=== PATIENT | female | born 1960 | race Caucasian/White ===

== ENCOUNTER 2021-07-24 12:03 | Emergency (ER) | payer OTHER, SELFPAY ==
--- NOTE | ~2021-07-24 | XR_ITS ---
XR chest 1V portable 07/24/2021 12:20 Indication: Chest pain Procedure: AP portable chest Comparison: No prior studies for comparison. Findings: Moderate cardiomegaly. There is left perihilar atelectasis. No focal pneumonia, edema, pleu ral effusion or pneumothorax. Impression: 1: Left perihilar atelectasis. 2: Moderate cardiomegaly. Reviewed, dictated and finalized at location B. Impression: 1: Left perihilar atelectasis. 2: Moderate cardiomegaly.
[2021-07-24 11:59] VITALS: BP 153/74; PULSE 66; RESP 17; TEMP 36.8; O2SAT 97
--- NOTE | 2021-07-24 12:05 | ECG_ITS ---
Measurements Intervals [place] Rate: 70 P: 46 WA: 186 QRS: -30 QRSD: 185 T: 125 QT: 456 QTc: 494 Interpretive Statements SINUS RHYTHM WITH OCCASIONAL SUPRAVENTRICULAR PREMATURE COMPLEXES POSSIBLE LEFT ATRIAL ENLARGEMENT [-0.1mV P-WAVE IN V1/V2] LEFT BUNDLE BRANCH BLOCK [120+ ms QRS DURATION, 80+ ms Q/S IN V1/V2, 85+ ms R IN I/aVL/V5/V6] WARNING: DATA QUALITY MAY AFFECT INTERPRETATION NO PREVIOUS ECG AVAILABLE FOR COMPARISON Electronically Signed On 07-24-2021 22:13:16 CDT by Peace Murphy M.D.
[2021-07-24] MEDS: MORPHINE SULFATE (*CRX) 4 MG/ML INJ IV PUSH (12:13)
[2021-07-24] MEDS: ONDANSETRON INJ 4 MG/2 ML VIAL IV PUSH (12:13)
--- NOTE | 2021-07-24 12:25 | ED.CHESTPAIN ---
HPI - Chest Pain General Chief Complaint: Chest Pain Stated Complaint: stemi ?? Time Seen by Provider: 07/24/21 12:04 Source: patient, EMS and RN notes reviewed Mode of arrival: EMS Limitations: no limitations History of Present Illness HPI narrative: This is a 60 year old female with history of hypertension and heart diease who presents from a clinic for evaluation of chest pain. Patient states she woke up this morning with left chest pain. She reports her pain has been constant. She describes pain as sticking pain . She reports pain radiates to back. She has associated shortness of breath and nausea. HEr pain is worse with breathing. She also states her pain feels similar to when she had MS earlier this year. She states she had heart attack in [place], [place] and she had a stent placed. She is unsure of her medications. She took aspirin 81 mg this morning and EMS gave her additional 3 baby aspirins. Related Data Allergies Allergy/AdvReac Type Severity Reaction Status Date / Time latex Allergy Unknown Verified 07/24/21 12:07 Penicillins Allergy Unknown Verified 07/24/21 12:06 morphine AdvReac Nausea and Verified 07/24/21 12:49 Vomiting Review of Systems Review of Systems: All systems reviewed & are unremarkable except as noted in HPI and below PMFSH Past Medical History Medical History (Updated 07/24/21 @ 12:33 by Charity Aragon MD) Hypertension Myocardial infarction Surgical History Surgical History (Updated 07/24/21 @ 12:30 by Charity Aragon MD) H/O cardiac catheterization History of coronary artery stent placement Social History Social History (Updated 07/24/21 @ 12:30 by Charity Aragon MD) Smoking status: Never smoker Exam Const: General: no acute distress and alert Nutritional Appearance: well nourished Orientation/consciousness: patient oriented x3 HENMT: Head: normal to inspection Eyes: Pupils: Equal, round and reactive pupils present EOM: EOMs intact bilaterally Resp: Effort & Inspection: normal respiratory effort Cardio: Rate: regular rate Rhythm: regular rhythm Heart sounds: no murmurs GI: GI Palp: Yes Soft to palpation, Yes Tenderness to palpation present (GI), No Guarding due to palpation present (GI) and No Rigid due to palpation Auscultation: normal bowel sounds Skin: General skin exam: normal color Rashes: no rashes Neuro: General: patient oriented x3, moves all extremities and CN's II-XI intact bilaterally Extrem: Other: left ankle bruising Psych: Mental Status: mental status grossly normal Course Consultations Consultation #1: I spoke with Dr. Parra (interventionalist) patient with chest pain with EKG showing LBBB. no ekg to compare. He states he will call partner at [facility] for transfer. analytical lab technician is down at [facility] so will need to transfer her Date: 07/24/21 Time: 12:10 Consultation #2: I Spoke with DR. MOORE at [facility] and Dr. Sylvester at [facility] ED. They accepts patient for STEMI Date: 07/24/21 Time: 12:29 Vital Signs Vital signs: Vital Signs Temperature 98.2 F 07/24/21 11:59 Pulse Rate 66 07/24/21 11:59 Respiratory Rate 17 07/24/21 11:59 Blood Pressure 153/74 H 07/24/21 11:59 Pulse Oximetry 97 07/24/21 11:59 Oxygen Delivery Room Air 07/24/21 11:59 Temperature 98.2 F 07/24/21 11:59 Pulse Rate 66 07/24/21 11:59 Respiratory Rate 17 07/24/21 11:59 Blood Pressure 153/74 H 07/24/21 11:59 Pulse Oximetry 97 07/24/21 11:59 Oxygen Delivery Room Air 07/24/21 11:59 Transfer Transfered to: [facility] Transfer rationale: needs cardiac catheterization Accepting physician: Dr. Pineda and Dr. luna Transfer comments: analytical lab technician down at [facility] and patient needs to be transferred for emergent cath MDM - Chest Pain Lab Data Attestation: I reviewed the patient's lab results. Result diagrams: 07/24/21 12:20 07/24/21 12:20 Labs: Lab Results 07/24/21
[2021-07-24 12:29] LABS: Basophils Percent Auto 0.2 % (0.2-1.2); Eosinophils Absolute Auto 0.1 K/mm3 (0-0.3); Eosinophils Percent Auto 1.6 % (0-4.4); Hemoglobin 11.9 g/dL (12.0-15.0); Immature Granulocyte Absolute 0.04 K/mm3 (0.00-0.031); Immature Granulocyte Percent A 0.5 % (0-0.5); Lymphocytes Absolute Auto 1.85 K/mm3 (0.9-3.2); Lymphocytes Percent Auto 22.5 % (18.3-44.2); Mean Corpuscular Hemoglobin 30.9 pg (26-34); Mean Corpuscular Volume 90.9 fl (80-100); Mean Platelet Volume 10.8 fl (7.4-10.4); Monocytes Absolute Auto 0.7 K/mm3 (0.1-0.6); Monocytes Percent Auto 8.8 % (2.6-8.5); Neutrophils Absolute Auto 5.5 K/mm3 (1.3-6.7); Neutrophils Percent Auto 66.4 % (45.5-73.1); Platelet Count Result 159 k/mm3 (150-375); Red Blood Count 3.85 M/mm3 (4.2-5.4); Red Cell Distribution Width 14.1 % (11.5-14.5); White Blood Count 8.2 K/mm3 (4.5-10.0)
[2021-07-24 12:43] LABS: Alanine Aminotransferase 24 U/L (6-35); Alkaline Phosphatase 49 U/L (38-126); Anion Gap 5 mmol/L (8-16); Aspartate Amino Transferase 20 U/L (14-36); Bilirubin,Total 0.6 mg/dL (0.2-1.3); Blood Urea Nitrogen 34 mg/dL (7-17); Calcium 9.4 mg/dL (8.4-10.2); Carbon Dioxide 27 mmol/L (22-30); Chloride 105 mmol/L (98-107); Cholesterol 146 mg/dL (0-200); Estimated CRCL calculation 55 ml/min; Estimated Glomerular Filt Rate 50; Glucose 129 mg/dL (65-110); HDL Direct 51 mg/dL; Lipase 225 U/L (23-300); Potassium 4.4 mmol/L (3.4-5.0); Sodium 137 mmol/L (137-145); Triglycerides 135 mg/dL (<150)
[2021-07-24 12:44] LABS: Glucose Point of Care 151 mg/dl (65-105)
[2021-07-24 12:54] LABS: LDL Cholesterol Direct 58 mg/dL
[2021-07-24 12:55] LABS: INR 1.1; Prothrombin Time 13.3 Seconds (11.1-14.7)
[2021-07-24 12:56] LABS: Partial Thromboplastin Time 27.5 SECONDS (22.3-36.8)
[2021-07-24 12:58] LABS: Troponin I 0.023 ng/mL (0.000-0.034)
== END 2021-07-24 13:10 | disposition short-term general hospital (02) ==
PROVIDERS: Emergency Provider General Practice
DX: I21.3 ST elevation (STEMI) myocardial infarction of unspecified site (principal); I11.9 Hypertensive heart disease without heart failure; I25.2 Old myocardial infarction; Z95.5 Presence of coronary angioplasty implant and graft; I51.7 Cardiomegaly
CPT/HCPCS: 36415; 71045; 80053; 80061; 82948; 83690; 84484; 85025; 85610; 85730; 86850; 86900; 86901; 93005; 96374; 96375; 99291; J1644; J2270; J2405; J7030

== ENCOUNTER 2021-08-06 14:57 | Observation (INO) | payer OTHER, SELFPAY ==
[2021-08-06 15:00] VITALS: BP 161/68; PULSE 67; RESP 14; TEMP 36.4; O2SAT 100
--- NOTE | 2021-08-06 15:11 | ECG_ITS ---
Measurements Intervals [place] Rate: 65 P: 52 WV: 203 QRS: -25 QRSD: 198 T: 138 QT: 495 QTc: 518 Interpretive Statements SINUS RHYTHM POSSIBLE LEFT ATRIAL ENLARGEMENT LEFT BUNDLE BRANCH BLOCK ABNORMAL ECG COMPARED TO ECG 07/24/2021 12:02:24 NO SIGNIFICANT CHANGES Electronically Signed On 08-06-2021 15:56:41 CDT by Brett Boothe M.D.
--- NOTE | 2021-08-06 15:12 | ED.SYNCOPE ---
HPI - Syncope General Chief Complaint: Syncope Stated Complaint: syncope during tx to [place] Time Seen by Provider: 08/06/21 15:08 History of Present Illness HPI narrative: Pt in route from inpatient psych at [facility] to local [place] when had supposed syncopal episode. Pt says she has these quite a bit. Pt has burning chest and burning knee pain. Related Data Home Medications Medication Instructions Recorded Confirmed albuterol sulfate 90 mcg/actuation See Rx Instructions .Route 08/06/21 08/06/21 aerosol inhaler .COMPLEX PRN Respiratory Distress aripiprazole 2 mg tablet 1 tablet PO DAILY 08/06/21 08/06/21 aspirin 81 mg capsule 81 mg PO DAILY 08/06/21 08/06/21 atorvastatin 80 mg tablet 1 tablet PO DAILY 08/06/21 08/06/21 carvedilol 25 mg tablet 1 tablet PO BID 08/06/21 08/06/21 clonidine HCl 0.1 mg tablet 1 tablet PO BID 08/06/21 08/06/21 clopidogrel 75 mg tablet 1 tablet PO DAILY 08/06/21 08/06/21 famotidine 20 mg tablet 1 tablet PO DAILY 08/06/21 08/06/21 ferrous sulfate 325 mg (65 mg 325 mg PO DAILY 08/06/21 08/06/21 iron) tablet fluoxetine 40 mg capsule 40 mg PO DAILY 08/06/21 08/06/21 furosemide 40 mg tablet 1 tablet PO DAILY 08/06/21 08/06/21 isosorbide mononitrate 30 mg 1 tablet PO DAILY 08/06/21 08/06/21 tablet,extended release 24 hr lamotrigine 100 mg tablet 1 tablet PO DAILY 08/06/21 08/06/21 montelukast 10 mg tablet 10 mg PO DAILY 08/06/21 08/06/21 pantoprazole 40 mg tablet,delayed 1 tablet PO DAILY 08/06/21 08/06/21 release potassium chloride 20 mEq 1 tablet PO DAILY 08/06/21 08/06/21 tablet,extended release(part/cryst) ropinirole 0.25 mg tablet 1 tablet PO DAILY 08/06/21 08/06/21 sucralfate 1 gram tablet 1 g PO DIRECTED 08/06/21 08/06/21 trazodone 50 mg tablet 50 mg PO HS PRN Insomnia 08/06/21 08/06/21 valsartan 320 mg tablet 1 tablet PO DAILY 08/06/21 08/06/21 Allergies Allergy/AdvReac Type Severity Reaction Status Date / Time latex Allergy Unknown Verified 07/24/21 12:07 Penicillins Allergy Unknown Verified 07/24/21 12:06 morphine AdvReac Nausea and Verified 07/24/21 12:49 Vomiting Review of Systems Review of Systems: All systems reviewed & are unremarkable except as noted in HPI and below PMFSH Past Medical History Medical History (Updated 08/06/21 @ 17:54 by Néstor Malone III, DO) Hypertension Myocardial infarction Surgical History Surgical History (Updated 07/24/21 @ 12:30 by Charity Aragon MD) H/O cardiac catheterization History of coronary artery stent placement Social History Social History (Updated 07/24/21 @ 12:30 by Charity Aragon MD) Smoking status: Former smoker Alcohol intake: former Substance use: never Spiritual care concerns: No Exam Const: General: healthy appearing Nutritional Appearance: obese Orientation/consciousness: patient oriented x3 Limitations: behavioral limitations Eyes: Conjunctivae: conjunctivae normal EOM: EOMs intact bilaterally Neck: Neck: normal visual inspection and no meningeal signs Chest: Chest palpation & inspection: normal inspection of the chest Resp: Effort & Inspection: normal respiratory effort Auscultation: clear to auscultation bilaterally Cardio: Rate: regular rate Rhythm: regular rhythm Skin: General skin exam: normal color Rashes: no rashes Wounds: no wounds Neuro: General: patient oriented x3, moves all extremities, no meningeal signs and no focal motor deficits Cranial nerves: Yes Nystagmus not present Speech: normal speech Gait exam (Neuro): Normal gait present Extrem: General: normal to inspection and no clubbing, cyanosis or edema Psych: Other: eyes closed and paient initially ansering questions and then stopped answering questions Course Vital Signs Vital signs: Vital Signs Temperature 97.5 F L 08/06/21 15:00 Pulse Rate 67 08/06/21 15:00 Respiratory Rate 14 08/06/21 15:00 Blood Pressure 161/68 H 08/06/21 15:00 Pulse Oximetry 100 08/06/21 15:00 Oxygen Deli
[2021-08-06 15:39] LABS: Basophils Percent Auto 0.5 % (0.2-1.2); Eosinophils Absolute Auto 0.1 K/mm3 (0-0.3); Eosinophils Percent Auto 2.1 % (0-4.4); Hematocrit 32.2 % (37.0-47.0); Hemoglobin 10.7 g/dL (12.0-15.0); Immature Granulocyte Absolute 0.01 K/mm3 (0.00-0.031); Immature Granulocyte Percent A 0.2 % (0-0.5); Lymphocytes Absolute Auto 1.52 K/mm3 (0.9-3.2); Lymphocytes Percent Auto 27.1 % (18.3-44.2); Mean Corpuscular HGB Conc 33.2 g/dl (32-36); Mean Corpuscular Volume 93.3 fl (80-100); Mean Platelet Volume 10.4 fl (7.4-10.4); Monocytes Absolute Auto 0.4 K/mm3 (0.1-0.6); Monocytes Percent Auto 7.9 % (2.6-8.5); Neutrophils Absolute Auto 3.5 K/mm3 (1.3-6.7); Neutrophils Percent Auto 62.2 % (45.5-73.1); Platelet Count Result 137 k/mm3 (150-375); Red Blood Count 3.45 M/mm3 (4.2-5.4); Red Cell Distribution Width 14.2 % (11.5-14.5); White Blood Count 5.6 K/mm3 (4.5-10.0)
[2021-08-06 15:50] LABS: Alanine Aminotransferase 17 U/L (6-35); Albumin Level 3.9 g/dL (3.5-5.1); Alkaline Phosphatase 53 U/L (38-126); Anion Gap 4 mmol/L (8-16); Aspartate Amino Transferase 21 U/L (14-36); Bilirubin,Total 0.3 mg/dL (0.2-1.3); Blood Urea Nitrogen 23 mg/dL (7-17); Calcium 9.3 mg/dL (8.4-10.2); Carbon Dioxide 31 mmol/L (22-30); Chloride 103 mmol/L (98-107); Estimated Glomerular Filt Rate 46; Glucose 107 mg/dL (65-110); Magnesium 1.9 mg/dL (1.6-2.3); Potassium 3.8 mmol/L (3.4-5.0); Sodium 138 mmol/L (137-145)
[2021-08-06 16:11] LABS: Troponin I 0.048 ng/mL (0.000-0.034)
[2021-08-06 17:20] VITALS: BP 141/81; PULSE 71; RESP 14; O2SAT 98
[2021-08-06 18:55] VITALS: BP 158/73; PULSE 71; RESP 12; O2SAT 98
[2021-08-06 19:35] VITALS: BP 176/84; PULSE 67; RESP 16; TEMP 36.2; O2SAT 98
[2021-08-06 20:58] VITALS: BMI 35.4
--- NOTE | 2021-08-06 20:58 | ADMGEN ---
This patient, Yvonne Cottrell, was admitted to IMU Room 211-01. Patient/family oriented to hospital policies and general routines including ID bracelet, bed and alarms, visiting hours, pain management, procedures, bathroom and other care routines, personal items, smoking policy, room service/diet, and visiting hours. Information on how to activate the Rapid Response Team has been discussed. Patient/Family are encouraged to report perceived risks to care and to ask questions if they do not understand what they are told or what they should do.
[2021-08-06 21:16] LABS: Troponin I 0.052 ng/mL (0.000-0.034)
[2021-08-06 22:00] VITALS: PULSE 68
[2021-08-06 22:37] LABS: Troponin I 0.057 ng/mL (0.000-0.034)
[2021-08-07] VITALS (17 sets, daily range): BP systolic 101–185; BP diastolic 69–91; PULSE 56–75; RESP 14–18; TEMP 36.2–36.8; O2SAT 95–100
--- NOTE | 2021-08-07 | ECHO_ITS ---
Patient Info Name: Yvonne Cottrell Age: 60 years : 1960 Gender: Female Ht: 64 in Wt: 206 lbs BSA: 2.09 m2 HR: 62 bpm BP: 101 / 84 mmHg Heart Rhythm: Sinus Rhythm Exam Date: 08/07/2021 10:03 AM Exam Location: [facility] Patient Status: Outpatient Admit Date: 08/06/2021 Staff Ordering Physician: Rachel Houser APRN Spray Drier Operator: Bryant Chaves RDCS, RT Attending Provider: Yina Rice MD Referring Physician: Mik HORTON; Exam Type: CA echo doppler color flow Study Info Indications I50.9 - Heart failure, unspecified Complete two-dimensional, color flow and Doppler transthoracic echocardiogram is performed. Strain analysis performed. Summary 1. Complete two-dimensional, color flow and Doppler transthoracic echocardiogram is performed. 2. Left ventricular chamber dimension is moderately enlarged. 3. Left ventricular systolic function is moderately reduced, estimated at 35% with hypokinesis of the mid anterior wall. 4. There is moderately increased left ventricular wall thickness. 5. Left ventricular septal wall motion is abnormal with septal motion related to bundle branch block. 6. The left ventricular diastolic function is grade I diastolic dysfunction. 7. Global longitudinal strain is severely elevated at -8 %. 8. There is mild mitral valve regurgitation. 9. There is moderate anterior and small posterior pericardial effusion with slight right atrial wall invagination suggestive of increase intra pericardial pressures. No clear evidence of tamponade physiology based on mitral and tricuspid valve inflow velocities. Left Ventricle Left ventricular chamber dimension is moderately enlarged. Left ventricular systolic function is moderately reduced, estimated at 35% with hypokinesis of the mid anterior wall. There is moderately increased left ventricular wall thickness. Left ventricular septal wall motion is abnormal with septal motion related to bundle branch block. The left ventricular diastolic function is grade I diastolic dysfunction. Global longitudinal strain is severely elevated at -8 %. Right Ventricle Right ventricular chamber dimension is normal. Right ventricular systolic function is normal. Left Atria Left atrial chamber dimension is mildly enlarged. Right Atria Right atrial chamber dimension is mildly enlarged. Aortic Valve The aortic valve is not well visualized. There is no aortic valve stenosis with a peak velocity of 198 cm/s, mean gradient of 8 mmHg, and aortic valve area of 2.1 cm2. There is trace aortic valve regurgitation. Pulmonic Valve The pulmonic valve is not well visualized. Mitral Valve The mitral valve has normal leaflets. There is mild mitral valve regurgitation. The mitral valve annulus is moderately calcified. Tricuspid Valve The tricuspid valve leaflets are normal. There is trace tricuspid valve regurgitation. Unable to estimate PA systolic pressure due to poor spectral resolution of tricuspid regurgitant jet velocity. Pericardium/Pleural The pericardium appears normal. There is moderate anterior and small posterior pericardial effusion with slight right atrial wall invagination suggestive of increase intra pericardial pressures. No clear evidence of tamponade physiology based on mitral and tricuspid valve inflow velocities. Inferior Vena Cava Normal inferior vena cava with >50% collapse upon inspiration consistent with normal right atrial pressure, 5 mmHg. Aorta The aortic root size at the s
--- NOTE | 2021-08-07 03:03 | PM.IMHP ---
H&P: HPI History of Present Illness Date/Time: Patient was placed observation status for expected length of stay less than 23 hours for management, will plan to re-evaluate tomorrow for improvement. 08/07/21 03:03 Chief Complaint: Syncopal episode Narrative: Ms. Cottrell is a 60-year-old female who presented to the emergency room via EMS for possible syncopal episode. Patient was recently inpatient geropsych at [facility] and was being transported to a local skilled nursing when she had a possible syncopal episode in the ambulance. Patient states that she is unaware why she is at this hospital. Patient states she does recall being transported in an ambulance, but she is not recall why she ended up at this establishment. Patient denies any chest pain, shortness a breath, palpitations, lightheadedness, or dizziness. Patient states she has been receiving all of her medication while at the hospital without any difficulty. Per previous records patient does have a known history of coronary artery disease status post stent placement while she was in [place], [place]. Patient is a very poor historian and is able to give me any history. All previous history is coming from medical records. Per previous medical records patient does have a history of hypertension, myocardial infarction, coronary artery disease status post stent placement, and schizophrenia. Review of Systems Review of Systems: It is difficult to the obtain a full review of systems from patient secondary to her being a very poor historian. [facility] Past Medical History Medical History (Updated 08/07/21 @ 03:09 by Rachel Houser APRN) Coronary artery disease Hypertension Myocardial infarction Schizophrenia Surgical History Surgical History (Updated 07/24/21 @ 12:30 by Charity Aragon MD) H/O cardiac catheterization History of coronary artery stent placement Social History Social History (Updated 07/24/21 @ 12:30 by Charity Aragon MD) Smoking status: Former smoker Alcohol intake: former Substance use: never Spiritual care concerns: No Meds Home Medications and Allergies Home Medications Medication Instructions Recorded Confirmed Type albuterol sulfate 90 mcg/actuation See Rx Instructions .Route 08/06/21 08/06/21 History aerosol inhaler .COMPLEX PRN Respiratory Distress aripiprazole 2 mg tablet 1 tablet PO DAILY 08/06/21 08/06/21 History aspirin 81 mg capsule 81 mg PO DAILY 08/06/21 08/06/21 History atorvastatin 80 mg tablet 1 tablet PO DAILY 08/06/21 08/06/21 History carvedilol 25 mg tablet 1 tablet PO BID 08/06/21 08/06/21 History clonidine HCl 0.1 mg tablet 1 tablet PO BID 08/06/21 08/06/21 History clopidogrel 75 mg tablet 1 tablet PO DAILY 08/06/21 08/06/21 History famotidine 20 mg tablet 1 tablet PO DAILY 08/06/21 08/06/21 History ferrous sulfate 325 mg (65 mg 325 mg PO DAILY 08/06/21 08/06/21 History iron) tablet fluoxetine 40 mg capsule 40 mg PO DAILY 08/06/21 08/06/21 History furosemide 40 mg tablet 1 tablet PO DAILY 08/06/21 08/06/21 History isosorbide mononitrate 30 mg 1 tablet PO DAILY 08/06/21 08/06/21 History tablet,extended release 24 hr lamotrigine 100 mg tablet 1 tablet PO DAILY 08/06/21 08/06/21 History montelukast 10 mg tablet 10 mg PO DAILY 08/06/21 08/06/21 History pantoprazole 40 mg tablet,delayed 1 tablet PO DAILY 08/06/21 08/06/21 History release potassium chloride 20 mEq 1 tablet PO DAILY 08/06/21 08/06/21 History tablet,extended release(part/cryst) ropinirole 0.25 mg tablet 1 tablet PO DAILY 08/06/21 08/06/21 History sucralfate 1 gram tablet 1 g PO DIRECTED 08/06/21 08/06/21 History trazodone 50 mg tablet 50 mg PO HS PRN Insomnia 08/06/21 08/06/21 History valsartan 320 mg tablet 1 tablet PO DAILY 08/06/21 08/06/21 History Allergies Allergy/AdvReac Type Severity Reaction Status Date / Time latex Allergy Unknown Verified 07/24/21 12:07 Penicillins Allergy Unknown [place]
[2021-08-07 05:30] LABS: Troponin I 0.065 ng/mL (0.000-0.034)
[2021-08-07] MEDS: MONTELUKAST SODIUM 10 MG TABLET PO (08:12)
[2021-08-07] MEDS: ISOSORBIDE MONONITRATE 30 MG TAB.ER.24H PO (08:12)
[2021-08-07] MEDS: lamoTRIgine 100 MG TABLET PO (08:12)
[2021-08-07] MEDS: ENOXAPARIN 40 MG/0.4 ML SYRINGE SUB-Q (08:12)
[2021-08-07] MEDS: ARIPiprazole 2 MG TABLET PO (08:12)
[2021-08-07] MEDS: FUROSEMIDE 40 MG TABLET PO (08:12)
[2021-08-07] MEDS: FLUoxetine HCL 20 MG CAPSULE 40 MG PO (08:13)
[2021-08-07] MEDS: CLOPIDOGREL BISULFATE 75 MG TABLET PO (08:13)
[2021-08-07] MEDS: VALSARTAN 160 MG TABLET 320 MG PO (08:13)
[2021-08-07] MEDS: POTASSIUM CHLORIDE 20 MEQ TABLET.ER PO (08:13)
[2021-08-07] MEDS: FAMOTIDINE 20 MG TABLET PO (08:13)
[2021-08-07] MEDS: cloNIDine HCL 0.1 MG TABLET PO ×2 (08:14→17:38)
[2021-08-07] MEDS: ATORVASTATIN 40 MG TABLET 80 MG PO (08:14)
[2021-08-07] MEDS: carvediloL 25 MG TABLET PO ×2 (08:14→21:35)
[2021-08-07] MEDS: PANTOPRAZOLE 40 MG TABLET PO (08:14)
[2021-08-07] MEDS: FERROUS SULFATE 324 MG TABLET PO (08:14)
[2021-08-07] MEDS: rOPINIRole HCL 0.25 MG TABLET PO (08:14)
[2021-08-07] MEDS: ASPIRIN 81 MG ENTERIC TABLET PO (08:14)
--- NOTE | 2021-08-07 10:18 | IVDEFINITY ---
Prior to administration of IV Definity the patient was educated on the risks and benefits of the imaging enhancing agent including potential adverse side effects. The patient verbalized understanding. Allergies were verified. No exclusion criteria were identified and at least one of the following inclusion criteria were met: 1) physician request, 2) patient technically difficult to image (per the [place] [employer]ocardi[employer] guidelines of two or more segments not discernable within the apical view), or 3) questionable left ventricular function. ?
--- NOTE | 2021-08-07 11:21 | PM.CNCAR ---
Assessment and Plan Assessment and plan (1) Elevated troponin: Code(s): R77.8 - Other specified abnormalities of plasma proteins Status: Acute Assessment and Plan: Mild troponin elevation with flat curve with highly atypical chest pain and likely noncardiac with a chronic left bundle-branch block with recent left heart catheterization with 70 80% proximal LAD stenosis with deferred intervention due to upcoming pancreatic biopsy out of concern for pancreatic cancer. This was deferred so as to not delay possible cancer diagnosis. Again, proceeding with intervention and or stent implantation would not be advised. 2D echocardiogram pending. Will review with recommendation to follow. (2) Coronary artery disease: Code(s): I25.10 - Atherosclerotic heart disease of [place] [facility] [place] coronary artery without angina pectoris Status: Acute Assessment and Plan: As above, continue dual antiplatelet therapy, beta-toan, statin, nitrates. (3) Chest pain: Qualifiers: Chest pain type: other chest pain Qualified Code(s): R07.89 - Other chest pain Code(s): R07.9 - Chest pain, unspecified Status: Acute Assessment and Plan: As above, atypical, most likely noncardiac, however, she has known obstructive CAD on very recent left heart catheterization. (4) Loss of consciousness: Code(s): R40.20 - Unspecified coma Status: Acute Assessment and Plan: Etiology unclear. Patient has been hemodynamically stable. Reported history of seizure disorder patient describes post event confusion possible postictal state. Precise etiology remains unclear however no clear indication this is cardiac etiology. Continue telemetry for now. Check orthostatic vital signs. (5) Hypertension: Code(s): I10 - Essential (primary) hypertension Status: Acute Assessment and Plan: BP remains elevated on multiple antihypertensives including clonidine. Continue to monitor, avoid symptomatic hypotension. (6) Pancreatic mass: Code(s): K86.89 - Other specified diseases of pancreas Status: Acute Assessment and Plan: Defer to primary service. I would recommend arrange for patient to have pancreatic biopsy as soon as possible and not delayed until August. Expediting this process may also allow us to proceed with percutaneous intervention of LAD stenosis sooner as appropriate. History of Present Illness History of Present Illness Consult date/time: Date of service: 08/07/21 11:21 Cardiology consultation at the request of Rachel Houser of the [facility] service for opinion regarding possible syncope and elevated troponin. Requesting physician: Rachel Houser, RAMESH Consult reason: Other (possible syncope, elevated troponin) Reason For Visit: syncope/elevated troponin Narrative: Patient is a rather complicated 60-year-old female with a past medical history for CAD status post stent to LAD remotely, morbid obesity, schizophrenia, bipolar disorder, pancreatic mass, COPD, history of seizure, KOBE who presents to the ER July 24 with complaints of chest pain and left bundle-branch block and concern for possible STEMI for which she was transferred to [facility] catheterization lab was down at [facility]. Coronary angiography was performed there which revealed 70-80% lad stenosis proximal to previously placed stent and a 60 % InStent restenoses. Intervention was deferred due to upcoming pancreatic biopsy out of concern for pancreatic cancer so as not to delay this diagnosis. Her chest pain was atypical similar to that which she complains about described as a burning, sharp pain worse with eating, deep breathing, coughing and movement and highly reproducible to palpation. Patient was discharged from [facility] with plans for outpatient follow-up. She follows with cardiology at [place]. Apparently patient was being transferred from [facility] in
[2021-08-07] MEDS: SUCRALFATE 1 GM TABLET PO ×3 (11:59→21:35)
--- NOTE | 2021-08-07 13:32 | PM.IMPN ---
Progress Note: A&P Assessment and Plan (1) Elevated troponin: Code(s): R77.8 - Other specified abnormalities of plasma proteins Status: Acute Assessment and Plan: Mildly elevated troponins. Patient has an EKG that shows a left bundle branch block, which appears chronic. -Cardiology consulted and appreciate recommendations. -Transthoracic echocardiogram shows enlarged LV chamber, EF 35%, grade I diastolic dysfunction. -Medical records indicate recent left heart cath with 70-80% proximal LAD stenosis with deferred intervention due to upcoming pancreatic biopsy. -Continue medical management. Continue asa, plavix, coreg 25 mg BID, imdur 30 mg daily, atorvastatin and valsartan (2) Syncope: Code(s): R55 - Syncope and collapse Status: Acute Assessment and Plan: Questionable syncopal episode. -Orthostatic vitals pending. -Echo as above. (3) Schizophrenia: Code(s): F20.9 - Schizophrenia, unspecified Status: Chronic Assessment and Plan: -Continue Abilify and Lamictal. (4) Chronic HFrEF (heart failure with reduced ejection fraction): Code(s): I50.22 - Chronic systolic (congestive) heart failure Status: Acute Assessment and Plan: Noted on previous records. Repeat EKG with moderately enlarged LV chamber, EF 35%, grade 1 diastolic dysfunction. -Continue coreg, furosemide, valsartan at current doses. -Daily weights. -Monitor I/O. (5) Pancreatic mass: Code(s): K86.89 - Other specified diseases of pancreas Status: Acute Assessment and Plan: To be aware. Pancreatic biopsy pending to rule out pancreatic cancer. (6) GERD (gastroesophageal reflux disease): Code(s): K21.9 - Gastro-esophageal reflux disease without esophagitis Status: Chronic Assessment and Plan: Continue protonix, famotidine and sulcrafate at home doses. Plan Discharge in 1-2 days, pending Cardiology recommendations and patient response to treatment plan. Disposition: residential. Time Spent With Patient Time with patient: 15 - 25 minutes Subjective Date/time seen: 08/07/21 13:32 Patient is 60 yo female with medical history of CAD s/p 1 heart stent in [facility], hypertension, hyperlipidemia and schizophrenia, who presented to the ED following possible syncope in route from [facility] to residential. She was found to have mildly elevated troponins. Patient sitting up in bed. She reports difficulty sleeping last night. She also states she had an episode of emesis following breakfast, which she attributes to her gout. She states at she needs oxygen but passed a walk test. Patient is tangential and easily distracted. No chest pain, SOB, palpitations, abd pain, nausea or diarrhea. Her last BM was yesterday and hard. Review of Systems Review of Systems: All systems reviewed & are unremarkable except as noted in HPI and below Exam Narrative: Constitutional: No acute distress. Obese older adult female sitting up in bed. No oxygen. Patient is alert and oriented x1-2 HEENT: Normocephalic, atraumatic. PERRL. Moist mucous membranes. No scleral icterus. No lymphadenopathy. Neck: No carotid bruits or JVD noted Lungs: Lung sounds are clear to auscultation bilaterally. No accessory muscle use. No rhonchi, rales, or wheezes noted. Cardiovascular: Normal S1 & S2 regular rate and rhythm. Systolic murmur 1/6 LSB. No gallops or rubs noted. Abdomen: Soft, round, and nontender. No palpable masses. Extremities: Trace edema to bilateral lower extremities. Moves all 4 extremities equally with full strength. Skin: No rashes or lesions. Warm and dry. Skin is intact. Fair. Neurological: No focal neurological deficits. Cranial nerves II-XII grossly intact. Psychiatric: Awake. AOx2. Tangential speech. Cooperative, neutral mood and affect. Objective Data Vital Signs Vital Signs: Vital Signs - 24 hr 08/06
[2021-08-07] MEDS: hydrALAZINE HCL 20 MG/ML VIAL 10 MG IV PUSH (18:17)
[2021-08-07] MEDS: traZODone HCL 50 MG TABLET PO (21:35)
[2021-08-08] VITALS (12 sets, daily range): BP systolic 89–158; BP diastolic 36–82; PULSE 55–67; RESP 16–24; TEMP 36.1–36.8; O2SAT 97–100
[2021-08-08 05:59] LABS: Basophils Percent Auto 0.5 % (0.2-1.2); Eosinophils Absolute Auto 0.1 K/mm3 (0-0.3); Eosinophils Percent Auto 2.6 % (0-4.4); Hematocrit 34.9 % (37.0-47.0); Hemoglobin 11.3 g/dL (12.0-15.0); Immature Granulocyte Absolute 0.02 K/mm3 (0.00-0.031); Immature Granulocyte Percent A 0.4 % (0-0.5); Immature Platelet Fraction Pct 5.6 % (0.9-11.2); Lymphocytes Absolute Auto 1.46 K/mm3 (0.9-3.2); Lymphocytes Percent Auto 26.7 % (18.3-44.2); Mean Corpuscular HGB Conc 32.4 g/dl (32-36); Mean Corpuscular Hemoglobin 30.6 pg (26-34); Mean Corpuscular Volume 94.6 fl (80-100); Monocytes Absolute Auto 0.4 K/mm3 (0.1-0.6); Monocytes Percent Auto 7.3 % (2.6-8.5); Neutrophils Absolute Auto 3.4 K/mm3 (1.3-6.7); Neutrophils Percent Auto 62.5 % (45.5-73.1); Platelet Count Result 149 k/mm3 (150-375); Red Blood Count 3.69 M/mm3 (4.2-5.4); Red Cell Distribution Width 14.1 % (11.5-14.5); White Blood Count 5.5 K/mm3 (4.5-10.0)
[2021-08-08 06:11] LABS: Alanine Aminotransferase 20 U/L (6-35); Albumin Level 3.8 g/dL (3.5-5.1); Alkaline Phosphatase 51 U/L (38-126); Anion Gap 4 mmol/L (8-16); Aspartate Amino Transferase 22 U/L (14-36); Bilirubin,Total 0.4 mg/dL (0.2-1.3); Blood Urea Nitrogen 22 mg/dL (7-17); Calcium 9.3 mg/dL (8.4-10.2); Carbon Dioxide 29 mmol/L (22-30); Chloride 102 mmol/L (98-107); Estimated CRCL calculation 61 ml/min; Estimated Glomerular Filt Rate 56; Glucose 118 mg/dL (65-110); Magnesium 1.9 mg/dL (1.6-2.3); Potassium 3.8 mmol/L (3.4-5.0); Sodium 135 mmol/L (137-145)
[2021-08-08] MEDS: SUCRALFATE 1 GM TABLET PO ×2 (06:19→12:10)
[2021-08-08] MEDS: FUROSEMIDE 40 MG TABLET PO (08:41)
[2021-08-08] MEDS: ASPIRIN 81 MG ENTERIC TABLET PO (08:41)
[2021-08-08] MEDS: POTASSIUM CHLORIDE 20 MEQ TABLET.ER PO (08:41)
[2021-08-08] MEDS: ARIPiprazole 2 MG TABLET PO (08:41)
[2021-08-08] MEDS: FERROUS SULFATE 324 MG TABLET PO (08:41)
[2021-08-08] MEDS: rOPINIRole HCL 0.25 MG TABLET PO (08:41)
[2021-08-08] MEDS: ISOSORBIDE MONONITRATE 30 MG TAB.ER.24H PO (08:41)
[2021-08-08] MEDS: PANTOPRAZOLE 40 MG TABLET PO (08:41)
[2021-08-08] MEDS: cloNIDine HCL 0.1 MG TABLET PO (08:41)
[2021-08-08] MEDS: carvediloL 25 MG TABLET PO (08:41)
[2021-08-08] MEDS: ATORVASTATIN 40 MG TABLET 80 MG PO (08:41)
[2021-08-08] MEDS: lamoTRIgine 100 MG TABLET PO (08:42)
[2021-08-08] MEDS: FLUoxetine HCL 20 MG CAPSULE 40 MG PO (08:42)
[2021-08-08] MEDS: VALSARTAN 160 MG TABLET 320 MG PO (08:42)
[2021-08-08] MEDS: FAMOTIDINE 20 MG TABLET PO (08:42)
[2021-08-08] MEDS: ENOXAPARIN 40 MG/0.4 ML SYRINGE SUB-Q (08:42)
[2021-08-08] MEDS: MONTELUKAST SODIUM 10 MG TABLET PO (08:42)
[2021-08-08] MEDS: CLOPIDOGREL BISULFATE 75 MG TABLET PO (08:42)
--- NOTE | 2021-08-08 11:47 | PM.PNCARD ---
Progress Note: A&P Assessment and Plan (1) Elevated troponin: Code(s): R77.8 - Other specified abnormalities of plasma proteins Status: Acute Assessment and Plan: Mild troponin elevation with flat curve with highly atypical chest pain and likely noncardiac with a chronic left bundle-branch block with recent left heart catheterization with 70 80% proximal LAD stenosis with deferred intervention due to upcoming pancreatic biopsy out of concern for pancreatic cancer. This was deferred so as to not delay possible cancer diagnosis. Again, proceeding with intervention and or stent implantation would not be advised. 2D echocardiogram EF approximately 35%. Continue medical therapy. No significant arrhythmias on telemetry overnight. Discussed with hospitalist regarding clarification of reported pancreatic mass and concern for pancreatic cancer and planned biopsy which should be expedited so that for days intervention can be pursued as soon as possible. Continue dual antiplatelet therapy at this time. (2) Coronary artery disease: Code(s): I25.10 - Atherosclerotic heart disease of [place] coronary artery without angina pectoris Status: Acute Assessment and Plan: As above, continue dual antiplatelet therapy, beta-toan, statin, nitrates. (3) Chest pain: Qualifiers: Chest pain type: other chest pain Qualified Code(s): R07.89 - Other chest pain Code(s): R07.9 - Chest pain, unspecified Status: Acute Assessment and Plan: As above, atypical, most likely noncardiac, however, she has known obstructive CAD on very recent left heart catheterization. Chest pain has resolved. Patient will follow-up as an outpatient with Cardiology varsha Robertson. (4) Loss of consciousness: Code(s): R40.20 - Unspecified coma Status: Acute Assessment and Plan: Etiology unclear. Patient has been hemodynamically stable. Reported history of seizure disorder patient describes post event confusion possible postictal state. Precise etiology remains unclear however no clear indication this is cardiac etiology. Continue telemetry for now. Check orthostatic vital signs. Patient relatively hypotensive this morning., may reduce carvedilol to 12.5 mg twice daily, reduced her clonidine cautiously as appropriate. (5) Hypertension: Code(s): I10 - Essential (primary) hypertension Status: Acute Assessment and Plan: BP has been elevated but now hypotensive this morning. As above. (6) Pancreatic mass: Code(s): K86.89 - Other specified diseases of pancreas Status: Acute Assessment and Plan: Defer to primary service. I would recommend arrange for patient to have pancreatic biopsy as soon as possible and not delayed until August. Expediting this process may also allow us to proceed with percutaneous intervention of LAD stenosis sooner as appropriate. Subjective Date/time seen: Date of service: 08/08/21 11:47 Follow-up for chest pain, elevated troponin, CAD, possible syncope Patient feels much better. Denies chest pain or shortness of breath although notes intermittent wheezing. No palpitation. No new issues overnight. BP has been stable. Review of Systems Review of Systems: All systems reviewed & are unremarkable except as noted in HPI and below Constitutional: Constitutional: Reports as per HPI and Reports no additional constitutional complaints Eyes: Eyes: Reports as per HPI and Reports no additional eye complaints ENT: Reports system reviewed and no additional complaints, except as documented and Reports as per HPI Cardiovascular: Cardiovascular: Reports as per HPI and Reports no additional cardiovascular complaints Respiratory: Respiratory: Reports as per HPI and Reports no additional respiratory complaints Gastrointestinal: Gastrointestinal: Reports as per HPI and Reports no additional gastrointestinal complaints Genitourinary: Genitourinary: Re
--- NOTE | 2021-08-08 15:49 | PM.DS ---
DS: Admitting Diagnosis Discharge Date 08/08/2021 1549 Admitting Diagnosis Near syncope DS: Discharge Diagnosis Discharge Diagnosis (1) Elevated troponin: Code(s): R77.8 - Other specified abnormalities of plasma proteins Status: Acute (2) Chest pain: Qualifiers: Chest pain type: other chest pain Qualified Code(s): R07.89 - Other chest pain Code(s): R07.9 - Chest pain, unspecified Status: Acute (3) Coronary artery disease: Code(s): I25.10 - Atherosclerotic heart disease of [place] coronary artery without angina pectoris Status: Acute (4) Chronic HFrEF (heart failure with reduced ejection fraction): Code(s): I50.22 - Chronic systolic (congestive) heart failure Status: Chronic (5) Pancreatic mass: Code(s): K86.89 - Other specified diseases of pancreas Status: Acute (6) Schizophrenia: Code(s): F20.9 - Schizophrenia, unspecified Status: Chronic (7) Hypertension: Code(s): I10 - Essential (primary) hypertension Status: Chronic (8) GERD (gastroesophageal reflux disease): Code(s): K21.9 - Gastro-esophageal reflux disease without esophagitis Status: Chronic DS: Summary Hospital Course Reason for hospitalization: Near syncope Hospital Course: Yvonne Cottrell is a 60-year-old female who presented to the emergency room via EMS for possible syncopal episode.? Patient was recently inpatient geropsych at [facility] and was being transported to a local shelter when she had a possible syncopal episode in the ambulance.? Patient is a poor historian and was unaware why she is at this hospital.? Patient states she does recall being transported in an ambulance, but she does not recall why she ended up at this establishment.? Patient denies any chest pain, shortness a breath, palpitations, lightheadedness, or dizziness.? Patient had been receiving all of her medications while at the hospital without any difficulty.? Per previous records patient does have a known history of coronary artery disease status post stent placement while she was in [place], [place], as well as hypertension and schizophrenia.? The patient was admitted to the medical floor and monitored on telemetry. Cardiology was consulted. Patient had known coronary artery disease with 70-80% proximal LAD stenosis and 60-70% restenosis to LAD stent. Coronary intervention has been referred due to patient's planned EUS with pancreatic biopsy on 08/22/21. No arrhythmia was noted on telemetry. HR and BP remained stable. She did not have any episodes of syncope during her hospital stay. Repeat transthoracic echocardiogram did show EF 35%, which was improved from previous imaging. Medical management of CAD was continued with aspirin, plavix, coreg, valsartan, hydralazine, Imdur, and lasix. Details of her EUS pancreatic biopsy was finally obtained. Dr. Kee's office was contacted about moving up her pancreatic biopsy procedure. Dr. Kee's office moved the patient's procedure to a different facility on 08/15/21. The office was to contact the patient and her family regarding preprocedure plans. She was counseled to hold her plavix starting 08/09/21. She has cardiology follow up with Dr. Rangel on 08/20/21. The patient was discharged to half-way facility in stable condition. The above changes and recommendations were discussed with the patient and her niece. She was instructed to continue taking medications as prescribed, change positions slowly and what to do for development of chest pain. Status at Discharge Cognitive/behavioral status at discharge: AOx3, poor historian, pleasant and cooperative. Functional status at discharge: independent ambulation Overall status at discharge: patient is back to baseline Time Spent with Patient Time attestation: Total time spent providing and/or coordinating discharge services: Time spent: Greater than 30 minutes Elza
[2021-08-08 17:07] LABS: SARS-CoV-2 RNA PCR Negative
== END 2021-08-08 17:18 ==
LOC: ANHED 17:54 → ANHIMU 08-08 13:32
PROVIDERS: Nurse Practitioner Adult Health; Admitting Provider Family Medicine; Emergency Provider Emergency Medicine; Visit Provider Nurse Practitioner Family
DX: R07.9 Chest pain, unspecified (principal); R77.8 Other specified abnormalities of plasma proteins; I25.10 Atherosclerotic heart disease of native coronary artery without angina pectoris; I25.2 Old myocardial infarction; I11.0 Hypertensive heart disease with heart failure; I50.22 Chronic systolic (congestive) heart failure; I44.7 Left bundle-branch block, unspecified; F20.9 Schizophrenia, unspecified; F31.9 Bipolar disorder, unspecified; J44.9 Chronic obstructive pulmonary disease, unspecified; G47.33 Obstructive sleep apnea (adult) (pediatric); K21.9 Gastro-esophageal reflux disease without esophagitis; Z87.891 Personal history of nicotine dependence; Z95.5 Presence of coronary angioplasty implant and graft; Z79.82 Long term (current) use of aspirin; Z79.84 Long term (current) use of oral hypoglycemic drugs; Z79.02 Long term (current) use of antithrombotics/antiplatelets; K86.89 Other specified diseases of pancreas; R40.20 Unspecified coma; E66.01 Morbid (severe) obesity due to excess calories; Z68.39 Body mass index [BMI] 39.0-39.9, adult; Z20.822 Contact with and (suspected) exposure to COVID-19
CPT/HCPCS: 36415; 80053; 83735; 84484; 85025; 85055; 93005; 93306; 96372; 99285; A9270; C9803; G0378; G0379; J0360; J1650; Q9957; U0003; U0005

== ENCOUNTER 2021-11-23 19:42 | Emergency (ER) | payer OTHER, SELFPAY ==
--- NOTE | ~2021-11-23 | XR_ITS ---
EXAM: XR knee RT 3V, XR knee LT 3V DATE: 11/23/2021 20:50 HISTORY: fall, knee pain . COMPARISON: None available. FINDINGS: Mildly decreased mineralization. No fracture or dislocation. No lytic or blastic lesion. M ild medial joint space narrowing on the right. Moderate tricompartmental osteophytosis, worst in the patellofemoral compartments, again overall worse on the right. No erosion or periosteal change. Soft tissues within normal limits. IMPRESSION: No acute osseous finding in the knees. Reviewed, dictated and finalized at location K. IMPRESSION: No acute osseous finding in the knees.
[2021-11-23 20:00] VITALS: BP 156/80; PULSE 64; RESP 18; TEMP 36.3; O2SAT 97
--- NOTE | 2021-11-23 20:34 | ED.LOWEXIN ---
HPI - Extremity Injury (Lower) General Chief Complaint: Extremity Injury, Lower Stated Complaint: knee pain Time Seen by Provider: 11/23/21 20:14 History of Present Illness HPI Narrative: 61-year-old female here for evaluation from her nursing facility for evaluation of bilateral knee pain. Patient states that she was ambulating in her usual state of health, when she felt her right knee buckle, causing her bilateral knees to externally rotate. She did not fall. Since then, she has complained of bilateral knee pain. She denies any numbness or tingling in her feet. Denies any chest pain, shortness of breath, fevers or chills. She has a history of arthritis and was told that she needed knee replacement but had to lose weight first. She notes that similar episodes have happened in the past has been attributed to arthritis. She has been ambulatory since the accident. Of note, patient has an EF of 15% and is supposed to be wearing a LifeVest. She has been wearing a LifeVest but frequently takes it off because it is uncomfortable. She denies any chest pain, shortness of breath, syncope. Related Data Home Medications Medication Instructions Recorded Confirmed albuterol sulfate 90 mcg/actuation See Rx Instructions .Route 08/06/21 08/06/21 aerosol inhaler .COMPLEX PRN Respiratory Distress aripiprazole 2 mg tablet 1 tablet PO DAILY 08/06/21 08/06/21 aspirin 81 mg capsule 81 mg PO DAILY 08/06/21 08/06/21 atorvastatin 80 mg tablet 1 tablet PO DAILY 08/06/21 08/06/21 carvedilol 25 mg tablet 1 tablet PO BID 08/06/21 08/06/21 clonidine HCl 0.1 mg tablet 1 tablet PO BID 08/06/21 08/06/21 clopidogrel 75 mg tablet 1 tablet PO DAILY 08/06/21 08/06/21 famotidine 20 mg tablet 1 tablet PO DAILY 08/06/21 08/06/21 ferrous sulfate 325 mg (65 mg 325 mg PO DAILY 08/06/21 08/06/21 iron) tablet fluoxetine 40 mg capsule 40 mg PO DAILY 08/06/21 08/06/21 furosemide 40 mg tablet 1 tablet PO DAILY 08/06/21 08/06/21 isosorbide mononitrate 30 mg 1 tablet PO DAILY 08/06/21 08/06/21 tablet,extended release 24 hr lamotrigine 100 mg tablet 1 tablet PO DAILY 08/06/21 08/06/21 montelukast 10 mg tablet 10 mg PO DAILY 08/06/21 08/06/21 pantoprazole 40 mg tablet,delayed 1 tablet PO DAILY 08/06/21 08/06/21 release potassium chloride 20 mEq 1 tablet PO DAILY 08/06/21 08/06/21 tablet,extended release(part/cryst) ropinirole 0.25 mg tablet 1 tablet PO DAILY 08/06/21 08/06/21 valsartan 320 mg tablet 1 tablet PO DAILY 08/06/21 08/06/21 Allergies Allergy/AdvReac Type Severity Reaction Status Date / Time Iodinated Contrast Media Allergy Palpitation Verified 11/23/21 20:11 s latex Allergy Rash Verified 11/23/21 20:11 Penicillins Allergy Hives Verified 11/23/21 20:11 morphine AdvReac Nausea and Verified 11/23/21 20:11 Vomiting Lobster Allergy Swelling Uncoded 11/23/21 20:11 of Lip/Tongue/Throat Review of Systems Review of Systems: Gen: Denies fevers or chills Eyes: Denies eye pain or visual change ENT: Denies congestion Respiratory: Denies shortness of breath or cough CV: Denies chest pain or palpitations GI: Denies abdominal pain nausea, emesis or diarrhea denies burning, urgency, frequency or hematuria Musculoskeletal: Reports bilateral knee pain. Neuro: Denies numbness, tingling, weakness or focal weakness Skin: Denies rash Except as documented, all other systems reviewed and negative [facility] Past Medical History Medical History Chronic HFrEF (heart failure with reduced ejection fraction) Coronary artery disease GERD (gastroesophageal reflux disease) Hypertension Myocardial infarction Schizophrenia Surgical History Surgical History H/O cardiac catheterization History of coronary artery stent placement Social History Social History Smoking sta
--- NOTE | 2021-11-23 20:38 | PC.NURSE ---
xray at bedside.
[2021-11-23 21:26] VITALS: BP 173/78; PULSE 64; RESP 19; O2SAT 97
== END 2021-11-23 21:43 ==
PROVIDERS: Emergency Provider General Practice; PCP Internal Medicine
DX: M17.0 Bilateral primary osteoarthritis of knee (principal); I25.10 Atherosclerotic heart disease of native coronary artery without angina pectoris; K21.9 Gastro-esophageal reflux disease without esophagitis; I10 Essential (primary) hypertension; I25.2 Old myocardial infarction; F20.9 Schizophrenia, unspecified; Z95.5 Presence of coronary angioplasty implant and graft; Z87.891 Personal history of nicotine dependence; Z79.82 Long term (current) use of aspirin
CPT/HCPCS: 73562; 99284

== ENCOUNTER 2022-11-13 01:41 | Inpatient (IN) | payer OTHER, SELFPAY ==
[2022-11-13] VITALS (29 sets, daily range): BP systolic 124–179; BP diastolic 49–97; PULSE 60–94; RESP 15–20; TEMP 35.6–36.6; O2SAT 95–99; BMI 44.8
--- NOTE | ~2022-11-13 | CT_ITS ---
Non-contrast CT scan of the Abdomen and Pelvis Clinical indication: Abdominal pain, elevated lipase Technique: 2.5 mm axial scans were obtained through the abdomen and pelvis without intravenous or or al contrast. Dose reduction technique was used on this scan by utilizing automated exposure control a nd iterative reconstruction technique. The dose-length product (DLP) was 1583.60 mGy-cm. Findings: Images through the lung bases reveal minimal pericardial effusion. There is no evidence of renal or ureteral calculi. The kidneys and the ureters are nondilated. The liver, spleen, left kidney, gallbladder, and adrenals appear normal. There is a 4.7 x 4.9 x 5.7 c m cystic-appearing mass at the pancreatic head region. Patient is status post right nephrectomy. Ther e are atherosclerotic calcifications of the aorta. There is no evidence of bowel obstruction. Normal appendix. Images through the pelvis were performed. There is no evidence of ascites or lymphadenopathy. Urinary bladder unremarkable. Patient is post hysterectomy. No adnexal mass seen. Impression: 4.7 x 4.9 x 5.7 cm cystic-appearing mass the pancreatic head region. Likely diagnostic considerations would include pseudocyst versus cystic neoplasm. However history of pancreatitis. Follow-up pre and postcontrast MR can be considered for further imaging evaluation, if indicated. Status post prior right nephrectomy. Minimal pericardial effusion. Reviewed, dictated and finalized at location M. Impression: 4.7 x 4.9 x 5.7 cm cystic-appearing mass the pancreatic head region. Likely ventura gnostic considerations would include pseudocyst versus cystic neoplasm. However history of pancreatitis. Follow-up pre and postcontrast MR can be considered f or further imaging evaluation, if indicated. Status post prior right nephrectomy. Minimal pericardial effusion.
--- NOTE | ~2022-11-13 | XR_ITS ---
Portable chest x-ray Comparison: 07/24/2021 Clinical History: Chest pain Findings: Lungs are clear, without focal consolidation or pleural effusion. Cardiomediastinal silho uette is stable, with pacemaker device. Bones and soft tissues are unremarkable. Impression: Clear lungs. Pacemaker device. Reviewed, dictated and finalized at location . Impression: Clear lungs. Pacemaker device.
--- NOTE | 2022-11-13 01:49 | ECG_ITS ---
Measurements Intervals [place] Rate: 61 P: 232 MT: 128 QRS: 15 QRSD: 151 T: 126 QT: 462 QTc: 468 Interpretive Statements ATRIAL SENSE- ELECTRONIC VENTRICULAR PACEMAKER WITH INHIBITION BASELINE ARTIFACT- I, AVL NO FURTHER INTERPRETATION IS POSSIBLE ATYPICAL ECG COMPARED TO ECG 08/06/2021 15:18:14 NO SIGNIFICANT CHANGES Electronically Signed On 11-13-2022 6:25:28 CDT by Sukhdev Murillo D.O.
--- NOTE | 2022-11-13 01:58 | ED.GENADULT ---
HPI - General Adult General Chief complaint: Chest Pain Stated complaint: cp Time Seen by Provider: 11/13/22 01:44 History of Present Illness HPI narrative: Patient 62-year-old female who presents the emergency department with chief complaint of chest pain. Patient is a resident of a local nursing facility and over the last 2 days has been having discomfort in her chest. 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 Related Data Home Medications Medication Instructions Recorded Confirmed albuterol sulfate 90 mcg/actuation See Rx Instructions .Route 08/06/21 08/06/21 aerosol inhaler .COMPLEX PRN Respiratory Distress aripiprazole 2 mg tablet 1 tablet PO DAILY 08/06/21 08/06/21 aspirin 81 mg capsule 81 mg PO DAILY 08/06/21 08/06/21 atorvastatin 80 mg tablet 1 tablet PO DAILY 08/06/21 08/06/21 carvedilol 25 mg tablet 1 tablet PO BID 08/06/21 08/06/21 clonidine HCl 0.1 mg tablet 1 tablet PO BID 08/06/21 08/06/21 clopidogrel 75 mg tablet 1 tablet PO DAILY 08/06/21 08/06/21 famotidine 20 mg tablet 1 tablet PO DAILY 08/06/21 08/06/21 ferrous sulfate 325 mg (65 mg 325 mg PO DAILY 08/06/21 08/06/21 iron) tablet fluoxetine 40 mg capsule 40 mg PO DAILY 08/06/21 08/06/21 furosemide 40 mg tablet 1 tablet PO DAILY 08/06/21 08/06/21 isosorbide mononitrate 30 mg 1 tablet PO DAILY 08/06/21 08/06/21 tablet,extended release 24 hr lamotrigine 100 mg tablet 1 tablet PO DAILY 08/06/21 08/06/21 montelukast 10 mg tablet 10 mg PO DAILY 08/06/21 08/06/21 pantoprazole 40 mg tablet,delayed 1 tablet PO DAILY 08/06/21 08/06/21 release potassium chloride 20 mEq 1 tablet PO DAILY 08/06/21 08/06/21 tablet,extended release(part/cryst) ropinirole 0.25 mg tablet 1 tablet PO DAILY 08/06/21 08/06/21 valsartan 320 mg tablet 1 tablet PO DAILY 08/06/21 08/06/21 Allergies Allergy/AdvReac Type Severity Reaction Status Date / Time Iodinated Contrast Media Allergy Palpitation Verified 11/13/22 02:47 s latex Allergy Rash Verified 11/13/22 02:47 Penicillins Allergy Hives Verified 11/13/22 02:47 morphine AdvReac Nausea and Verified 11/13/22 02:47 Vomiting Lobster Allergy Swelling Uncoded 11/13/22 02:47 of Lip/Tongue/Throat Review of Systems Review of Systems: A 10 system review of systems was completed on the patient and is negative except for what is stated in the HPI. Nursing and ancillary documentation was reviewed. PMFSH Past Medical History Medical History Chronic HFrEF (heart failure with reduced ejection fraction) Coronary artery disease GERD (gastroesophageal reflux disease) Hypertension Myocardial infarction Schizophrenia Surgical History Surgical History H/O cardiac catheterization History of coronary artery stent placement Social History Social History Smoking status: Former smoker Alcohol intake: former Substance use: never Spiritual care concerns: No Exam Narrative: GENERAL: Well-appearing, well-nourished, and in no acute distress. HEAD: Normocephalic, atraumatic. EYES: PERRLA and EOMI. ENT: Nares clear, no rhinorrhea or epistaxis. Mucous membranes moist. NECK: Supple. CHEST: Clear to auscultation. No respiratory distress. HEART: Regular rate and rhythm. No murmur heard. Normal peripheral pulses. ABDOMEN: Soft, nontender, nondistended, normal active bowel sounds. EXTREMITIES: Normal range of motion. No edema. SKIN: Warm, dry, no rash. NEURO: No focal deficits. Alert and oriented x3. PSYCH: Normal mood and affect. Course Vital Signs Vital signs: Vi
[2022-11-13] MEDS: NITROGLYCERIN SL 0.4 MG TABLET SUBLINGUAL (02:35)
[2022-11-13 03:01] LABS: Prothrombin Time 13.7 Seconds (11.1-14.7)
[2022-11-13 03:02] LABS: Partial Thromboplastin Time 28.2 SECONDS (22.3-36.8)
[2022-11-13 03:07] LABS: Appearance Urine Cloudy (Clear); Bacteria Urine 4+ /hpf; Bilirubin Urine Negative (Negative); Blood Urine Trace (Negative); Color Urine Yellow (Yellow); Glucose Urine UA 2+ mg/dL (Negative); Ketones Urine Negative (Negative); Leukocyte Esterase Ur Trace LEU/UL (Negative); Need Manual Microscopic Reviewed; Nitrate Urine Negative (Negative); Non Pathogenic Casts 0-2; Protein Urine Negative (Negative); Specific Grav Ur 1.008 (1.001-1.035); Squamous Epithelial Cell Urine Occasional /hpf (Few); Urobilinogen Urine 0.2 mg/dL (<2.0); pH Urine 5.5 (5.0-9.0)
[2022-11-13 03:20] LABS: Basophils Percent Auto 0.7 % (0.2-1.2); Eosinophils Absolute Auto 0.2 K/mm3 (0-0.3); Eosinophils Percent Auto 3.6 % (0-4.4); Hematocrit 38.4 % (37.0-47.0); Hemoglobin 12.7 g/dL (12.0-15.0); Immature Granulocyte Absolute 0.03 K/mm3 (0.00-0.031); Immature Granulocyte Percent A 0.5 % (0-0.5); Lymphocytes Absolute Auto 1.53 K/mm3 (0.9-3.2); Lymphocytes Percent Auto 25.2 % (18.3-44.2); Mean Corpuscular HGB Conc 33.1 g/dl (32-36); Mean Corpuscular Hemoglobin 30.5 pg (26-34); Mean Corpuscular Volume 92.3 fl (80-100); Mean Platelet Volume 11.3 fl (7.4-10.4); Monocytes Absolute Auto 0.6 K/mm3 (0.1-0.6); Monocytes Percent Auto 10.2 % (2.6-8.5); Neutrophils Absolute Auto 3.6 K/mm3 (1.3-6.7); Neutrophils Percent Auto 59.8 % (45.5-73.1); Platelet Count Result 162 k/mm3 (150-375); Red Blood Count 4.16 M/mm3 (4.2-5.4); Red Cell Distribution Width 13.4 % (11.5-14.5); White Blood Count 6.1 K/mm3 (4.5-10.0)
[2022-11-13 03:20] LABS: Add Urine Microscopic? YES
[2022-11-13 03:25] LABS: Troponin I < 0.012 ng/mL (0.000-0.034)
[2022-11-13 03:28] LABS: Albumin Level 4.6 g/dL (3.5-5.1); Alkaline Phosphatase 79 U/L (38-126); Blood Urea Nitrogen 35 mg/dL (7-17); Potassium 4.2 mmol/L (3.4-5.0)
[2022-11-13 03:29] LABS: Alanine Aminotransferase 24 U/L (6-35); Anion Gap 10 mmol/L (8-16); Aspartate Amino Transferase 26 U/L (14-36); Bilirubin,Total 0.4 mg/dL (0.2-1.3); Calcium 10.3 mg/dL (8.4-10.2); Carbon Dioxide 24 mmol/L (22-30); Chloride 102 mmol/L (98-107); Estimated CRCL calculation 49 ml/min; Estimated Glomerular Filt Rate 41; Glucose 125 mg/dL (65-110); Sodium 136 mmol/L (137-145)
[2022-11-13 03:30] LABS: NT Pro B Type Natriuretic Pept 281 pg/mL (19.9-100)
[2022-11-13 03:32] LABS: Lipase 2103 U/L (23-300)
--- NOTE | 2022-11-13 04:24 | PC.NURSE ---
Addendum entered by Jessica Hogue RN 11/13/22 04:27: note entered on wrong patient. Original Note: This RN attempted to call [facility] x2 with no answer
[2022-11-13 06:02] LABS: Troponin I 0.021 ng/mL (0.000-0.034)
--- NOTE | 2022-11-13 07:01 | PC.NURSE ---
This RN Spoke with Eliot RIVERS from [facility]. longterm updated on pt's plan of care.
--- NOTE | 2022-11-13 07:10 | PC.NURSE ---
Patient report received from SILVESTRE Lopez. All questions answered and care of patient assumed.
[2022-11-13 08:36] LABS: Troponin I 0.018 ng/mL (0.000-0.034)
[2022-11-13] MEDS: SODIUM CHLORIDE 0.9% IV 1,000 ML 125 ML IV CONT (09:03)
[2022-11-13] MEDS: CIPROFLOXACIN 400 MG/D5W 200ML 200 ML 200 MG IVPB ×2 (09:04→20:33)
--- NOTE | 2022-11-13 09:34 | ADMGEN ---
This patient, Yvonne Cottrell, was admitted to IMU Room 212-01. Patient/family oriented to hospital policies and general routines including ID bracelet, bed and alarms, visiting hours, pain management, procedures, bathroom and other care routines, personal items, smoking policy, room service/diet, and visiting hours. Information on how to activate the Rapid Response Team has been discussed. Patient/Family are encouraged to report perceived risks to care and to ask questions if they do not understand what they are told or what they should do.
--- NOTE | 2022-11-13 14:53 | PM.IMHP ---
H&P: HPI History of Present Illness Date/Time: 11/13/22 14:53 Chief Complaint: Chest pain Abdominal pain Narrative: 62-year-old female with past medical history of heart disease, follows up with the automatic buffer at [place] presented with chest pain which has been going on for past 2 days. She has a pacemaker. Her chest pain had resolved in the ER itself. Was noted to have a lipase of 2103. Was found to have a pseudocyst, in the pancreas. Case was discussed with the reconnaissance crewmember at [facility], who was able to pull previous imaging, pseudocyst does not seem to be new. Admitted with concerns of acute pancreatitis. Review of Systems Review of Systems: All systems reviewed & are unremarkable except as noted in HPI and below PMFSH Past Medical History Medical History Chronic HFrEF (heart failure with reduced ejection fraction) Coronary artery disease GERD (gastroesophageal reflux disease) Hypertension Myocardial infarction Schizophrenia Surgical History Surgical History H/O cardiac catheterization History of coronary artery stent placement Social History Social History Smoking status: Unknown if ever smoked Alcohol intake: former Substance use: never Lack of Transportation: No Lack of Food: Never True Current Housing: I Have Housing Concerned About Future Housing: No Difficulty Paying Gas/Electric Bills: No Difficulty Paying for Meds: No Currently Unemployed: No Education: Grade School Difficulty w/ Childcare or Family Care: No Spiritual care concerns: No Meds Home Medications and Allergies Home Medications Medication Instructions Recorded Confirmed Type albuterol sulfate 90 mcg/actuation See Rx Instructions .Route 08/06/21 11/13/22 History aerosol inhaler .COMPLEX PRN Respiratory Distress aspirin 81 mg capsule 81 mg PO DAILY 08/06/21 11/13/22 History atorvastatin 80 mg tablet 80 mg PO HS 08/06/21 11/13/22 History furosemide 40 mg tablet 1 tablet PO DAILY 08/06/21 11/13/22 History isosorbide mononitrate 30 mg 30 mg PO DAILY 08/06/21 11/13/22 History tablet,extended release 24 hr lamotrigine 100 mg tablet 100 mg PO DAILY 08/06/21 11/13/22 History montelukast 10 mg tablet 10 mg PO HS 08/06/21 11/13/22 History potassium chloride 20 mEq 20 meq PO DAILY 08/06/21 11/13/22 History tablet,extended release(part/cryst) ropinirole 0.25 mg tablet 0.25 mg PO HS 08/06/21 11/13/22 History nitroglycerin 0.4 mg sublingual 0.4 mg sublingual Q5M PRN chest 08/08/21 11/13/22 Rx tablet pain #25 tabs trazodone 50 mg tablet 50 mg PO HS #30 tabs 08/08/21 11/13/22 Rx acetaminophen 650 mg tablet 650 mg PO Q4H PRN Pain 11/13/22 11/13/22 History allopurinol 100 mg tablet 100 mg PO DAILY 11/13/22 11/13/22 History aripiprazole 10 mg tablet 10 mg PO HS 11/13/22 11/13/22 History clopidogrel 75 mg tablet 75 mg PO DAILY 11/13/22 11/13/22 History dapagliflozin propanediol 10 mg 10 mg PO DAILY 11/13/22 11/13/22 History tablet (Farxiga) famotidine 40 mg tablet 40 mg PO DAILY 11/13/22 11/13/22 History fluoxetine 60 mg tablet 60 mg PO DAILY 11/13/22 11/13/22 History lidocaine 4 % topical patch 1 patch topical DAILY 11/13/22 11/13/22 History metoprolol succinate 100 mg 100 mg PO DAILY 11/13/22 11/13/22 History tablet,extended release 24 hr sacubitril 24 mg-valsartan 26 mg 1 tablet PO Q12H 11/13/22 11/13/22 History tablet (Entresto) spironolactone 25 mg tablet 25 mg PO DAILY 11/13/22 11/13/22 History umeclidinium 62.5 mcg-vilanterol 1 inh inhalation DAILY 11/13/22 11/13/22 History 25 mcg/actuation powdr for inhalation (Anoro Ellipta) Allergies Allergy/AdvReac Type Severity Reaction Status Date / Time Iodinated Contrast Media Allergy Palpitation Verified 11/13/22 02:47 s latex Allergy Rash Verified 11/13/22 02:47 Penicillins
--- NOTE | 2022-11-13 16:12 | PC.NURSE ---
This patient, Yvonne Cottrell, was transferred to [[id number] ] on 11/13/22 at 1612. Personal belongings sent with patient. Report given to [SILVESTRE Hwang @ [id number] ]. Appropriate documentation sent with patient.
[2022-11-13] MEDS: SODIUM CHLORIDE 0.9% IV 1,000 ML 75 ML IV CONT (17:43)
[2022-11-13] MEDS: MONTELUKAST SODIUM 10 MG TABLET PO (20:33)
[2022-11-13] MEDS: ARIPiprazole 10 MG TABLET PO (20:33)
[2022-11-13] MEDS: ATORVASTATIN 40 MG TABLET 80 MG PO (20:33)
[2022-11-13] MEDS: traZODone HCL 50 MG TABLET PO (20:33)
[2022-11-13] MEDS: SACUBITRIL/VALSARTAN 24-26 MG TABLET 1 TAB PO (20:34)
[2022-11-13] MEDS: HEPARIN SODIUM 5,000 UNITS/ML VIAL 5000 UNITS SUB-Q (20:34)
[2022-11-13] MEDS: rOPINIRole HCL 0.25 MG TABLET PO (20:41)
[2022-11-13] MEDS: HYDROmorphone HCL INJ (*CRX) 1 MG/ML SYR 0.5 MG IV PUSH (20:42)
[2022-11-14 06:00] VITALS: BP 138/62; PULSE 63; RESP 16; TEMP 35.6; O2SAT 96
[2022-11-14 07:19] LABS: Alanine Aminotransferase 24 U/L (6-35); Albumin Level 4.2 g/dL (3.5-5.1); Alkaline Phosphatase 78 U/L (38-126); Anion Gap 4 mmol/L (8-16); Aspartate Amino Transferase 27 U/L (14-36); Bilirubin,Total 0.7 mg/dL (0.2-1.3); Blood Urea Nitrogen 27 mg/dL (7-17); Calcium 9.8 mg/dL (8.4-10.2); Carbon Dioxide 29 mmol/L (22-30); Chloride 103 mmol/L (98-107); Estimated CRCL calculation 57 ml/min; Estimated Glomerular Filt Rate 50; Glucose 104 mg/dL (65-110); Potassium 3.9 mmol/L (3.4-5.0); Sodium 136 mmol/L (137-145)
[2022-11-14 07:32] LABS: Basophils Percent Auto 0.6 % (0.2-1.2); Eosinophils Absolute Auto 0.2 K/mm3 (0-0.3); Eosinophils Percent Auto 3.8 % (0-4.4); Hematocrit 40.5 % (37.0-47.0); Hemoglobin 12.9 g/dL (12.0-15.0); Immature Granulocyte Absolute 0.02 K/mm3 (0.00-0.031); Immature Granulocyte Percent A 0.4 % (0-0.5); Immature Platelet Fraction Pct 7.1 % (0.9-11.2); Lymphocytes Absolute Auto 1.47 K/mm3 (0.9-3.2); Lymphocytes Percent Auto 29.2 % (18.3-44.2); Mean Corpuscular HGB Conc 31.9 g/dl (32-36); Mean Corpuscular Hemoglobin 30.1 pg (26-34); Mean Corpuscular Volume 94.4 fl (80-100); Mean Platelet Volume 11.5 fl (7.4-10.4); Monocytes Absolute Auto 0.5 K/mm3 (0.1-0.6); Monocytes Percent Auto 9.7 % (2.6-8.5); Neutrophils Absolute Auto 2.8 K/mm3 (1.3-6.7); Neutrophils Percent Auto 56.3 % (45.5-73.1); Platelet Count Result 147 k/mm3 (150-375); Red Blood Count 4.29 M/mm3 (4.2-5.4); Red Cell Distribution Width 13.3 % (11.5-14.5)
[2022-11-14] MEDS: UMECLIDINIUM/VILANTEROL 62.5-25 MCG ELLIPTA 1 PUFF INHALATION (08:19)
[2022-11-14 08:20] VITALS: PULSE 65; RESP 18; O2SAT 95
[2022-11-14] MEDS: HEPARIN SODIUM 5,000 UNITS/ML VIAL 5000 UNITS SUB-Q ×2 (09:10→21:20)
[2022-11-14] MEDS: CIPROFLOXACIN 400 MG/D5W 200ML 200 ML 200 MG IVPB ×2 (09:10→21:21)
[2022-11-14 09:11] VITALS: PULSE 66
[2022-11-14] MEDS: CLOPIDOGREL BISULFATE 75 MG TABLET PO (09:11)
[2022-11-14] MEDS: allopurinoL 100 MG TABLET PO (09:11)
[2022-11-14] MEDS: SACUBITRIL/VALSARTAN 24-26 MG TABLET 1 TAB PO ×2 (09:11→21:20)
[2022-11-14] MEDS: ISOSORBIDE MONONITRATE 30 MG TAB.ER.24H PO (09:11)
[2022-11-14] MEDS: SPIRONOLACTONE 25 MG TABLET PO (09:11)
[2022-11-14] MEDS: METOPROLOL SUCCINATE EXT REL 100 MG TABCR PO (09:11)
[2022-11-14] MEDS: lamoTRIgine 100 MG TABLET PO (09:11)
[2022-11-14] MEDS: ASPIRIN 81 MG CHEWABLE TABLET PO (09:11)
[2022-11-14] MEDS: EMPAGLIFLOZIN 10 MG TABLET PO (09:20)
[2022-11-14] MEDS: LIDOCAINE 5% PATCH 1 PATCH TRANSDERM (09:21)
[2022-11-14] MEDS: FLUoxetine HCL 20 MG CAPSULE 60 MG PO (10:12)
--- NOTE | 2022-11-14 10:21 | PM.IMPN ---
Progress Note: A&P Assessment and Plan (1) Acute pancreatitis: Code(s): K85.90 - Acute pancreatitis without necrosis or infection, unspecified Status: Acute (2) Chronic HFrEF (heart failure with reduced ejection fraction): Code(s): I50.22 - Chronic systolic (congestive) heart failure Status: Chronic (3) Chest pain: Qualifiers: Chest pain type: other chest pain Qualified Code(s): R07.89 - Other chest pain Code(s): R07.9 - Chest pain, unspecified Status: Acute (4) UTI (urinary tract infection): Code(s): N39.0 - Urinary tract infection, site not specified Status: Acute Plan 62-year-old female with past medical history of heart disease, follows up with the frame bander at [place] presented with chest pain which has been going on for past 2 days. 1. Chest pain: Troponins have been flat Denies any chest pain at the moment History of heart failure Continue with aspirin, Plavix, statin, Imdur, Entresto, Aldactone Will hold Lasix until on IV fluids 2. Acute pancreatitis: Pain is better today Will start on clear liquid diet, advance as tolerated Continue with IV fluids for now Zofran p.r.n. Pain control Hold off any further imaging 3. Possible UTI: Continue with ciprofloxacin Follow-up urine cultures 4. JULIET : Improvement in kidney function noted Avoid nephrotoxins Recheck BMP in a.m. 5. DVT prophylaxis: Heparin subQ 6. Code status:? Full 7. Disposition:? Pending improvement Time Spent With Patient Time with patient: 15 - 25 minutes Subjective Date/time seen: 11/14/22 10:21 Interval history: No acute events overnight Willing to try clear liquids today Review of Systems Review of Systems: All systems reviewed & are unremarkable except as noted in HPI and below Exam Const: General: comfortable and no acute distress HENMT: Mouth: Yes moist mucous membranes Eyes: Sclera: sclerae normal Neck: Neck: supple Resp: Effort & Inspection: normal respiratory effort Auscultation: clear to auscultation bilaterally Cardio: Rate: regular rate Rhythm: regular rhythm GI: GI Palp: Yes Soft to palpation Auscultation: normal bowel sounds Other: no abdominal discomfort Skin: General skin exam: normal color Neuro: Speech: normal speech Extrem: General: normal to inspection Psych: Mental Status: mental status grossly normal Objective Data Vital Signs Vital Signs: Vital Signs - 24 hr 11/13/22 16:00 11/13/22 20:00 11/13/22 21:56 Temperature 96.8 F L 96.0 F L Pulse Rate 68 74 Respiratory Rate 18 18 Blood Pressure 148/49 H 124/76 Pulse Oximetry 98 95 Oxygen Delivery Room Air Fraction of Inspired Oxygen 11/14/22 06:00 11/14/22 08:20 11/14/22 08:20 Temperature 96.0 F L Pulse Rate 63 65 Respiratory Rate 16 18 Blood Pressure 138/62 Pulse Oximetry 96 95 Oxygen Delivery Room Air Fraction of Inspired Oxygen 21 11/14/22 09:11 11/14/22 09:10 Temperature Pulse Rate 66 Respiratory Rate Blood Pressure Pulse Oximetry Oxygen Delivery Room Air Fraction of Inspired Oxygen Intake/Output Intake/Output: Intake & Output 11/11/22 11/12/22 11/13/22 11/14/22 23:59 23:59 23:59 23:59 Intake Total 1640 100 Output Total 900 700 Balance 740 -600 Meds/Results Medications: Active Medications Generic Name Dose Route Start Last Admin Trade Name Freq PRN Reason Stop Dose Admin Allopurinol 100 mg 11/14/22 09:00 11/14/22 09:11 Allopurinol 100 Mg Tablet PO 100 mg DAILY ALBERT Administration Aripiprazole 10 mg 11/13/22 21:00 11/13/22 20:33 Aripiprazole 10 Mg Tablet PO 10 mg HS ALBERT Administration Aspirin 81 mg 11/14/22 08:00 11/14/22 09:11 Aspirin 81 Mg Chewable Tablet PO 81 mg DAILY@0800 ALBERT Administration Atorvastatin Calcium 80 mg 11/13/22 21:00 11/13/22 20:33 Atorvastatin 40 Mg Tablet PO 80 mg HS ALBERT Administration Clopidogrel Bis
[2022-11-14] MEDS: SODIUM CHLORIDE 0.9% IV 1,000 ML 75 ML IV CONT (11:28)
--- NOTE | 2022-11-14 13:41 | PC.NURSE ---
Pt is A&O2 female who has been resting all day in bed. Pt denies ability to get up due to legs being weak. Pt was started on clear liquid diet and is tolerating well. Pt has reported pain on left side of ribs. Pt expresses no needs at this time. Pt compliant with care. Will continue to monitor pt.
[2022-11-14 14:00] VITALS: BP 142/65; PULSE 66; RESP 20; TEMP 36.8; O2SAT 94
[2022-11-14] MEDS: ATORVASTATIN 40 MG TABLET 80 MG PO (21:20)
[2022-11-14] MEDS: MONTELUKAST SODIUM 10 MG TABLET PO (21:20)
[2022-11-14] MEDS: traZODone HCL 50 MG TABLET PO (21:20)
[2022-11-14] MEDS: ARIPiprazole 10 MG TABLET PO (21:20)
[2022-11-14] MEDS: rOPINIRole HCL 0.25 MG TABLET PO (21:20)
[2022-11-14 21:35] VITALS: BP 150/64; PULSE 64; RESP 16; TEMP 36.2; O2SAT 95
[2022-11-14] MEDS: HYDROmorphone HCL INJ (*CRX) 1 MG/ML SYR 0.5 MG IV PUSH (21:35)
[2022-11-15] MEDS: SODIUM CHLORIDE 0.9% IV 1,000 ML 75 ML IV CONT ×2 (05:20→19:55)
[2022-11-15 05:50] VITALS: BP 111/77; PULSE 63; RESP 14; TEMP 35.7; O2SAT 93
[2022-11-15 06:36] LABS: Basophils Percent Auto 0.6 % (0.2-1.2); Eosinophils Absolute Auto 0.2 K/mm3 (0-0.3); Eosinophils Percent Auto 4.2 % (0-4.4); Hemoglobin 12.7 g/dL (12.0-15.0); Immature Granulocyte Absolute 0.01 K/mm3 (0.00-0.031); Immature Granulocyte Percent A 0.2 % (0-0.5); Immature Platelet Fraction Pct 6.5 % (0.9-11.2); Lymphocytes Absolute Auto 1.67 K/mm3 (0.9-3.2); Lymphocytes Percent Auto 31.6 % (18.3-44.2); Mean Corpuscular HGB Conc 31.8 g/dl (32-36); Mean Corpuscular Hemoglobin 30.2 pg (26-34); Monocytes Absolute Auto 0.5 K/mm3 (0.1-0.6); Monocytes Percent Auto 8.9 % (2.6-8.5); Neutrophils Absolute Auto 2.9 K/mm3 (1.3-6.7); Neutrophils Percent Auto 54.5 % (45.5-73.1); Platelet Count Result 141 k/mm3 (150-375); Red Blood Count 4.21 M/mm3 (4.2-5.4); Red Cell Distribution Width 13.3 % (11.5-14.5); White Blood Count 5.3 K/mm3 (4.5-10.0)
[2022-11-15 06:45] LABS: Alanine Aminotransferase 25 U/L (6-35); Alkaline Phosphatase 71 U/L (38-126); Anion Gap 7 mmol/L (8-16); Aspartate Amino Transferase 29 U/L (14-36); Bilirubin,Total 0.6 mg/dL (0.2-1.3); Blood Urea Nitrogen 24 mg/dL (7-17); Calcium 9.8 mg/dL (8.4-10.2); Carbon Dioxide 25 mmol/L (22-30); Chloride 104 mmol/L (98-107); Estimated CRCL calculation 58 ml/min; Estimated Glomerular Filt Rate 50; Glucose 104 mg/dL (65-110); Magnesium 2.1 mg/dL (1.6-2.3); Sodium 136 mmol/L (137-145)
[2022-11-15 07:46] LABS: Lipase 1022 U/L (23-300)
[2022-11-15] MEDS: UMECLIDINIUM/VILANTEROL 62.5-25 MCG ELLIPTA 1 PUFF INHALATION (07:47)
[2022-11-15 09:41] VITALS: PULSE 70
[2022-11-15] MEDS: SPIRONOLACTONE 25 MG TABLET PO (09:41)
[2022-11-15] MEDS: ASPIRIN 81 MG CHEWABLE TABLET PO (09:41)
[2022-11-15] MEDS: FLUoxetine HCL 20 MG CAPSULE 60 MG PO (09:41)
[2022-11-15] MEDS: CLOPIDOGREL BISULFATE 75 MG TABLET PO (09:41)
[2022-11-15] MEDS: ISOSORBIDE MONONITRATE 30 MG TAB.ER.24H PO (09:41)
[2022-11-15] MEDS: EMPAGLIFLOZIN 10 MG TABLET PO (09:41)
[2022-11-15] MEDS: METOPROLOL SUCCINATE EXT REL 100 MG TABCR PO (09:41)
[2022-11-15] MEDS: allopurinoL 100 MG TABLET PO (09:41)
[2022-11-15] MEDS: lamoTRIgine 100 MG TABLET PO (09:41)
[2022-11-15] MEDS: SACUBITRIL/VALSARTAN 24-26 MG TABLET 1 TAB PO ×2 (09:41→19:56)
[2022-11-15] MEDS: LIDOCAINE 5% PATCH 1 PATCH TRANSDERM (09:41)
[2022-11-15] MEDS: CIPROFLOXACIN 400 MG/D5W 200ML 200 ML 200 MG IVPB ×2 (09:42→19:57)
[2022-11-15] MEDS: HEPARIN SODIUM 5,000 UNITS/ML VIAL 5000 UNITS SUB-Q ×2 (09:42→19:57)
--- NOTE | 2022-11-15 10:20 | PM.IMPN ---
Progress Note: A&P Assessment and Plan (1) Chest pain: Qualifiers: Chest pain type: other chest pain Qualified Code(s): R07.89 - Other chest pain Code(s): R07.9 - Chest pain, unspecified Status: Acute (2) Acute pancreatitis: Code(s): K85.90 - Acute pancreatitis without necrosis or infection, unspecified Status: Acute (3) UTI (urinary tract infection): Code(s): N39.0 - Urinary tract infection, site not specified Status: Acute (4) JULIET (acute kidney injury): Code(s): N17.9 - Acute kidney failure, unspecified Status: Acute (5) Chronic HFrEF (heart failure with reduced ejection fraction): Code(s): I50.22 - Chronic systolic (congestive) heart failure Status: Chronic Plan 62-year-old female with past medical history of heart disease, follows up with the wind turbine controls engineer at [place] presented with chest pain which has been going on for past 2 days. 1. Chest pain: Troponins have been flat Denies any chest pain at the moment History of heart failure Continue with aspirin, Plavix, statin, Imdur, Entresto, Aldactone Will hold Lasix until on IV fluids Pacemaker 2. Acute pancreatitis: Pain is mostly resolved today, lipase 1000 Tolerated liquid diet, advance diet to full Zofran p.r.n. Pain control Hold off any further imaging--unable to MRI due to pacemaker DC tomorrow if tolerating diet/pain 3. Possible UTI: Culture shows mixed eric 4. JULIET : Stable, likely chronic, GFR 50 5. DVT prophylaxis: Heparin subQ 6. Code status:? Full 7. Disposition:? DC tomorrow if tolerating diet Time Spent With Patient Time with patient: 25 - 35 minutes Subjective Date/time seen: 11/15/22 10:20 Interval history: No acute events overnight. Patient tolerating liquid diet. Will advance and plan DC tomorrow if tolerating full diet. Review of Systems Review of Systems: All systems reviewed & are unremarkable except as noted in HPI and below Exam Const: General: comfortable and no acute distress HENMT: Mouth: Yes moist mucous membranes Eyes: Sclera: sclerae normal Neck: Neck: supple Resp: Effort & Inspection: normal respiratory effort Auscultation: clear to auscultation bilaterally Cardio: Rate: regular rate Rhythm: regular rhythm GI: Auscultation: normal bowel sounds Other: no abdominal discomfort Skin: General skin exam: normal color Neuro: Speech: normal speech Extrem: General: normal to inspection Psych: Mental Status: mental status grossly normal Objective Data Vital Signs Vital Signs: Vital Signs - 24 hr 11/14/22 14:00 11/14/22 21:35 11/15/22 05:50 Temperature 36.8 C 36.2 C L 35.7 C L Pulse Rate 66 64 63 Respiratory Rate 20 16 14 Blood Pressure 142/65 H 150/64 H 111/77 Pulse Oximetry 94 95 93 11/15/22 09:41 Temperature Pulse Rate 70 Respiratory Rate Blood Pressure Pulse Oximetry Intake/Output Intake/Output: Intake & Output 11/12/22 11/13/22 11/14/22 11/15/22 23:59 23:59 23:59 23:59 Intake Total 1640 2090 1150 Output Total 900 1650 1100 Balance 740 440 50 Meds/Results Medications: Active Medications Generic Name Dose Route Start Last Admin Trade Name Tamika PRN Reason Stop Dose Admin Allopurinol 100 mg 11/14/22 09:00 11/15/22 09:41 Allopurinol 100 Mg Tablet PO 100 mg DAILY ALBERT Administration Aripiprazole 10 mg 11/13/22 21:00 11/14/22 21:20 Aripiprazole 10 Mg Tablet PO 10 mg HS ALBERT Administration Aspirin 81 mg 11/14/22 08:00 11/15/22 09:41 Aspirin 81 Mg Chewable Tablet PO 81 mg DAILY@0800 ALBERT Administration Atorvastatin Calcium 80 mg 11/13/22 21:00 11/14/22 21:20 Atorvastatin 40 Mg Tablet PO 80 mg HS ABLERT Administration Clopidogrel Bisulfate 75 mg 11/14/22 09:00 11/15/22 09:41 Clopidogrel Bisulfate 75 Mg Tablet PO 75 mg DAILY ALBERT Administration Empagliflozin 10 mg 11/14/22 09:20 11/15/22 09:41 Empagliflozin 10 Mg Ta
[2022-11-15 14:00] VITALS: BP 125/71; PULSE 65; RESP 14; TEMP 36.1; O2SAT 96
[2022-11-15] MEDS: MONTELUKAST SODIUM 10 MG TABLET PO (19:56)
[2022-11-15] MEDS: rOPINIRole HCL 0.25 MG TABLET PO (19:56)
[2022-11-15] MEDS: ATORVASTATIN 40 MG TABLET 80 MG PO (19:56)
[2022-11-15] MEDS: ARIPiprazole 10 MG TABLET PO (19:56)
[2022-11-15] MEDS: traZODone HCL 50 MG TABLET PO (19:57)
[2022-11-15] MEDS: HYDROmorphone HCL INJ (*CRX) 1 MG/ML SYR 0.5 MG IV PUSH (20:19)
[2022-11-15 22:00] VITALS: BP 119/69; PULSE 63; RESP 16; TEMP 36.5; O2SAT 95
[2022-11-16 06:00] VITALS: BP 131/81; PULSE 60; RESP 18; TEMP 35.8; O2SAT 95
[2022-11-16 06:27] LABS: Basophils Percent Auto 0.4 % (0.2-1.2); Eosinophils Absolute Auto 0.2 K/mm3 (0-0.3); Eosinophils Percent Auto 3.4 % (0-4.4); Hematocrit 38.8 % (37.0-47.0); Hemoglobin 12.4 g/dL (12.0-15.0); Immature Granulocyte Absolute 0.02 K/mm3 (0.00-0.031); Immature Granulocyte Percent A 0.4 % (0-0.5); Lymphocytes Absolute Auto 1.69 K/mm3 (0.9-3.2); Mean Corpuscular Hemoglobin 30.7 pg (26-34); Monocytes Absolute Auto 0.5 K/mm3 (0.1-0.6); Neutrophils Absolute Auto 3.2 K/mm3 (1.3-6.7); Neutrophils Percent Auto 56.8 % (45.5-73.1); Platelet Count Result 144 k/mm3 (150-375); Red Blood Count 4.04 M/mm3 (4.2-5.4); Red Cell Distribution Width 13.2 % (11.5-14.5); White Blood Count 5.6 K/mm3 (4.5-10.0)
[2022-11-16 06:50] LABS: Alanine Aminotransferase 23 U/L (6-35); Albumin Level 3.8 g/dL (3.5-5.1); Alkaline Phosphatase 71 U/L (38-126); Anion Gap 7 mmol/L (8-16); Aspartate Amino Transferase 26 U/L (14-36); Bilirubin,Total 0.5 mg/dL (0.2-1.3); Blood Urea Nitrogen 23 mg/dL (7-17); Calcium 9.5 mg/dL (8.4-10.2); Carbon Dioxide 25 mmol/L (22-30); Chloride 105 mmol/L (98-107); Estimated CRCL calculation 53 ml/min; Estimated Glomerular Filt Rate 45; Glucose 106 mg/dL (65-110); Potassium 4.1 mmol/L (3.4-5.0); Sodium 137 mmol/L (137-145)
[2022-11-16 08:00] VITALS: PULSE 60; RESP 18; O2SAT 95
[2022-11-16] MEDS: ASPIRIN 81 MG CHEWABLE TABLET PO (08:27)
[2022-11-16] MEDS: allopurinoL 100 MG TABLET PO (08:27)
[2022-11-16] MEDS: HEPARIN SODIUM 5,000 UNITS/ML VIAL 5000 UNITS SUB-Q (08:27)
[2022-11-16] MEDS: CLOPIDOGREL BISULFATE 75 MG TABLET PO (08:27)
[2022-11-16] MEDS: lamoTRIgine 100 MG TABLET PO (08:27)
[2022-11-16] MEDS: EMPAGLIFLOZIN 10 MG TABLET PO (08:27)
[2022-11-16] MEDS: UMECLIDINIUM/VILANTEROL 62.5-25 MCG ELLIPTA 1 PUFF INHALATION (08:27)
[2022-11-16] MEDS: SPIRONOLACTONE 25 MG TABLET PO (08:27)
[2022-11-16] MEDS: FLUoxetine HCL 20 MG CAPSULE 60 MG PO (08:27)
[2022-11-16] MEDS: SACUBITRIL/VALSARTAN 24-26 MG TABLET 1 TAB PO (08:27)
[2022-11-16] MEDS: CIPROFLOXACIN 400 MG/D5W 200ML 200 ML 200 MG IVPB (08:28)
[2022-11-16] MEDS: METOPROLOL SUCCINATE EXT REL 100 MG TABCR PO (08:28)
[2022-11-16] MEDS: LIDOCAINE 5% PATCH 1 PATCH TRANSDERM (08:40)
[2022-11-16] MEDS: ISOSORBIDE MONONITRATE 30 MG TAB.ER.24H PO (08:41)
--- NOTE | 2022-11-16 09:05 | PM.DS ---
DS: Admitting Diagnosis Discharge Date 11/16 Admitting Diagnosis Acute pancreatitis, GERD, Chronic HRrEF, Chest pain DS: Discharge Diagnosis Discharge Diagnosis (1) Chest pain: Qualifiers: Chest pain type: other chest pain Qualified Code(s): R07.89 - Other chest pain Code(s): R07.9 - Chest pain, unspecified Status: Acute (2) Acute pancreatitis: Code(s): K85.90 - Acute pancreatitis without necrosis or infection, unspecified Status: Acute (3) UTI (urinary tract infection): Code(s): N39.0 - Urinary tract infection, site not specified Status: Acute Assessment and Plan: Urine culture mixed eric, no antibiotics on discharge (4) JULIET (acute kidney injury): Code(s): N17.9 - Acute kidney failure, unspecified Status: Acute Assessment and Plan: likely chronic with GFR around 45-50 (5) Chronic HFrEF (heart failure with reduced ejection fraction): Code(s): I50.22 - Chronic systolic (congestive) heart failure Status: Chronic Assessment and Plan: not in acute exacerbation Plan Patient tolerating diet with minimal discomfort. Discharge back to facility where patient is in [facility]ent[facility] care. [place] PRN for severe pain only. DS: Summary Hospital Course Reason for hospitalization: Patient was admitted to hospital due to chest pain Hospital Course: Patient found to have acute pancreatitis with likely pseudocyst vs pancreatic neoplasm but unable to have MRI due to implanted pacemaker. She was also noted to have renal dysfunction, initially though to be JULIET as well as an apparent UTI. Patient admitted to trend troponin, negative on all draws. Chest pain likely referred pain from pancreatitis. Cyst-like structure found on CT imaging, pseudocyst vs neoplasm with recommendation for MRI but MRI cannot be done due to implanted pacemaker. Patient treated with IV fluids and IV antibiotics. Patient had decrease in pain and decrease in lipase level. Diet was advanced and she tolerated liquid diet and diabetic diet yesterday as well as breakfast this morning. Patient reported minimal epigastric pain. She feels good to return to care home. PRN [place] for severe pain only was prescribed and prescription printed/signed for facility. Status at Discharge Cognitive/behavioral status at discharge: awake, alert and very pleasant Functional status at discharge: wheelchair bound Time Spent with Patient Time attestation: Total time spent providing and/or coordinating discharge services: 40 minutes Time spent: Greater than 30 minutes Exam Const: General: comfortable and no acute distress HENMT: Mouth: Yes moist mucous membranes Eyes: Sclera: sclerae normal Neck: Neck: supple Resp: Effort & Inspection: normal respiratory effort Auscultation: clear to auscultation bilaterally Cardio: Rate: regular rate Rhythm: regular rhythm GI: Auscultation: normal bowel sounds Other: no abdominal discomfort Skin: General skin exam: normal color Neuro: Speech: normal speech Extrem: General: normal to inspection Psych: Mental Status: mental status grossly normal DS: Data Data Completed and Pending Completed studies during hospitalization: CXR, CT abdomen/pelvis Labs on day of discharge: Labs from last 24 hours 11/16/22 06:05 WBC 5.6 RBC 4.04 L Hgb 12.4 Hct 38.8 MCV 96.0 MCH 30.7 MCHC 32.0 RDW 13.2 Plt Count 144 L MPV 11.0 H Immature Gran % (Auto) 0.4 Neut % (Auto) 56.8 Lymph % (Auto) 30.0 [place] % (Auto) 9.0 H Eos % (Auto) 3.4 Baso % (Auto) 0.4 Lymph # (Auto) 1.69 [place] # (Auto) 0.5 Eos # (Auto) 0.2 Baso # (Auto) 0.0 Abs Immat Gran (auto) 0.02 Absolute Neuts (auto) 3.2 Absolute Nucleated RBC 0.0 Nucleated RBC % 0.0 Sodium 137 Potassium 4.1 Chloride 105 Carbon Dioxide 25 Anion Gap 7 L BUN 23 H Creatinine 1.20 H Estim Creat Clear Calc 53 Estimated GFR 45 L Glucose 106 Calcium 9.5 Total Bilirubin
[2022-11-16 12:13] LABS: SARS-CoV-2 RNA PCR Negative (Negative)
== END 2022-11-16 14:10 | DRG 282 ==
LOC: ANHED 06:59 → ANHIMU 08:18 → ANH3MEDSUR 16:21
PROVIDERS: Internal Medicine; Nurse Practitioner; Admitting Provider Internal Medicine; Emergency Provider Emergency Medicine; PCP Internal Medicine; Visit Provider Internal Medicine
DX: K85.90 Acute pancreatitis without necrosis or infection, unspecified (principal); N17.9 Acute kidney failure, unspecified; I50.22 Chronic systolic (congestive) heart failure; I11.0 Hypertensive heart disease with heart failure; R07.89 Other chest pain; N39.0 Urinary tract infection, site not specified; F20.9 Schizophrenia, unspecified; I25.2 Old myocardial infarction; I25.10 Atherosclerotic heart disease of native coronary artery without angina pectoris; K21.9 Gastro-esophageal reflux disease without esophagitis; Z20.822 Contact with and (suspected) exposure to COVID-19; Z95.0 Presence of cardiac pacemaker; Z95.5 Presence of coronary angioplasty implant and graft; Z79.02 Long term (current) use of antithrombotics/antiplatelets; Z79.82 Long term (current) use of aspirin; Z88.0 Allergy status to penicillin; Z87.891 Personal history of nicotine dependence
CPT/HCPCS: 36415; 71045; 74176; 80053; 81001; 83690; 83735; 83880; 84484; 85025; 85055; 85610; 85730; 87086; 87088; 87635; 93005; 94640; 96361; 96365; 96366; 99285; A9270; G0378; G0379; J0744; J1170; J1644; J7030

== ENCOUNTER 2023-01-04 17:32 | Observation (INO) | payer OTHER, SELFPAY ==
[2023-01-04] VITALS (7 sets, daily range): BP systolic 125–186; BP diastolic 45–95; PULSE 60–68; RESP 15–20; TEMP 36.3–36.7; O2SAT 96–100; BMI 46.0
--- NOTE | ~2023-01-04 | XR_ITS ---
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 RESULT: Lines, tubes, and devices: Left chest pacer/AICD with 3 intact leads. Lungs and pleura: Clear. Cardiomediastinal silhouette: Stable. Other: No acute osseous or upper abdominal finding. IMPRESSION: No acute cardiopulmonary process. Reviewed, dictated and finalized at location K. NG MACHINE OPERATOR DOUBLE END
--- NOTE | ~2023-01-04 | CT_ITS ---
EXAMINATION: CT brain wo con DATE: 01/04/2023 18:53 INDICATION: fall, PAVON, on antiplatelet . TECHNIQUE: Computed tomography (CT) of the head was performed without intravenous contrast. The mA wa s adjusted according to patient size. Iterative reconstruction technique was employed. The dose-lengt h product was 681.00 mGy-cm. COMPARISON: None. FINDINGS: No acute intracranial hemorrhage or extra-axial fluid collection. No hydrocephalus, mass, or herniation. No acute ischemic infarct. Unremarkable dural venous sinus attenuation. No acute osseous abnormality. Air-fluid level with secretions in the right maxillary sinus. Attention cyst or polyp in the left max illary sinus. The remaining aerated spaces are clear. Moderate atrophy and chronic white matter change. Atherosclerotic intracranial calcification. Bilater al lens replacements. IMPRESSION: No acute intracranial process. Reviewed, dictated and finalized at location K. CHBOX ASSEMBLER
--- NOTE | ~2023-01-04 | XR_ITS ---
EXAM: XR hip BI 2V w AP pelvis DATE: 01/04/2023 19:07 HISTORY: fall, hip pain BILATERALLY . COMPARISON: None available. FINDINGS: Soft tissue anchors over the upper abdomen. Partially visualized but normal-appearing doroteo l gas pattern. Lumbar degenerative disc disease. Mild bilateral hip osteoarthritis. Moderate osteitis pubis. No fracture or dislocation.. IMPRESSION: No acute osseous finding in the pelvis or hips. Reviewed, dictated and finalized at location K. E AIDE
--- NOTE | 2023-01-04 18:13 | ECG_ITS ---
Measurements Intervals [place] Rate: 60 P: 72 NH: 138 QRS: 121 QRSD: 172 T: 27 QT: 506 QTc: 508 Interpretive Statements ATRIAL SENSE- ELECTRONIC VENTRICULAR PACEMAKER BASELINE ARTIFACT- I, II, AVR NO FURTHER INTERPRETATION IS POSSIBLE ATYPICAL ECG COMPARED TO ECG 11/13/2022 01:54:46 NO SIGNIFICANT CHANGES Electronically Signed On 01-04-2023 20:01:23 LEAD REFINER by Sukhdev Murillo D.O.
--- NOTE | 2023-01-04 18:16 | ED.GENADULT ---
HPI - General Adult General Chief complaint: Fall <Vinny Jimenez PA-C - Last Filed: 01/04/23 23:05> Stated complaint: fall <Vinny Jimenez PA-C - Last Filed: 01/04/23 23:05> Time Seen by Provider: 01/04/23 17:57 <Vinny Jimenez PA-C - Last Filed: 01/04/23 23:05> Source: patient <ZAMZAM Grullon Last Filed: 01/04/23 23:05> Mode of arrival: ambulatory <Vinny Jimenez PA-C - Last Filed: 01/04/23 23:05> Limitations: no limitations <Vinny Jimenez PA-C - Last Filed: 01/04/23 23:05> History of Present Illness HPI narrative: This is a 62-year-old female with PMH of CVA, HFrEF, IA, HTN, schizophrenia, s/p pacemaker who presents to the ED via EMS from [facility] with chief complaint of a fall this evening. Patient reports that she was outside in sitting in her chair. She stood up from the chair, started to feel lightheaded and then her foot got caught on something on the ground. She reports this caused her to fall. She does note residual left sided weakness due to the stroke. She normally uses a walker for ambulation. Patient reports that she lost consciousness when she went to the ground, remembers the nursing staff waking her up and calling EMS. Endorses headache but denies any other site of pain. Denies any new numbness or weakness. Denies any preceding chest pain, shortness of breath before the fall. Denies vision change, abdominal pain, nausea, vomiting. <Vinny Jimenez PA-C - Last Filed: 01/04/23 23:05> Related Data Home medications: Home Medications Medication Instructions Recorded Confirmed albuterol sulfate 90 mcg/actuation 90 mcg inhalation Q6H PRN 08/06/21 01/04/23 aerosol inhaler Respiratory Distress aspirin 81 mg capsule 81 mg PO DAILY 08/06/21 01/04/23 atorvastatin 80 mg tablet 80 mg PO HS 08/06/21 01/04/23 furosemide 40 mg tablet 1 tablet PO DAILY 08/06/21 01/04/23 isosorbide mononitrate 30 mg 30 mg PO DAILY 08/06/21 01/04/23 tablet,extended release 24 hr lamotrigine 100 mg tablet 100 mg PO DAILY 08/06/21 01/04/23 montelukast 10 mg tablet 10 mg PO HS 08/06/21 01/04/23 potassium chloride 20 mEq 20 meq PO DAILY 08/06/21 01/04/23 tablet,extended release(part/cryst) ropinirole 0.25 mg tablet 0.25 mg PO HS 08/06/21 01/04/23 acetaminophen 650 mg tablet 650 mg PO Q4H PRN Pain 11/13/22 01/04/23 allopurinol 100 mg tablet 100 mg PO DAILY 11/13/22 01/04/23 aripiprazole 10 mg tablet 10 mg PO HS 11/13/22 01/04/23 clopidogrel 75 mg tablet 75 mg PO DAILY 11/13/22 01/04/23 dapagliflozin propanediol 10 mg 10 mg PO DAILY 11/13/22 01/04/23 tablet (Farxiga) famotidine 40 mg tablet 40 mg PO DAILY 11/13/22 01/04/23 fluoxetine 60 mg tablet 60 mg PO DAILY 11/13/22 01/04/23 lidocaine 4 % topical patch 1 patch topical DAILY 11/13/22 01/04/23 metoprolol succinate 100 mg 100 mg PO DAILY 11/13/22 01/04/23 tablet,extended release 24 hr sacubitril 24 mg-valsartan 26 mg 1 tablet PO Q12H 11/13/22 01/04/23 tablet (Entresto) spironolactone 25 mg tablet 25 mg PO DAILY 11/13/22 01/04/23 umeclidinium 62.5 mcg-vilanterol 1 inh inhalation DAILY 11/13/22 01/04/23 25 mcg/actuation powdr for inhalation (Anoro Ellipta) <Vinny Jimenez PA-C - Last Filed: 01/04/23 23:05> Allergies/adverse reactions: Allergies Allergy/AdvReac Type Severity Reaction Status Date / Time Iodinated Contrast Media Allergy Palpitation Verified 01/04/23 17:37 s latex Allergy Rash Verified 01/04/23 17:37 Penicillins Allergy Hives Verified 01/04/23 17:37 morphine AdvReac Nausea and Verified 01/04/23 17:37 Vomiting Lobster Allergy Swelling Uncoded 11/13/22 02:47 of Lip/Tongue/Throat <Vinny Jimenez PA-C - Last Filed: 01/04/23 23:05> Review of Systems Review of Systems: All systems as dictated in HPI <Vinny Jimenez PA-C - Last Filed: 01/04/23 23:05> [facility] Past Medical History Medical History: Medical History (Reviewed 11/13/22 @ 14:56 by Ce Cotto,
[2023-01-04] MEDS: SODIUM CHLORIDE 0.9% IV 500 ML 999 ML IV CONT (18:35)
[2023-01-04 18:38] LABS: Basophils Percent Auto 0.5 % (0.2-1.2); Eosinophils Absolute Auto 0.2 K/mm3 (0-0.3); Eosinophils Percent Auto 1.9 % (0-4.4); Hematocrit 39.3 % (37.0-47.0); Hemoglobin 12.4 g/dL (12.0-15.0); Immature Granulocyte Absolute 0.03 K/mm3 (0.00-0.031); Immature Granulocyte Percent A 0.4 % (0-0.5); Lymphocytes Absolute Auto 1.64 K/mm3 (0.9-3.2); Lymphocytes Percent Auto 19.4 % (18.3-44.2); Mean Corpuscular HGB Conc 31.6 g/dl (32-36); Mean Corpuscular Hemoglobin 30.2 pg (26-34); Mean Corpuscular Volume 95.9 fl (80-100); Mean Platelet Volume 11.2 fl (7.4-10.4); Monocytes Absolute Auto 0.7 K/mm3 (0.1-0.6); Monocytes Percent Auto 7.9 % (2.6-8.5); Neutrophils Absolute Auto 5.9 K/mm3 (1.3-6.7); Neutrophils Percent Auto 69.9 % (45.5-73.1); Platelet Count Result 151 k/mm3 (150-375); Red Cell Distribution Width 14.7 % (11.5-14.5); White Blood Count 8.4 K/mm3 (4.5-10.0)
[2023-01-04 18:57] LABS: Alanine Aminotransferase 19 U/L (6-35); Albumin Level 4.4 g/dL (3.5-5.1); Alkaline Phosphatase 65 U/L (38-126); Anion Gap 9 mmol/L (8-16); Aspartate Amino Transferase 20 U/L (14-36); Bilirubin,Total 0.6 mg/dL (0.2-1.3); Blood Urea Nitrogen 38 mg/dL (7-17); Calcium 10.5 mg/dL (8.4-10.2); Carbon Dioxide 23 mmol/L (22-30); Chloride 102 mmol/L (98-107); Estimated CRCL calculation 56 ml/min; Estimated Glomerular Filt Rate 50; Glucose 105 mg/dL (65-110); Potassium 5.1 mmol/L (3.4-5.0); Sodium 134 mmol/L (137-145)
[2023-01-04] MEDS: ACETAMINOPHEN 500 MG TABLET 1000 MG PO (20:05)
[2023-01-04 20:21] LABS: Appearance Urine Cloudy (Clear); Bacteria Urine None Seen /hpf; Bilirubin Urine Negative (Negative); Blood Urine Negative (Negative); Color Urine Yellow (Yellow); Glucose Urine UA 2+ mg/dL (Negative); Ketones Urine Negative (Negative); Leukocyte Esterase Ur Trace LEU/UL (Negative); Nitrate Urine Negative (Negative); Non Pathogenic Casts 0-2; Protein Urine Negative (Negative); RBC Urine 0-2 /hpf (0-2); Specific Grav Ur 1.013 (1.001-1.035); Squamous Epithelial Cell Urine Occasional /hpf (Few); Urobilinogen Urine 0.2 mg/dL (<2.0)
[2023-01-04 20:26] LABS: Add Urine Microscopic? YES
--- NOTE | 2023-01-04 20:46 | PM.IMHP ---
H&P: HPI History of Present Illness Date/Time: 01/04/23 20:46 Chief Complaint: Dizziness Narrative: This is a 62-year-old female with past medical history significant for morbid obesity, heart failure, COPD/emphysema, hypertension, coronary artery disease, restless leg syndrome. Patient presents to the emergency room after having a syncopal episode states that has been very dizzy lately room spinning around her sensation. Feeling weak, fatigued, denies any fevers, rigors or chills, no nausea, no vomiting had bouts of diarrhea, no cough, no sputum production, no chest pain, no palpitations. Preliminary workup was significant for urinalysis with WBCs present. Patient has been admitted for further evaluation management and treatment. EXAMINATION:? XR chest 1V portable Exam Date/Time:? 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 Comparison:? 11/13/2022. RESULT: Lines, tubes, and devices:? Left chest pacer/AICD with 3 intact leads. Lungs and pleura:? Clear. Cardiomediastinal silhouette:? Stable. Other:? No acute osseous or upper abdominal finding. ? IMPRESSION: No acute cardiopulmonary process. EXAMINATION: CT brain wo con DATE: 01/04/2023 18:53 INDICATION: fall, PAVON, on antiplatelet . TECHNIQUE: Computed tomography (CT) of the head was performed without intravenous contrast. The mA was adjusted according to patient size. Iterative reconstruction technique was employed. The dose-length product was 681.00 mGy-cm. COMPARISON: None. FINDINGS: No acute intracranial hemorrhage or extra-axial fluid collection. No hydrocephalus, mass, or herniation. No acute ischemic infarct. Unremarkable dural venous sinus attenuation. No acute osseous abnormality. Air-fluid level with secretions in the right maxillary sinus. Attention cyst or polyp in the left maxillary sinus. The remaining aerated spaces are clear. Moderate atrophy and chronic white matter change. Atherosclerotic intracranial calcification. Bilateral lens replacements. IMPRESSION:? No acute intracranial process. Review of Systems Review of Systems: syncope, dizziness. Constitutional: Constitutional: Denies chills, Denies fatigue, Denies fever(s), Denies malaise, Denies night sweats and Reports weakness Eyes: Eyes: Denies change in vision ENT: Denies dysphagia, Reports vertigo, Reports dizziness and Denies odynophagia Cardiovascular: Cardiovascular: Denies chest pain, Denies radiating jaw, neck or arm pain and Denies palpitations Respiratory: Respiratory: Denies chest congestion, Denies cough and Denies dyspnea Gastrointestinal: Gastrointestinal: Denies abdominal pain, Denies dyspepsia, Denies heartburn, Denies diarrhea, Denies nausea and Denies vomiting Genitourinary: Genitourinary: Denies dysuria Musculoskeletal: Musculoskeletal: Reports muscle weakness Integumentary/Breasts: Skin/Breast: Denies rash Neurologic: Reports syncope, Denies focal weakness and Denies Sensory deficit (Neuro) Psychiatric: Psychiatric: Reports no additional psychiatric complaints and Reports as per HPI Endocrine: Endocrine: Denies cold intolerance, Denies fatigue, Denies flushing, Denies heat intolerance, Denies polyphagia, Denies polydipsia and Denies palpitations Hematologic/Lymphatic: Hematologic/Lymphatic: Reports no additional hematologic/lymphatic complaints and Reports as per HPI Allergic/Immunologic: Allergic/Immunologic: Reports no additional allergic/immunologic complaints and Reports as per HPI PMFSH Past Medical History Medical History Chronic HFrEF (heart failure with reduced ejection fraction) Coronary artery disease GERD (gastroesophageal reflux disease) Hypertension Myocardial infarction Schizophrenia Surgical History Surgical History H/O cardiac catheterization History of coronary artery stent placement Social Hist
[2023-01-04] MEDS: levoFLOXacin 750 MG/D5W 150 ML 750 MG/150 ML BAG 100 MG IVPB (20:49)
[2023-01-05] VITALS (10 sets, daily range): BP systolic 126–147; BP diastolic 60–76; PULSE 60–69; RESP 18–20; TEMP 36.5–36.6; O2SAT 93–98
--- NOTE | 2023-01-05 | ECHO_ITS ---
Patient Info Name: Yvonne Cottrell Age: 62 years : 1960 Gender: Female Ht: 63 in Wt: 259 lbs BSA: 2.35 m2 HR: 78 bpm BP: 127 / 60 mmHg Heart Rhythm: Sinus Rhythm Technical Quality: Poor Exam Date: 01/05/2023 3:17 PM Exam Location: Echo Lab Exam Room: [facility] Patient Status: Inpatient Admit Date: 01/04/2023 Staff Ordering Physician: Smiley Morales DO Sports Attorney: Abena Roman RDCS Attending Provider: Marcelino Barrios MD Referring Physician: Carmen LEMUS; Exam Type: CA echo dop color flow w con Study Info Indications - SOB Complete two-dimensional, color flow and Doppler transthoracic echocardiogram is performed with contrast to opacify the left ventricle and to improve the deliniation of the left ventricle endocardial borders. Contrast/Agitated Saline Contrast/Ag. Saline: Definity Amount: 2.00 ml Administered By: Abena Roman [facility] Existing IV Access: Yes IV Access Condition: patent with no signs of infiltration Summary 1. Technically challenging exam because of obesity, definity contrast utilized to improve exam. 2. Mild left ventricular enlargement with mild global systolic dysfunction ejection fraction estimated 40-45%. 3. Grade 1 diastolic noncompliance. 4. Mild biatrial dilation. 5. No significant valvular dysfunction. 6. Compared with echocardiogram from 2021 findings are similar, ejection fraction is mildly improved. Left Ventricle Left ventricular chamber dimension is mildly enlarged. Left ventricular systolic function is mildly reduced, estimated at 40-45%. The left ventricular diastolic function is grade I diastolic dysfunction. Right Ventricle Right ventricular chamber dimension is normal. Left Atria Left atrial chamber dimension is mildly enlarged. Right Atria Right atrial chamber dimension is mildly enlarged. Aortic Valve The aortic valve is trileaflet. There is no aortic valve stenosis. Pulmonic Valve The pulmonic valve is not well visualized. Mitral Valve The mitral valve has normal leaflets. Tricuspid Valve The tricuspid valve leaflets are not well visualized. Pericardium/Pleural There is trivial pericardial effusion. Aorta The aortic root size at the sinus of Valsalva is normal. Left Ventricular Outflow Tract Name Value Normal LVOT 2D LVOT Diameter 2.10 cm LVOT Doppler LVOT Peak Gradient 5 mmHg LVOT Mean Gradient 3 mmHg LVOT VTI 20.44 cm LVOT VTI/AV VTI Ratio 0.71 LVOT Stroke Volume 70.75 ml LVOT CO 16.17 l/min LVOT CI 6.87 L/min/m2 Pulmonic Valve Name Value Normal RVOT Doppler RVOT Peak Gradient 1 mmHg PV Doppler PV Peak Grad
--- NOTE | 2023-01-05 08:41 | PM.IMPN ---
Progress Note: A&P Assessment and Plan (1) UTI (urinary tract infection): Code(s): N39.0 - Urinary tract infection, site not specified Status: Acute Assessment and Plan: Rocephin initiated 01/04, follow-up urine culture (2) Fall: Code(s): W19.XXXA - Unspecified fall, initial encounter Status: Acute Assessment and Plan: Fall precautions, PT/OT (3) Syncope: Code(s): R55 - Syncope and collapse Status: Acute Assessment and Plan: Check orthostatic vital signs, monitor telemetry, check echo Gentle IV fluid hydration (4) GERD (gastroesophageal reflux disease): Code(s): K21.9 - Gastro-esophageal reflux disease without esophagitis Status: Chronic Assessment and Plan: PPI (5) Chronic HFrEF (heart failure with reduced ejection fraction): Code(s): I50.22 - Chronic systolic (congestive) heart failure Status: Chronic Assessment and Plan: Patient appears slightly dehydrated, hold Lasix, continue Entresto and spironolactone Gentle IV fluid hydration, monitor fluid status closely Last echo from July 2021 showed an EF of 35%, repeat ordered and pending (6) Pancreatic mass: Code(s): K86.89 - Other specified diseases of pancreas Status: Acute Assessment and Plan: Follow-up in outpatient setting (7) Coronary artery disease: Code(s): I25.10 - Atherosclerotic heart disease of [place] coronary artery without angina pectoris Status: Acute Assessment and Plan: Stable (8) CKD (chronic kidney disease): Code(s): N18.9 - Chronic kidney disease, unspecified Status: Acute Assessment and Plan: Appears to be at baseline creatinine, monitor closely Plan DVT prophylaxis with SCDs GI prophylaxis not indicated Code status full code Subjective Date/time seen: 01/05/23 08:41 Interval history: 62-year-old female with history of heart failure, COPD, heart disease is presenting with a syncopal episode and is currently being treated for possible UTI. No overnight events noted. No chest pain or shortness of breath. No nausea, vomiting or diarrhea. No fevers or chills. Review of Systems Review of Systems: 12 point review of systems was assessed and was negative except as noted in the HPI Exam Narrative: General: No acute distress, alert and oriented per baseline HEENT: Atraumatic, normocephalic, mucous membranes moist CV: Regular rate and rhythm, S1, S2 Lungs: Clear to auscultation bilaterally, no rales or crackles noted, no wheezes, good air entry Abdomen: Soft, nontender, nondistended Extremities: Normal to inspection Skin: No rashes noted, no lesions or wounds seen Psych: Euthymic, normal affect Objective Data Vital Signs Vital Signs: Vital Signs - 24 hr 01/04/23 17:32 01/04/23 19:21 01/04/23 19:40 Temperature 98.1 F Pulse Rate 68 61 Respiratory Rate 17 16 Blood Pressure 186/95 H 134/78 Pulse Oximetry 100 99 Oxygen Delivery Room Air 01/04/23 20:30 01/04/23 21:18 01/04/23 21:38 Temperature Pulse Rate 60 61 62 Respiratory Rate 15 17 19 Blood Pressure 128/58 L 125/45 L Pulse Oximetry 96 96 96 Oxygen Delivery 01/04/23 21:58 01/05/23 05:54 01/05/23 00:00 Temperature 97.4 F L 97.7 F Pulse Rate 60 65 60 Respiratory Rate 20 20 Blood Pressure 138/63 127/60 Pulse Oximetry 98 96 Oxygen Delivery 01/05/23 04:00 Temperature Pulse Rate 60 Respiratory Rate Blood Pressure Pulse Oximetry Oxygen Delivery Intake/Output Intake/Output: Intake & Output 01/02/23 01/03/23 01/04/23 01/05/23 23:59 23:59 23:59 23:59 Intake Total 1250 Balance 1250 Meds/Results Medications: Active Medications Generic Name Dose Route Start Last Admin Trade Name Freq PRN Reason Stop Dose Admin Acetaminophen 650 mg 01/05/23 01:06 Acetaminophen 325 Mg Tablet BY MOUTH Q4H PRN
[2023-01-05] MEDS: METOPROLOL SUCCINATE EXT REL 100 MG TABCR PO (09:24)
[2023-01-05] MEDS: lamoTRIgine 100 MG TABLET PO (09:25)
[2023-01-05] MEDS: SACUBITRIL/VALSARTAN 24-26 MG TABLET 1 TAB PO ×2 (09:25→20:54)
[2023-01-05] MEDS: FAMOTIDINE 20 MG TABLET 40 MG PO (09:25)
[2023-01-05] MEDS: ASPIRIN 81 MG CHEWABLE TABLET PO (09:25)
[2023-01-05] MEDS: ISOSORBIDE MONONITRATE 30 MG TAB.ER.24H PO (09:25)
[2023-01-05] MEDS: allopurinoL 100 MG TABLET PO (09:26)
[2023-01-05] MEDS: LIDOCAINE 5% PATCH 1 PATCH TRANSDERM (09:26)
[2023-01-05] MEDS: FLUoxetine HCL 20 MG CAPSULE 60 MG PO (09:26)
[2023-01-05] MEDS: CLOPIDOGREL BISULFATE 75 MG TABLET PO (09:26)
[2023-01-05] MEDS: SPIRONOLACTONE 25 MG TABLET PO (09:26)
[2023-01-05] MEDS: ACETAMINOPHEN 325 MG TABLET 650 MG BY MOUTH (13:48)
[2023-01-05] MEDS: PERFLUTREN LIPID MICROSPHERES 1.5 ML VIAL DILUTED TO 10 ML TOTAL VOLUME IV PUSH (15:40)
--- NOTE | 2023-01-05 16:25 | IVDEFINITY ---
Prior to administration of IV Definity the patient was educated on the risks and benefits of the imaging enhancing agent including potential adverse side effects. The patient verbalized understanding. Allergies were verified. No exclusion criteria were identified and at least one of the following inclusion criteria were met: 1) physician request, 2) patient technically difficult to image (per the [place] [employer] Echocardi[employer] guidelines of two or more segments not discernable within the apical view), or 3) questionable left ventricular function. ?
[2023-01-05] MEDS: MONTELUKAST SODIUM 10 MG TABLET PO (20:54)
[2023-01-05] MEDS: rOPINIRole HCL 0.25 MG TABLET PO (20:54)
[2023-01-05] MEDS: ARIPiprazole 10 MG TABLET PO (20:54)
[2023-01-05] MEDS: ATORVASTATIN 40 MG TABLET 80 MG PO (20:54)
[2023-01-05] MEDS: traZODone HCL 50 MG TABLET PO (20:54)
[2023-01-06] VITALS (8 sets, daily range): BP systolic 112–133; BP diastolic 63–78; PULSE 55–65; RESP 18–22; TEMP 35.8–36.5; O2SAT 95–98
[2023-01-06] MEDS: UMECLIDINIUM/VILANTEROL 62.5-25 MCG ELLIPTA 1 PUFF INHALATION (08:25)
[2023-01-06] MEDS: ASPIRIN 81 MG CHEWABLE TABLET PO (09:07)
[2023-01-06] MEDS: FAMOTIDINE 20 MG TABLET 40 MG PO (09:07)
[2023-01-06] MEDS: CLOPIDOGREL BISULFATE 75 MG TABLET PO (09:07)
[2023-01-06] MEDS: allopurinoL 100 MG TABLET PO (09:07)
[2023-01-06] MEDS: lamoTRIgine 100 MG TABLET PO (09:08)
[2023-01-06] MEDS: SPIRONOLACTONE 25 MG TABLET PO (09:08)
[2023-01-06] MEDS: ISOSORBIDE MONONITRATE 30 MG TAB.ER.24H PO (09:08)
[2023-01-06] MEDS: SACUBITRIL/VALSARTAN 24-26 MG TABLET 1 TAB PO (09:08)
[2023-01-06] MEDS: METOPROLOL SUCCINATE EXT REL 100 MG TABCR PO (09:08)
[2023-01-06] MEDS: LIDOCAINE 5% PATCH 1 PATCH TRANSDERM (09:12)
[2023-01-06] MEDS: FLUoxetine HCL 20 MG CAPSULE 60 MG PO (09:13)
--- NOTE | 2023-01-06 11:27 | PM.IMPN ---
Progress Note: A&P Assessment and Plan (1) UTI (urinary tract infection): Code(s): N39.0 - Urinary tract infection, site not specified Status: Acute Assessment and Plan: Rocephin initiated 01/04, follow-up urine culture (2) Fall: Code(s): W19.XXXA - Unspecified fall, initial encounter Status: Acute Assessment and Plan: Fall precautions, PT/OT (3) Syncope: Code(s): R55 - Syncope and collapse Status: Acute Assessment and Plan: Orthostatic vital signs wnl, telemetry w/o significant abnormality, echo still with reduced EF and grade I diastolic dysfunction, improved from previous echo (4) GERD (gastroesophageal reflux disease): Code(s): K21.9 - Gastro-esophageal reflux disease without esophagitis Status: Chronic Assessment and Plan: PPI (5) Chronic HFrEF (heart failure with reduced ejection fraction): Code(s): I50.22 - Chronic systolic (congestive) heart failure Status: Chronic Assessment and Plan: Patient appears slightly dehydrated, hold Lasix, continue Entresto and spironolactone Resolved, restart home meds (6) Pancreatic mass: Code(s): K86.89 - Other specified diseases of pancreas Status: Acute Assessment and Plan: Follow-up in outpatient setting (7) Coronary artery disease: Code(s): I25.10 - Atherosclerotic heart disease of [place] coronary artery without angina pectoris Status: Acute Assessment and Plan: Stable (8) CKD (chronic kidney disease): Code(s): N18.9 - Chronic kidney disease, unspecified Status: Acute Assessment and Plan: Appears to be at baseline creatinine, monitor closely Plan DVT prophylaxis with SCDs GI prophylaxis not indicated Code status full code Subjective Date/time seen: 01/06/23 11:27 Interval history: 62-year-old female with history of heart failure, COPD, heart disease is presenting with a syncopal episode and is currently being treated for possible UTI. No overnight events noted. No chest pain or shortness of breath. No nausea, vomiting or diarrhea. No fevers or chills. Review of Systems Review of Systems: 12 point review of systems was assessed and was negative except as noted in the HPI Exam Narrative: General: No acute distress, alert and oriented per baseline HEENT: Atraumatic, normocephalic, mucous membranes moist CV: Regular rate and rhythm, S1, S2 Lungs: Clear to auscultation bilaterally, no rales or crackles noted, no wheezes, good air entry Abdomen: Soft, nontender, nondistended Extremities: Normal to inspection Skin: No rashes noted, no lesions or wounds seen Psych: Euthymic, normal affect Objective Data Vital Signs Vital Signs: Vital Signs - 24 hr 01/05/23 12:00 01/05/23 14:35 01/05/23 16:00 Temperature 97.8 F Pulse Rate 62 65 64 Respiratory Rate 18 Blood Pressure 147/67 H Pulse Oximetry 97 Oxygen Delivery 01/05/23 21:52 01/05/23 20:00 01/05/23 20:00 Temperature 97.7 F Pulse Rate 61 61 61 Respiratory Rate 20 20 Blood Pressure 126/76 Pulse Oximetry 93 93 Oxygen Delivery Room Air 01/06/23 00:00 01/06/23 04:00 01/06/23 06:00 Temperature 97.7 F Pulse Rate 60 60 60 Respiratory Rate 20 Blood Pressure 133/78 Pulse Oximetry 97 Oxygen Delivery 01/06/23 08:26 01/06/23 09:08 01/06/23 08:00 Temperature Pulse Rate 60 65 Respiratory Rate 22 H Blood Pressure Pulse Oximetry 95 Oxygen Delivery Room Air Intake/Output Intake/Output: Intake & Output 01/03/23 01/04/23 01/05/23 01/06/23 23:59 23:59 23:59 23:59 Intake Total 1250 1630 718 Balance 1250 1630 718 Meds/Results Medications: Active Medications Generic Name Dose Route Start Last Admin Trade Name Tamika PRN Reason Stop Dose Admin Acetaminophen 650 mg 01/05/23 01:06 01/05/23 13:48 Acetaminophen 325 Mg Tablet
[2023-01-06] MEDS: FUROSEMIDE 40 MG TABLET PO (11:49)
[2023-01-06] MEDS: EMPAGLIFLOZIN 25 MG TABLET BY MOUTH (11:52)
--- NOTE | 2023-01-06 13:53 | PM.DS ---
DS: Admitting Diagnosis Discharge Date 01/06/23 Admitting Diagnosis syncope DS: Discharge Diagnosis Discharge Diagnosis (1) UTI (urinary tract infection): Code(s): N39.0 - Urinary tract infection, site not specified Status: Acute Assessment and Plan: Rocephin initiated 01/04, follow-up urine culture--negative, stop abx (2) Fall: Code(s): W19.XXXA - Unspecified fall, initial encounter Status: Acute Assessment and Plan: Fall precautions, PT/OT (3) Syncope: Code(s): R55 - Syncope and collapse Status: Acute Assessment and Plan: Orthostatic vital signs wnl, telemetry w/o significant abnormality, echo still with reduced EF and grade I diastolic dysfunction, improved from previous echo (4) GERD (gastroesophageal reflux disease): Code(s): K21.9 - Gastro-esophageal reflux disease without esophagitis Status: Chronic Assessment and Plan: PPI (5) Chronic HFrEF (heart failure with reduced ejection fraction): Code(s): I50.22 - Chronic systolic (congestive) heart failure Status: Chronic Assessment and Plan: Patient appears slightly dehydrated, hold Lasix, continue Entresto and spironolactone Resolved, restart home meds (6) Pancreatic mass: Code(s): K86.89 - Other specified diseases of pancreas Status: Acute Assessment and Plan: Follow-up in outpatient setting (7) Coronary artery disease: Code(s): I25.10 - Atherosclerotic heart disease of [place] coronary artery without angina pectoris Status: Acute Assessment and Plan: Stable (8) CKD (chronic kidney disease): Code(s): N18.9 - Chronic kidney disease, unspecified Status: Acute Assessment and Plan: Appears to be at baseline creatinine, monitor closely Plan DVT prophylaxis with SCDs GI prophylaxis not indicated Code status full code DS: Summary Hospital Course Hospital Course: 62-year-old female with history of heart failure, COPD, heart disease is presenting with a syncopal episode and is currently being treated for possible UTI. Urine culture came back negative, d/c abx. Gentle IVF hydration resolved orthostatic VS, all symptoms resolved. Echo slightly improved from last one. Thought to be 2/2 dehydration, discharged on lower dose of lasix and d/c potassium. Please see above and med rec for details. All symptoms improved. Discharged in stable condition with close outpatient follow up. Time Spent with Patient Time attestation: Total time spent providing and/or coordinating discharge services: Exam Narrative: General: No acute distress, alert and oriented per baseline HEENT: Atraumatic, normocephalic, mucous membranes moist CV: Regular rate and rhythm, S1, S2 Lungs: Clear to auscultation bilaterally, no rales or crackles noted, no wheezes, good air entry Abdomen: Soft, nontender, nondistended Extremities: Normal to inspection Skin: No rashes noted, no lesions or wounds seen Psych: Euthymic, normal affect Discharge Plan Discharge Attending physician on discharge: Smiley Morales Discharging Clinician: Smiley Morales Patient Disposition: Home, Self-Care Activity: as tolerated Diet: as tolerated Patient Instructions: Antibiotic Form, Pain Management in Older Adults (DC) Stand Alone Forms: General Discharge Information Follow-up/Referrals: Patty,Shahnaz Velazco MD [Primary Care Provider] - Discharge Medications: New furosemide [Lasix] 20 mg tablet 20 mg PO DAILY Qty: 30 0RF Continued lidocaine 4 % Adhesive Patch,Medicated 1 patch TOPICAL DAILY Rx Instructions: apply to affected area of pain famotidine 40 mg tablet 40 mg PO DAILY metoprolol succinate 100 mg tablet extended release 24 hr 100 mg PO DAILY clopidogrel 75 mg tablet 75 mg PO DAILY allopurinol 100 mg tablet 100 mg PO ELIZABETH
[2023-01-06 14:19] LABS: Basophils Absolute Auto 0.1 K/mm3 (0.0-0.1); Basophils Percent Auto 0.6 % (0.2-1.2); Eosinophils Absolute Auto 0.2 K/mm3 (0-0.3); Eosinophils Percent Auto 2.4 % (0-4.4); Hematocrit 39.1 % (37.0-47.0); Hemoglobin 12.6 g/dL (12.0-15.0); Immature Granulocyte Absolute 0.03 K/mm3 (0.00-0.031); Immature Granulocyte Percent A 0.4 % (0-0.5); Lymphocytes Absolute Auto 1.71 K/mm3 (0.9-3.2); Lymphocytes Percent Auto 20.7 % (18.3-44.2); Mean Corpuscular HGB Conc 32.2 g/dl (32-36); Mean Corpuscular Hemoglobin 30.4 pg (26-34); Mean Corpuscular Volume 94.4 fl (80-100); Mean Platelet Volume 11.3 fl (7.4-10.4); Monocytes Absolute Auto 0.7 K/mm3 (0.1-0.6); Neutrophils Absolute Auto 5.5 K/mm3 (1.3-6.7); Neutrophils Percent Auto 66.9 % (45.5-73.1); Platelet Count Result 167 k/mm3 (150-375); Red Blood Count 4.14 M/mm3 (4.2-5.4); Red Cell Distribution Width 14.9 % (11.5-14.5); White Blood Count 8.3 K/mm3 (4.5-10.0)
[2023-01-06 14:37] LABS: Alanine Aminotransferase 15 U/L (6-35); Albumin Level 4.2 g/dL (3.5-5.1); Alkaline Phosphatase 52 U/L (38-126); Anion Gap 9 mmol/L (8-16); Aspartate Amino Transferase 19 U/L (14-36); Bilirubin,Total 0.6 mg/dL (0.2-1.3); Blood Urea Nitrogen 35 mg/dL (7-17); Calcium 10.2 mg/dL (8.4-10.2); Carbon Dioxide 24 mmol/L (22-30); Chloride 101 mmol/L (98-107); Estimated CRCL calculation 46 ml/min; Estimated Glomerular Filt Rate 38; Glucose 118 mg/dL (65-110); Potassium 4.9 mmol/L (3.4-5.0); Sodium 134 mmol/L (137-145)
--- NOTE | 2023-01-06 14:51 | PC.NURSE ---
I received a call from Dr. Murillo's office. They do not take the patient's insurance and would be unable to place cardiac sonographer for patient. Dr. Morales notified and asked if Dr. Murphy's cardiology group would be able to place the monitor. I talked with the office regarding the monitor and they said that they take the patient's insurance but the patient would need to go to the office to get monitor placed. plan is to have ambulance take patient to office then to the facility
[2023-01-06 15:16] LABS: SARS-CoV-2 RNA PCR Positive (Negative)
--- NOTE | 2023-01-06 16:20 | PC.NURSE ---
patient in cardiology office with order. Office states that they need an order from their work ticket distributor or from a primary care physician. attempted to reach Shahnazbonny Brambila and phone only rings busy. Dr. Morales notified. She is ok with patient discharging today and having holter monitor placed at a later date. Will let the skilled nursing know.
--- NOTE | 2023-01-06 16:30 | PC.NURSE ---
This RN received an order from DR Morales to inform [facility] of the suggested order for a 30 day cardiac event monitor. Upon this RN calling the [facility] Shahida answered the phone and quickly referred the call to Agata . This RN gave Agata the suggested order when she became upset and stated that she did not see this to be their issue and stated that if we would like a monitor placed on the patient at discharge then we should do it ourselves . This RN notified the current portfolio manager and Dr Morales of this interaction.
== END 2023-01-06 16:05 ==
LOC: ANHED 21:02 → ANH3MEDSUR 01-05 20:13
PROVIDERS: Admitting Provider Internal Medicine; Emergency Provider Physician Assistant; PCP Internal Medicine; Visit Provider Student in an Organized Health Care Education/Training Program
DX: N39.0 Urinary tract infection, site not specified (principal); M25.552 Pain in left hip; M25.551 Pain in right hip; W19.XXXA Unspecified fall, initial encounter; R55 Syncope and collapse; K21.9 Gastro-esophageal reflux disease without esophagitis; I13.0 Hypertensive heart and chronic kidney disease with heart failure and stage 1 through stage 4 chronic kidney disease, or unspecified chronic kidney disease; I50.22 Chronic systolic (congestive) heart failure; N18.9 Chronic kidney disease, unspecified; U07.1 COVID-19; K86.89 Other specified diseases of pancreas; Z99.89 Dependence on other enabling machines and devices; I69.354 Hemiplegia and hemiparesis following cerebral infarction affecting left non-dominant side; E86.0 Dehydration; R79.89 Other specified abnormal findings of blood chemistry; M51.36 Other intervertebral disc degeneration, lumbar region; Z95.0 Presence of cardiac pacemaker; J44.9 Chronic obstructive pulmonary disease, unspecified; I25.10 Atherosclerotic heart disease of native coronary artery without angina pectoris; Z95.5 Presence of coronary angioplasty implant and graft; G25.81 Restless legs syndrome; E66.01 Morbid (severe) obesity due to excess calories; Z68.42 Body mass index [BMI] 45.0-49.9, adult; I25.2 Old myocardial infarction; F20.9 Schizophrenia, unspecified; Z79.51 Long term (current) use of inhaled steroids; Z79.82 Long term (current) use of aspirin; Z79.02 Long term (current) use of antithrombotics/antiplatelets
CPT/HCPCS: 36415; 70450; 71045; 73521; 80053; 81001; 85025; 87086; 87088; 87635; 93005; 96361; 96365; 96374; 99285; A9270; C8929; G0378; G0379; J1956; J7040; Q9957

== ENCOUNTER 2023-11-27 23:44 | Emergency (ER) | payer OTHER, SELFPAY ==
--- NOTE | ~2023-11-27 | XR_ITS ---
EXAMINATION: XR chest 1V portable DATE: 11/28/2023 00:47 INDICATION: Chest pain. Cough. TECHNIQUE: A single frontal view of the chest was obtained. COMPARISON: Chest single view 01/04/2023, CT abdomen and pelvis 11/28/2023 FINDINGS: There is no pneumonia, pleural effusion, or pneumothorax. The heart size is normal. There i s a left chest pacer/fibrillator leads in right atrium, right ventricle, and coronary sinus. IMPRESSION: 1. No acute cardiopulmonary disease. Reviewed, dictated and finalized at location A.
--- NOTE | ~2023-11-27 | CT_ITS ---
EXAMINATION: CT abdomen pelvis wo con DATE: 11/28/2023 03:02 INDICATION: Abdominal pain. TECHNIQUE: Computed tomography (CT) of the abdomen and pelvis was performed without intravenous contr ast. Automated exposure control and iterative reconstruction technique were employed. The dose-length product was 1602.50 mGy-cm. COMPARISON: CT abdomen and pelvis 11/13/2022 FINDINGS: The visualized portions of the lung bases demonstrate mild atelectasis. There is a trace ri ght pleural effusion. The heart size is normal. There are pacer wires in right atrium, right ventricl e, and coronary sinus. There is a small pericardial effusion. The liver is normal. There are gallston es in the gallbladder, which is normal in size. The spleen is normal. There is a 6.1 cm cystic mass i n the head of the pancreas. The adrenal glands and left kidney are normal. There are changes of right nephrectomy. There are no dilated loops of bowel. The appendix is normal. There are changes of ventr al hernia repair. There is an infraumbilical ventral hernia containing nonobstructed small and large bowel. There are no pathologically enlarged lymph nodes. There is no free intraperitoneal fluid. Ther e is mild chronic anterior wedging of multiple vertebral bodies. There is moderate lumbar spondylosis . There are bridging endplate osteophytes at multiple levels in the spine, consistent with diffuse id iopathic skeletal hyperostosis (DISH). IMPRESSION: 1. Stable 6.1 cm cystic mass of the head of the pancreas. The differential diagnosis is headed by ser ous cystadenoma, but also includes includes pseudocyst, intraductal papillary mucinous neoplasm (IPMN ), mucinous cystic neoplasm (MCN), and neuroendocrine tumor. Abdomen MRI without and with contrast an d surgical consultation are recommended. 2. Infraumbilical ventral hernia containing nonobstructed small and large bowel. 3. Stable small pericardial effusion. Reviewed, dictated and finalized at location A. IMPRESSION: 1. Stable 6.1 cm cystic mass of the head of the pancreas. The differential diag nosis is headed by serous cystadenoma, but also includes includes pseudocyst, i ntraductal papillary mucinous neoplasm (IPMN), mucinous cystic neoplasm (MCN), and neuroendocrine tumor. Abdomen MRI without and with contrast and surgical co nsultation are recommended. 2. Infraumbilical ventral hernia containing nonobstructed small and large bowel . 3. Stable small pericardial effusion.
--- NOTE | 2023-11-27 23:49 | ECG_ITS ---
Test Date: 2023-11-27 23:55:50 Measurements Intervals [place] Rate: 75 P: 59 OK: 147 QRS: 98 QRSD: 162 T: -30 QT: 469 QTc: 526 Interpretive Statements ELECTRONIC VENTRICULAR PACEMAKER ABNORMAL RHYTHM ECG No previous ECG available for comparison Electronically Signed On 11-28-2023 08:33:11 CDT by Harpreet Stahl M.D.
[2023-11-27 23:55] VITALS: BP 154/60; PULSE 85; RESP 18; TEMP 36.7; O2SAT 100
[2023-11-28 00:06] LABS: Basophils Percent Auto 0.5 % (0.2-1.2); Eosinophils Absolute Auto 0.2 K/mm3 (0-0.3); Eosinophils Percent Auto 2.4 % (0-4.4); Hematocrit 36.1 % (37.0-47.0); Immature Granulocyte Absolute 0.05 K/mm3 (0.00-0.031); Immature Granulocyte Percent A 0.6 % (0-0.5); Immature Platelet Fraction Pct 9.8 % (0.9-11.2); Lymphocytes Absolute Auto 1.35 K/mm3 (0.9-3.2); Lymphocytes Percent Auto 15.6 % (18.3-44.2); Mean Corpuscular HGB Conc 33.2 g/dl (32-36); Mean Corpuscular Hemoglobin 31.2 pg (26-34); Mean Corpuscular Volume 93.8 fl (80-100); Mean Platelet Volume 12.4 fl (7.4-10.4); Monocytes Absolute Auto 0.6 K/mm3 (0.1-0.6); Monocytes Percent Auto 7.3 % (2.6-8.5); Neutrophils Absolute Auto 6.4 K/mm3 (1.3-6.7); Neutrophils Percent Auto 73.6 % (45.5-73.1); Platelet Count Result 67 k/mm3 (150-375); Red Blood Count 3.85 M/mm3 (4.2-5.4); Red Cell Distribution Width 14.9 % (11.5-14.5); White Blood Count 8.6 K/mm3 (4.5-10.0)
[2023-11-28 00:12] LABS: Alanine Aminotransferase 19 U/L (6-35); Albumin Level 4.5 g/dL (3.5-5.1); Alkaline Phosphatase 93 U/L (38-126); Anion Gap 11 mmol/L (4-12); Aspartate Amino Transferase 21 U/L (14-36); Bilirubin,Total 0.6 mg/dL (0.2-1.3); Blood Urea Nitrogen 20 mg/dL (7-17); Calcium 10.5 mg/dL (8.4-10.2); Carbon Dioxide 23 mmol/L (22-30); Chloride 103 mmol/L (98-107); Estimated CRCL calculation 61 ml/min; Estimated Glomerular Filt Rate 50; Glucose 146 mg/dL (65-110); Lipase 178 U/L (23-300); Potassium 3.9 mmol/L (3.4-5.0); Sodium 137 mmol/L (137-145)
[2023-11-28 00:23] LABS: Troponin I < 0.012 ng/mL (0.000-0.034)
[2023-11-28 00:34] VITALS: BP 139/62; PULSE 78; RESP 14; O2SAT 98
[2023-11-28 00:38] VITALS: BP 139/62; PULSE 76; RESP 14; TEMP 37.2; O2SAT 94; O2SAT 98
[2023-11-28 01:13] LABS: Partial Thromboplastin Time 30.6 Seconds (22.3-36.8); Prothrombin Time 13.9 Seconds (11.1-14.7)
--- NOTE | 2023-11-28 02:21 | ED.CHESTPAIN ---
HPI - Chest Pain General Chief Complaint: Chest Pain Stated Complaint: low back pain, cough, chest pain Time Seen by Provider: 11/28/23 00:34 History of Present Illness HPI narrative: 63-year-old female with a past medical history significant for have for CAD, CKD, GERD. Patient presents to the emergency room today with a chief complaint of a cough and chest pain as well as back pain for last 2 days. She states that she was recently diagnosed with COVID 5 days prior. Has been having a nonproductive cough that she states makes her chest hurt but has no chest pain at rest or with exertion. She states she is also having low back pain which is chronic for her and radiates down her left leg. Denies any paresthesias, numbness, tingling, urinary issues. Was otherwise in her normal state of health. Has a pacemaker placed for coronary disease. Denies any trauma or other injuries. Related Data Home Medications Medication Instructions Recorded Confirmed albuterol sulfate 90 mcg/actuation 90 mcg inhalation Q6H PRN 08/06/21 01/04/23 aerosol inhaler Respiratory Distress aspirin 81 mg capsule 81 mg PO DAILY 08/06/21 01/04/23 atorvastatin 80 mg tablet 80 mg PO HS 08/06/21 01/04/23 isosorbide mononitrate 30 mg 30 mg PO DAILY 08/06/21 01/04/23 tablet,extended release 24 hr lamotrigine 100 mg tablet 100 mg PO DAILY 08/06/21 01/04/23 montelukast 10 mg tablet 10 mg PO HS 08/06/21 01/04/23 ropinirole 0.25 mg tablet 0.25 mg PO HS 08/06/21 01/04/23 acetaminophen 650 mg tablet 650 mg PO Q4H PRN Pain 11/13/22 01/04/23 allopurinol 100 mg tablet 100 mg PO DAILY 11/13/22 01/04/23 aripiprazole 10 mg tablet 10 mg PO HS 11/13/22 01/04/23 clopidogrel 75 mg tablet 75 mg PO DAILY 11/13/22 01/04/23 dapagliflozin propanediol 10 mg 10 mg PO DAILY 11/13/22 01/04/23 tablet (Farxiga) famotidine 40 mg tablet 40 mg PO DAILY 11/13/22 01/04/23 fluoxetine 60 mg tablet 60 mg PO DAILY 11/13/22 01/04/23 lidocaine 4 % topical patch 1 patch topical DAILY 11/13/22 01/04/23 metoprolol succinate 100 mg 100 mg PO DAILY 11/13/22 01/04/23 tablet,extended release 24 hr sacubitril 24 mg-valsartan 26 mg 1 tablet PO Q12H 11/13/22 01/04/23 tablet (Entresto) spironolactone 25 mg tablet 25 mg PO DAILY 11/13/22 01/04/23 umeclidinium 62.5 mcg-vilanterol 1 inh inhalation DAILY 11/13/22 01/04/23 25 mcg/actuation powdr for inhalation (Anoro Ellipta) Allergies Allergy/AdvReac Type Severity Reaction Status Date / Time Iodinated Contrast Media Allergy Palpitation Verified 01/04/23 17:37 s latex Allergy Rash Verified 01/04/23 17:37 Penicillins Allergy Hives Verified 01/04/23 17:37 morphine AdvReac Nausea and Verified 01/04/23 17:37 Vomiting Lobster Allergy Swelling Uncoded 11/13/22 02:47 of Lip/Tongue/Throat Review of Systems Review of Systems: As reviewed above in HPI [facility] Past Medical History Medical History Chronic HFrEF (heart failure with reduced ejection fraction) Coronary artery disease GERD (gastroesophageal reflux disease) Hypertension Myocardial infarction Schizophrenia Surgical History Surgical History H/O cardiac catheterization History of coronary artery stent placement Social History Social History Smoking status: Former smoker Tobacco type: cigarettes Alcohol intake: never Substance use: never Substance use type: does not use Lack of Transportation: No Lack of Food: Never True Current Housing: I Have Housing Concerned About Future Housing: No Difficulty Paying Gas/Electric Bills: No Difficulty Paying for Meds: No Currently Unemployed: No Education: Grade School Difficulty w/ Childcare or Family Care: No Spiritual care concerns: No Exam Narrative: GENERAL: Obese but not in any acute distress, answers all my questions appropriately HEAD: [Normocephalic, atraumatic.] EYES: [PERRLA and EOMI.] ENT: Nares clear, no rhinorrhea or epistaxis. Mucous membranes moist. NECK: Supple. CHEST: [Clear to auscultation. No respiratory distress.] HEART: [Regular rate and rhythm]. No murmur heard. [Normal peripheral pulses.] 2+ peripheral pulses ABDOMEN: [Soft, nondistended], mild tenderness to palpation in the epigastrium, [No rigidity or guarding] EXTREMITIES: Normal range of motion. [No edema.] Tenderness and left-sided low paraspinal muscles no step-offs deformities. No midline thoracic or lumbar spinal tenderness SKIN: Warm, dry, no rash. NEURO: [No focal deficits]. Alert and oriented [x3.] PSYCH: [Normal mood and affect.] Course Vital Signs Vital signs: Vital Signs Temperature 36.7 C 11/27/23 23:55 Pulse Rate 85 11/27/23 23:55 Respiratory Rate 18 11/27/23 23:55 Blood Pressure 154/60 H 11/27/23 23:55 Pulse Oximetry 100 11/27/23 23:55 Oxygen Delivery Room Air 11/27/23 23:55 Temperature 37.2 C 11/28/23 00:38 Pulse Rate 76 11/28/23 00:38 Respiratory Rate 14 11/28/23 00:38 Blood Pressure 139/62 11/28/23 00:38 Pulse Oximetry 98 11/28/23 00:38 Oxygen Delivery Room Air 11/28/23 00:38 MDM - Chest Pain MDM Narrative Medical decision making narrative: 63-year-old female with history of CKD, GERD, half breath, coronary disease status post pacemaker. Patient presents to the emergency department with chief complaint of cough with chest pain on coughing. She was recently diagnosed with COVID. She has also complained of a separate issue being left-sided low back pain which is chronic for her. Denies any recent injuries or illnesses other than the COVID diagnosis. Endorses some mild nausea. On examination she does have some mild epigastric pain without any rebound or guarding. She has reassuring set of vitals without any tachycardia, hypoxia, significant blood pressure concerns or fever. Given her age and risk factors cardiac workup was ordered including a chest x-ray, EKG and serial troponins. CT of the abdomen obtained secondary to the mild epigastric pain. Workup revealed no leukocytosis or anemia. Some thrombocytopenia noted at 66 although she normally runs low in her platelets and her last level was over a year prior. No active bleeding or bruising visualized. Coag studies within normal limits. Electrolytes within normal limits. BUN and creatinine within baseline limits. Glucose within normal limits. Negative troponin. Negative lipase. Chest x-ray my interpretation shows a pacemaker overlying the left side chest with leads appearing in place. No obvious solid consolidations or pleural effusions. No pneumonia or pneumothorax visualized. CT scan report by stat read shows a stable small pericardial effusion and cholelithiasis, chronic appearing cystic structure at the pancreatic head that is similar to prior comparison, no bowel obstruction, ventral hernia status post repair prior hysterectomy noted, mild hepatomegaly noted but normal appendix. Overall no acute cardiopulmonary or abdominal pelvis process identified throughout her labs and imaging studies. Patient is stable for discharge at this time. She was given return precautions and follow-up instructions with her PCP. Medical Records Data Attestation: I reviewed the patient's medical records. Lab Data Attestation: I reviewed the patient's lab results. 11/27/23 23:54 11/27/23 23:54 Labs: Lab Results 11/27/23 11/28/23 Range/Units 23:54 03:10 WBC 8.6 (4.5-10.0) K/mm3 RBC 3.85 L (4.2-5.4) M/mm3 Hgb 12.0 (12.0-15.0) g/dL Hct 36.1 L (37.0-47.0) % MCV 93.8 (80-100) fl MCH 31.2 (26-34) pg MCHC 33.2 (32-36) g/dl RDW 14.9 H (11.5-14.5) % Plt Count 67 L D (150-375) k/mm3 MPV 12.4 H (7.4-10.4) fl Immature Gran % (Auto) 0.6 H (0-0.5) % Neut % (Auto) 73.6 H (45.5-73.1) % Lymph % (Auto) 15.6 L (18.3-44.2) % [place] % (Auto) 7.3 (2.6-8.5) % Eos % (Auto) 2.4 (0-4.4) % Baso % (Auto) 0.5 (0.2-1.2) % Lymph # (Auto) 1.35 (0.9-3.2) K/mm3 [place] # (Auto) 0.6 (0.1-0.6) K/mm3 Eos # (Auto) 0.2 (0-0.3) K/mm3 Baso # (Auto) 0.0 (0.0-0.1) K/mm3 Abs Immat Gran (auto) 0.05 H (0.00-0.031) K/mm3 Absolute Neuts (auto) 6.4 (1.3-6.7) K/mm3 Absolute Nucleated RBC 0.000 (0.0-0.012) K/mm3 Nucleated RBC % 0.0 (0.0-0.2) % % Immature Plt Fraction 9.8 (0.9-11.2) % PT 13.9 (11.1-14.7) Seconds INR 1.0 APTT 30.6 (22.3-36.8) Seconds Sodium 137 (137-145) mmol/L Potassium 3.9 (3.4-5.0) mmol/L Chloride 103 (98-107) mmol/L Carbon Dioxide 23 (22-30) mmol/L Anion Gap 11 (4-12) mmol/L BUN 20 H D (7-17) mg/dL Creatinine 1.10 H (0.7-1.0) mg/dL Estim Creat Clear Calc 61 ml/min Estimated GFR 50 L (59 - ) Glucose 146 H (65-110) mg/dL Calcium 10.5 H (8.4-10.2) mg/dL Total Bilirubin 0.6 (0.2-1.3) mg/dL AST 21 (14-36) U/L ALT 19 (6-35) U/L Alkaline Phosphatase 93 (38-126) U/L Troponin I < 0.012 < 0.012 (0.000-0.034) ng/mL Total Protein 8.0 (6.3-8.2) g/dL Albumin 4.5 (3.5-5.1) g/dL Lipase 178 (23-300) U/L Imaging Data Attestation: I personally reviewed and interpreted this imaging study as follows: ECG Data EKG #1: ECG completion date: 11/28/23 ECG completion time: 23:55 Prior ECG tracings: available for review Interpretation: Ventricularly paced rhythm, no ST segment elevations, depressions or inversions concerning for an acute ischemic change. No ectopy. Similar to prior EKGs. Discharge Plan Discharge Clinical Impression: Chest pain, Back pain, Thrombocytopenia Patient Disposition: Home, Self-Care Condition: Stable Instructions: Antibiotic Form, Chest Pain (ED) Additional Instructions: Please follow-up with your primary care provider on outpatient basis. No acute emergent concerns or identified during your visit today. Return at any point with any new or worsening concerns. Prescriptions: No Action lidocaine 4 % Adhesive Patch,Medicated 1 patch TOPICAL DAILY Rx Instructions: apply to affected area of pain famotidine 40 mg tablet 40 mg PO DAILY metoprolol succinate 100 mg tablet extended release 24 hr 100 mg PO DAILY clopidogrel 75 mg tablet 75 mg PO DAILY allopurinol 100 mg tablet 100 mg PO DAILY acetaminophen 650 mg Tablet 650 mg PO Q4H PRN (Reason: Pain) spironolactone 25 mg tablet 25 mg PO DAILY aripiprazole 10 mg tablet 10 mg PO HS fluoxetine 60 mg tablet 60 mg PO DAILY Anoro Ellipta 62.5-25 mcg/actuation blister with device 1 inh INHALATION DAILY Farxiga 10 mg tablet 10 mg PO DAILY Entresto 24-26 mg tablet 1 tablet PO Q12H nitroglycerin [Nitrostat] 0.4 mg Tablet, Sublingual 0.4 mg sublingual Q5MIN PRN (Reason: Chest Pain) Qty: 0 0RF Rx Instructions: do not exceed 3 doses per episode hydrocodone-acetaminophen 5-325 mg tablet 1 tablet PO Q6H PRN (Reason: severe pain (scale score 7-10)) Qty: 20 0RF furosemide [Lasix] 20 mg tablet 20 mg PO DAILY Qty: 30 0RF atorvastatin 80 mg tablet 80 mg PO HS albuterol sulfate 90 mcg/actuation HFA aerosol inhaler 90 mcg inhalation Q6H PRN (Reason: Respiratory Distress) aspirin 81 mg Capsule 81 mg PO DAILY isosorbide mononitrate 30 mg tablet extended release 24 hr 30 mg PO DAILY ropinirole 0.25 mg tablet 0.25 mg PO HS montelukast 10 mg tablet 10 mg PO HS lamotrigine 100 mg tablet 100 mg PO DAILY trazodone 50 mg Tablet 50 mg PO HS Qty: 30 0RF Rx Instructions: Hold for sedation Follow-up/Referrals: UNKNOWN,DOCTOR [Primary Care Provider] - Time of Disposition: 05:16
[2023-11-28] MEDS: ONDANSETRON INJ 4 MG/2 ML VIAL IV PUSH (03:11)
[2023-11-28] MEDS: KETOROLAC 15 MG/ML VIAL (*BKC) IV PUSH (03:13)
[2023-11-28 03:40] LABS: Troponin I < 0.012 ng/mL (0.000-0.034)
== END 2023-11-28 05:56 | disposition home or self-care (01) ==
PROVIDERS: Emergency Provider Student in an Organized Health Care Education/Training Program
DX: R07.9 Chest pain, unspecified (principal); D69.6 Thrombocytopenia, unspecified; I25.10 Atherosclerotic heart disease of native coronary artery without angina pectoris; I13.0 Hypertensive heart and chronic kidney disease with heart failure and stage 1 through stage 4 chronic kidney disease, or unspecified chronic kidney disease; I50.22 Chronic systolic (congestive) heart failure; N18.9 Chronic kidney disease, unspecified; I25.2 Old myocardial infarction; K21.9 Gastro-esophageal reflux disease without esophagitis; F20.9 Schizophrenia, unspecified; Z95.0 Presence of cardiac pacemaker; Z95.5 Presence of coronary angioplasty implant and graft; Z86.16 Personal history of COVID-19; Z87.891 Personal history of nicotine dependence; Z79.02 Long term (current) use of antithrombotics/antiplatelets; Z79.899 Other long term (current) drug therapy; Z79.82 Long term (current) use of aspirin; K86.2 Cyst of pancreas; K43.9 Ventral hernia without obstruction or gangrene
CPT/HCPCS: 36415; 71045; 74176; 80053; 83690; 84484; 85025; 85055; 85610; 85730; 93005; 96374; 96375; 99284; J1885; J2405

== ENCOUNTER 2024-04-06 14:46 | Emergency (ER) | payer OTHER, SELFPAY ==
--- NOTE | ~2024-04-06 | XR_ITS ---
EXAMINATION: XR chest 2V 04/06/2024 16:44 INDICATION: Syncope PROCEDURE: 2 view chest COMPARISON: Comparison to multiple prior studies sequentially, with oldest reviewed study dated 09/2021. FINDINGS: The lungs are clear. Stable position to pacemaker leads. The cardiomediastinal silhouette i s within normal limits. There are no pleural effusions. There is no pneumothorax suspected. IMPRESSION: 1: NO ACUTE CARDIOPULMONARY DISEASE. Reviewed, dictated and finalized at location B. P[facility]TER
--- NOTE | ~2024-04-06 | CT_ITS ---
EXAMINATION: CT lumbar spine wo con DATE: 04/06/2024 16:59 INDICATION: Low back pain. Fall. TECHNIQUE: Computed tomography (CT) of the lumbar spine was performed without intravenous contrast. A utomated exposure control and iterative reconstruction technique were employed. The dose-length produ ct was 1242.20 mGy-cm. COMPARISON: CT abdomen and pelvis 11/28/2023, 11/13/2022 FINDINGS: There is a 6.5 cm cystic mass in the head of the pancreas. There is 5 degrees levocurvature of lumbar spine. There is mild chronic anterior wedging of T12 and L1 vertebral bodies. There is mil dly decreased disc height at L1-L2 and moderately decreased disc height at L2-L3. The following disc levels are specifically discussed: L1-L2: The disc is bulging. There is severe bilateral facet joint osteoarthritis. There is mild bilat eral neural foraminal stenosis. There is mild central canal stenosis. L2-L3: The disc is bulging. There is severe bilateral facet joint osteoarthritis. There is mild bilat eral neural foraminal stenosis. There is mild central canal stenosis. L3-L4: The disc is bulging. There is severe bilateral facet joint osteoarthritis. There is mild later al neural foraminal stenosis. There is mild central canal stenosis. L4-L5: The disc is bulging. There is severe bilateral facet joint osteoarthritis. There is mild right and moderate left neural foraminal stenosis. There is moderate central canal stenosis. L5-S1: The disc is bulging. There is severe bilateral facet joint osteoarthritis. There is mild bilat eral neural foraminal stenosis. There is mild central canal stenosis. IMPRESSION: 1. Moderate lumbar spondylosis. 2. 6.5 cm cystic mass in the head of the pancreas, increased from 5.7 cm on 11/13/2022. The differenti al diagnosis is headed by serous cystadenoma, but also includes includes pseudocyst, intraductal marquita llary mucinous neoplasm (IPMN), mucinous cystic neoplasm (MCN), and neuroendocrine tumor. Abdomen MRI without and with contrast and surgical consultation are recommended. Reviewed, dictated and finalized at location A. [employer] IMPRESSION: 1. Moderate lumbar spondylosis. 2. 6.5 cm cystic mass in the head of the pancreas, increased from 5.7 cm on 10/18. The differential diagnosis is headed by serous cystadenoma, but also in cludes includes pseudocyst, intraductal papillary mucinous neoplasm (IPMN), muc inous cystic neoplasm (MCN), and neuroendocrine tumor. Abdomen MRI without and with contrast and surgical consultation are recommended.
--- NOTE | ~2024-04-06 | CT_ITS ---
EXAMINATION: CT cervical spine wo con DATE: 04/06/2024 16:59 INDICATION: Neck pain. Fall. TECHNIQUE: Computed tomography (CT) of the cervical spine was performed without intravenous contrast. Automated exposure control and iterative reconstruction technique were employed. The dose-length pro duct was 549.91 mGy-cm. COMPARISON: None FINDINGS: There is 2 mm anterolisthesis of C4 on C5. There is mild chronic anterior wedging of C6, T1 , and T2 vertebral bodies. There is 5 degrees dextrocurvature of cervical spine. There is mildly decr eased disc height at C3-C4 and C4-C5 and severely decreased disc height at C5-C6 and C6-C7. The follo wing disc levels are specifically discussed: C2-C3: There is mild bilateral uncovertebral joint osteoarthritis. There is severe bilateral facet chato int osteoarthritis. There is mild left neural foraminal stenosis. There is no central canal stenosis. C3-C4: There is severe bilateral uncovertebral joint osteoarthritis. There is severe bilateral facet joint osteoarthritis. There is mild bilateral neural foraminal stenosis. There is mild central canal stenosis. C4-C5: There is mild bilateral uncovertebral joint osteoarthritis. There is severe bilateral facet chato int osteoarthritis. There is mild bilateral neural foraminal stenosis. There is mild central canal st enosis. C5-C6: There is severe bilateral uncovertebral joint osteoarthritis. There is severe bilateral facet joint osteoarthritis. There is mild bilateral neural foraminal stenosis. There is mild central canal stenosis. C6-C7: There is severe right and moderate left uncovertebral joint osteoarthritis. There is severe bi lateral facet joint osteoarthritis. There is moderate right and mild left neural foraminal stenosis. There is mild central canal stenosis. C7-T1: There is no uncovertebral joint osteoarthritis. There is severe bilateral facet joint osteoart hritis. There is mild bilateral neural foraminal stenosis. There is no central canal stenosis. IMPRESSION: 1. No fracture. 2. Severe cervical spondylosis. Reviewed, dictated and finalized at location A. [employer]IVE [employer]
--- NOTE | ~2024-04-06 | XR_ITS ---
EXAMINATION: XR hip BI 2V w AP pelvis DATE: 04/06/2024 16:44 INDICATION: Hip pain. TECHNIQUE: An anteroposterior view of the pelvis and 2 views of each hip were obtained. COMPARISON: Pelvis and hip radiographs 01/04/2023 FINDINGS: Alignment is normal. No fracture. There is mild osteoarthritis of the hips. There is mild l umbar spondylosis. There are surgical clips from ventral hernia repair. IMPRESSION: 1. Mild osteoarthritis of the hips. Reviewed, dictated and finalized at location A. USER CONSULTANT
--- NOTE | ~2024-04-06 | CT_ITS ---
EXAMINATION: CT brain wo con DATE: 04/06/2024 16:59 INDICATION: Syncope. Fall. TECHNIQUE: Computed tomography (CT) of the head was performed without intravenous contrast. The mA wa s adjusted according to patient size. Iterative reconstruction technique was employed. The dose-lengt h product was 681.00 mGy-cm. COMPARISON: Head CT 01/04/2023 FINDINGS: There are scattered areas of low attenuation in the cerebral white matter. There is no intr acranial hemorrhage, acute infarction, or abnormal intracranial mass lesion. The ventricles are betsey l in size. The orbits are normal. There is a mucous retention cyst in left maxillary sinus. The masto id air cells are normal. IMPRESSION: 1. Stable extensive nonspecific cerebral white matter disease, which likely represents chronic small vessel ischemic disease. Reviewed, dictated and finalized at location A. [employer]IT TOOL SETTER IMPRESSION: 1. Stable extensive nonspecific cerebral white matter disease, which likely rep resents chronic small vessel ischemic disease.
[2024-04-06 14:46] VITALS: BP 154/51; PULSE 71; RESP 16; TEMP 36.3; O2SAT 98
--- OUTSIDE RECORDS SUMMARY | 2024-04-06 14:48 | XMS_ITS | Clinical Summary ---
Author Organization [facility] Address [address] [place] [address] Care Team Providers Care Application Packaging Consultant Name Role Phone Dago Stockton MD Unavailable [phone] Rachel Manzanares APRN-SHOPPING CENTRE MANAGER Primary Care Provider + Source Comments [facility],non-owned Affiliates and Associated Physician Practices is amultiple site organization consisting of ambulatory clinics and hospital sitesin [place], [place], [place] and [place]. This disclosure is being madepursuant to the Care Everywhere program and may not contain all information available regarding this patient. Last updated 17.[facility] Allergies Active Allergy Reactions Criticality Noted Date Comments Contrast-Iodinated Agents For Ct/Other Other High 05/27/2018 Per pt heart attack Iodine Other High 06/25/2012 Makes patient feel hot Iohexol Palpitations Low 11/16/2015 Latex Itching Medium 11/28/2013 Redness and Hives Morphine Nausea and/or Vomiting Medium 12/01/2012 Penicillins Rash Low 06/25/2012 Medications * Be aware that medications may not be up to date on this document. Alwaysverify current medications with the patient. Medication Sig Dispensed Refills Start Date End Date Status aspirin (ASPIRIN) 81 MG tablet Take 81 mg by mouth every morning Active atorvastatin (LIPITOR) 80 MG tablet Take 1 tablet by mouth at bedtime 30 tablet 3 09/27/2019 Active acetaminophen (TYLENOL) 500 MG tablet Take 1,000 mg by mouth every 4 hours as needed for Fever or Pain Maximum allowable Acetaminophen amount = 4 Grams (4000 mg) / 24 hours. Active budesonide-formote rol (SYMBICORT) 160-4.5 MCG/ACT inhaler Inhale 2 (two) puffs by mouth 2 times daily Rinse mouth after each use 1 Inhaler 06/18/2020 Active montelukast (SINGULAIR) 10 MG tablet Take 1 (one) tablet by mouth at bedtime 30 tablet 06/18/2020 Active fluticasone propionate (FLONASE) 50 MCG/ACT nasal spray [place] 2 (two) sprays into each nostril once daily 16 g 06/18/2020 Active docusate sodium (COLACE) 100 MG capsule Take 2 (two) capsules by mouth at bedtime 60 capsule 06/18/2020 Active senna (SENOKOT) 8.6 MG tablet Take 1 (one) tablet by mouth nightly as needed for Constipation 30 tablet 06/18/2020 Active Additional Information Patient not taking.Reported on 12/03/2020 lamoTRIgine XR 24hr (LAMICTAL XR) 100 MG tablet Take 1 (one) tablet by mouth once daily 30 tablet 2 11/26/2020 Active Additional Information Patient taking differently:100 mg Oral DAILY,Hold per [facility] ER 12/03/20, Informant: Other, Reported on 12/04/2020 Alum & Mag Hydroxide-Simeth (MAALOX 120 ML/LIDOCAINE VISC 120 ML 1:1) suspension Take 10 mL by mouth 3 times daily,before breakfast/lunch/bed time 09/06/2020 Active vitamin D3 (CHOLECALCIFEROL) 125 MCG (5000 UT) capsule Take 5,000 Units by mouth once daily 09/07/2020 Active isosorbide dinitrate (ISORDIL) 30 MG tablet Take 30 mg by mouth once daily 09/07/2020 Active Multiple Vitamin (MULTI VITAMIN DAILY PO) Take 1 tablet by mouth once daily 09/07/2020 Active clopidogrel (PLAVIX) 75 MG tablet Take 75 mg by mouth once daily 11/23/2020 Active famotidine (PEPCID) 20 MG tablet Take 20 mg by mouth once daily 11/23/2020 Active pantoprazole EC (PROTONIX) 40 MG tablet Take 40 mg by mouth once daily 11/23/2020 Active FLUoxetine (PROZAC) 20 MG tablet Take 1 tablet by mouth 09/07/2020 Active carvedilol (COREG) 6.25 MG tablet Take 1 (one) tablet by mouth 2 times daily 60 tablet 2 12/03/2020 Active valsartan (DIOVAN) 160 MG tablet Take 1 (one) tablet by mouth once daily 30 tablet 2 12/03/2020 Active albuterol HFA (PROVENTIL;VENTOLI N;PROAIR) 108 (90 Base) MCG/ACT inhaler Inhale 2 (two) puffs by mouth every 4 hours as needed for Wheezing 17 g 2 12/03/2020 Active cloNIDine (CATAPRES) 0.1 MG tablet Take 1 (one) tablet by mouth 2 times daily 60 tablet 1 12/04/2020 Active potassium chloride ER (KLOR-CON M) 20 MEQ tablet Take 1 (one) tablet by mouth daily with lunch 30 tablet 12/04/2020 Active nicotine polacrilex (NICORETTE) 2 MG gumIndications:Demetri otine Dependence Take 1 (one) Each by mouth every 2 hours as needed for Smoking Cessation Stop taking this gum if you resume tobacco smoking. Reasons: Nicotine Addiction 40 Each 12/04/2020 Active furosemide (LASIX) 40 MG tablet Take 1 (one) tablet by mouth once daily 30 tablet 12/04/2020 Active Nebulizer System All-In-One MISCIndications:CO PD with acute exacerbation (HCC) Use 1 Each as directed Nebulizer machine and supplies 1 Each 12/06/2020 Active aspirin (ASPIRIN) 81 MG chew tablet Take 1 (one) tablet by mouth once daily 12/14/2020 Active clopidogrel (PLAVIX) 75 MG tablet Take 1 (one) tablet by mouth once daily 30 tablet 12/14/2020 Active Active Problems Problem Noted Date Diagnosed Date Abdominal pain, left lower quadrant 12/09/2020 Mass of pancreas 12/09/2020 COPD with acute exacerbation 06/14/2020 Acute on chronic diastolic (congestive) heart fa ilure 06/14/2020 Acute on chronic respiratory failure with hypoxe anali 06/14/2020 Diaphoresis 06/13/2020 Respiratory distress 06/13/2020 SOB (shortness of breath) 06/13/2020 Elevated troponin 06/13/2020 History of COPD 06/13/2020 Elevated lactic acid level 06/13/2020 Elevated lipase 06/13/2020 Orthopnea 06/13/2020 Acute psychosis 11/09/2017 Hypokalemia 11/08/2017 Hallucination 11/08/2017 History of MRSA infection 11/08/2017 Acute renal failure (ARF) 04/09/2015 Smoking 02/26/2015 Palpitations 12/18/2014 Diastolic dysfunction 12/18/2014 Coronary artery disease invo lving [place] coronary artery without angina pectoris 12/18/2014 S/P coronary artery stent placement 12/18/2014 Dyslipidemia 12/18/2014 Poor compliance with medication 06/28/2012 Reflux esophagitis 05/30/2008 Overview (12/26/2013): EGD done on 12/22/2013 [place], Diffuse gastritis. 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/19/2007 Other late effects of cerebrovascular disease Overview (11/17/2015): IMO Updt 11/17/2015 Tobacco use disorder 10/19/2007 Migraine 10/19/2007 Overview (11/16/2014): Resolved Problems Problem Noted Date Diagnosed Date Resolved Date Dehydration 12/09/2020 12/23/2020 Cellulitis 04/09/2015 04/14/2017 Pain in the chest 12/18/2014 04/14/2017 Sciatica 04/04/2014 04/14/2017 Malignant neoplasm of uterus 10/19/2007 04/14/2017 Overview (11/16/2014): Malignant neoplasm of kidney excluding renal pelvis 10/19/2007 04/14/2017 Overview (11/16/2014): Chest pain 10/19/2007 04/14/2017 Overview (11/16/2014): Immunizations Name Administration Dates Next Due FLU VACCINE TRI IIV3 SPLIT P F IM (FLUVIRIN) 12/28/2013,12/02/2012 INFLUENZA VACCINE 06/14/2020,06/13/2020 INFLUENZA VACCINE, QUADR. (F LUZONE; FLULAVAL; FLUARIX; AFLURIA QUADRIVALENT; 6MO+), 0.5 ML (IIV4) 12/12/2020,11/10/2017,11/17/2015, 015 TDAP (7yrs+) 06/12/2021 TETANUS 11/27/2011 Family History Medical History Relation Name Comments Cancer - Other Father Cancer - Breast Maternal Aunt Cancer - Other Mother Cancer - Other Sister Depression Sister Diabetes Sister Heart Disease Sister Hypertension Sister Cancer - Ovarian Neg Hx Relation Name Status Comments Father Maternal Aunt Mother Sister Social History Tobacco Use Types Packs/Day Years Used Date Smoking Tobacco: Former Cigarettes 0.3 40 0 04/09/1975 - 04/09/2015 Smokeless Tobacco: Never Tobacco Cessation:Ready to Q uit: No; Counseling Given: Yes Alcohol Use Standard Drinks/Week Comments No 0 (1 standard drink = 0.6 oz pur e alcohol) Sex and Gender Information Value Date Recorded Sex Assigned at Not on file Gender Identity Not on file Sexual Orientation Not on file Last Filed Vital Signs Vital Sign Reading Time Taken Comments Blood Pressure 169/88 12/14/2020 8:28 AM CDT Pulse 71 12/14/2020 8:33 AM CDT Temperature 36.6 C (97.9 F) 12/14/2020 8:28 AM CDT Respiratory Rate 16 12/14/2020 8:28 AM CDT Oxygen Saturation 95% 12/14/2020 8:28 AM CDT Inhaled Oxygen Concentration 21% 06/18/2020 3 :28 PM CDT Weight 106.1 kg (234 lb) 12/14/2020 1:08 AM CDT Height 162.6 cm (5' 4 ) 12/10/2020 4:47 PM CDT Body Mass Index 40.17 12/10/2020 4:47 PM CDT Plan of Treatment Health Maintenance Due Date Last Done Comments COLOGUARD (AGES 45-75) - COLON CA SCREENING 1959 COLONOSCOPY - COLON CA SCREENING 1959 CT COLONOGRAPHY - COLON CA SCREENING 1959 FIT - COLON CA SCREENING 1959 FLEX SIG - COLON CA SCREENING 1959 HIV SCREENING 09/13/1974 HEPATITIS C SCREENING 09/09/1977 PNEUMOCOCCAL VACCINE 50+ (1 of 2 - PCV) 09/13/1978 PNEUMOCOCCAL VACCINE (1 of 2 - PCV) 09/13/1978 ZOSTER VACCINE (1 of 2) 09/13/2009 PAP SMEAR 06/11/2019 06/10/2016, 06/07/2015 COLON MONITORING 08/10/2019 08/09/2018 Colorectal Cancer Screening 08/10/2019 Respiratory Syncytial Virus (RSV) Vaccine Pt: or over 60 yrs (1 - Risk 60-74 years 1-dose series) 2019 MAMMOGRAM 09/08/2020 09/08/2018, 06/08/2017, 06/17/2016, Additional history exists COVID-19 VACCINE (3 - season) 2023 07/26/2021, 07/13/2020 INFLUENZA VACCINE (#1) 2023 2, 12/12/2020, 06/14/2020, Additional history exists SCREENING FOR DIABETES 12/13/2023 1, 12/10/2020, 12/09/2020, Additional history exists DTAP/TDAP/TD VACCINES (3 - Td or Tdap) 06/13/2031 06/12/2021, 11/27/2011 HEPATITIS B VACCINE Aged Out No longe r eligible based on patient's age to complete this topic HIB VACCINE Aged Out No longer eligi ble based on patient's age to complete this topic HPV VACCINE Aged Out No longer eligi ble based on patient's age to complete this topic MENINGOCOCCAL (Group B) VACCINE Aged Out No longer eligible based on patient's age to complete this topic MENINGOCOCCAL VACCINE Aged Out No queta elmo eligible based on patient's age to complete this topic Medical Devices Implanted Type Area Real Estate Management Specialist Device Identifier Shelf Expiration Date Model / Serial / Lot Patch Srg 13.7x10.8in Vntrl Slf Xpd - [id number] Implanted:Qty: 1 on 05/06/2016 [facility] [employer] 08/13/2017 [id number] / [id number] / [id number] Procedures Procedure Name Priority Date/Time Associated Diagnosis Comments COMPREHENSIVE METABOLIC PANEL AM Draw 12/12/2020 8:10 AM CDT MAMMO BILAT SCREENING Routine 09/08/2018 11:34 AM CDT Screening mammogram, encounter for from Last 3 Months or Most Recently Relevant to Health Maintenance Results * (ABNORMAL) COMPREHENSIVE METABOLIC PANEL (12/12/2020 8:10 AM CDT) Sodium 136(L) 137 - 145 mmol/L 12/12/2020 9:24 AM CDT [facility] Potassium 3.8 3.6 - 5.0 mmol/L 12/12/2020 9:24 AM T [facility] ([facility]) Chloride 92(L) 98 - 107 mmol/L 12/12/2020 9:24 AM T [facility]) Carbon Dioxide 38(H) 21 - 31 mmol/L 12/12/2020 9:24 AM T [facility] ([facility]) Glucose 194(H) 65 - 100 mg/dL 12/12/2020 9:24 AM [facility] ([facility]) BUN 32(H) 7 - 17 mg/dL 12/12/2020 9:24 AM [facility] ([facility]) Creatinine 1.10(H) 0.50 - 1.04 mg/dL 12/12/2020 9:24 AM T [facility] ([facility]) eGFR 50(L) >=60 ml/min/1.7 3*2 12/12/2020 9:24 AM [facility] ([facility]) Comment: Chronic kidney disease is defined as either the presence of kidney disease or a GFR of less than 60 ml/min/1.732 for 3 or more months and can be diagnosed without knowledge of its cause (NKF). Reference range in ml/min/1.732 For healthy adults > 60 Chronic Kidney Disease 15-60. GFR is not recommended for patients greater than 70 years. Reference ranges not available for patients under 18 yrs. Test will not be performed. BUN/Creatinine Ratio 29.0(H) 6.0 - 26.0 12/12/2020 9:24 AM CDT [facility] ([facility]) Calcium 10.1 8.4 - 10.7 mg/dL 12/12/2020 9:24 AM CDT [facility]) Protein Total 7.0 6.3 - 8.2 g/dL 12/12/2020 9:24 AM CDT [facility]) Albumin 4.5 3.9 - 5.0 g/dL 12/12/2020 9:24 AM CDT [facility]) Albumin/Globulin Ratio 1.8 1.1 - 2.2 g/dL 12/12/2020 9:24 AM CDT [facility]) Bilirubin Total 0.8 0.2 - 1.3 mg/dL 12/12/2020 9:24 AM CDT [facility]) Alkaline Phosphatase 48 38 - 126 U/L 12/12/2020 9:24 AM CDT [facility]) AST 31 8 - 39 U/L 12/12/2020 9:24 AM CDT [facility]) ALT 24 9 - 52 U/L 12/12/2020 9:24 AM CDT [facility]) Blood BLOOD SPECIMEN / Unknown Lab Venipuncture / Unknown 12/12/2020 8:10 AM CDT 12/12/2020 8:34 AM CDT Parmjit Smith PRODUCT SAFETY AND STANDARDS ENGINEER-SHOPPING CENTRE MANAGER LAB - CHEMISTRY ORDERABLES [facility]) [address] [place] [address] * SOLITARIO SCREENING BILATERAL DIGITAL [id number] (09/08/2018 11:34 AM CDT) Anatomical Region Laterality Modality Breast Bilateral Mammography 09/08/2018 10:2 1 PM CDT Impressions 09/08/2018 10:25 PM CDT No radiographic evidence of malignancy identified in either breast. BI-RADS Category 1. Mammography recheck suggested in one year. A) A negative report should not delay a biopsy if a dominant or clinically suspicious mass is present. B) Adenosis and dense breasts may obscure an underlying neoplasm. C) Study interpreted with computer-aided detection. MQSA BI-RADS Categories: Category 0 - needs additional imaging evaluation. Category 1 - negative. Category 2 - benign findings. Category 3 - probably benign findings, but short interval followup is recommended. Category 4 - suspicious abnormality and biopsy should be considered though the lesion may well be benign. Category 5 - highly suggestive of malignancy and appropriate action should be taken. Narrative 09/08/2018 10:25 PM CDT BILATERAL DIGITAL SCREENING MAMMOGRAPHY WITH COMPUTER-AIDED DETECTION AND 3-D TOMOSYNTHESIS 09/08/2018 11:34 AM HISTORY: No complaints listed referable to either breast. Screening examination. Breast cancer in maternal aunt at unspecified age. FINDINGS: Digital 2-D mammography and 3-D tomosynthesis performed of both breasts. Heterogeneously dense breast parenchymal pattern which may obscure small masses. Breast parenchymal pattern similar to prior studies reviewed dating back to 05/11/2015. No specific finding of malignancy identified in either breast. Cindy Newman PRODUCT SAFETY AND STANDARDS ENGINEER-SHOPPING CENTRE MANAGER MAMMO ORDER JOVANNY from Last 3 Months or Most Recently Relevant to Health Maintenance Additional Health Concerns Infection Onset Date Last Indicated MRSA Hx 06/14/2020 06/14/2020 Advance Directives Documents on File Type Date Recorded Patient Custodial Foreman Expl anation Adv Directive/Living Will/POA 12/17/2020 10:06 AM DNR Adv Directive/Living Will/POA 11/30/2020 9:25 AM DNR Code Status/Resuscitation 06/19/2020 2:24 PM * Full Code (Latest Code Status on File) Date Activated Date Inactivated Comments 12/09/2020 9:47 PM 12/14/2020 1:01 PM * Full Code Date Activated Date Inactivated Comments 11/28/2020 6:27 AM 11/29/2020 1:47 PM * DNR - IF PULSELESS NO CPR, NO SHOCK Date Activated Date Inactivated Comments 06/14/2020 5:00 PM 06/18/2020 5:45 PM Question Answer Comments : DO NOT discontinue a ny active orders without asking attending physician. * Full Code Date Activated Date Inactivated Comments 06/13/2020 9:17 PM 06/14/2020 5:00 PM * Full Code Date Activated Date Inactivated Comments 11/09/2017 10:34 PM 11/16/2017 1:24 PM Care Teams Application Packaging Consultant Relationship Specialty Start Date End Date Rachel Manzanares APRN-SHOPPING CENTRE MANAGER PCP - General Nurse Practitioner Family 12/03/20 Dago Stockton MD General Surgery 08/25/18
--- OUTSIDE RECORDS SUMMARY | 2024-04-06 14:48 | XMS_ITS | Encounter Summary ---
Author Organization [facility] Address [address] [place] [address] Care Team Providers Care Production Administrator Name Role Phone Cindy Newman HOISTING ENGINEER-[facility] Primary Care Provi fe Cindy Newman HOISTING ENGINEER-[facility] Primary Care Provi fe Dago Stockton MD Unavailable [phone] Herb Bansal MD Primary Care Provider [phone] Rachel Manzanares [facility] Primary Care Provider + Encounter Details Date Type Department Care Team (Late st Contact Info) Description 12/23/2016 [facility] Outpatient Visit [facility] [address] [place] [address] Tri Logan, TOBACCO PACKING MACHINE OPERATOR [address] [place] [address] Social History Tobacco Use Types Packs/Day Years Used Date Smoking Tobacco: Every Day Cigarettes 1.5 40 Started: 04/09/1975; Last attempted to quit: 04/09/2015 Smokeless Tobacco: Never Alcohol Use Standard Drinks/Week Comments No 0 (1 standard drink = 0.6 oz pur e alcohol) Sex and Gender Information Value Date Recorded Sex Assigned at Not on file Gender Identity Not on file Sexual Orientation Not on file documented as of this encounter Functional Status Functional Status Response Date of Assess ment Is person deaf or have serious hearing difficult y? No 05/09/2016 Is person blind or have serious difficulty seein g? No 05/09/2016 Does person have serious dif ficulty walking/climbing stairs? No 05/09/2016 Does person have difficulty dressing/bathing? No 05/09/2016 Does person have difficulty doing errands alone? No 05/09/2016 Cognitive Status Response Date of Assessm ent Does person have difficulty concentrating/remembering/making decisions? No 05/09/2016 documented as of this encounter Plan of Treatment Not on file documented as of this encounter Visit Diagnoses Not on filedocumented in this encounter Additional Health Concerns Infection Onset Date Last Indicated Resolved Time MRSA Comment:+ nares MRSA 04/30/16: + nasal pcr 11/08/17 04/30/2016 11/08/2017 06/14/2020 8:30 AM C DT MRSA Hx 06/14/2020 06/14/2020 COVID-19 Under Investigation 11/28/2020 11/28/2020 11/28/2020 5:16 AM CDT documented as of this encounter Care Teams Production Administrator Relationship Specialty Start Date End Date Cindy Newman APRN-CNP PCP - General Nurse Practitioner 07/26/18 08/05/18 Cindy Newman APRN-SHOP GIRL PCP - General 08/16/18 09/26/19 Herb Bansal MD [address] [place] [address] PCP - General Family Medicine 09/27/19 12/02/20 Rachel Manzanares APRN-CNP [address] [place] [address] PCP - General Nurse Practitioner Family 12/03/20 Dago Stockton MD General Surgery 08/25/18 documented as of this encounter
--- OUTSIDE RECORDS SUMMARY | 2024-04-06 14:48 | XMS_ITS | Referral Summary ---
Author Organization [facility] Address [address] [facility] [place] [address] Care Team Providers Care Zoology Teacher Name Role Phone Dago Stockton MD Unavailable [phone] Rachel Manzanares APRN-[employer] MAKER Primary Care Provider + Source Comments [facility],non-owned Affiliates and Associated Physician Practices is amultiple site organization consisting of ambulatory clinics and hospital sitesin [place], [place], [place] and [place]. This disclosure is being madepursuant to the Care Everywhere program and may not contain all information available regarding this patient. Last updated 17.[facility] Allergies Active Allergy Reactions Criticality Noted Date [...] fluticasone propionate (FLONASE) 50 MCG/ACT nasal spray [place] 2 (two) sprays into each nostril once [...] Patient taking differently:100 mg Oral DAILY,Hold per [facility] 12/03/20, Informant: Other, Reported on 12/04/2020 [...] dysfunction 12/18/2014 Coronary artery disease invo lving agdaagux coronary artery without angina pectoris 12/18/2014 S/P [...] 12/12/2020,11/10/2017,11/17/2015, 015 TDAP (7yrs+) 06/12/2021 TETANUS 11/27/2011 Social History Tobacco Use Types Packs/Day Years [...] Mass Index 40.17 12/10/2020 4:47 PM CDT Functional Status Functional Status Response Date of Assess ment Is person deaf or have serious hearing difficult y? No 12/14/2020 Is person blind or have serious difficulty seein g? No 12/14/2020 Does person have serious dif ficulty walking/climbing stairs? No 12/14/2020 Does person have difficulty dressing/bathing? No 12/14/2020 Does person have difficulty doing errands alone? No 12/14/2020 Cognitive Status Response Date of Assessm ent Does person have difficulty concentrating/remembering/making decisions? No 12/14/2020 Plan of Treatment Not on file Medical Devices Implanted Type Area Surgical Assistant Certified Device Identifier Shelf Expiration Date Model / Serial / Lot Patch Srg 13.7x10.8in Vntrl Slf Xpd - [id number] Implanted:Qty: 1 on 05/06/2016 by Marino Hicks MD at [facility] Fran Abdomen [employer] 08/13/2017 [id number] / [id number] / [id number] Procedures Procedure Name Priority Date/Time Associated Diagnosis Comments COMPREHENSIVE METABOLIC PANEL AM Draw 12/12/2020 8:10 AM CDT MAMMO BILAT SCREENING Routine 09/08/2018 11:34 AM CDT Screening mammogram, encounter for from Last 3 Months or Most Recently Relevant to Health Maintenance Results * (ABNORMAL) COMPREHENSIVE METABOLIC PANEL (12/12/2020 8:10 AM CDT) Sodium 136(L) 137 - 145 mmol/L 12/12/2020 9:24 AM CDT [facility] ([facility]) Potassium 3.8 3.6 - 5.0 mmol/L 12/12/2020 9:24 AM CDT [facility] ([facility]) Chloride 92(L) 98 - 107 mmol/L 12/12/2020 9:24 AM T [facility] ([facility]) Carbon Dioxide 38(H) 21 - 31 mmol/L 12/12/2020 9:24 AM T [facility] ([facility]) Glucose 194(H) 65 - 100 mg/dL 12/12/2020 9:24 AM T [facility] ([facility]) BUN 32(H) 7 - 17 mg/dL 12/12/2020 9:24 AM CDT [facility] ([facility]) Creatinine 1.10(H) 0.50 - 1.04 mg/dL 12/12/2020 9:24 AM T [facility] ([facility]) eGFR 50(L) >=60 ml/min/1.7 3*2 12/12/2020 9:24 AM [facility] ([facility]) Comment: Chronic kidney disease is defined as [...] 29.0(H) 6.0 - 26.0 12/12/2020 9:24 AM T [facility] ([facility]) Calcium 10.1 8.4 - 10.7 mg/dL 12/12/2020 9:24 AM [facility] ([facility]) Protein Total 7.0 6.3 - 8.2 g/dL 12/12/2020 9:24 AM [facility] ([facility]) Albumin 4.5 3.9 - 5.0 g/dL 12/12/2020 9:24 AM [facility] ([facility]) Albumin/Globulin Ratio 1.8 1.1 - 2.2 g/dL 12/12/2020 9:24 AM [facility] ([facility]) Bilirubin Total 0.8 0.2 - 1.3 mg/dL 12/12/2020 9:24 AM [facility] ([facility]) Alkaline Phosphatase 48 38 - 126 U/L 12/12/2020 9:24 AM [facility] ([facility]) AST 31 8 - 39 U/L 12/12/2020 9:24 AM [facility] ([facility]) ALT 24 9 - 52 U/L 12/12/2020 9:24 AM [facility] ([facility]) Blood BLOOD SPECIMEN / Unknown Lab Venipuncture / Unknown 12/12/2020 8:10 AM CDT 12/12/2020 8:34 AM T Parmjit Smith ROD WELDER-[employer] LAB - CHEMISTRY ORDERABLES [facility] ([facility]) [address] [place] [address] * SOLITARIO SCREENING BILATERAL DIGITAL [id number] (09/08/2018 11:34 AM CDT) Anatomical Region Laterality [...] malignancy identified in either breast. Cindy Newman ROD WELDER-[employer] MAKER MAMMO ORDER JOVANNY from Last 3 Months or Most Recently Relevant to Health Maintenance Additional Health Concerns Infection Onset Date Last Indicated MRSA Hx 06/14/2020 06/14/2020 Advance Directives Documents on File Type Date Recorded Patient Mechanics Handyman Expl anation Adv Directive/Living Will/POA 12/17/2020 10:06 [...] 10:34 PM 11/16/2017 1:24 PM Care Teams Zoology Teacher Relationship Specialty Start Date End Date Rachel Manzanares APRN-[employer] PCP - General Nurse Practitioner Family 12/03/20 Dago Stockton MD General Surgery 08/25/18
--- OUTSIDE RECORDS SUMMARY | 2024-04-06 14:49 | XMS_ITS | Encounter Summary ---
Author Organization [facility] Address [address] [place] [address] Care Team Providers Care Fire Extinguisher Technician Name Role Phone Ross Pope MD, Louis Unavailable [phone] Serjio Rangel MD Unavailable Mariza Johnson Primary Care Provider + Encounter Details Date Type Department Care Team (Late st Contact Info) Description 04/06/2024 Orders Only [facility] Pulmonology [address] [place] [address] María Kohler NP [address] [facility] [address] [place] [address] Social History Tobacco Use Types Packs/Day Years Used Date Smoking Tobacco: Some Days Cigarettes 1.5 45 Started: 09/1975; Last attempted to quit: 09/2020 Smokeless Tobacco: Never AUDIT-C Answer Date Recorded Q1: How often do you have a drink containing alcohol? Never 08/13/2023 Q2: How many drinks containi ng alcohol do you have on a typical day when you are drinking? Patient does not drink Q3: How often do you have si x or more drinks on one occasion? Never 08/13/2023 PHQ-2 Answer Date Recorded PHQ-2 Total Score (If total score is 3 or more points, staff should administer the PHQ-9) 4 02/17/2023 Personal Safety Answer Date Recorded Have you ever been in or are you currently in a harmful physical or emotional relationship or is someone making you feel afraid or unsafe? 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 Gender Identity Female 09/02/2020 9:33 PM CDT Sexual Orientation Not on file documented as of this encounter Ordered Prescriptions Prescription Sig Dispense Quantity Refills Last Filled Start Date End Date fluticasone-umeclid in-vilanter (Trelegy Ellipta) 100-62.5-25 mcg inhaler Inhale 1 puff daily 60 each 3 04/06/2024 documented in this encounter Plan of Treatment Not on file documented as of this encounter Visit Diagnoses Not on filedocumented in this encounter Discontinued Medications Medication Sig Discontinue Reason Start Date End Da te yomvccxqfjq-ussrlbhhz-gq lanter (Trelegy Ellipta) 100-62.5-25 mcg inhaler Inhale 1 puff daily Reorder 04/05/202403/19 documented as of this encounter Care Teams Fire Extinguisher Technician Relationship Specialty Start Date End Date Mariza Johnson PA [address] [address] PCP - General Family Medicine 04/11/23 [place] [address] [place] [address] [phone] Medical Oncologist/Hematologis t Medical Oncology 03/12/21 [place] [address] [place] [address] [phone] Consulting Physician Cardiovascular Disease 10/09/21 documented as of this encounter
--- OUTSIDE RECORDS SUMMARY | 2024-04-06 14:49 | XMS_ITS | Patient Health Summary ---
Author Organization [facility] Novel Address [address] [place] [address] Care Team Providers Care Tack Cutter Name Role Phone Dago Stockton MD Unavailable [phone] Rachel Manzanares APRN-VIDEO CAMERA OPERATOR Primary Care Provider + Note from [facility],non-owned Affiliates and Associated Physician Practices is amultiple site organization consisting of ambulatory clinics and hospital sitesin [place], [place], [place] and [place]. This disclosure is being madepursuant to the Care Everywhere program and may not contain all information available regarding this patient. Last updated 17.[facility] Allergies * Contrast-Iodinated Agents For Ct/Other(Other) -High Criticality * Iodine(Other) -High Criticality * Iohexol(Palpitations) -Low Criticality * Latex(Itching) -Medium Criticality * Morphine(Nausea and/or Vomiting) -Medium Criticality * Penicillins(Rash) -Low Criticality Medications * Be aware that medications may not be up to date on this document. Alwaysverify current medications with the patient. * aspirin (ASPIRIN) 81 MG tablet Take 81 mg by mouth every morning * atorvastatin (LIPITOR) 80 MG tablet(Started 09/27/2019) Take 1 tablet by mouth at bedtime 3 refills by 09/26/2020 * acetaminophen (TYLENOL) 500 MG tablet Take 1,000 mg by mouth every 4 hours as needed for Fever or Pain Maximum allowable Acetaminophen amount = 4 Grams (4000 mg) / 24 hours. * budesonide-formoterol (SYMBICORT) 160-4.5 MCG/ACT inhaler(Started 06/18/2020) Inhale 2 (two) puffs by mouth 2 times daily Rinse mouth after each use * montelukast (SINGULAIR) 10 MG tablet(Started 06/18/2020) Take 1 (one) tablet by mouth at bedtime * fluticasone propionate (FLONASE) 50 MCG/ACT nasal spray(Started 06/18/2020) Leonard 2 (two) sprays into each nostril once daily * docusate sodium (COLACE) 100 MG capsule(Started 06/18/2020) Take 2 (two) capsules by mouth at bedtime * senna (SENOKOT) 8.6 MG tablet(Started 06/18/2020) Take 1 (one) tablet by mouth nightly as needed for Constipation * lamoTRIgine XR 24hr (LAMICTAL XR) 100 MG tablet(Started 11/26/2020) Take 1 (one) tablet by mouth once daily 2 refills by 11/26/2021 * Alum & Mag Hydroxide-Simeth (MAALOX 120 ML/LIDOCAINE VISC 120 ML 1:1) suspension(Started 09/06/2020) Take 10 mL by mouth 3 times daily,before breakfast/lunch/bedtime * vitamin D3 (CHOLECALCIFEROL) 125 MCG (5000 UT) capsule(Started 09/07/2020) Take 5,000 Units by mouth once daily * isosorbide dinitrate (ISORDIL) 30 MG tablet(Started 09/07/2020) Take 30 mg by mouth once daily * Multiple Vitamin (MULTI VITAMIN DAILY PO)(Started 09/07/2020) Take 1 tablet by mouth once daily * clopidogrel (PLAVIX) 75 MG tablet(Started 11/23/2020) Take 75 mg by mouth once daily * famotidine (PEPCID) 20 MG tablet(Started 11/23/2020) Take 20 mg by mouth once daily * pantoprazole EC (PROTONIX) 40 MG tablet(Started 11/23/2020) Take 40 mg by mouth once daily * FLUoxetine (PROZAC) 20 MG tablet(Started 09/07/2020) Take 1 tablet by mouth * carvedilol (COREG) 6.25 MG tablet(Started 12/03/2020) Take 1 (one) tablet by mouth 2 times daily 2 refills by 12/03/2021 * valsartan (DIOVAN) 160 MG tablet(Started 12/03/2020) Take 1 (one) tablet by mouth once daily 2 refills by 12/03/2021 * albuterol HFA (PROVENTIL;VENTOLIN;PROAIR) 108 (90 Base) MCG/ACT inhaler (Started 12/03/2020) Inhale 2 (two) puffs by mouth every 4 hours as needed for Wheezing 2 refills by 12/03/2021 * cloNIDine (CATAPRES) 0.1 MG tablet(Started 12/04/2020) Take 1 (one) tablet by mouth 2 times daily 1 refill by 12/04/2021 * potassium chloride ER (KLOR-CON M) 20 MEQ tablet(Started 12/04/2020) Take 1 (one) tablet by mouth daily with lunch * nicotine polacrilex (NICORETTE) 2 MG gum(Started 12/04/2020) Take 1 (one) Each by mouth every 2 hours as needed for Smoking Cessation Stop taking this gum if you resume tobacco smoking. Reasons: Nicotine Addiction * furosemide (LASIX) 40 MG tablet(Started 12/04/2020) Take 1 (one) tablet by mouth once daily * Nebulizer System All-In-One [place](Started 12/06/2020) Use 1 Each as directed Nebulizer machine and supplies * aspirin (ASPIRIN) 81 MG chew tablet(Started 12/14/2020) Take 1 (one) tablet by mouth once daily * clopidogrel (PLAVIX) 75 MG tablet(Started 12/14/2020) Take 1 (one) tablet by mouth once daily Active Problems Problem Noted Date Diagnosed Date Abdominal pain, left lower quadrant 12/09/2020 Mass of pancreas 12/09/2020 COPD with acute exacerbation 06/14/2020 Acute on chronic diastolic (congestive) heart fa ilure 06/14/2020 Acute on chronic respiratory failure with hypoxe avila 06/14/2020 Diaphoresis 06/13/2020 Respiratory distress 06/13/2020 SOB (shortness of breath) 06/13/2020 Elevated troponin 06/13/2020 History of COPD 06/13/2020 Elevated lactic acid level 06/13/2020 Elevated lipase 06/13/2020 Orthopnea 06/13/2020 Acute psychosis 11/09/2017 Hypokalemia 11/08/2017 Hallucination 11/08/2017 History of MRSA infection 11/08/2017 Acute renal failure (ARF) 04/09/2015 Smoking 02/26/2015 Palpitations 12/18/2014 Diastolic dysfunction 12/18/2014 Coronary artery disease invo lving [place] coronary artery without angina pectoris 12/18/2014 S/P coronary artery stent placement 12/18/2014 Dyslipidemia 12/18/2014 Poor compliance with medication 06/28/2012 Reflux esophagitis 05/30/2008 Schizophrenia 04/05/2008 Bipolar I disorder, single manic episode 009 H/O partial nephrectomy 10/19/2007 Essential hypertension 10/19/2007 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/19/2007 Other late effects of cerebrovascular disease Tobacco use disorder 10/19/2007 Migraine 10/19/2007 Resolved Problems Problem Noted Date Diagnosed Date Resolved Date Dehydration 12/09/2020 12/23/2020 Cellulitis 04/09/2015 04/14/2017 Pain in the chest 12/18/2014 04/14/2017 Sciatica 04/04/2014 04/14/2017 Malignant neoplasm of uterus 10/19/2007 04/14/2017 Malignant neoplasm of kidney excluding renal pelvis 10/19/2007 04/14/2017 Chest pain 10/19/2007 04/14/2017 Immunizations * FLU VACCINE TRI IIV3 SPLIT PF IM (FLUVIRIN)(Given 12/28/2013, 12/02/2012) * INFLUENZA VACCINE(Given 06/14/2020, 06/13/2020) * INFLUENZA VACCINE, QUADR. (FLUZONE; FLULAVAL; FLUARIX; AFLURIA QUADRIVALENT; 6MO+), 0.5 ML (IIV4)(Given 12/12/2020, 11/10/2017, 11/17/2015, 12/25/2014) * TDAP (7yrs+)(Given 06/12/2021) * TETANUS(Given 11/27/2011) Social History Tobacco Use Types Packs/Day Years [...] Mass Index 40.17 12/10/2020 4:47 PM CDT Medical Devices Implanted Type Area Silver Solution Mixer Device Identifier Shelf Expiration Date Model / Serial / Lot Patch Srg 13.7x10.8in Vntrl Slf Xpd - [id number] Implanted:Qty: 1 on 05/06/2016 by Marino Hicks MD at [facility] [employer] 08/13/2017 [id number] / [id number] / [id number] Procedures * SARS-COV-2 (COVID-19) AG (IP) POC BD BN(Performed 12/14/2020) * COMPREHENSIVE METABOLIC PANEL(Performed 12/12/2020) * CBC W AUTO DIFFERENTIAL(Performed 12/12/2020) * CBC W AUTO DIFFERENTIAL(Performed 12/10/2020) * LIPASE BLOOD(Performed 12/10/2020) * COMPREHENSIVE METABOLIC PANEL(Performed 12/10/2020) * URINALYSIS REFLEX TO MICROSCOPIC NO CULTURE(Performed 12/09/2020) * CT ABDOMEN PELVIS WO CONTRAST(Performed 12/09/2020) Performed for Abdominal pain, left lower quadrant * AMYLASE BLOOD(Performed 12/09/2020) * MAGNESIUM BLOOD(Performed 12/09/2020) * LIPASE BLOOD(Performed 12/09/2020) * LACTIC ACID BLOOD(Performed 12/09/2020) * COMPREHENSIVE METABOLIC PANEL(Performed 12/09/2020) * CBC W AUTO DIFFERENTIAL(Performed 12/09/2020) * EKG 12-LEAD(Performed 12/03/2020) Performed for Dyspnea and respiratory abnormalities, Essential hypertension * AMYLASE BLOOD(Performed 12/03/2020) * PTT(Performed 12/03/2020) * PT-INR(Performed 12/03/2020) * MAGNESIUM BLOOD(Performed 12/03/2020) * LIPASE BLOOD(Performed 12/03/2020) * COMPREHENSIVE METABOLIC PANEL(Performed 12/03/2020) * B-TYPE NATRIURETIC PEPTIDE(Performed 12/03/2020) * CBC W AUTO DIFFERENTIAL(Performed 12/03/2020) * TROPONIN I(Performed 12/03/2020) * XR CHEST 2VW(Performed 12/03/2020) Performed for Dyspnea and respiratory abnormalities, Essential hypertension * URINALYSIS DIPSTICK - POINT OF CARE (AMB) [facility](Performed 12/03/2020) Performed for Dysuria * BASIC METABOLIC PANEL (CALCIUM TOTAL)(Performed 11/29/2020) * CBC W AUTO DIFFERENTIAL(Performed 11/29/2020) * TROPONIN I(Performed 11/28/2020) * TROPONIN I(Performed 11/28/2020) * LACTIC ACID BLOOD(Performed 11/28/2020) * URINE MICROSCOPIC ONLY(Performed 11/28/2020) * URINALYSIS REFLEX TO MICROSCOPIC NO CULTURE(Performed 11/28/2020) * XR CHEST 1VW PORTABLE(Performed 11/28/2020) Performed for Dyspnea, unspecified type * SARS-COV-2 (COVID-19) AG (IP) POC BD BN(Performed 11/28/2020) * D-DIMER(Performed 11/28/2020) * LACTIC ACID BLOOD(Performed 11/28/2020) * MAGNESIUM BLOOD(Performed 11/28/2020) * PTT(Performed 11/28/2020) * TROPONIN I(Performed 11/28/2020) * PT-INR(Performed 11/28/2020) * COMPREHENSIVE METABOLIC PANEL(Performed 11/28/2020) * CBC W AUTO DIFFERENTIAL(Performed 11/28/2020) * B-TYPE NATRIURETIC PEPTIDE(Performed 11/28/2020) * CARDIAC RHYTHM STRIP ORDER(Performed 06/21/2020) * GLUCOSE - POINT OF CARE(Performed 06/18/2020) * SARS-COV-2 (COVID-19) RAPID(Performed 06/18/2020) * GLUCOSE - POINT OF CARE(Performed 06/18/2020) * MAGNESIUM BLOOD(Performed 06/18/2020) * BASIC METABOLIC PANEL (CALCIUM TOTAL)(Performed 06/18/2020) * CBC W AUTO DIFFERENTIAL(Performed 06/18/2020) * GLUCOSE - POINT OF CARE(Performed 06/17/2020) * GLUCOSE - POINT OF CARE(Performed 06/17/2020) * GLUCOSE - POINT OF CARE(Performed 06/17/2020) * B-TYPE NATRIURETIC PEPTIDE(Performed 06/17/2020) * LIPID PROFILE(Performed 06/17/2020) * BASIC METABOLIC PANEL (CALCIUM TOTAL)(Performed 06/17/2020) * CBC W AUTO DIFFERENTIAL(Performed 06/17/2020) * GLUCOSE - POINT OF CARE(Performed 06/16/2020) * GLUCOSE - POINT OF CARE(Performed 06/16/2020) * GLUCOSE - POINT OF CARE(Performed 06/16/2020) * GLUCOSE - POINT OF CARE(Performed 06/16/2020) * BASIC METABOLIC PANEL (CALCIUM TOTAL)(Performed 06/16/2020) * CBC W AUTO DIFFERENTIAL(Performed 06/16/2020) * GLUCOSE - POINT OF CARE(Performed 06/15/2020) * GLUCOSE - POINT OF CARE(Performed 06/15/2020) * EKG 12-LEAD(Performed 06/15/2020) Performed for Coronary artery disease involving [place] coronary artery of [place] heart without angina pectoris * GLUCOSE - POINT OF CARE(Performed 06/15/2020) * GLUCOSE - POINT OF CARE(Performed 06/15/2020) * B-TYPE NATRIURETIC PEPTIDE(Performed 06/15/2020) * LIPASE BLOOD(Performed 06/15/2020) * MAGNESIUM BLOOD(Performed 06/15/2020) * BASIC METABOLIC PANEL (CALCIUM TOTAL)(Performed 06/15/2020) * CBC W AUTO DIFFERENTIAL(Performed 06/15/2020) * GLUCOSE - POINT OF CARE(Performed 06/14/2020) * GLUCOSE - POINT OF CARE(Performed 06/14/2020) * D-DIMER(Performed 06/14/2020) * BASIC METABOLIC PANEL (CALCIUM TOTAL)(Performed 06/14/2020) * GLUCOSE - POINT OF CARE(Performed 06/14/2020) * GLUCOSE - POINT OF CARE(Performed 06/14/2020) * DIFFERENTIAL MANUAL(Performed 06/14/2020) * CBC W AUTO DIFFERENTIAL(Performed 06/14/2020) * B-TYPE NATRIURETIC PEPTIDE(Performed 06/14/2020) * TROPONIN I(Performed 06/14/2020) * LIPASE BLOOD(Performed 06/14/2020) * PHOSPHORUS BLOOD(Performed 06/14/2020) * MAGNESIUM BLOOD(Performed 06/14/2020) * LACTIC ACID BLOOD(Performed 06/14/2020) * COMPREHENSIVE METABOLIC PANEL(Performed 06/14/2020) * AMYLASE BLOOD(Performed 06/13/2020) * TROPONIN I(Performed 06/13/2020) * TROPONIN I(Performed 06/13/2020) * URINALYSIS REFLEX MICROSCOPIC REFLEX CULTURE(Performed 06/13/2020) * XR CHEST 2VW(Performed 06/13/2020) Performed for SOB (shortness of breath) * INFLUENZA A+B ANTIGEN RAPID(Performed 06/13/2020) * HEMOGLOBIN A1C(Performed 06/13/2020) * PROCALCITONIN LEVEL(Performed 06/13/2020) * BLOOD GASES TU(Performed 06/13/2020) * TROPONIN I(Performed 06/13/2020) * LIPASE BLOOD(Performed 06/13/2020) * PT-INR(Performed 06/13/2020) * COMPREHENSIVE METABOLIC PANEL(Performed 06/13/2020) * CBC W AUTO DIFFERENTIAL(Performed 06/13/2020) * B-TYPE NATRIURETIC PEPTIDE(Performed 06/13/2020) * LACTIC ACID BLOOD REFLEX TO REPEAT(Performed 06/13/2020) * CULTURE BLOOD(Performed 06/13/2020) * CULTURE BLOOD(Performed 06/13/2020) * ED CRITICAL CARE(Performed 06/13/2020) * EKG 12-LEAD(Performed 06/13/2020) Performed for SOB (shortness of breath) * ECHOCARDIOGRAM 2D WITH DOPPLER(Performed 06/13/2020) Performed for Orthopnea, Dyspnea on exertion * DIFFERENTIAL MANUAL(Performed 09/28/2019) Performed for Essential hypertension * LIPID PROFILE(Performed 09/28/2019) Performed for Essential hypertension * COMPREHENSIVE METABOLIC PANEL(Performed 09/28/2019) Performed for Essential hypertension * CBC W AUTO DIFFERENTIAL(Performed 09/28/2019) Performed for Essential hypertension * MAMMO BILAT SCREENING(Performed 09/08/2018) Performed for Screening mammogram, encounter for * GROSS + MICRO EXAM (ILL)(Performed 08/09/2018) Performed for History of colon cancer * POTASSIUM BLOOD(Performed 08/06/2018) Performed for Encounter for monitoring diuretic therapy * COMPREHENSIVE METABOLIC PANEL(Performed 07/08/2018) Performed for Decreased GFR * VITAMIN D 25-HYDROXY(Performed 06/01/2018) Performed for Hypertension, unspecified type * LIPID PROFILE(Performed 06/01/2018) Performed for Hypertension, unspecified type * HEMOGLOBIN A1C(Performed 06/01/2018) Performed for Hypertension, unspecified type * TSH REFLEX FREE T4(Performed 06/01/2018) Performed for Hypertension, unspecified type * COMPREHENSIVE METABOLIC PANEL(Performed 06/01/2018) Performed for Hypertension, unspecified type * CBC W AUTO DIFFERENTIAL(Performed 06/01/2018) Performed for Hypertension, unspecified type * CT LUNG SCREEN LOW DOSE(Performed 11/20/2017) Performed for COPD, mild (HCC), Current Smoker * CARDIAC RHYTHM STRIP ORDER(Performed 11/11/2017) * BASIC METABOLIC PANEL (CALCIUM TOTAL)(Performed 11/09/2017) Performed for Hypokalemia * CBC W AUTO DIFFERENTIAL(Performed 11/09/2017) Performed for Hypokalemia * PHOSPHORUS BLOOD(Performed 11/09/2017) Performed for Hypokalemia * MAGNESIUM BLOOD(Performed 11/09/2017) Performed for Hypokalemia * PHOSPHORUS BLOOD(Performed 11/08/2017) Performed for Hypokalemia * MAGNESIUM BLOOD(Performed 11/08/2017) Performed for Hypokalemia * BASIC METABOLIC PANEL (CALCIUM TOTAL)(Performed 11/08/2017) Performed for Hypokalemia * MRSA DNA PCR(Performed 11/08/2017) Performed for History of MRSA infection * EKG 12-LEAD(Performed 11/08/2017) Performed for Hypokalemia * TSH(Performed 11/08/2017) * SALICYLATE LEVEL BLOOD(Performed 11/08/2017) * ALCOHOL ETHYL BLOOD(Performed 11/08/2017) * ACETAMINOPHEN LEVEL(Performed 11/08/2017) * COMPREHENSIVE METABOLIC PANEL(Performed 11/08/2017) * CBC W AUTO DIFFERENTIAL(Performed 11/08/2017) * URINALYSIS REFLEX MICROSCOPIC REFLEX CULTURE(Performed 11/08/2017) * DRUG ABUSE URINE SCREEN 10(Performed 11/08/2017) * AMB REFERRAL TO TEST ENGINEERING MANAGER(Performed 10/28/2017) Performed for COPD, mild (HCC) * NOCTURNAL OXIMETRY(Performed 10/21/2017) * TSH(Performed 10/20/2017) Performed for Essential hypertension, benign, S/P coronary artery stent placement, H/O partial nephrectomy * URINE MICROSCOPIC ONLY REFLEX TO CULTURE(Performed 10/15/2017) Performed for COPD, mild (HCC), Essential hypertension, Dyslipidemia, H/O partial nephrectomy, S/P coronary artery stent placement * URINALYSIS REFLEX MICROSCOPIC REFLEX CULTURE(Performed 10/15/2017) Performed for COPD, mild (HCC), Essential hypertension, Dyslipidemia, H/O partial nephrectomy, S/P coronary artery stent placement * RHEUMATOID ARTHRITIS PANEL(Performed 10/13/2017) Performed for COPD, mild (HCC), Essential hypertension, Dyslipidemia, H/O partial nephrectomy, S/P coronary artery stent placement * HEMOGLOBIN A1C(Performed 10/13/2017) Performed for COPD, mild (HCC), Essential hypertension, Dyslipidemia, H/O partial nephrectomy, S/P coronary artery stent placement * LIPID PROFILE(Performed 10/13/2017) Performed for COPD, mild (HCC), Essential hypertension, Dyslipidemia, H/O partial nephrectomy, S/P coronary artery stent placement * TSH(Performed 10/13/2017) Performed for COPD, mild (HCC), Essential hypertension, Dyslipidemia, H/O partial nephrectomy, S/P coronary artery stent placement * COMPREHENSIVE METABOLIC PANEL(Performed 10/13/2017) Performed for COPD, mild (HCC), Essential hypertension, Dyslipidemia, H/O partial nephrectomy, S/P coronary artery stent placement * CBC W AUTO DIFFERENTIAL(Performed 10/13/2017) Performed for COPD, mild (HCC), Essential hypertension, Dyslipidemia, H/O partial nephrectomy, S/P coronary artery stent placement * XR KNEE RIGHT 4VW OR MORE(Performed 08/04/2017) Performed for Acute pain of right knee * MAMMO BILAT SCREENING(Performed 07/23/2017) Performed for Encounter for screening mammogram for breast cancer * LIPID PROFILE(Performed 04/14/2017) Performed for Solitary kidney, H/O partial nephrectomy, Dyslipidemia, Chronic pain of right knee * TSH(Performed 04/14/2017) Performed for Essential hypertension, Solitary kidney, H/O partial nephrectomy, Dyslipidemia * COMPREHENSIVE METABOLIC PANEL(Performed 04/14/2017) Performed for Essential hypertension, Solitary kidney, H/O partial nephrectomy, Dyslipidemia, Chronic pain of right knee * CBC W AUTO DIFFERENTIAL(Performed 04/14/2017) Performed for Solitary kidney, Dyslipidemia, Chronic pain of right knee * CT HEAD WO CONTRAST(Performed 10/01/2016) Performed for Memory loss * XR CHEST 2VW(Performed 09/18/2016) Performed for SOB (shortness of breath) * URINE MICROSCOPIC ONLY REFLEX TO CULTURE(Performed 09/18/2016) Performed for Reflux esophagitis, Essential hypertension, Dyslipidemia, SOB (shortness of breath), Generalized edema * URINALYSIS REFLEX MICROSCOPIC REFLEX CULTURE(Performed 09/18/2016) Performed for Reflux esophagitis, Essential hypertension, Dyslipidemia, SOB (shortness of breath), Generalized edema * IRON + TRANSFERRIN PANEL(Performed 09/18/2016) Performed for Reflux esophagitis, Essential hypertension, Dyslipidemia, SOB (shortness of breath), Generalized edema * LIPID PROFILE(Performed 09/18/2016) Performed for Reflux esophagitis, Essential hypertension, Dyslipidemia, SOB (shortness of breath), Generalized edema * COMPREHENSIVE METABOLIC PANEL(Performed 09/18/2016) Performed for Reflux esophagitis, Essential hypertension, Dyslipidemia, SOB (shortness of breath), Generalized edema * CBC W AUTO DIFFERENTIAL(Performed 09/18/2016) Performed for Reflux esophagitis, Essential hypertension, Dyslipidemia, SOB (shortness of breath), Generalized edema * CT LUNG SCREEN LOW DOSE(Performed 07/08/2016) Performed for Smoker * MAMMO BILAT SCREENING(Performed 06/17/2016) Performed for Visit for screening mammogram * TROPONIN I(Performed 05/10/2016) * BASIC METABOLIC PANEL (CALCIUM TOTAL)(Performed 05/10/2016) * XR CHEST 1VW PORTABLE(Performed 05/10/2016) Performed for Chest pain, unspecified type * TROPONIN I(Performed 05/10/2016) * EKG 12-LEAD(Performed 05/09/2016) Performed for Migraine without aura and with status migrainosus, not intractable * URINE MICROSCOPIC ONLY REFLEX TO CULTURE(Performed 05/09/2016) * URINALYSIS REFLEX MICROSCOPIC REFLEX CULTURE(Performed 05/09/2016) * LACTIC ACID BLOOD(Performed 05/09/2016) * XR CHEST 1VW PORTABLE(Performed 05/09/2016) Performed for Chronic obstructive pulmonary disease with acute exacerbation (HCC) * PT EVAL AND TREAT(Performed 05/09/2016) * EKG 12-LEAD(Performed 05/09/2016) Performed for Chronic obstructive pulmonary disease with acute exacerbation (HCC) * MRSA DNA PCR(Performed 05/09/2016) * LACTIC ACID BLOOD(Performed 05/09/2016) * LACTIC ACID BLOOD(Performed 05/09/2016) * COMPREHENSIVE METABOLIC PANEL(Performed 05/09/2016) * CBC W AUTO DIFFERENTIAL(Performed 05/09/2016) * B-TYPE NATRIURETIC PEPTIDE(Performed 05/09/2016) * CT ABDOMEN PELVIS WO CONTRAST(Performed 05/09/2016) Performed for Abdominal pain, epigastric * CBC W AUTO DIFFERENTIAL(Performed 05/07/2016) Performed for Postop check * BASIC METABOLIC PANEL (CALCIUM TOTAL)(Performed 05/07/2016) Performed for Postop check * ENDOTRACHEAL TUBE NOTE(Performed 05/06/2016) * REPAIR INCISIONAL HERNIA(Performed 05/06/2016) Performed for Incisional hernia, without obstruction or gangrene * LAPAROSCOPIC REPAIR INCISIONAL HERNIA(Performed 05/06/2016) Performed for Incisional hernia, without obstruction or gangrene * HGB HCT PANEL(Performed 04/30/2016) Performed for Incisional hernia without obstruction or gangrene, Essential hypertension with goal blood pressure less than 140/90 * POTASSIUM BLOOD(Performed 04/30/2016) Performed for Incisional hernia without obstruction or gangrene, Essential hypertension with goal blood pressure less than 140/90 * MRSA + SA DNA PCR PANEL(Performed 04/30/2016) Performed for Incisional hernia without obstruction or gangrene * NOCTURNAL OXIMETRY(Performed 01/08/2016) * LIPID PROFILE(Performed 12/19/2015) Performed for Dyslipidemia * HEPATIC FUNCTION PANEL(Performed 12/19/2015) Performed for Dyslipidemia * EKG 12-LEAD(Performed 11/17/2015) Performed for Other chest pain * TROPONIN I(Performed 11/17/2015) Performed for Chest pain, unspecified type * BASIC METABOLIC PANEL (CALCIUM TOTAL)(Performed 11/17/2015) Performed for Other chest pain * CBC W AUTO DIFFERENTIAL(Performed 11/17/2015) Performed for Other chest pain * B-TYPE NATRIURETIC PEPTIDE(Performed 11/17/2015) Performed for Chest pain, unspecified type, Coronary artery disease involving [place] coronary artery of [place] heart without angina pectoris * TROPONIN I(Performed 11/16/2015) Performed for Chest pain, unspecified type * XR CHEST 2VW(Performed 11/16/2015) Performed for Intermittent chest pain * EKG 12-LEAD(Performed 11/16/2015) Performed for Intermittent chest pain * MAGNESIUM BLOOD(Performed 11/16/2015) * TROPONIN I(Performed 11/16/2015) * COMPREHENSIVE METABOLIC PANEL(Performed 11/16/2015) * CBC W AUTO DIFFERENTIAL(Performed 11/16/2015) * CT ABDOMEN PELVIS WO CONTRAST(Performed 09/25/2015) Performed for Incisional hernia, without obstruction or gangrene, History of colon cancer * CEA BLOOD(Performed 09/25/2015) Performed for History of colon cancer * COMPREHENSIVE METABOLIC PANEL(Performed 09/25/2015) Performed for History of colon cancer * CBC W AUTO DIFFERENTIAL(Performed 09/25/2015) Performed for History of colon cancer * SLEEP STUDY(Performed 07/13/2015) * DEXA BONE DENSITY 2 SITES(Performed 06/21/2015) Performed for Encounter for screening for osteoporosis * MAMMO BILAT SCREENING(Performed 05/11/2015) Performed for Encounter for screening mammogram for malignant neoplasm of breast * CT LUNG SCREEN LOW DOSE(Performed 05/07/2015) Performed for Smoker * BASIC METABOLIC PANEL (CALCIUM TOTAL)(Performed 04/23/2015) Performed for Hypokalemia * PFT-LAB(Performed 04/17/2015) * CARDIAC RHYTHM STRIP ORDER(Performed 04/12/2015) * VANCOMYCIN LEVEL RANDOM(Performed 04/11/2015) * BASIC METABOLIC PANEL (CALCIUM TOTAL)(Performed 04/11/2015) * VANCOMYCIN LEVEL TROUGH(Performed 04/10/2015) * BASIC METABOLIC PANEL (CALCIUM TOTAL)(Performed 04/10/2015) * BASIC METABOLIC PANEL (CALCIUM TOTAL)(Performed 04/09/2015) * CBC W AUTO DIFFERENTIAL(Performed 04/09/2015) * LACTIC ACID BLOOD(Performed 04/09/2015) * CBC W AUTO DIFFERENTIAL(Performed 04/09/2015) * BASIC METABOLIC PANEL (CALCIUM TOTAL)(Performed 04/09/2015) * LACTIC ACID BLOOD(Performed 04/09/2015) * MAGNESIUM BLOOD(Performed 04/08/2015) * CT ABDOMEN PELVIS WO CONTRAST(Performed 04/08/2015) Performed for Cellulitis and abscess * URINE MICROSCOPIC ONLY REFLEX TO CULTURE(Performed 04/08/2015) * URINALYSIS REFLEX MICROSCOPIC REFLEX CULTURE(Performed 04/08/2015) * CULTURE BLOOD(Performed 04/08/2015) * LACTIC ACID BLOOD(Performed 04/08/2015) * COMPREHENSIVE METABOLIC PANEL(Performed 04/08/2015) * CBC W AUTO DIFFERENTIAL(Performed 04/08/2015) * CULTURE BLOOD(Performed 04/08/2015) * CARDIAC RHYTHM STRIP ORDER(Performed 03/30/2015) * EKG 12-LEAD(Performed 03/28/2015) Performed for Other chest pain * DIFFERENTIAL MANUAL(Performed 03/28/2015) Performed for Postop check * CBC W MANUAL DIFFERENTIAL(Performed 03/28/2015) Performed for Postop check * BASIC METABOLIC PANEL (CALCIUM TOTAL)(Performed 03/28/2015) Performed for Postop check * CBC W AUTO DIFFERENTIAL(Performed 03/27/2015) Performed for Postop check * BASIC METABOLIC PANEL (CALCIUM TOTAL)(Performed 03/27/2015) Performed for Postop check * GROSS + MICRO EXAM (ILL)(Performed 03/27/2015) Performed for Mass of colon, High grade dysplasia in colonic adenoma * RESECTION BOWEL (GENERIC LARGE/SMALL INTESTINE)(Performed 03/27/2015) Performed for Mass of colon, High grade dysplasia in colonic adenoma * TYPE + SCREEN PANEL(Performed 03/23/2015) Performed for Mass of colon, High grade dysplasia in colonic adenoma * HGB HCT PANEL(Performed 03/23/2015) Performed for Mass of colon, High grade dysplasia in colonic adenoma, Essential hypertension * XR ABDOMEN KUB(Performed 03/09/2015) Performed for Colonic mass, High grade dysplasia in colonic adenoma * NM MYOCARD PERF REST STRESS(Performed 03/08/2015) Performed for Coronary artery disease involving [place] coronary artery of [place] heart with angina pectoris (HCC), SOB (shortness of breath) * STRESS TEST LEXISCAN (NUCLEAR)(Performed 03/08/2015) Performed for Coronary artery disease involving [place] coronary artery of [place] heart with angina pectoris (HCC), SOB (shortness of breath) * ECHOCARDIOGRAM 2D WITH DOPPLER(Performed 03/08/2015) Performed for Coronary artery disease involving [place] coronary artery of [place] heart with angina pectoris (HCC), SOB (shortness of breath) * LIPID PROFILE(Performed 03/07/2015) Performed for CAD (coronary artery disease), Essential hypertension, Diastolic dysfunction, [place] disorder, Palpitations * BASIC METABOLIC PANEL (CALCIUM TOTAL)(Performed 03/07/2015) Performed for CAD (coronary artery disease), Essential hypertension, Diastolic dysfunction, [place] disorder, Palpitations * CEA BLOOD(Performed 03/07/2015) Performed for Colonic mass, High grade dysplasia in colonic adenoma * GROSS + MICRO EXAM (ILL)(Performed 02/22/2015) Performed for Abnormal CT scan * POTASSIUM BLOOD(Performed 02/20/2015) Performed for Encounter for monitoring diuretic therapy * XR CHEST 2VW(Performed 02/12/2015) Performed for Chronic cough, SOB (shortness of breath) on exertion, Smoker * CBC W/O DIFFERENTIAL(Performed 02/12/2015) Performed for Malignant neoplasm of kidney excluding renal pelvis, unspecified laterality (HCC) * BASIC METABOLIC PANEL (CALCIUM TOTAL)(Performed 02/12/2015) Performed for Malignant neoplasm of kidney excluding renal pelvis, unspecified laterality (HCC) * BASIC METABOLIC PANEL (CALCIUM TOTAL)(Performed 02/08/2015) Performed for Essential hypertension * CBC W/O DIFFERENTIAL(Performed 02/08/2015) Performed for Essential hypertension * TYPE + SCREEN PANEL(Performed 02/07/2015) * EKG 12-LEAD(Performed 02/07/2015) Performed for Gastrointestinal hemorrhage, unspecified gastrointestinal hemorrhage type * XR CHEST 2VW(Performed 02/07/2015) Performed for Gastrointestinal hemorrhage, unspecified gastrointestinal hemorrhage type * CT ABDOMEN PELVIS WO CONTRAST(Performed 02/07/2015) Performed for Gastrointestinal hemorrhage, unspecified gastrointestinal hemorrhage type * BLOOD TYPE VERIFICATION(Performed 02/07/2015) * TROPONIN I(Performed 02/07/2015) * LIPASE BLOOD(Performed 02/07/2015) * COMPREHENSIVE METABOLIC PANEL(Performed 02/07/2015) * CBC W AUTO DIFFERENTIAL(Performed 02/07/2015) * OCCULT BLOOD FECES - POINT OF CARE (IP) ILL(Performed 02/07/2015) * URINE MICROSCOPIC ONLY REFLEX TO CULTURE(Performed 02/07/2015) * URINALYSIS REFLEX MICROSCOPIC REFLEX CULTURE(Performed 02/07/2015) * EKG 12-LEAD(Performed 01/24/2015) Performed for Chest pain, unspecified chest pain type * LIPID PROFILE(Performed 11/21/2014) Performed for Essential hypertension, Reflux esophagitis * COMPREHENSIVE METABOLIC PANEL(Performed 11/21/2014) Performed for Essential hypertension, Reflux esophagitis * CBC W AUTO DIFFERENTIAL(Performed 11/21/2014) Performed for Essential hypertension, Reflux esophagitis * ERYTHROCYTE SEDIMENTATION RATE(Performed 11/21/2014) Performed for Essential hypertension, Reflux esophagitis * RHEUMATOID ARTHRITIS PANEL(Performed 11/21/2014) Performed for Essential hypertension, Reflux esophagitis * XR ANKLE RIGHT 3VW OR MORE(Performed 11/03/2014) Performed for Ankle pain, right * CARDIAC EVENT MONITOR(Performed 06/13/2014) Performed for CAD (coronary artery disease), Unspecified essential hypertension, Diastolic dysfunction, Tobacco use disorder, Palpitations * VAS BILATERAL VENOUS DUPLEX LE(Performed 05/23/2014) Performed for Calf pain, right * HELICOBACTER PYLORI UREASE(Performed 12/22/2013) Performed for Reflux esophagitis * ISTAT POTASSIUM TU(Performed 12/22/2013) * IA ELECTROCARDIOGRAM, COMPLETE(Performed 12/14/2013) Performed for Unspecified essential hypertension * EKG 12-LEAD(Performed 12/14/2013) Performed for Unspecified essential hypertension * MRI ABDOMEN WWO CONTRAST(Performed 11/28/2013) Performed for Pancreatic lesion (HCC) * CT ABDOMEN PELVIS W CONTRAST(Performed 11/08/2013) Performed for Abdominal pain, LUQ (left upper quadrant) * CREATININE BLOOD(Performed 11/08/2013) Performed for Pre-procedure lab exam * BUN(Performed 11/08/2013) Performed for Pre-procedure lab exam * CT ABDOMEN PELVIS WO CONTRAST(Performed 09/06/2013) Performed for Abdominal Pain, Epigastric * HCG URINE QUALITATIVE - POCT (IP) BEAKER - ILL(Performed 09/06/2013) * LIPASE BLOOD(Performed 09/06/2013) * COMPREHENSIVE METABOLIC PANEL(Performed 09/06/2013) * CBC W AUTO DIFFERENTIAL(Performed 09/06/2013) * URINE MICROSCOPIC ONLY REFLEX TO CULTURE(Performed 09/06/2013) * URINALYSIS REFLEX MICROSCOPIC REFLEX CULTURE(Performed 09/06/2013) * CULTURE URINE(Performed 05/03/2013) Performed for Unspecified essential hypertension, Dysuria, Abdominal pain, LLQ (left lower quadrant) * URINALYSIS AUTO - POINT OF CARE (AMB) SMGS(Performed 05/03/2013) Performed for Unspecified essential hypertension, Dysuria, Abdominal pain, LLQ (left lower quadrant) * VAS CAROTID DUPLEX BILATERAL(Performed 12/06/2012) Performed for Visual changes * MRI BRAIN WWO CONTRAST(Performed 12/06/2012) Performed for Visual changes * VITAMIN B12 FOLATE PANEL(Performed 12/01/2012) Performed for Visual changes * COMPREHENSIVE METABOLIC PANEL(Performed 12/01/2012) Performed for Visual changes * VITAMIN B1(Performed 12/01/2012) Performed for Visual changes * ERYTHROCYTE SEDIMENTATION RATE(Performed 12/01/2012) Performed for Visual changes * CBC W AUTO DIFFERENTIAL(Performed 12/01/2012) Performed for Visual changes * RPR(Performed 12/01/2012) Performed for Visual changes * BALA BLOOD SCREEN W/REFLEX TITER(Performed 12/01/2012) Performed for Visual changes * URINALYSIS MICROSCOPIC ONLY REFLEXED(Performed 06/28/2012) Performed for HTN (hypertension), malignant * URIC ACID BLOOD(Performed 06/28/2012) Performed for Pain in joint, multiple sites * FERRITIN(Performed 06/28/2012) Performed for HTN (hypertension), malignant * LIPID PROFILE(Performed 06/28/2012) Performed for Hyperlipidemia * TSH(Performed 06/28/2012) Performed for Obesity * URINALYSIS REFLEX MICROSCOPIC REFLEX CULTURE(Performed 06/28/2012) Performed for HTN (hypertension), malignant * COMPREHENSIVE METABOLIC PANEL(Performed 06/28/2012) Performed for HTN (hypertension), malignant * CBC W/O DIFFERENTIAL(Performed 06/28/2012) Performed for HTN (hypertension), malignant Results * SARS-COV-2 (COVID-19) AG (IP) POC BD BN (12/14/2020 10:26 AM CDT) Only the most recent of2 resultswithin the time period is included. SARS-CoV-2 Ag Negative Negative [facility] ([facility]) Lot # [id number] [facility] ([facility]) Expiration Date 01-06-2021 [facility] ([facility]) Instrument Serial Number Binax [facility] ([facility]) COVID Internal Control Acceptable Acceptable [facility] ([facility]) Microbiology SPECIMEN FROM NASAL FOSSAE / Unknown 12/14/2020 10:26 AM CDT Parmjit Oliveira PRIMER INSPECTOR-VIDEO CAMERA OPERATOR LAB - POINT OF C ARE ORDERABLES [facility] ([facility]) [address] [place] [address] * CBC W AUTO DIFFERENTIAL (12/12/2020 8:10 AM T) Only the most recent of32 resultswithin the time period is included. WBC 7.8 4.0 - 10.0 K/uL 12/12/2020 8:46 AM T [facility] ([facility]) RBC 4.6 3.9 - 5.1 M/ul 12/12/2020 8:46 AM T [facility] ([facility]) Hemoglobin 13.7 12.0 - 15.0 g/dL 12/12/2020 8:46 AM T [facility] ([facility]) Hematocrit 41.8 37.0 - 45.0 % 12/12/2020 8:46 AM T [facility] ([facility]) MCV 90.7 82.0 - 101.0 fL 12/12/2020 8:46 AM T [facility] ([facility]) MCH 29.7 27.0 - 34.0 pg 12/12/2020 8:46 AM [facility] ([facility]) MCHC 32.8 32.0 - 35.0 g/dL 12/12/2020 8:46 AM [facility] ([facility]) RDW-CV 13.2 11.4 - 14.6 % 12/12/2020 8:46 AM T [facility] ([facility]) Platelet Count 204 120 - 410 K/uL 12/12/2020 8:46 AM T [facility] ([facility]) MPV 11.3 5.2 - 12.8 fL 12/12/2020 8:46 AM T [facility] ([facility]) Neutrophils % 74.3 25.0 - 78.0 % 12/12/2020 8:46 AM T [facility] ([facility]) Lymphocytes % 16.7 10.0 - 50.0 % 12/12/2020 8:46 AM T [facility] ([facility]) Monocytes % 5.7 0.0 - 11.0 % 12/12/2020 8:46 AM T [facility] ([facility]) Eosinophils % 2.6 0.0 - 3.0 % 12/12/2020 8:46 AM CDT [facility] ([facility]) Basophils % 0.6 0.0 - 1.5 % 12/12/2020 8:46 AM CDT [facility] ([facility]) Neutrophil Absolute 5.8 2.0 - 6.9 K/uL 12/12/2020 8:46 AM CDT [facility] ([facility]) Lymphocyte Absolute 1.3 0.6 - 4.6 K/uL 12/12/2020 8:46 AM CDT [facility] ([facility]) Monocyte Absolute 0.5 0.0 - 0.9 K/uL 12/12/2020 8:46 AM CDT [facility] ([facility]) Eosinophil Absolute 0.2 0.0 - 0.7 K/uL 12/12/2020 8:46 AM CDT [facility] ([facility]) Basophil Absolute 0.1 0.0 - 0.2 K/uL 12/12/2020 8:46 AM CDT [facility] ([facility]) Immature Granulocytes % 0.1 0.0 - 0.5 % 12/12/2020 8:46 AM CDT [facility] ([facility]) Immature Granulocytes Absolute 0.01 0.00 - 0.03 K/UL 12/12/2020 8:46 AM CDT [facility] ([facility]) Blood BLOOD SPECIMEN / Unknown Lab Venipuncture / Unknown 12/12/2020 8:10 AM CDT 12/12/2020 8:35 AM CDT Parmjit Oliveira PRIMER INSPECTOR-VIDEO CAMERA OPERATOR LAB - HEMATOLOGY ORDERABLES [facility] ([facility]) [address] [place] [address] * (ABNORMAL) COMPREHENSIVE METABOLIC PANEL (12/12/2020 8:10 AM CDT) Only the most recent of23 resultswithin the time period is included. Sodium 136(L) 137 - 145 mmol/L 12/12/2020 9:24 AM CDT [facility] ([facility]) Potassium 3.8 3.6 - 5.0 mmol/L 12/12/2020 9:24 AM [facility] ([facility]) Chloride 92(L) 98 - 107 mmol/L 12/12/2020 9:24 AM [facility] ([facility]) Carbon Dioxide 38(H) 21 - 31 mmol/L 12/12/2020 9:24 AM [facility] ([facility]) Glucose 194(H) 65 - 100 mg/dL 12/12/2020 9:24 AM [facility] ([facility]) BUN 32(H) 7 - 17 mg/dL 12/12/2020 9:24 AM [facility] ([facility]) Creatinine 1.10(H) 0.50 - 1.04 mg/dL 12/12/2020 9:24 AM [facility] ([facility]) eGFR 50(L) >=60 ml/min/1.7 3*2 12/12/2020 9:24 AM [facility] ([facility]) Comment: Chronic kidney disease is [...] 29.0(H) 6.0 - 26.0 12/12/2020 9:24 AM [facility] ([facility]) Calcium 10.1 8.4 - 10.7 mg/dL 12/12/2020 9:24 AM [facility] ([facility]) Protein Total 7.0 6.3 - 8.2 g/dL 12/12/2020 9:24 AM [facility] ([facility]) Albumin 4.5 3.9 - 5.0 g/dL 12/12/2020 9:24 AM [facility] ([facility]) Albumin/Globulin Ratio 1.8 1.1 - 2.2 g/dL 12/12/2020 9:24 AM CDT [facility] ([facility]) Bilirubin Total 0.8 0.2 - 1.3 mg/dL 12/12/2020 9:24 AM CDT [facility] ([facility]) Alkaline Phosphatase 48 38 - 126 U/L 12/12/2020 9:24 AM CDT [facility] ([facility]) AST 31 8 - 39 U/L 12/12/2020 9:24 AM CDT [facility] ([facility]) ALT 24 9 - 52 U/L 12/12/2020 9:24 AM CDT [facility] ([facility]) Blood BLOOD SPECIMEN / Unknown Lab Venipuncture / Unknown 12/12/2020 8:10 AM CDT 12/12/2020 8:34 AM CDT Parmjit Oliveira APRN-VIDEO CAMERA OPERATOR LAB - CHEMISTRY ORDERABLES Performing Organization Address City/[facility] Co de Phone Number [facility] ([facility]) [address] [place] [phone] * LIPASE BLOOD (12/10/2020 6:30 AM CDT) Only the most recent of8 resultswithin the time period is included. Lipase 229 23 - 300 U/L 12/10/2020 7:15 AM CDT [facility] ([facility]) Blood BLOOD SPECIMEN / Unknown Lab Venipuncture / Unknown 12/10/2020 6:30 AM CDT 12/10/2020 6:40 AM CDT Parmjit Oliveira PRIMER INSPECTOR-VIDEO CAMERA OPERATOR LAB - CHEMISTRY ORDERABLES Performing Organization Address City/[facility]/ZIP Co de Phone Number [facility] ([facility]) [address] [place] [phone] * URINALYSIS REFLEX TO MICROSCOPIC NO CULTURE (12/09/2020 8:52 PM CDT) Only the most recent of2 resultswithin the time period is included. Color UA Yellow Yellow, Cristina 12/09/2020 9:02 PM CDT [facility] ([facility]) Clarity UA Clear Clear, Hazy 12/09/2020 9:02 PM CDT [facility] ([facility]) Glucose UA Negative Negative, Color Interference 12/09/2020 9:02 PM CDT [facility] ([facility]) Ketone UA Negative Negative 12/09/2020 9:02 PM CDT [facility] ([facility]) Blood UA Negative Negative 12/09/2020 9:02 PM CDT [facility] ([facility]) Bilirubin UA Negative Negative 12/09/2020 9:02 PM CDT [facility] ([facility]) Protein UA Negative Negative 12/09/2020 9:02 PM CDT [facility] ([facility]) Leukocyte UA Negative Negative 12/09/2020 9:02 PM CDT [facility] ([facility]) Nitrite UA Negative Negative 12/09/2020 9:02 PM CDT [facility] ([facility]) Specific Strandquist UA 1.015 1.000, 1.005, 1.010, 1.015, 1.020, 1.025 12/09/2020 9:02 PM CDT [facility] ([facility]) pH UA 7.0 5.0, 5.5, 6.0, 6.5, 7.0, 7.5, 8.0, Color Interference 12/09/2020 9:02 PM CDT [facility] ([facility]) Urobilinogen UA 0.2 0.2, 1.0 9:02 PM CDT [facility] ([facility]) Urine URINE SPECIMEN OBTAINED BY CLEAN CATCH PROCEDURE / Unknown Collection / Unknown 12/09/2020 8:52 PM CDT 12/09/2020 8:52 PM CDT Parmjit Oliveira PRIMER INSPECTOR-VIDEO CAMERA OPERATOR LAB - URINALYSIS ORDERABLES [facility] ([facility]) [address] [place] [address] * CT ABDOMEN PELVIS WO CONTRAST - acute abdomen (12/09/2020 8:33 PM CDT) Only the most recent of6 resultswithin the time period is included. Anatomical Region Laterality Modality Abdomen, Pelvis Computed Tomogra phy 12/09/2020 9:25 PM CDT Impressions 12/09/2020 9:40 PM CDT IMPRESSION: 1. 6.7 cm multiloculated cystic mass within the head of the pancreas. Recommend nonemergent correlation with pancreatic MRI with contrast to evaluate for pancreatic neoplasm. 2. Normal appendix. 3. Mild cardiac enlargement. Small pericardial effusion. 4. Surgical absence of the right kidney. Postoperative changes involving the sigmoid colon. 5. Small bilateral pleural effusions, right greater than left. 6. The findings were called to LISETTE Oliveira at 9:38 p.m. on 12/09/2020. THIS IS AN ELECTRONICALLY VERIFIED FINAL REPORT 12/09/2020 9:40 PM - Electronically signed by Dago Hastings M.D. KT: [email or web address] Report ID: [id number] Reading Location: [id number] [facility] 12/09/2020 9:40 [place] [address] RADIOLOGY REPORT Patient Name:YVONNE MELO Date of Service:12/09/2020csession #:[id number] Date of :1960Account #:[id number] Age:60Sex:F Requesting Ismael OLIVEIRA Examination:CT ABDOMEN PELVIS WO CONTRAST SERVICE TYPE: : PatientClass ORD #: : AccessionNumber EXAM DESCRIPTION: CT ABDOMEN PELVIS WO CONTRAST REASON FOR STUDY: LLQ pain and nausea and diarrhea with right lower quadrant pain. Duration: 1 day TECHNIQUE: CT scan of the abdomen and pelvis performed without intravenous and without oral contrast using helical scanning technique. Reconstructed coronal and sagittal MPR images reviewed. All images stored on PACS. Automated exposure control was used as a dose optimization technique for this examination. COMPARISON: None FINDINGS: The sensitivity for detection of visceral lesions is diminished without the use of intravenous contrast. LOWER CHEST: No significant pulmonary abnormalities. No effusion. Mild cardiac enlargement. Small pericardial effusion. Small bilateral pleural effusions, right greater than left with bibasilar atelectasis. LIVER: Normal size. No identified cystic or solid masses. GALLBLADDER: No stones identified. No wall thickening or inflammatory changes. BILE DUCTS: No intrahepatic or extrahepatic ductal dilatation. SPLEEN: Normal size. No focal lesions. PANCREAS: There is a large multiloculated cystic mass within the head of the pancreas measuring 6.1 cm transverse by 6.7 cm AP x 5.5 cm craniocaudal. Correlation with nonemergent MRI of the pancreas with contrast is recommended to evaluate for pancreatic neoplasm. The body and tail of the pancreas are mildly atrophic and there is mild prominence of the pancreatic duct. ADRENALS: Normal. KIDNEYS/URINARY TRACT: No identified significant cystic or solid masses. No stones. No hydronephrosis or hydroureter. The right kidney is surgically absent. Urinary bladder is unremarkable. GI: No dilated bowel loops. No obvious wall thickening. Normal appendix. No significant diverticular disease. Postoperative changes involving the sigmoid colon. PERITONEUM: No ascites or free air. RETROPERITONEUM: No mass or adenopathy. REPRODUCTIVE: No significant abnormality. VASCULATURE: No abdominal aortic aneurysm. MUSCULOSKELETAL: Multilevel degenerative changes are present without fracture. No concerning lesions are present. OTHER: Postoperative changes of prior ventral hernia repair with mesh graft in place. Procedure Note Dago Hastings MD - 12/09/2020 [place] [address] RADIOLOGY REPORT Patient Name:YVONNE MELO Date of Service:12/09/2020csession #:[id number] Date of :1960Account #:[id number] Age:60Sex:F Requesting Ismael OLIVEIRA Examination:CT ABDOMEN PELVIS WO CONTRAST SERVICE TYPE: : PatientClass ORD #: : AccessionNumber EXAM DESCRIPTION: CT ABDOMEN PELVIS WO CONTRAST REASON FOR STUDY: LLQ pain and nausea and diarrhea with right lower quadrant pain. Duration: 1 day TECHNIQUE: CT scan of the abdomen and pelvis performed without intravenous and without oral contrast using helical scanning technique. Reconstructed coronal and sagittal MPR images reviewed. All images stored on PACS. Automated exposure control was used as a dose optimization technique for this examination. COMPARISON: None FINDINGS: The sensitivity for detection of visceral lesions is diminished without the use of intravenous contrast. LOWER CHEST: No significant pulmonary abnormalities. No effusion. Mild cardiac enlargement. Small pericardial effusion. Small bilateral pleural effusions, right greater than left with bibasilar atelectasis. LIVER: Normal size. No identified cystic or solid masses. GALLBLADDER: No stones identified. No wall thickening or inflammatory changes. BILE DUCTS: No intrahepatic or extrahepatic ductal dilatation. SPLEEN: Normal size. No focal lesions. PANCREAS: There is a large multiloculated cystic mass within the head of the pancreas measuring 6.1 cm transverse by 6.7 cm AP x 5.5 cm craniocaudal. Correlation with nonemergent MRI of the pancreas with contrast is recommended to evaluate for pancreatic neoplasm. The body and tail of the pancreas are mildly atrophic and there is mild prominence of the pancreatic duct. ADRENALS: Normal. KIDNEYS/URINARY TRACT: No identified significant cystic or solid masses. No stones. No hydronephrosis or hydroureter. The right kidney is surgically absent. Urinary bladder is unremarkable. GI: No dilated bowel loops. No obvious wall thickening. Normal appendix. No significant diverticular disease. Postoperative changes involving the sigmoid colon. PERITONEUM: No ascites or free air. RETROPERITONEUM: No mass or adenopathy. REPRODUCTIVE: No significant abnormality. VASCULATURE: No abdominal aortic aneurysm. MUSCULOSKELETAL: Multilevel degenerative changes are present without fracture. No concerning lesions are present. OTHER: Postoperative changes of prior ventral hernia repair with mesh graft in place. IMPRESSION IMPRESSION: 1. 6.7 cm multiloculated cystic mass within the head of the pancreas. Recommend nonemergent correlation with pancreatic MRI with contrast to evaluate for pancreatic neoplasm. 2. Normal appendix. 3. Mild cardiac enlargement. Small pericardial effusion. 4. Surgical absence of the right kidney. Postoperative changes involving the sigmoid colon. 5. Small bilateral pleural effusions, right greater than left. 6. The findings were called to LISETTE Oliveira at 9:38 p.m. on 12/09/2020. THIS IS AN ELECTRONICALLY VERIFIED FINAL REPORT 12/09/2020 9:40 PM - Electronically signed by Dago Hastings M.D. KT: [email or web address] Report ID: [id number] Reading Location: [place] [address] Parmjit Oliveira PRIMER INSPECTOR-VIDEO CAMERA OPERATOR CT ORDERABLES * MAGNESIUM BLOOD (12/09/2020 7:13 PM CDT) Only the most recent of10 resultswithin the time period is included. Magnesium 1.7 1.6 - 2.3 mg/dL 12/09/2020 7:37 PM CDT [facility] ([facility]) Blood BLOOD SPECIMEN / Unknown Lab Venipuncture / Unknown 12/09/2020 7:13 PM CDT 12/09/2020 7:13 PM CDT Parmjit Oliveira [facility] LAB - CHEMISTRY ORDERABLES Performing Organization Address City/[facility]/ZIP Co de Phone Number [facility] ([facility]) [address] [place] [phone] * LACTIC ACID BLOOD (12/09/2020 7:13 PM CDT) Only the most recent of10 resultswithin the time period is included. Lactic Acid 1.3 0.7 - 2.1 mmol/L 12/09/2020 7:37 PM CDT [facility] ([facility]) Blood BLOOD SPECIMEN / Unknown Lab Venipuncture / Unknown 12/09/2020 7:13 PM CDT 12/09/2020 7:13 PM CDT Parmjit Oliveira [facility] LAB - CHEMISTRY ORDERABLES Performing Organization Address City/[facility]/ZIP Co de Phone Number [facility] ([facility]) [address] [place] [phone] * (ABNORMAL) AMYLASE BLOOD (12/09/2020 7:13 PM CDT) Only the most recent of3 resultswithin the time period is included. Amylase 153(H) 30 - 100 U/L 12/09/2020 9:20 PM CDT [facility] ([facility]) Blood BLOOD SPECIMEN / Unknown Lab Venipuncture / Unknown 12/09/2020 7:13 PM CDT 12/09/2020 8:56 PM CDT Parmjit Luis PRIMER INSPECTOR-VIDEO CAMERA OPERATOR LAB - CHEMISTRY ORDERABLES Performing Organization Address City/[facility]/ZIP Co de Phone Number [facility] ([facility]) [address] [place] [phone] * (ABNORMAL) TROPONIN I (12/03/2020 6:30 PM CDT) Only the most recent of14 resultswithin the time period is included. Troponin I 0.042(HH) 0.000 - 0.034 ng/mL 12/03/2020 7:14 PM CDT [facility] ([facility]) Blood BLOOD SPECIMEN / Unknown Line Draw / Unknown 12/03/2020 6:30 PM CDT 12/03/2020 6:34 PM CDT Narrative [facility] ([facility]) - 12/03/2020 7:14 PM CDT AMI Diagnostic cut-off = 0.12ng/mL Values less thatn 0.035 represent the upper limit of normal at the 99th percentile. Values between 0.035 and 0.12 indicate the need for further evaluation. Shanna Vera APRN-VIDEO CAMERA OPERATOR LAB - CHEMI STRY ORDERABLES Performing Organization Address [facility] Co de Phone Number [facility] ([facility]) [address] [place] [phone] * PTT (12/03/2020 6:30 PM CDT) Only the most recent of2 resultswithin the time period is included. Pathologist [facility] PTT 22.7 20.6 - 31.1 sec 12/03/2020 7:01 PM CDT [facility] ([facility]) Blood BLOOD SPECIMEN / Unknown Line Draw / Unknown 12/03/2020 6:30 PM CDT 12/03/2020 6:41 PM CDT Shanna Vera PRIMER INSPECTOR-VIDEO CAMERA OPERATOR LAB - COAGU LATION ORDERABLES Performing Organization Address City/[facility]/ZIP Co de Phone Number [facility] ([facility]) [address] [place], [place] [phone] * (ABNORMAL) PT-INR (12/03/2020 6:30 PM CDT) Only the most recent of3 resultswithin the time period is included. PT 10.0 9.2 - 11.0 sec 12/03/2020 7:02 PM CDT [facility] ([facility]) INR 0.99(L) 2 - 4 12/03/2020 7:02 PM CDT [facility] ([facility]) Blood BLOOD SPECIMEN / Unknown Line Draw / Unknown 12/03/2020 6:30 PM CDT 12/03/2020 6:41 PM CDT Narrative [facility] ([facility]) - 12/03/2020 7:02 PM CDT Therapeutic Ranges: Prophylaxis, treatment of DVT, PE......... 2.0-3.0 Tissue Heart Valves ..................................... 2.0-3.0 Acute CO ...................................... 2.5-3.5 Valvular Heart Disease ..........................2.5-3.5 Atrial Fibrillation ............................2.5-3.5 Mechanical Heart Vlave .............2.5-3.5 For more Informations see CHEST Vol 119/1 Supp (2000) Shanna Vera PRIMER INSPECTOR-VIDEO CAMERA OPERATOR LAB - [facility] ORDERABLES [facility] ([facility]) [address] [place] [phone] * (ABNORMAL) B-TYPE NATRIURETIC PEPTIDE (12/03/2020 6:30 PM CDT) Only the most recent of8 resultswithin the time period is included. BNP 759(H) 0 - 100 pg/mL 12/03/2020 7:33 PM CDT [facility] ([facility]) Blood BLOOD SPECIMEN / Unknown Line Draw / Unknown 12/03/2020 6:30 PM CDT 12/03/2020 6:34 PM CDT Shanna Vera PRIMER INSPECTOR-VIDEO CAMERA OPERATOR LAB - CHEMI STRY ORDERABLES [facility] ([facility]) [address] [place] [phone] * XR CHEST PA AND LATERAL (12/03/2020 6:13 PM CDT) Only the most recent of6 resultswithin the time period is included. Anatomical Region Laterality Modality Chest Endoscopy 12/03/2020 6:43 PM CDT Impressions 12/03/2020 6:45 PM CDT IMPRESSION: 1. Mild pulmonary vascular congestion. 2. Unchanged moderate to severe cardiomegaly. THIS IS AN ELECTRONICALLY VERIFIED FINAL REPORT 12/03/2020 6:45 PM - Electronically signed by Dio Andrade M.D. RT: RT Report ID: [id number] Reading Location: [id number] Narrative 12/03/2020 6:45 PM CDT [address] [address] RADIOLOGY REPORT Patient Name:YVONNE MELO Date of Service:12/03/2020csession #:[id number] Date of :1960Account #:[id number] Age:60Sex:F Requesting Melanie VERA Examination:XR CHEST 2VW SERVICE TYPE: : PatientClass ORD #: : AccessionNumber EXAM DESCRIPTION: XR CHEST 2VW REASON FOR STUDY: Dyspnea worse today. Patient also has COPD, CHF, HTN.Duration: today TECHNIQUE: Two-view examination of the chest is performed. COMPARISON: 11/28/2020. FINDINGS: Mild pulmonary vascular congestion. No discrete airspace consolidation. No pleural effusion or pneumothorax. Unchanged moderate to severe cardiomegaly. Atheromatous calcifications of the thoracic aorta. Procedure Note Dio Andrade MD - 12/03/2020 [place] [address] RADIOLOGY REPORT Patient Name:YVONNE MELO Date of Service:12/03/2020csession #:[id number] Date of :1960Account #:[id number] Age:60Sex:F Requesting PhysicianSHANNA VERA Examination:XR CHEST 2VW SERVICE TYPE: : PatientClass ORD #: : AccessionNumber EXAM DESCRIPTION: XR CHEST 2VW REASON FOR STUDY: Dyspnea worse today. Patient also has COPD, CHF, HTN.Duration: today TECHNIQUE: Two-view examination of the chest is performed. COMPARISON: 11/28/2020. FINDINGS: Mild pulmonary vascular congestion. No discrete airspace consolidation. No pleural effusion or pneumothorax. Unchanged moderate to severe cardiomegaly. Atheromatous calcifications of the thoracic aorta. IMPRESSION IMPRESSION: 1. Mild pulmonary vascular congestion. 2. Unchanged moderate to severe cardiomegaly. THIS IS AN ELECTRONICALLY VERIFIED FINAL REPORT 12/03/2020 6:45 PM - Electronically signed by Dio Andrade M.D. RT: RT Report ID: [id number] Reading Location: [place] [address] Shanna Vera PRIMER INSPECTOR-VIDEO CAMERA OPERATOR DIAGNOSTIC IMAGING ORDERABLES * URINALYSIS DIPSTICK - POINT OF CARE (AMB) [facility] (12/03/2020 11:39 AM CDT) Color UA Yellow Yellow, Cristina [facility] Clarity UA Clear Clear, Hazy [facility] Specific Strandquist UA 1.015 1.000, 1.005, 1.010, 1.015, 1.020, 1.025 [facility] pH UA 5.0 5.0, 5.5, 6.0, 6.5, 7.0, 7.5, 8.0, 8.5, 9.0 [facility] Protein UA Trace Negative, Trace [facility] Glucose UA Negative Negative [facility] Ketone UA Negative Negative [facility] Bilirubin UA Negative Negative [facility] Blood UA Negative Negative [facility] Leukocyte Esterase UA Negative Negative [facility] Nitrite UA Negative Negative [facility] Urobilinogen UA 0.2 EU/dL 0.2 EU/dL, 1.0 EU/dL, Negative [facility] Urine URINE / Unknown 12/03/2020 1 1:39 AM CDT Rachel Manzanares PRIMER INSPECTOR-VIDEO CAMERA OPERATOR LAB - POINT OF C ARE ORDERABLES [facility] [address] [place] [phone], [facility] * (ABNORMAL) BASIC METABOLIC PANEL (CALCIUM TOTAL) (11/29/2020 6:30 AM CDT) Only the most recent of21 resultswithin the time period is included. Glucose 117(H) 65 - 100 mg/dL 11/29/2020 7:01 AM [facility] ([facility]) BUN 22(H) 7 - 17 mg/dL 11/29/2020 7:01 AM [facility] ([facility]) Creatinine 0.90 0.50 - 1.04 mg/dL 11/29/2020 7:01 AM [facility] ([facility]) eGFR 64 >=60 ml/min/1.7 3*2 11/29/2020 7:01 AM [facility] ([facility]) Comment: Chronic kidney disease is [...] Test will not be performed. BUN/Creatinine Ratio 25.3 6.0 - 26.0 11/29/2020 7:01 AM CDT [facility] ([facility]) Sodium 141 137 - 145 mmol/L 11/29/2020 7:01 AM T [facility] ([facility]) Potassium 3.6 3.6 - 5.0 mmol/L 11/29/2020 7:01 AM T [facility] ([facility]) Chloride 104 98 - 107 mmol/L 11/29/2020 7:01 AM T [facility] ([facility]) Carbon Dioxide 34(H) 21 - 31 mmol/L 11/29/2020 7:01 AM T [facility] ([facility]) Calcium 9.2 8.4 - 10.7 mg/dL 11/29/2020 7:01 AM T [facility] ([facility]) Blood BLOOD SPECIMEN / Unknown Lab Venipuncture / Unknown 11/29/2020 6:30 AM CDT 11/29/2020 6:34 AM CDT Parmjit Oliveira PRIMER INSPECTOR-VIDEO CAMERA OPERATOR LAB - CHEMISTRY ORDERABLES [facility] ([facility]) [address] [place] [address] * (ABNORMAL) URINE MICROSCOPIC ONLY (11/28/2020 5:10 AM CDT) RBC UA 0-2 None Seen, 0-2 # /hpf 11/28/2020 5:52 AM CDT [facility] ([facility]) WBC UA 0-2 None Seen, 0-2 # /hpf 11/28/2020 5:52 AM CDT [facility] ([facility]) Epithelial Cell UA Few None, Few # /hpf 11/28/2020 5:52 AM CDT [facility] ([facility]) Bacteria UA Moderate(A ) None, Few, Rare 11/28/2020 5:52 AM CDT [facility] ([facility]) Urine URINE SPECIMEN OBTAINED VIA [facility] URINARY CATHETER / Unknown Collection / Unknown 11/28/2020 5:10 AM CDT 11/28/2020 5:12 AM CDT Parmjit Luis PRIMER INSPECTOR-VIDEO CAMERA OPERATOR LAB - URINALYSIS ORDERABLES [facility] ([facility]) [address] [place] [phone] * XR CHEST 1VW PORTABLE (11/28/2020 4:35 AM CDT) Only the most recent of3 resultswithin the time period is included. Anatomical Region Laterality Modality Chest Radiographic Tami ging 11/28/2020 4:42 AM CDT Impressions 11/28/2020 4:45 AM CDT IMPRESSION: 1. Moderate to severe cardiac enlargement. This could be attributable to cardiomegaly or pericardial effusion. 2. Mild pulmonary vascular congestion. No discrete airspace consolidation. THIS IS AN ELECTRONICALLY VERIFIED FINAL REPORT 11/28/2020 4:45 AM - Electronically signed by Dio Andrade M.D. RT: RT Report ID: [id number] Reading Location: [id number] Narrative 11/28/2020 4:45 AM CDT [address] [address] RADIOLOGY REPORT Patient Name:YVONNE MELO Date of Service:11/28/2020csession #:[id number] Date of :1960Account #:[id number] Age:60Sex:F Requesting Ismael OLIVEIRA Examination:XR CHEST 1VW SERVICE TYPE: : PatientClass ORD #: : AccessionNumber EXAM DESCRIPTION: XR CHEST 1VW REASON FOR STUDY: SOB Duration: 2 days TECHNIQUE: Upright portable AP view of the chest is performed. COMPARISON: None available. FINDINGS: Mild pulmonary vascular congestion. No discrete airspace consolidation. No pleural effusion or pneumothorax. There is moderate to severe cardiac enlargement. Catheter tubing overlies the upper right hemithorax, presumed external to the patient. Postsurgical changes of hernia repair overlying the left upper quadrant of the abdomen. Procedure Note Dio Andrade MD - 11/28/2020 [place] [address] RADIOLOGY REPORT Patient Name:YVONNE MELO Date of Service:11/28/2020csession #:[id number] Date of :1960Account #:[id number] Age:60Sex:F Requesting Ismael OLIVEIRA Examination:XR CHEST 1VW SERVICE TYPE: : PatientClass ORD #: : AccessionNumber EXAM DESCRIPTION: XR CHEST 1VW REASON FOR STUDY: SOB Duration: 2 days TECHNIQUE: Upright portable AP view of the chest is performed. COMPARISON: None available. FINDINGS: Mild pulmonary vascular congestion. No discrete airspace consolidation. No pleural effusion or pneumothorax. There is moderate to severe cardiac enlargement. Catheter tubing overlies the upper right hemithorax, presumed external to the patient. Postsurgical changes of hernia repair overlying the left upper quadrant of the abdomen. IMPRESSION IMPRESSION: 1. Moderate to severe cardiac enlargement. This could be attributable to cardiomegaly or pericardial effusion. 2. Mild pulmonary vascular congestion. No discrete airspace consolidation. THIS IS AN ELECTRONICALLY VERIFIED FINAL REPORT 11/28/2020 4:45 AM - Electronically signed by Dio Andrade M.D. RT: RT Report ID: [id number] Reading Location: [place] [address] Parmjit Oliveira PRIMER INSPECTOR-VIDEO CAMERA OPERATOR DIAGNOSTIC IMAGI NG ORDERABLES * (ABNORMAL) D-DIMER (11/28/2020 4:10 AM CDT) Only the most recent of2 resultswithin the time period is included. D-Dimer >400(H) 0 - 400 11/28/2020 6:00 AM CDT [facility] ([facility]) Blood BLOOD SPECIMEN / Unknown Venipuncture / Unknown 11/28/2020 4:10 AM CDT 11/28/2020 4:37 AM CDT Parmjit Oliveira PRIMER INSPECTOR-VIDEO CAMERA OPERATOR LAB - COAGULATIO N ORDERABLES [facility] ([facility]) [address] [place] [address] * CARDIAC RHYTHM STRIP ORDER (06/21/2020 12:17 PM CDT) Only the most recent of4 resultswithin the time period is included. Narrative 06/21/2020 12:17 PM CDT Ordered by an unspecified provider. Scanned Document CARDIAC SERVICES ORD ERABLES * GLUCOSE - POINT OF CARE (06/18/2020 11:46 AM CDT) Only the most recent of18 resultswithin the time period is included. [facility] Glucose WB/POC 117 70 - 125 mg/dL 06/18/2020 11:48 AM CDT [facility] Specimen Type Arterial/C apillary 06/18/2020 11:48 AM CDT [facility] Blood BLOOD SPECIMEN / Unknown 06/18/2020 11:46 AM CDT 06/18/2020 11:47 AM CDT Kourtney Lora MD LAB - POINT OF CARE ORDERABLES [facility] [address] [place], [place] [id number] [place] [address] * SARS-COV-2 (COVID-19) RAPID (06/18/2020 9:58 AM CDT) [facility] COVID-19 PCR Not detected Not detected, Invalid 06/18/2020 10:51 AM CDT [facility] Microbiology SPECIMEN FROM NASOPHARYNGEAL STRUCTURE / Unknown Collection / Unknown 06/18/2020 9:58 AM CDT 06/18/2020 10:04 AM CDT Narrative [facility] - 06/18/2020 10:51 AM CDT The Cepheid Xpert Xpress SARS-COV-2 has been authorized by the Food and Drug administration (FDA) under an Emergency Use Authorization (EUA). This test has been validated in accordance with the FDA's guidance document Policy for Diagnostic Testing in Laboratories Certified to perform High Complexity Testing under CLIA prior to Emergency Use Authorization for Coronavirus Disease-2019 during the Public Health Emergency issued on April 16, 2019. FDA independent review of this validation is pending. This test is only authorized for the duration of time the declaration that circumstances exist justifying the authorization of emergency use of in vitro diagnostic tests for detection of SARS-COV-2 virus and/or diagnosis of COVID-19 infection under 564(b)(1)of the Act, 21 U.S.C. 360bbb-3 (b) (1), unless the authorization is terminated or revoked sooner. Kourtney Lora MD LAB - MICROBIOLOGY O RDERABLES [facility] [address] [place] [address], [facility] * (ABNORMAL) LIPID PROFILE (06/17/2020 5:08 AM CDT) Only the most recent of10 resultswithin the time period is included. Cholesterol 220(H) <200 mg/dL 06/17/2020 6:21 AM CDT [facility] Triglycerides 209(H) <150 mg/dL 06/17/2020 6:21 AM CDT [facility] HDL Cholesterol 47 >40 mg/dL 6:21 AM CDT [facility] Chol HDL Ratio 4.7 1.0 - 6.0 06/17/2020 6:21 AM CDT [facility] LDL Calculated 131(H) 65 - 130 mg/dL 06/17/2020 6:21 AM CDT [facility] VLDL Calculated 42(H) <=30 mg/dL 6:21 AM CDT [facility] Blood BLOOD SPECIMEN / Unknown Lab Venipuncture / Unknown 06/17/2020 5:08 AM CDT 06/17/2020 5:47 AM CDT [facility] - 06/17/2020 6:21 AM CDT Lipid Profile Comment: CHOLESTEROL LEVEL..................CLINICAL INTERPRETATION LESS THAN 200 MG/DL..............................DESIRABLE 200-239 MG/DL..............................BORDERLINE HIGH GREATER THAN 240 MG/DL................................HIGH LDL-CHOLESTEROL LEVEL..............CLINICAL INTERPRETATION LESS THAN 100 MG/DL................................OPTIMAL 100-129 MG/DL.................................NEAR OPTIMAL GREATER THAN 160 MG/DL...........................HIGH RISK HDL RISK LEVEL GREATER THEN 60 MG/DL............................DECREASED 40-60 MG/DL........................................AVERAGE LESS THAN 40 MG/DL...............................INCREASED TRIGLYCERIDE LEVEL..................CLINICAL INTERPRETATION LESS THAN 150 MG/DL...............................DESIRABLE 150-199 MG/DL...............................BORDERLINE HIGH 200-499 MG/DL..........................................HIGH GREATER THAN 500..................................VERY HIGH THE NATIONAL CHOLESTEROL EDUCATION PROGRAM HAS SET THE ABOVE GUIDELINES (REFERANCE VALUES) FOR CHOLESTEROL AND HDL. RISK ASSOCIATED WITH CHOLESTEROL/HDL RATIOS RISK....................MALE RATIO.............FEMALE RATIO 1/2 AVERAGE.................<3.4.......................<3.3 LOW RISK.................... 4.0 ...................... 3.8 AVERAGE..................... 5.0 ...................... 4.5 2X AVERAGE.................. 9.5 ...................... 7.0 3X AVERAGE...................>23........................>11 Cristobal Schultz DO LAB - CHEMISTRY RENUKA RED [facility] [address] [place] [address], [facility] * EKG 12-LEAD (06/15/2020 4:27 PM CDT) Only the most recent of11 resultswithin the time period is included. Ventricular Rate 95 BPM [facility] Atrial Rate 95 BPM [facility] P-R Interval 158 ms [facility] QRS Duration ms 172 ms [facility] Q-T Interval ms 440 ms [facility] QTC Calculation (Bezet) 552 ms [facility] Calculated P Spencer 62 degrees [facility] Calculated R Spencer -28 degrees [facility] Calculated T Spencer 114 degrees [facility] Interpretation EKG Sinus rhythm Left atrial enlargement Left bundle branch block Abnormal ECG Confirmed by MD [place] ([id number]) on 06/16/2020 2:22:23 PM [facility] 06/15/2020 4:27 PM CDT 06/16/2020 2:22 PM CDT Cristobal Schultz DO ECG ORDERABLES [facility] * (ABNORMAL) DIFFERENTIAL MANUAL (06/14/2020 6:26 AM CDT) Only the most recent of3 resultswithin the time period is included. WBC Auto 5.2 4.0 - 10.0 x10E9/L 06/14/2020 7:43 AM CDT [facility] Neutrophils % Manual 93(H) 40 - 75 % 06/14/2020 7:43 AM CDT [facility] Lymphocytes % Manual 6(L) 19 - 53 % 06/14/2020 7:43 AM CDT [facility] Monocytes % Manual 1(L) 5 - 13 % 06/14/2020 7:43 AM CDT [facility] Neutrophils Absolute Manual 4.8 1.6 - 6.1 x10E3/uL 06/14/2020 7:43 AM CDT [facility] Lymphocytes Absolute Manual 0.3(L) 1.2 - 3.7 x10E3/uL 06/14/2020 7:43 AM CDT [facility] Monocytes Absolute Manual 0.1(L) 0.2 - 0.9 x10E3/uL 06/14/2020 7:43 AM CDT [facility] Cells Counted 100 # cells 06/14/2020 7:43 AM CDT [facility] Platelet Estimation Adequate platelets Normal, Adequate platelets 06/14/2020 7:43 AM CDT [facility] RBC Morphology Normal 06/14/2020 7:43 AM CDT [facility] WBC Morph Normal 06/14/2020 7:43 AM CDT [facility] Large Platelets 1+(A) None 06/14/2020 7:43 AM CDT [facility] Blood BLOOD SPECIMEN / Unknown Lab Venipuncture / Unknown 06/14/2020 6:26 AM CDT 06/14/2020 6:40 AM CDT Kourtney Lora MD LAB - HEMATOLOGY ORD ERABLES Performing Organization Address [facility] Co de Phone Number [facility] [address] * PHOSPHORUS BLOOD (06/14/2020 6:26 AM CDT) Only the most recent of3 resultswithin the time period is included. Phosphorus 3.64 2.3 - 4.7 mg/dL 06/14/2020 7:13 AM CDT [facility] Blood BLOOD SPECIMEN / Unknown Lab Venipuncture / Unknown 06/14/2020 6:26 AM CDT 06/14/2020 6:40 AM CDT Edenilson Finn APRN-VIDEO CAMERA OPERATOR LAB - CHEMISTRY ORDERABLES Performing Organization Address [facility] de Phone Number [facility] [address] * (ABNORMAL) URINALYSIS REFLEX MICROSCOPIC REFLEX CULTURE (06/13/2020 7:13 PM CDT) Only the most recent of9 resultswithin the time period is included. Color UA Straw Straw, Yellow 06/13/2020 7:26 PM CDT [facility] Clarity UA Clear Clear 06/13/2020 7:26 PM CDT [facility] Glucose UA Negative Negative 06/13/2020 7:26 PM CDT [facility] Bilirubin UA Negative Negative 06/13/2020 7:26 PM CDT [facility] Ketone UA Negative Negative 06/13/2020 7:26 PM CDT [facility] Specific Strandquist UA 1.004(L) 1.005 - 1.030 06/13/2020 7:26 PM CDT [facility] Blood UA Negative Negative 06/13/2020 7:26 PM CDT [facility] pH UA 6.0 5.0 - 8.0 pH 06/13/2020 7:26 PM CDT [facility] Protein UA Negative Negative 06/13/2020 7:26 PM CDT [facility] Urobilinogen UA Negative Negative mg/dL 06/13/2020 7:26 PM CDT [facility] Nitrite UA Negative Negative 06/13/2020 7:26 PM CDT [facility] Leukocyte UA Negative Negative 06/13/2020 7:26 PM CDT [facility] Urine Microscopy Urine microscopy not indicated 06/13/2020 7:26 PM CDT [facility] Reflex Status Culture not indicated 06/13/2020 7:26 PM CDT [facility] Urine URINE SPECIMEN OBTAINED BY CLEAN CATCH PROCEDURE / Unknown Collection / Unknown 06/13/2020 7:13 PM CDT 06/13/2020 7:19 PM CDT Narrative [facility] - 06/13/2020 7:26 PM CDT Cristina Breaux APRN-VIDEO CAMERA OPERATOR LAB - URINALYSIS ORDERABLES [facility] [address] * INFLUENZA A+B ANTIGEN RAPID (06/13/2020 4:03 PM CDT) Pathologist [facility] Influenza A Antigen Negative Negative 06/13/2020 4:27 PM CDT [facility] Influenza B Antigen Negative Negative 06/13/2020 4:27 PM CDT [facility] Microbiology SPECIMEN FROM NASOPHARYNGEAL STRUCTURE / Unknown Collection / Unknown 06/13/2020 4:03 PM CDT 06/13/2020 4:09 PM CDT Cristina Breaux APRN-VIDEO CAMERA OPERATOR LAB - MICROBIOLO GY ORDERABLES Performing Organization Address [facility]/ZIP Co de Phone Number [facility] [address] * (ABNORMAL) LACTIC ACID BLOOD REFLEX TO REPEAT (06/13/2020 3:56 PM CDT) Lactic Acid 3.24(HH) 0.5 - 2 mmol/L 06/13/2020 4:52 PM CDT [facility] Blood BLOOD SPECIMEN / Unknown Venipuncture / Unknown 06/13/2020 3:56 PM CDT 06/13/2020 4:18 PM CDT Cristina Breaux PRIMER INSPECTOR-VIDEO CAMERA OPERATOR LAB - CHEMISTRY ORDERABLES [facility] [address] [place], [place] [id number] [place] [address] * PROCALCITONIN LEVEL (06/13/2020 3:56 PM CDT) Procalcitonin 0.08 <=0.10 ng/mL 06/13/2020 7:39 PM CDT [facility] Blood BLOOD SPECIMEN / Unknown Venipuncture / Unknown 06/13/2020 3:56 PM CDT 06/13/2020 4:23 PM CDT Narrative [facility] - 06/13/2020 7:39 PM CDT If baseline PCT is - >2.0 ng/mL: A PCT level above 2.0 ng/mL on the first day of ICU admission is associated with a high risk for progression to severe sepsis and/or septic shock. - <0.5 ng/mL: A PCT level below 0.5 ng/mL on the first day of ICU admission is associated with a low risk for progression to severe sepsis and/or septic shock. If the Procalcitonin measurement is performed shortly after systemic infection process has started (usually less than 6 hours), these values may still be low. As various non-infectious conditions are known to induce procalcitonin as well, Procalcitonin levels between 0.50 ng/mL and 2.00 ng/mL should be reviewed carefully to take into account the specific clinical background and condition(s) of the individual patient. The change in procalcitonin (PCT) concentration over time provides support in decision making on antibiotic discontinuation for suspected or confirmed septic patients and for suspected or confirmed lower respiratory tract infection (LRTI). Follow-up samples should be tested once every 1-2 days based upon physician discretion taking into account the patient's evolution and progress. Discontinuation of antibiotic therapy may be considered for suspected or confirmed septic patients if the current PCT is <= 0.5 ng/mL or <= 0.25 ng/mL for confirmed LRTI. If the PCT delta drop is > 80% in either condition, discontinuation of antibiotic therapy may be indicated. Duration of antibiotics should not be determined solely on PCT; established guidelines for the indication should be followed. Results should be interpreted in the context of a patient's clinical status and other laboratory tests. PCT peak: Highest observed PCT concentration PCT current: Most recent PCT concentration Calculate delta PCT using the following equation: Delta PCT = PCT Peak - PCT current X 100% PCT Peak The Change in Procalcitonin Calculator is available at [email or web address] If clinical picture has not improved and PCT remains high, reevaluate and consider treatment failure or other causes. Kourtney Lora MD LAB - CHEMISTRY RENUKA RED [facility] Organization Address City/State/ZIP Co de Phone Number [facility] [address] * (ABNORMAL) HEMOGLOBIN A1C (06/13/2020 3:56 PM CDT) Only the most recent of3 resultswithin the time period is included. Hemoglobin A1c 5.8(H) 4.2 - 5.6 % 06/13/2020 7:20 PM CDT [facility] Estimated Average Glucose 120 mg/dL 06/13/2020 7:20 PM CDT [facility] Blood BLOOD SPECIMEN / Unknown Lab Venipuncture / Unknown 06/13/2020 3:56 PM CDT 06/13/2020 6:56 PM CDT [facility] - 06/13/2020 7:20 PM CDT The following cutoff levels are recommended by [place] [employer]. A1c > 6.5% : considered as diabetes if two separate tests >6.5% or in an appropriate clinical setting. A1c 5.7% - 6.4% : considered as prediabetes (suggest increased risk for diabetes and cardiovascular disease) Control target level: Should be individualized. < 7 for general (non-) , < 8% less stringent goal, < 6.5 more stringent goal. Hemoglobin A1c measurements are used as an aid in the diagnosis of diabetic mellitus, as an aid to identify patients who may be at the risk for developing diabetic mellitus, and for the monitoring long-term blood glucose control in individuals with diabetes mellitus. This test should not replace glucose testing for patients with Type 1 diabetes, pediatric patients, or women. Falsely low HbA1c results may be observed in patients with clinical conditions that shorten erythrocyte life span or decrease mean erythrocyte age such as the presence of unstable hemoglobin variants, elevated hemoglobin F level or other causes of hemolytic anemia . HbA1c may not accurately reflect glycemic control when clinical conditions that affect erythrocyte survival are present. Severe Iron deficiency anemia may yield falsely high results. Hemoglobin A1c assay should not be used to diagnose or monitor diabetes in patients with malignancy, recent blood transfusion, chronic kidney or liver disease. This method may yield falsely low results when hemoglobin (HbF) exceeds 5% in the specimen. Kourtney Lora MD LAB - CHEMISTRY RENUKA RED Performing Organization Address City/[facility] Co de Phone Number [facility] [address] * CULTURE BLOOD (06/13/2020 3:56 PM CDT) Only the most recent of4 resultswithin the time period is included. [facility] Culture No growth day 5 HARMAN 06/19/2020 10:29 AM CDT [facility] Blood PERIPHERAL BLOOD / Unknown Venipuncture / Unknown 06/13/2020 3:56 PM CDT 06/13/2020 4:22 PM CDT Cristina Breaux APRN-VIDEO CAMERA OPERATOR LAB - MICROBIOLO GY ORDERABLES [facility] [address] * (ABNORMAL) BLOOD GASES TU (06/13/2020 3:56 PM CDT) [facility] pH Venous 7.39 7.32 - 7.42 pH 06/13/2020 4:31 PM CDT AM LAB[facility]ATORY pCO2 Venous 34(L) 41 - 51 mm hg 06/13/2020 4:31 PM CDT [facility] pO2 Venous 191(H) 25 - 40 mm hg 06/13/2020 4:31 PM CDT [facility] HCO3 Venous 20(L) 24 - 28 mmol/L 06/13/2020 4:31 PM CDT [facility] BE Venous -4.1(L) -2.0 - 2.0 mmol/L 06/13/2020 4:31 PM CDT [facility] O2 Saturation Venous 99(H) 60 - 85 % 05/18 4:31 PM CDT [facility] TCO2 Venous 21(L) 25 - 29 mmol/L 06/13/2020 4:31 PM CDT [facility] Oxyhemoglobin Venous 94 % 05/18 4:31 PM CDT [facility] Hemoglobin Venous 14.2 12.0 - 18.0 gm/dL 06/13/2020 4:31 PM CDT AM [facility] Carboxyhemoglobin Venous 4.6(H) 0.5 - 1.5 % 06/13/2020 4:31 PM CDT AM LAB[facility]ATORY Methemoglobin Venous 0.3 0 - 1.5 % 05/18 4:31 PM CDT [facility] Sample Type Venous 06/13/2020 4:31 PM CDT [facility] Blood BLOOD SPECIMEN / Unknown Venipuncture / Unknown 06/13/2020 3:56 PM CDT 06/13/2020 4:19 PM CDT Cristina JACKSON LAB - BLOOD GASE S ORDERABLES Performing Organization Address [facility]/State/[facility] Co de Phone Number [facility] [address] * Critical Care (06/13/2020 3:55 PM CDT) Narrative Mars Ascencio MD - 06/13/2020 3:55 PM CDT Cristina Breaux APRN-CNP 06/13/2020 8:35 PM Critical Care Performed by: Cristina Breaux APRN-CNP Authorized by: Cristina Breaux APRN-CNP Critical care provider statement: Critical care time (minutes): 60 Critical care time was exclusive of: Separately billable procedures and treating other patients Critical care was necessary to treat or prevent imminent or life-threatening deterioration of the following conditions: Respiratory failure, sepsis and cardiac failure Critical care was time spent personally by me on the following activities: Ordering and performing treatments and interventions, ordering and review of laboratory studies, ordering and review of radiographic studies, pulse oximetry, re-evaluation of patient's condition, review of old charts, interpretation of cardiac output measurements, examination of patient, evaluation of patient's response to treatment, development of treatment plan with patient or surrogate, blood draw for specimens, obtaining history from patient or surrogate and discussions with consultants I assumed direction of critical care for this patient from another provider in my specialty: yes (Silva) Cristina Breaux PRIMER INSPECTOR-VIDEO CAMERA OPERATOR PROCEDURE/MINOR SURGICAL ORDERABLES * ECHOCARDIOGRAM 2D WITH DOPPLER (06/13/2020 12:00 AM CDT) Only the most recent of2 resultswithin the time period is included. 06/13/2020 Narrative [facility] - 06/14/2020 6:19 PM CDT [facility] [address] [place] [address] Transthoracic Echocardiogram 2D, M-mode, Doppler, and Color Doppler Patient: YVONNE MELO MR #: [id number] : 1960 Age: 59 years Gender: Female Study date: 14-Jun-2020 Status: Inpatient Room: [address] [place] [address] HR: 75 bpm Height: 64 in Weight: 242.4 lb BSA: 2.12 m-sq BP: 147/ 94 Ordering Physician: [facility] Hospitalist Referring Physician: Herb Bansal MD Route Sales Trainee: Brett Mobley MD, [facility] Route Sales Trainee: [facility] Heart and Piece Cutter: Latasha Nickerson RDCS Summary: - Clinical question: Dyspnea - Left ventricle: The ventricle was dilated. Systolic function was severely reduced. Ejection fraction was estimated in the range of 20 % to 25 %. There was severe diffuse hypokinesis worse in the inferior wall. Wall thickness was at the upper limits of normal. Features were consistent with a pseudonormal left ventricular filling pattern, with concomitant abnormal relaxation and increased filling pressure (grade 2 diastolic dysfunction). - Ventricular septum: There was paradoxical motion. - Aortic valve: There was trace aortic valve regurgitation. The valve was not well visualized. - Aorta, systemic arteries: There was mild dilatation of the ascending aorta. - Mitral valve: There was mild to moderate regurgitation. - Left atrium: The atrium was markedly dilated. - Right ventricle: The size was normal. Systolic function was normal. Systolic pressure was within the normal range. Estimated peak pressure was 34 mmHg. - Tricuspid valve: There was trace regurgitation. - Inferior vena cava, hepatic veins: The inferior vena cava was mildly dilated. - Pericardium: A small to moderate pericardial effusion was identified. Clinical question: Dyspnea Procedure: The procedure was performed at the bedside. This was a routine study. Left ventricle: The ventricle was dilated. Systolic function was severely reduced. Ejection fraction was estimated in the range of 20 % to 25 %. There was severe diffuse hypokinesis worse in the inferior wall. Wall thickness was at the upper limits of normal. Doppler: Features were consistent with a pseudonormal left ventricular filling pattern, with concomitant abnormal relaxation and increased filling pressure (grade 2 diastolic dysfunction). Ventricular septum: There was paradoxical motion. Aortic valve: The valve was not well visualized. Doppler: Transaortic velocity was within the normal range. There was no stenosis. There was trace aortic valve regurgitation. Aorta: The root exhibited normal size. There was mild dilatation of the ascending aorta. Mitral valve: There was minimal thickening, with mild chordal involvement. There was normal leaflet separation. Doppler: There was no evidence for stenosis. There was mild to moderate regurgitation. Left atrium: The atrium was markedly dilated. Atrial septum: No defect or patent foramen ovale was identified with color Doppler. Pulmonary veins: Doppler: There was systolic blunting in the pulmonary vein(s). Right ventricle: The size was normal. Systolic function was normal. Wall thickness was normal. Doppler: Systolic pressure was within the normal range. Estimated peak pressure was 34 mmHg. Pulmonic valve: Not well visualized. Doppler: There was no significant regurgitation. Tricuspid valve: The valve structure was normal. There was normal leaflet separation. Doppler: There was no evidence for tricuspid stenosis. There was trace regurgitation. Right atrium: Size was normal. Systemic veins: IVC: The inferior vena cava was mildly dilated. Respirophasic changes were normal. Pericardium: A small to moderate pericardial effusion was identified. System measurement tables 2D mode AoR Diam: 3 cm Asc Aorta Diam: 3.5 cm LA Dimension (2D): 5.3 cm Left Atrium Systolic Volume Index; Method of Disks, Biplane; 2D mode;: 56.1 ml/m2 EF (2D-Cubed): 48.7 % FS (2D): 20 % IVS/LVPW (2D): 0.89 IVSd (2D): 0.8 cm LV EF Biplane: 27.6 % LVIDd (2D): 7 cm LVIDs (2D): 5.6 cm LVOT Area (2D): 2.84 cm2 LVPWd (2D): 0.9 cm Tissue Doppler Imaging Lateral E': 5.87 cm/s Medial E': 5.44 cm/s Unspecified Scan Mode AV Peak Gradient: 8 mm[Hg] AV Peak Carlos: 141 cm/s Valve Area Peak Carlos: 2.05 cm2 LVOT Diam: 1.9 cm LVOT Peak Gradient: 4 mm[Hg] LVOT Peak Carlos: 102 cm/s Lateral E/E': 19.3 Medial E/E': 20.8 MV Decel Time: 149 ms MV E/A: 1.2 MV Peak A Carlos: 93 cm/s MV Peak E Carlos: 113 cm/s MVA (PHT): 5 cm2 PHT: 44 ms Regurgitant Peak Carlos: 243 cm/s TR Peak Gradient: 26 mm[Hg] TR Peak Carlos: 254 cm/s All images and data generated for this procedure were personally reviewed by me. Prepared and Electronically Authenticated Brett Mobley MD, [facility] 14-Jun-2020 18:19:30 Procedure Note Unknown, Provider, - 06/14/2020 [facility] [address] [place] [address] Transthoracic Echocardiogram 2D, M-mode, Doppler, and Color Doppler Patient: YVONNE MELO MR #: [id number] : 1960 Age: 59 years Gender: Female Study date: 14-Jun-2020 Status: Inpatient Room: [address] [place] [address] HR: 75 bpm Height: 64 in Weight: 242.4 lb BSA: 2.12 m-sq BP: 147/ 94 Ordering Physician: [facility] Hospitalist Referring Physician: Herb Bansal MD Route Sales Trainee: Brett Mobley MD, [facility] Route Sales Trainee: [facility] Heart and Piece Cutter: Latasha Nickerson [facility] Summary: - Clinical question: Dyspnea - Left ventricle: The ventricle was dilated. Systolic function wasseverely reduced. Ejection fraction was estimated in the range of 20 % to 25 %.There was severe diffuse hypokinesis worse in the inferior wall. Wall thickness wasat the upper limits of normal. Features were consistent with a pseudonormalleft ventricular filling pattern, with concomitant abnormal relaxation and increased filling pressure (grade 2 diastolic dysfunction). - Ventricular septum: There was paradoxical motion. - Aortic valve: There was trace aortic valve regurgitation. The valve wasnot well visualized. - Aorta, systemic arteries: There was mild dilatation of the ascendingaorta. - Mitral valve: There was mild to moderate regurgitation. - Left atrium: The atrium was markedly dilated. - Right ventricle: The size was normal. Systolic function was normal.Systolic pressure was within the normal range. Estimated peak pressure was 34mmHg. - Tricuspid valve: There was trace regurgitation. - Inferior vena cava, hepatic veins: The inferior vena cava was mildlydilated. - Pericardium: A small to moderate pericardial effusion was identified. Clinical question: Dyspnea Procedure: The procedure was performed at the bedside. This was a routinestudy. Left ventricle: The ventricle was dilated. Systolic function was severely reduced. Ejection fraction was estimated in the range of 20 % to 25 %.There was severe diffuse hypokinesis worse in the inferior wall. Wall thickness wasat the upper limits of normal. Doppler: Features were consistent with a pseudonormal left ventricular filling pattern, with concomitant abnormal relaxation and increased filling pressure (grade 2 diastolic dysfunction). Ventricular septum: There was paradoxical motion. Aortic valve: The valve was not well visualized. Doppler: Transaorticvelocity was within the normal range. There was no stenosis. There was trace aorticvalve regurgitation. Aorta: The root exhibited normal size. There was mild dilatation of the ascending aorta. Mitral valve: There was minimal thickening, with mild chordal involvement.There was normal leaflet separation. Doppler: There was no evidence forstenosis. There was mild to moderate regurgitation. Left atrium: The atrium was markedly dilated. Atrial septum: No defect or patent foramen ovale was identified with color Doppler. Pulmonary veins: Doppler: There was systolic blunting in the pulmonaryvein(s). Right ventricle: The size was normal. Systolic function was normal. Wall thickness was normal. Doppler: Systolic pressure was within the normalrange. Estimated peak pressure was 34 mmHg. Pulmonic valve: Not well visualized. Doppler: There was no significant regurgitation. Tricuspid valve: The valve structure was normal. There was normal leaflet separation. Doppler: There was no evidence for tricuspid stenosis. Therewas trace regurgitation. Right atrium: Size was normal. Systemic veins: IVC: The inferior vena cava was mildly dilated.Respirophasic changes were normal. Pericardium: A small to moderate pericardial effusion was identified. System measurement tables 2D mode AoR Diam: 3 cm Asc Aorta Diam: 3.5 cm LA Dimension (2D): 5.3 cm Left Atrium Systolic Volume Index; Method of Disks, Biplane; 2D mode;:56.1 ml/m2 EF (2D-Cubed): 48.7 % FS (2D): 20 % IVS/LVPW (2D): 0.89 IVSd (2D): 0.8 cm LV EF Biplane: 27.6 % LVIDd (2D): 7 cm LVIDs (2D): 5.6 cm LVOT Area (2D): 2.84 cm2 LVPWd (2D): 0.9 cm Tissue Doppler Imaging Lateral E': 5.87 cm/s Medial E': 5.44 cm/s Unspecified Scan Mode AV Peak Gradient: 8 mm[Hg] AV Peak Carlos: 141 cm/s Valve Area Peak Carlos: 2.05 cm2 LVOT Diam: 1.9 cm LVOT Peak Gradient: 4 mm[Hg] LVOT Peak Carlos: 102 cm/s Lateral E/E': 19.3 Medial E/E': 20.8 MV Decel Time: 149 ms MV E/A: 1.2 MV Peak A Carlos: 93 cm/s MV Peak E Carlos: 113 cm/s MVA (PHT): 5 cm2 PHT: 44 ms Regurgitant Peak Carlos: 243 cm/s TR Peak Gradient: 26 mm[Hg] TR Peak Carlos: 254 cm/s All images and data generated for this procedure were personally reviewedby nd. Prepared and Electronically Authenticated Brett Mobley MD, [facility] 14-Jun-2020 18:19:30 Edenilson Finn PRIMER INSPECTOR-VIDEO CAMERA OPERATOR ECHO ORDERABLES [facility] * SOLITARIO SCREENING BILATERAL DIGITAL [id number] (09/08/2018 11:34 AM CDT) Only the most recent of4 resultswithin the time period is included. Anatomical Region Laterality Modality Breast Bilateral Mammography [...] of malignancy identified in either breast. Cindy Elizabeth Paty PRIMER INSPECTOR-VIDEO CAMERA OPERATOR MAMMO ORDER JOVANNY * GROSS + MICRO EXAM (ILL) (08/09/2018 11:06 AM CDT) Only the most recent of3 resultswithin the time period is included. Case Report Surgical Pathology Report Case: [id number] Authorizing Provider: Dago Stockton MD Collected: 08/09/2018 11:06 AM Ordering Location: [facility] Received: 08/09/2018 01:08 PM Pathologist: Reinaldo Jacques MD Specimen: Polyp Sigmoid 08/10/2018 10:06 AM CDT [facility] Final Diagnosis SIGMOID COLON POLYP, 20 CM, COLONOSCOPIC POLYPECTOMY: - FRAGMENTS OF TUBULAR ADENOMA. - NEGATIVE FOR HIGH-GRADE DYSPLASIA AND MALIGNANCY. /jzr 08/10/2018 10:06 AM T [facility] Microscopic Description and Comment Microscopic examination is performed and substantiates the above diagnosis. 08/10/2018 10:06 AM CDT [facility] Clinical History History of colon cancer. 08/10/2018 10:06 AM CDT [facility] Gross Description Received in formalin labeled P jose juansaniyakade Yvonne and s igmoid colon polyp at 20 cm are two pink-bello polypoid fragments measuring 0.5 x 0.3 x 0.3 cm and 0.7 x 0.5 x 0.4 cm. Both are inked at the base and bisected and submitted entirely in A1. /jzr 08/10/2018 10:06 AM [facility] Disclaimer The performance characteristics of all immunohistochemical and indirect immunofluorescence stains (if any) cited in this report were determined by the Histopathology Laboratory of [facility]. Some of these tests were developed by our own laboratory and have not been cleared or approved by the US Food and Drug Administration. The FDA does not require this test to go through premarket FDA review. These tests are used for clinical purposes. They should not be regarded as investigational or for research. This laboratory is certified under the Clinical Laboratory Improvement Amendments (CLIA) as qualified to perform high complexity clinical laboratory testing. This case was interpreted by the [facility] Department of Pathology. When applicable, select reference laboratory testing is performed at the [facility], [address] [place] [id number]. 08/10/2018 10:06 AM CDT [facility] Embedded Images 08/10/2018 10:06 AM T [facility] Pathology/Cytolo gy POLYP OF SIGMOID COLON / Unknown 08/09/2018 11:06 AM CDT 08/09/2018 1:08 PM CDT Dago Stockton MD LAB - PATHOLOGY/CYTO LOGY ORDERABLES Performing Organization Address [facility]/ZIP Co de Phone Number [facility] [address] * POTASSIUM BLOOD (08/06/2018 9:51 AM CDT) Only the most recent of3 resultswithin the time period is included. Potassium 3.9 3.4 - 4.5 mmol/L 08/06/2018 10:27 AM CDT [facility] Blood BLOOD SPECIMEN / Unknown Venipuncture / Unknown 08/06/2018 9:51 AM CDT 08/06/2018 10:05 AM CDT Bianca Leonard MD LAB - CHEMISTRY OR DERABLES Performing Organization Address [facility] Co de Phone Number [facility] [address] * TSH REFLEX FREE T4 (06/01/2018 11:37 AM CDT) TSH 1.9664 0.35 - 4.94 uIU/mL 06/01/2018 12:21 PM CDT [facility] Blood BLOOD SPECIMEN / Unknown Venipuncture / Unknown 06/01/2018 11:37 AM CDT 06/01/2018 11:41 AM CDT Cindy Newman PRIMER INSPECTOR-VIDEO CAMERA OPERATOR LAB - CHEMI STRY ORDERABLES Performing Organization Address [facility] Co de Phone Number [facility] [address] * (ABNORMAL) VITAMIN D 25-HYDROXY (06/01/2018 11:37 AM CDT) Vitamin D, 25 Hydroxy 28.2(L) 30 - 100 ng/mL 06/01/2018 4:29 PM CDT [facility] Blood BLOOD SPECIMEN / Unknown Venipuncture / Unknown 06/01/2018 11:37 AM CDT 06/01/2018 11:41 AM CDT Narrative [facility] - 06/01/2018 4:29 PM CDT Reference Values: The recommendation for 25-Hydroxy Vitamin D clinical decision points are as follows: Deficient < 20.0 ng/mL Insufficient 20.0-29.9 ng/mL Sufficient >= 30.0 ng/mL Reference: The Endocrine Society Clinical Practice Guidelines. 2011 If the 25-Hydroxy Vitamin D results are inconsistent with clinical evidence, it is recommended that follow-up testing using a method such as LC-MS/MS be performed to confirm the result. Cindy Newman PRIMER INSPECTOR-VIDEO CAMERA OPERATOR LAB - CHEMI STRY ORDERABLES Performing Organization Address City/State/[facility] Co de Phone Number [facility] [address] * CT LUNG CANCER SCREEN LOW DOSE (11/20/2017 1:28 PM CDT) Only the most recent of3 resultswithin the time period is included. Anatomical Region Laterality Modality Chest Computed Tomogra phy 11/20/2017 1:34 PM CDT Impressions 11/20/2017 2:03 PM CDT No gross acute intrathoracic abnormality or suspicious pulmonary nodules. Other findings as above. Lung-RADS 2. Recommend continued followup annual low-dose lung cancer screening chest CT in 12 months. ACR LUNG RADS CATEGORIES: Category 0 - Incomplete. Additional imaging and/or comparison to prior chest CT needed. Category 1 - No nodules and/or benign nodules. Continue annual screening in 12 months. Category 2 - Nodules with a low likelihood of becoming a clinically active cancer. Continue annual screening with LDCT in 12 months. Category 3 - Probably benign finding(s)- short term follow up suggested. LDCT in 6 months. Category 4A - 3 Month LDCT: PET/CT may be used when there is a 8 mm solid component. 4B - Chest CT with or without contrast, PET/CT and or tissue sampling depending on the *probability of malignancy and comorbidities. PET/CT may be used when there is a 8 mm solid component. 4X - Category 3 or 4 nodules with additional features or imaging findings that increase the suspicion of malignancy. S - Clinically significant or potentially clinically significant finding (non-lung cancer). C- Modifier for patients with a prior diagnosis of lung cancer who return for screening. Edited by Beti Merino on 11/20/2017 1:54 PM Narrative 11/20/2017 2:03 PM CDT PROCEDURE: CT LUNG CANCER SCREEN LOW DOSE 11/20/2017 1:34 PM HISTORY: Chronic obstructive pulmonary disease, unspecified. Radiation dose reduction technique was utilized. TECHNIQUE: Standard technique for low-dose lung cancer screening chest CT performed. COMPARISON: 07/08/2016. FINDINGS: No suspicious nodules or masses. No gross acute intrathoracic abnormality. Mediastinal structures including coronary artery calcification, trace amount of pericardial fluid and mild cardiomegaly as well as extensive coronary artery calcification and coronary stent stable. No gross acute abnormality in the upper abdomen, extrathoracic soft tissues or bones. Procedure Note Devonte Thompson MD - 11/20/2017 PROCEDURE: CT LUNG CANCER SCREEN LOW DOSE 11/20/2017 1:34 PM HISTORY: Chronic obstructive pulmonary disease, unspecified. Radiation dose reduction technique was utilized. TECHNIQUE: Standard technique for low-dose lung cancer screening chest CT performed. COMPARISON: 07/08/2016. FINDINGS: No suspicious nodules or masses. No gross acute intrathoracic abnormality. Mediastinal structures including coronary artery calcification, trace amount of pericardial fluid and mild cardiomegaly as well as extensive coronary artery calcification and coronary stent stable. No gross acute abnormality in the upper abdomen, extrathoracic soft tissues or bones. IMPRESSION No gross acute intrathoracic abnormality or suspicious pulmonary nodules. Other findings as above. Lung-RADS 2. Recommend continued followup annual low-dose lung cancer screening chest CT in 12 months. ACR LUNG RADS CATEGORIES: Category 0 - Incomplete. Additional imaging and/or comparison to prior chest CT needed. Category 1 - No nodules and/or benign nodules. Continue annual screening in 12 months. Category 2 - Nodules with a low likelihood of becoming a clinically active cancer. Continue annual screening with LDCT in 12 months. Category 3 - Probably benign finding(s)- short term follow up suggested. LDCT in 6 months. Category 4A - 3 Month LDCT: PET/CT may be used when there is a 8 mm solid component. 4B - Chest CT with or without contrast, PET/CT and or tissue sampling depending on the *probability of malignancy and comorbidities. PET/CT may be used when there is a 8 mm solid component. 4X - Category 3 or 4 nodules with additional features or imaging findings that increase the suspicion of malignancy. S - Clinically significant or potentially clinically significant finding (non-lung cancer). C- Modifier for patients with a prior diagnosis of lung cancer who return for screening. Edited by Beti Merino on 11/20/2017 1:54 PM Doretha Aaron MD CT ORDERABLES * (ABNORMAL) MRSA DNA PCR (11/08/2017 6:17 PM CDT) Only the most recent of2 resultswithin the time period is included. 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 Kourtney Lora MD LAB - MICROBIOLOGY O RDERABLES Performing Organization Address City/[facility]/ZIP Co de Phone Number [facility] [address] * ALCOHOL ETHYL BLOOD (11/08/2017 11:07 AM CDT) Pathologist [facility] Ethanol <10.00 <10 mg/dL 11/08/2017 11:35 AM CDT [facility] Blood BLOOD SPECIMEN / Unknown Lab Venipuncture / Unknown 11/08/2017 11:07 AM CDT 11/08/2017 11:12 AM CDT Narrative [facility] - 11/08/2017 11:35 AM CDT For Medical Use Only Starr Mei APRN-VIDEO CAMERA OPERATOR LAB - SITE RELIABILITY ENGINEER RY ORDERABLES [facility] [address] * TSH (11/08/2017 11:07 AM CDT) Only the most recent of5 resultswithin the time period is included. Pathologist [facility] TSH 1.1850 0.35 - 4.94 uIU/mL 11/08/2017 11:55 AM CDT [facility] Blood BLOOD SPECIMEN / Unknown Lab Venipuncture / Unknown 11/08/2017 11:07 AM CDT 11/08/2017 11:12 AM CDT Starr JACKSON LAB - SITE RELIABILITY ENGINEER RY ORDERABLES Performing Organization Address [facility] Co de Phone Number [facility] [address] * (ABNORMAL) SALICYLATE LEVEL BLOOD (11/08/2017 11:07 AM CDT) Salicylate <5.0(L) 15.0 - 30.0 mg/dL 11/08/2017 11:35 AM CDT [facility] Blood BLOOD SPECIMEN / Unknown Lab Venipuncture / Unknown 11/08/2017 11:07 AM CDT 11/08/2017 11:12 AM CDT Starr JACKSON LAB - SITE RELIABILITY ENGINEER RY ORDERABLES Performing Organization Address [facility] Phone Number [facility] [address] * (ABNORMAL) ACETAMINOPHEN LEVEL (11/08/2017 11:07 AM CDT) Acetaminophen 1.1(L) 10.0 - 30.0 ug/mL 11/08/2017 11:35 AM CDT [facility] Blood BLOOD SPECIMEN / Unknown Lab Venipuncture / Unknown 11/08/2017 11:07 AM CDT 11/08/2017 11:12 AM CDT Narrative [facility] - 11/08/2017 11:35 AM CDT Significantly reduced Acetaminophen recovery has been demonstrated in situations where testing has been performed immediately after introduction of N- acetylcysteine (NAC). Starr JACKSON LAB - SITE RELIABILITY ENGINEER RY ORDERABLES Performing Organization Address [facility] Co de Phone Number [facility] [address] * DRUG ABUSE URINE SCREEN 10 (11/08/2017 10:45 AM CDT) Amphetamines Screen Urine Negative Negative 11/08/2017 11:29 AM CDT [facility] Barbiturates Screen Urine Negative Negative 11/08/2017 11:29 AM CDT [facility] Benzodiazepines Screen Urine Negative Negative 11/08/2017 11:29 AM CDT [facility] Cannabinoids Screen Urine Negative Negative 11/08/2017 11:29 AM CDT [facility] Cocaine Screen Urine Negative Negative 11/08/2017 11:29 AM CDT [facility] Methadone Screen Urine Negative Negative 11/08/2017 11:29 AM CDT [facility] Opiate Screen Urine Negative Negative 11/08 11:29 AM CDT [facility] Phencyclidine Screen Urine Negative Negative 11/08/2017 11:29 AM CDT [facility] Tricyclics Screen Urine Negative Negative 11/08/2017 11:29 AM CDT [facility] Methamphetamine Screen Urine Negative Negative 11/08/2017 11:29 AM CDT [facility] Buprenorphine Screen Urine Negative Negative 11/08/2017 11:29 AM CDT [facility] Oxycodone Screen Urine Negative Negative 11/08/2017 11:29 AM CDT [facility] Propoxyphene Screen Urine Negative Negative 11/08/2017 11:29 AM CDT [facility] Urine URINE / Unknown Collection / Unknown 11/08/2017 10:45 AM CDT 11/08/2017 10:49 AM CDT [facility] - 11/08/2017 11:29 AM CDT This is a presumptive/unconfirmed test for medical treatment purposes only. Clinical consideration and professional judgment should be applied when using presumptive results. If confirmatory testing, such as gas chromatography-mass spectrometry (GC/MS), of any positive results of this test is required, please notify the laboratory within 7 days of collection. This test is intended only for monitoring or management of patients. It is not intended for use in job-related and/or legal-related purposes. The cutoff value for each analyte is: Barbiturates.....200 ng/mL Benzodiazepines......150 ng/mL Cocaine..........150 ng/mL Opiates..............100 ng/mL Phencyclidine.....25 ng/mL Tricyclics...........300 ng/mL Cannabinoid.......50 ng/mL Amphetamines.........500 ng/mL Methadone........200 ng/mL Methamphetamines.....500 ng/mL Buprenorphine.....10 ng/mL Oxycodone............100 ng/mL Propoxyphene.....300 ng/mL Starr Mei PRIMER INSPECTOR-[facility] LAB - URINE C HEMISTRY ORDERABLES Performing Organization Address City/[facility]/ZIP Co de Phone Number [facility] [address] * AMB REFERRAL TO TEST ENGINEERING MANAGER (10/28/2017 12:03 PM CDT) Bhavana Chow PRIMER INSPECTOR-VIDEO CAMERA OPERATOR OUTPATIENT REFERRA LS * (ABNORMAL) URINE MICROSCOPIC ONLY REFLEX TO CULTURE (10/15/2017 3:00 AM CDT) Only the most recent of6 resultswithin the time period is included. Reflex Status Culture not indicated 10/15/2017 9:49 AM CDT [facility] RBC UA 0-5 None Seen, 0-5 # /hpf 10/15/2017 9:49 AM CDT [facility] WBC UA 0-5 None Seen, 0-5 # /hpf 10/15/2017 9:49 AM CDT [facility] Bacteria UA 2+(A) None Seen 10/15/2017 9:49 AM CDT [facility] Squamous Epithelial Cells 0-2 None Seen, 0-2, 3-5 /hpf 10/15/2017 9:49 AM CDT [facility] Mucus UA 1+ /LPF 10/15/2017 9:49 AM CDT [facility] Urine URINE SPECIMEN OBTAINED BY CLEAN CATCH PROCEDURE / Unknown Collection / Unknown 10/15/2017 3:00 AM CDT 10/15/2017 9:26 AM CDT Narrative [facility] - 10/15/2017 9:49 AM CDT Bhavana Chow PRIMER INSPECTOR-[facility] - URINALYSIS O RDERABLES [facility] [address] [place] [address], [facility] * RHEUMATOID ARTHRITIS PANEL (10/13/2017 3:52 PM CDT) Only the most recent of2 resultswithin the time period is included. Cyclic Citrullinated Peptide Antibody IgG 3 0 - 19 Units 10/16/2017 3:37 PM CDT [facility] ([facility]) Comment: INTERPRETIVE INFORMATION: Cyclic Citrullinated Peptide Antibody, IgG 19 Units or less ................... Negative 20-39 Units ........................ Weak Positive 40-59 Units ........................ Moderate Positive 60 Units or greater ................ Strong Positive Anti-cyclic citrullinated peptide (anti-CCP), IgG antibodies are present in about 69-83 percent of patients with rheumatoid arthritis (RA) and have specificities of 93-95 percent. These autoantibodies may be present in the preclinical phase of disease, are associated with future RA development, and may predict radiographic joint destruction. Patients with weak positive results should be monitored and testing repeated. Rheumatoid Factor <10 0 - 14 IU/mL 10/16/2017 3:37 PM CDT [facility] ([facility]) Comment: Performed by [facility], [address] [place] [address] [email or web address], Omer Guzman MD, Lab. Director Blood BLOOD SPECIMEN / Unknown Venipuncture / Unknown 10/13/2017 3:52 PM CDT 10/13/2017 5:20 PM CDT Bhavana JACKSON LAB - SEROLOGY ORD ERABLES [facility] ([facility]) [address] [place] [address] * XR KNEE 4+ VW RIGHT [id number] (08/04/2017 10:33 AM CDT) Anatomical Region Laterality Modality Lower Extremity Radiographic Tami ging 08/04/2017 10:4 2 AM CDT Impressions 08/04/2017 10:51 AM CDT Advanced tricompartmental degenerative changes with scattered corticated ossifications possibly associated with previous injury. No gross acute bony abnormality. Narrative 08/04/2017 10:51 AM CDT PROCEDURE: XR KNEE RIGHT 4VW OR MORE 08/04/2017 10:42 AM HISTORY: Pain in right knee. COMPARISON: None Report: No displaced fracture, dislocation or aggressive bone lesion seen. Moderately severe tricompartmental degenerative changes present. Corticated ossifications also present along the lateral femoral condyle and the superior pole of the patella. The soft tissues appear within normal limits; no radiopaque foreign body seen. No suprapatellar effusion seen. Procedure Note Devonte Thompson MD - 08/04/2017 PROCEDURE: XR KNEE RIGHT 4VW OR MORE 08/04/2017 10:42 AM HISTORY: Pain in right knee. COMPARISON: None Report: No displaced fracture, dislocation or aggressive bone lesion seen. Moderately severe tricompartmental degenerative changes present. Corticated ossifications also present along the lateral femoral condyle and the superior pole of the patella. The soft tissues appear within normal limits; no radiopaque foreign body seen. No suprapatellar effusion seen. IMPRESSION Advanced tricompartmental degenerative changes with scattered corticated ossifications possibly associated with previous injury. No gross acute bony abnormality. Juan ROMERO DIAGNOSTIC IMAGING O RDERABLES * CT HEAD NON CONTRAST (10/01/2016 9:07 AM CDT) Anatomical Region Laterality Modality Head Computed Tomogra phy 10/01/2016 9:17 AM CDT Narrative 10/01/2016 5:10 PM CDT IMAGING STUDIES: CT HEAD NON CONTRAST DATE: 10/01/2016 9:11 AM CLINICAL HISTORY: Other amnesia. CONCLUSION: 1.Routine noncontrast head CT. No comparisons. Correlation with MRI of the brain of December 06, 2012. Radiation dose reduction technique was utilized. 2.No evidence of intracranial hemorrhage or major vessel infarct. 3.Brainstem and posterior fossa within normal limits. Moderately severe decreased attenuation of the periventricular and subcortical white matter. This was also present on prior MRI of 2012. No significant brain volume loss. Possibility of vasculitis versus atypical demyelinating process is a consideration. 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 No significant vascular calcifications. 5.No cranial fracture. Visualized mastoid air cells and paranasal air cells are well aerated. Partially visualized 1 cm retention cyst in left maxillary sinus. Edited by Yajaira Danielle on 10/01/2016 9:27 AM Procedure Note Don Resendez MD - 10/01/2016 IMAGING STUDIES: CT HEAD NON CONTRAST DATE: 10/01/2016 9:11 AM CLINICAL HISTORY: Other amnesia. CONCLUSION: 1.Routine noncontrast head CT. No comparisons. Correlation with MRI of the brain of December 06, 2012. Radiation dose reduction technique was utilized. 2.No evidence of intracranial hemorrhage or major vessel infarct. 3.Brainstem and posterior fossa within normal limits. Moderately severe decreased attenuation of the periventricular and subcortical white matter. This was also present on prior MRI of 2012. No significant brain volume loss. Possibility of vasculitis versus atypical demyelinating process is a consideration. 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 No significant vascular calcifications. 5.No cranial fracture. Visualized mastoid air cells and paranasal air cells are well aerated. Partially visualized 1 cm retention cyst in left maxillary sinus. Edited by Yajaira Danielle on 10/01/2016 9:27 AM Bhavana Chow PRIMER INSPECTOR-VIDEO CAMERA OPERATOR CT ORDERABLES * IRON + TRANSFERRIN PANEL (09/18/2016 10:31 AM CDT) Iron 78 50 - 170 ug/dL 09/18/2016 4:16 PM CDT [facility] Transferrin 294 180 - 382 mg/dL 09/18/2016 4:16 PM CDT [facility] TIBC Calculated 368 261 - 497 mg/dL 09/18/2016 4:16 PM CDT [facility] Iron Saturation % 21 11 - 45 % 09/18/2016 4:16 PM CDT [facility] Blood BLOOD SPECIMEN / Unknown Venipuncture / Unknown 09/18/2016 10:31 AM CDT 09/18/2016 10:31 AM CDT Bhavana Vieramarlen CHANDLER-VIDEO CAMERA OPERATOR LAB - CHEMISTRY OR DERABLES Performing Organization Address City/[facility] Co de Phone Number [facility] [address] * HGB HCT PANEL (04/30/2016 9:23 AM CDT) Only the most recent of2 resultswithin the time period is included. Pathologist [facility] Hemoglobin 12.4 11.2 - 15.7 gm/dL 04/30/2016 9:33 AM CDT [facility] Hematocrit 37.7 34.1 - 44.9 % 04/30/2016 9:33 AM CDT [facility] Blood BLOOD SPECIMEN / Unknown 04/30/2016 9:23 AM CDT 04/30/2016 9:27 AM CDT Lionel Bustillos MD LAB - HEMATOLOGY ORD ERABLES Performing Organization Address [facility] de Phone Number [facility] [address] * (ABNORMAL) MRSA + SA DNA PCR PANEL (04/30/2016 8:53 AM CDT) Pathologist [facility] MRSA DNA by PCR Positive(A ) Negative 04/30/2016 10:53 AM CDT [facility] Staph aureus PCR Positive(A ) Negative 04/30/2016 10:53 AM CDT [facility] Microbiology SPECIMEN FROM NASAL FOSSAE / Unknown 04/30/2016 8:53 AM CDT 04/30/2016 9:17 AM CDT Narrative [facility] - 04/30/2016 10:53 AM CDT Methicillin-resistant Staphylococcus aureus (MRSA) target DNA detected; Staphylococcus aureus (SA) target DNA detected. A positive test does not necessarily indicate the presence of viable organisms. It is however, presumptive for the presence of MRSA or SA. Marino Hicks MD LAB - MICROBIOLOGY O RDERABLES Performing Organization Address [facility] Co de Phone Number [facility] [address] * LFT (12/19/2015 10:21 AM CDT) Alkaline Phosphatase 74 40 - 150 U/L 12/19/2015 10:58 AM CDT [facility] ALT 11 5 - 55 U/L 12/19/2015 10:58 AM CDT [facility] AST 19 5 - 34 U/L 12/19/2015 10:58 AM CDT [facility] Protein Total 6.6 6.4 - 8.3 gm/dL 12/19/2015 10:58 AM CDT [facility] Albumin 3.5 3.5 - 5.0 gm/dL 12/19/2015 10:58 AM CDT [facility] Bilirubin Total 0.3 0.2 - 1.2 mg/dL 12/19/2015 10:58 AM CDT [facility] Bilirubin Direct 0.11 0 - 0.5 mg/dL 12/19/2015 10:58 AM CDT [facility] Albumin/Globulin Ratio 1.1 0.9 - 1.6 12/19/2015 10:58 AM CDT [facility] Globulin Total 3.1 2.6 - 4.0 gm/dL 12/19/2015 10:58 AM CDT [facility] Bilirubin Indirect 0.2 0.2 - 0.9 mg/dL 12/19/2015 10:58 AM CDT [facility] Blood BLOOD SPECIMEN / Unknown Venipuncture / Unknown 12/19/2015 10:21 AM CDT 12/19/2015 10:27 AM CDT Yuliana Atkins PRIMER INSPECTOR-VIDEO CAMERA OPERATOR LAB - CHEMISTRY OR DERABLES Performing Organization Address City/State/[facility] de Phone Number [facility] [address] * (ABNORMAL) CEA BLOOD (09/25/2015 11:51 AM CDT) Only the most recent of2 resultswithin the time period is included. Pathologist [facility] CEA 7.3(H) 0.0 - 5.0 ng/mL 09/25/2015 6:22 PM CDT [facility] Blood BLOOD SPECIMEN / Unknown Venipuncture / Unknown 09/25/2015 11:51 AM CDT 09/25/2015 11:58 AM CDT Narrative [facility] - 09/25/2015 6:22 PM CDT CEA BLOOD COMMENT The methodology used for the determination of CEA is [employer] Equipment Mechanic Chemiluminescent Microparticle Immunoassay (AVILA). Values obtained with other methods can not be used interchangeably. Marino Hicks MD LAB - CHEMISTRY RENUKA RED [facility] Organization Address City/State/ZIP Co de Phone Number [facility] [address] * DEXA BONE DENSITY [id number] (06/21/2015 2:57 PM CDT) Anatomical Region Laterality Modality Radiographic Tami ging 06/21/2015 3:15 PM CDT Impressions 06/21/2015 3:42 PM CDT 1. Normal bone mineral density. 2. No osteopenia or osteoporosis. 3. No risk for fracture. 4. Followup in 2 years. Narrative 06/21/2015 3:42 PM CDT BONE MINERAL DENSITY (06/21/2015) CLINICAL HISTORY: Osteoporosis. FINDINGS: 1. Hip joint: A. BMD 0.972. B. T score -0.3. Z score -0.4. 2. Lumbar spine: A. BMD 1.378. B. T score 1.5. Z score 1.2. Procedure Note Allan Marsh MD - 06/21/2015 BONE MINERAL DENSITY (06/21/2015) CLINICAL HISTORY: Osteoporosis. FINDINGS: 1. Hip joint: A. BMD 0.972. B. T score -0.3. Z score -0.4. 2. Lumbar spine: A. BMD 1.378. B. T score 1.5. Z score 1.2. IMPRESSION 1. Normal bone mineral density. 2. No osteopenia or osteoporosis. 3. No risk for fracture. 4. Followup in 2 years. Jessica BRIONES DEXA ORDERABLES * COMPLETE PFT (04/17/2015) Chris Vivar MD RESPIRATORY THERAPY ORDERABLES * VANCOMYCIN LEVEL RANDOM (04/11/2015 8:04 AM RECORDS ASSOCIATE) Vancomycin Random 11.7 5.0 - 40.0 ug/mL 04/11/2015 8:48 AM RECORDS ASSOCIATE [facility] Blood BLOOD SPECIMEN / Unknown 04/11/2015 8:04 AM RECORDS ASSOCIATE 04/11/2015 8:09 AM RECORDS ASSOCIATE Aliyah Phelps MD LAB - CHEMISTRY RENUKA RED Performing Organization Address [facility] Phone Number [facility] [address] * (ABNORMAL) VANCOMYCIN LEVEL TROUGH (04/10/2015 9:54 PM RECORDS ASSOCIATE) [facility] Vancomycin Trough 20.6(HH) 10.0 - 20.0 ug/mL 04/10/2015 10:49 PM RECORDS ASSOCIATE [facility] Blood BLOOD SPECIMEN / Unknown Lab Venipuncture / Unknown 04/10/2015 9:54 PM RECORDS ASSOCIATE 04/10/2015 9:58 PM RECORDS ASSOCIATE Narrative [facility] - 04/10/2015 10:49 PM RECORDS ASSOCIATE Trough levels correlate better with efficacy than peak levels, with therapeutic target trough levels of 10 ug/mL to 20 ug/mL, depending on the type of infection. For complicated infection, higher trough level (15-20 ug/mL) may be desired. Toxicity does not correlate well with serum concentrations. Aliyah Phelps MD LAB - CHEMISTRY RENUKA RED Performing Organization Address [facility] Phone Number [facility] [address] * (ABNORMAL) CBC W MANUAL DIFFERENTIAL (03/28/2015 5:09 AM RECORDS ASSOCIATE) [facility] WBC 10.4(H) 4.0 - 10.0 x10^9/L 03/28/2015 6:20 AM RECORDS ASSOCIATE [facility] RBC 3.38(L) 3.93 - 5.22 x10^12/L 03/28/2015 6:20 AM RECORDS ASSOCIATE [facility] Hemoglobin 9.9(L) 11.2 - 15.7 gm/dL 03/28/2015 6:20 AM [facility] Hematocrit 30.9(L) 34.1 - 44.9 % 03/28/2015 6:20 AM RECORDS ASSOCIATE [facility] MCV 91.4 78.0 - 100.0 fl 03/28/2015 6:20 AM [facility] MCH 29.3 25.6 - 34.0 pg 03/28/2015 6:20 AM [facility] MCHC 32.0(L) 32.3 - 36.5 gm/dL 03/28/2015 6:20 AM [facility] RDW 14.7(H) 11.6 - 14.4 % 03/28/2015 6:20 AM [facility] MPV 12.1 9.4 - 12.4 fl 03/28/2015 6:20 AM [facility] Platelet Count 171 163 - 369 x10^9/L 03/28/2015 6:20 AM [facility] Blood BLOOD SPECIMEN / Unknown Line Draw / Unknown 03/28/2015 5:09 AM RECORDS ASSOCIATE 03/28/2015 5:48 AM RECORDS ASSOCIATE Marino Hicks MD LAB - HEMATOLOGY ORD ERABLES Performing Organization Address City/[facility]/ZIP Co de Phone Number [facility] [address] * TYPE + SCREEN PANEL (03/23/2015 11:24 AM RECORDS ASSOCIATE) Only the most recent of2 resultswithin the time period is included. ABO A 03/23/2015 12:36 PM [facility] Rh Type Positive 03/23/2015 12:36 PM [facility] Antibody Screen Negative 03/23/2015 12:36 PM [facility] Miscellaneous samples (specimen) BLOOD SPECIMEN / Unknown 03/23/2015 11:24 AM RECORDS ASSOCIATE 03/23/2015 11:35 AM RECORDS ASSOCIATE Shakeel Li MD LAB - BLOOD BANK ORD ERABLES Performing Organization Address [facility]/ZIP Co de Phone Number [facility] [address] * XR ABDOMEN KUB [id number] (03/09/2015 9:40 AM RECORDS ASSOCIATE) Anatomical Region Laterality Modality Abdomen Radio Fluoroscop y 03/09/2015 12:3 5 PM RECORDS ASSOCIATE Impressions 03/09/2015 3:47 PM RECORDS ASSOCIATE 1. Moderate stool in the right hemicolon precludes diagnostic barium enema. 2. Scattered gas in nondilated loops of small and large bowel. No evidence of bowel obstruction. Surgical clips right abdomen. Vascular calcifications. Radiopaque tablets projected over the abdomen. 3. Moderate degenerative change thoracic and lumbar spine. Visualized lung bases are clear. 4. Review of CT abdomen and pelvis 02/07/2015 performed at time of study. Findings discussed with Dr. Hicks at time of examination. Narrative 03/09/2015 3:47 PM RECORDS ASSOCIATE KUB: (03/09/2015) HISTORY: Colon carcinoma. COMPARISON: 02/07/2015 CT abdomen and pelvis. Procedure Note Misa Breaux MD - 03/13/2015 KUB: (03/09/2015) HISTORY: Colon carcinoma. COMPARISON: 02/07/2015 CT abdomen and pelvis. IMPRESSION 1. Moderate stool in the right hemicolon precludes diagnostic barium enema. 2. Scattered gas in nondilated loops of small and large bowel. No evidence of bowel obstruction. Surgical clips right abdomen. Vascular calcifications. Radiopaque tablets projected over the abdomen. 3. Moderate degenerative change thoracic and lumbar spine. Visualized lung bases are clear. 4. Review of CT abdomen and pelvis 02/07/2015 performed at time of study. Findings discussed with Dr. Hicks at time of examination. Marino Hicks MD DIAGNOSTIC IMAGING O RDERABLES * NM MYOCARD PERFUSION SPECT STRESS AND REST (03/08/2015 1:07 PM RECORDS ASSOCIATE) Anatomical Region Laterality Modality Chest Nuclear Medicine 03/08/2015 1:36 PM RECORDS ASSOCIATE Impressions 03/08/2015 2:06 PM RECORDS ASSOCIATE No areas of myocardial ischemia or myocardial infarction identified. Calculated LVEF of 48% with akinesia at the septum and mild inferior wall hypokinesia noted. Narrative 03/08/2015 2:06 PM RECORDS ASSOCIATE GATED STRESS/REST SPECT MYOCARDIAL PERFUSION SCAN WITH LEFT VENTRICULAR WALL MOTION ANALYSIS AND EJECTION FRACTION (03/08/2015) HISTORY: Chest pain and shortness of breath with activity. Smoking history. Hypertension, hypercholesterolemia, and history of unspecified cardiac procedure. Myocardial infarction in brother before age 55. FINDINGS: Gamma camera imaging of the precordium performed in multiple projections at stress and at rest. Rest phase of study performed following injection of 10.2 mCi Tc 99m Cardiolite. Gated myocardial perfusion stress imaging performed following injection of 31.9 mCi Tc 99m Cardiolite following induction of pharmacologic stress under the supervision of Dixie Atkins APN with intravenous injection of 0.4 mg Lexiscan. SPECT images generated in short axis, vertical long axis, and horizontal long axis at stress and at rest. No apparent left ventricular cavity dilatation or focal shape distortion identified. Some apical thinning felt to be present. No areas of myocardial ischemia or myocardial infarction identified. Septal akinesia along with mild hypokinesia at the inferior wall noted with remainder of left ventricular chavarria moving well. Calculated LVEF of 48%. Procedure Note Robbin Breaux MD - 03/08/2015 GATED STRESS/REST SPECT MYOCARDIAL PERFUSION SCAN WITH LEFT VENTRICULAR WALL MOTION ANALYSIS AND EJECTION FRACTION (03/08/2015) HISTORY: Chest pain and shortness of breath with activity. Smoking history. Hypertension, hypercholesterolemia, and history of unspecified cardiac procedure. Myocardial infarction in brother before age 55. FINDINGS: Gamma camera imaging of the precordium performed in multiple projections at stress and at rest. Rest phase of study performed following injection of 10.2 mCi Tc 99m Cardiolite. Gated myocardial perfusion stress imaging performed following injection of 31.9 mCi Tc 99m Cardiolite following induction of pharmacologic stress under the supervision of Dixie Atkins APN with intravenous injection of 0.4 mg Lexiscan. SPECT images generated in short axis, vertical long axis, and horizontal long axis at stress and at rest. No apparent left ventricular cavity dilatation or focal shape distortion identified. Some apical thinning felt to be present. No areas of myocardial ischemia or myocardial infarction identified. Septal akinesia along with mild hypokinesia at the inferior wall noted with remainder of left ventricular chavarria moving well. Calculated LVEF of 48%. IMPRESSION No areas of myocardial ischemia or myocardial infarction identified. Calculated LVEF of 48% with akinesia at the septum and mild inferior wall hypokinesia noted. Yuliana Atkins PRIMER INSPECTOR-VIDEO CAMERA OPERATOR NM ORDERABLES * STRESS TEST LEXISCAN (NUCLEAR) (03/08/2015 12:02 PM RECORDS ASSOCIATE) Stress Test Summary For full formatted report, please see the report link in the order. Acquisition Time: 2015-03-08 12:02:38 Total Exercise Time: 00:00:18 Test Indications: CAD Medications: Protocol: LEXISCAN Max HR: 103 BPM 62% of Pred: 165 BPM Max BP: 154/088 mmHG Max Work Load: 1.0 METS Reason for Termination: End of Protocol Resting ECG: normal sinus rhythm Functional Capacity: Not assessed HR Response to Exercise: Not Assessed BP Resoonse to Exercise: Chest Pain: none Arrhythmias: none ST Changes: No significant ST depression Overall Impression: Drug study w/o EKG evidence of inducible ischemia Diagnosis: NUCLEAR REPORT TO FOLLOW Confirmed by BRETT MOBLEY MD ([id number]) on 03/09/2015 12:33:22 PM Attending Physician: BRETT MOBLEY MD Referred By: Vira CHOW Overread By: BRETT MOBLEY MD [facility] 03/08/2015 12:0 2 PM RECORDS ASSOCIATE 03/09/2015 12:33 PM RECORDS ASSOCIATE Yuliana Atkins PRIMER INSPECTOR-VIDEO CAMERA OPERATOR CARDIAC SERVICES O RDERABLES [facility] * CBC W/O DIFFERENTIAL (02/12/2015 9:47 AM RECORDS ASSOCIATE) Only the most recent of3 resultswithin the time period is included. WBC 6.2 4.0 - 10.0 x10^9/L 02/12/2015 10:05 AM [facility] RBC 4.14 3.93 - 5.22 x10^12/L 02/12/2015 10:05 [facility] Hemoglobin 12.4 11.2 - 15.7 gm/dL 02/12/2015 10:05 AM [facility] Hematocrit 37.0 34.1 - 44.9 % 02/12/2015 10:05 AM [facility] MCV 89.4 78.0 - 100.0 fl 02/12/2015 10:05 AM [facility] MCH 30.0 25.6 - 34.0 pg 02/12/2015 10:05 AM [facility] MCHC 33.5 32.3 - 36.5 gm/dL 02/12/2015 10:05 AM [facility] RDW 14.1 11.6 - 14.4 % 02/12/2015 10:05 AM [facility] MPV 11.0 9.4 - 12.4 fl 02/12/2015 10:05 AM [facility] Platelet Count 183 163 - 369 x10^9/L 02/12/2015 10:05 AM RECORDS ASSOCIATE [facility] Blood BLOOD SPECIMEN / Unknown Venipuncture / Unknown 02/12/2015 9:47 AM RECORDS ASSOCIATE 02/12/2015 9:52 AM RECORDS ASSOCIATE Emilia Castro MD LAB - HEMATOLOGY ORD ERABLES [facility] [address] * BLOOD TYPE VERIFICATION (02/07/2015 1:43 PM RECORDS ASSOCIATE) ABO A 02/07/2015 8:59 PM RECORDS ASSOCIATE [facility] Rh Type Positive 02/07/2015 8:59 PM RECORDS ASSOCIATE [facility] B[facility]OD [facility] Miscellaneous samples (specimen) BLOOD SPECIMEN / Unknown 02/07/2015 1:43 PM RECORDS ASSOCIATE 02/07/2015 7:57 PM RECORDS ASSOCIATE Jordon Mcdermott MD LAB - BLOOD BANK OR DERABLES Performing Organization Address [facility]/ZIP Co de Phone Number [facility]OD [facility] [address] * (ABNORMAL) OCCULT BLOOD FECES - POINT OF CARE (IP) ILL (02/07/2015 1:05 PM RECORDS ASSOCIATE) Occult Blood Positive(A ) Negative [facility] QC Verified Yes Yes [facility] POC T TESTING Card Exp Date 04/2015 Yes [facility] P OCT TESTING Lot # [id number] [facility] Stool specimen (specimen) STOOL SPECIMEN / Unknown 02/07/2015 1:05 PM RECORDS ASSOCIATE Shanna Vera PRIMER INSPECTOR-VIDEO CAMERA OPERATOR LAB - POINT OF CARE ORDERABLES [facility] [address] * SED RATE ARGENIS (11/21/2014 9:00 AM CDT) Only the most recent of2 resultswithin the time period is included. Erythrocyte Sedimentation Rate Argenis 26 0 - 30 mm/hr 11/21/2014 11:33 AM CDT [facility] Blood BLOOD SPECIMEN / Unknown Venipuncture / Unknown 11/21/2014 9:00 AM CDT 11/21/2014 9:00 AM CDT Bhavana Chow PRIMER INSPECTOR-VIDEO CAMERA OPERATOR LAB - HEMATOLOGY O RDERABLES [facility] [address] * XR ANKLE 3+ VW RIGHT [id number] (11/03/2014 3:30 PM CDT) Anatomical Region Laterality Modality Lower Extremity Radiographic Tami ging 11/03/2014 3:34 PM CDT Narrative 11/03/2014 3:43 PM CDT RIGHT ANKLE INDICATION: Pain. FINDINGS: Lucency through the lateral talar dome on the oblique image is thought to be artifact related to a mock band. There is no other evidence of a talar fracture and no evidence of an effusion within the ankle joint on the lateral film. Bony irregularity at the level of the distal talofibular ligament and additional accessory ossicle density and bony irregularity at the tip of the medial malleolus. Both of these are consistent with old injury. No definite acute fracture. Plantar spur off the calcaneus. Ankle films otherwise negative. SUMMARY: Findings consistent with old injury. No definite acute fracture. Procedure Note Glen Wakefield MD - 11/03/2014 RIGHT ANKLE INDICATION: Pain. FINDINGS: Lucency through the lateral talar dome on the oblique image is thought to be artifact related to a mock band. There is no other evidence of a talar fracture and no evidence of an effusion within the ankle joint on the lateral film. Bony irregularity at the level of the distal talofibular ligament and additional accessory ossicle density and bony irregularity at the tip of the medial malleolus. Both of these are consistent with old injury. No definite acute fracture. Plantar spur off the calcaneus. Ankle films otherwise negative. SUMMARY: Findings consistent with old injury. No definite acute fracture. Pranav Mejia PA-C DIAGNOSTIC IMAGING O RDERABLES * CARDIAC EVENT MONITOR (06/13/2014) Narrative Rosalinda García N - 06/13/2014 Diagnosis: palpitations Date: 05/31/14 Results: No significant arrhythmias were recorded. Multiple patient activated events were recorded without symptoms along with symptoms of chest pain and rapid heart beat all of which were associated with SR and one episode associated with ST. An intermittent LBBB was noted. Brett Mobley MD CARDIAC SERVICES ORD ERABLES * VAS VENOUS DUPLEX LE BILATERAL (05/23/2014 10:38 AM CDT) Anatomical Region Laterality Modality Ultrasound 05/23/2014 10:4 6 AM CDT Impressions 05/23/2014 4:47 PM CDT No evidence of bilateral leg DVT. Narrative 05/23/2014 4:47 PM CDT BILATERAL VENOUS DUPLEX: 05/23/2014 CLINICAL HISTORY: Calf pain. FINDINGS: The common femoral, superficial femoral, popliteal, and posterior tibial veins demonstrate no filling defects. The veins compress normally. Color Doppler shows normal waveforms with normal respiratory variation and augmentation. Procedure Note Kaushik Green MD - 05/23/2014 BILATERAL VENOUS DUPLEX: 05/23/2014 CLINICAL HISTORY: Calf pain. FINDINGS: The common femoral, superficial femoral, popliteal, and posterior tibial veins demonstrate no filling defects. The veins compress normally. Color Doppler shows normal waveforms with normal respiratory variation and augmentation. IMPRESSION No evidence of bilateral leg DVT. Bhavana Chow PRIMER INSPECTOR-VIDEO CAMERA OPERATOR VASCULAR LAB ORDER JOVANNY * HELICOBACTER PYLORI UREASE (12/22/2013 9:33 AM RECORDS ASSOCIATE) Helicobacter pylori Urease Final Negative Negative 12/23/2013 11:06 AM RECORDS ASSOCIATE [facility] Microbiology GASTRIC BIOPSY SPECIMEN / Unknown 12/22/2013 9:33 AM RECORDS ASSOCIATE 12/23/2013 11:03 AM RECORDS ASSOCIATE Dago Stockton MD LAB - MICROBIOLOGY O RDERABLES Performing Organization Address [facility] Co de Phone Number [facility] [address] * (ABNORMAL) ISTAT POTASSIUM TU (12/22/2013 9:16 AM RECORDS ASSOCIATE) [facility] Signature Potassium POCT 3.5(L) 3.6 - 5.0 mmol/L 12/22/2013 9:26 AM RECORDS ASSOCIATE [facility] Sample iSTAT VENOUS 12/22/2013 9:26 AM RECORDS ASSOCIATE [facility] CPB iSTAT No 12/22/2013 9:26 AM RECORDS ASSOCIATE [facility] Blood BLOOD SPECIMEN / Unknown 12/22/2013 9:16 AM RECORDS ASSOCIATE 12/22/2013 9:26 AM RECORDS ASSOCIATE Dago Stockton MD LAB - POINT OF CARE ORDERABLES Performing Organization Address [facility] de Phone Number [facility] [address] * IA ELECTROCARDIOGRAM, COMPLETE (12/14/2013) Brett Mobley MD IA - PROFESSIONAL SE RVICES * MRI ABDOMEN WITH AND WITHOUT CONTRAST (11/28/2013 5:30 PM CDT) Anatomical Region Laterality Modality Abdomen Magnetic Resonan ce 11/29/2013 10:2 4 AM CDT Impressions 11/29/2013 10:46 AM CDT Status post right nephrectomy. Unremarkable left kidney with compensatory hypertrophy. Normal-appearing liver, spleen, adrenal glands and gallbladder. Findings are highly suggestive of benign cystic lesions involving head of the pancreas and the junction of the body and the tail of pancreas. The lesions are stable since prior lumbar spine MRI dated 03/06/2011. No further followup is necessary. Narrative 11/29/2013 10:46 AM CDT MRI OF ABDOMEN 11/28/2013 CLINICAL HISTORY: Pancreatic lesions. COMPARISON: Prior CT abdomen and pelvis dated 11/08/2013 CT abdomen and pelvis 09/06/2013 MRI of lumbar spine 03/06/2011 CONTRAST: 10 cc Magnevist IV EXAMINATION: Multiplanar multisequence images of MRI of abdomen were obtained. FINDINGS: Normal appearing liver, spleen, adrenal glands and gallbladder. Right kidney is surgically absent. . Normal appearing compensatory hypertrophied of the left kidney. Finding of note is a 3.5 x 3 cm sized lesion involving head of pancreas.. It is low signal on T1W1 and high signal on T2W2. A second similar kind lesion is noted at the junction of body and the tail of pancreas measuring 2.7 x 1.8 cm in size. Following contrast administration, there is no evidence of abnormal enhancement of these cystic lesions. The findings are highly suggestive of benign pancreatic cysts. Comparison of MRI of lumbar spine was obtained which was done on 03/06/2011. Retrospectively, the lesions are identified in the region of pancreas in the prior lumbar spine MRI as well. There is stable appearance of the cystic lesions as far back as lumbar spine MRI dated 03/06/2011. The findings are highly suggestive of benign cystic lesions of pancreas. No evidence of intra-abdominal, retroperitoneal or mesenteric lymphadenopathy. No free fluid is identified. Procedure Note Allan Marsh MD - 11/29/2013 MRI OF ABDOMEN 11/28/2013 CLINICAL HISTORY: Pancreatic lesions. COMPARISON: Prior CT abdomen and pelvis dated 11/08/2013 CT abdomen and pelvis 09/06/2013 MRI of lumbar spine 03/06/2011 CONTRAST: 10 cc Magnevist IV EXAMINATION: Multiplanar multisequence images of MRI of abdomen were obtained. FINDINGS: Normal appearing liver, spleen, adrenal glands and gallbladder. Right kidney is surgically absent. . Normal appearing compensatory hypertrophied of the left kidney. Finding of note is a 3.5 x 3 cm sized lesion involving head of pancreas.. It is low signal on T1W1 and high signal on T2W2. A second similar kind lesion is noted at the junction of body and the tail of pancreas measuring 2.7 x 1.8 cm in size. Following contrast administration, there is no evidence of abnormal enhancement of these cystic lesions. The findings are highly suggestive of benign pancreatic cysts. Comparison of MRI of lumbar spine was obtained which was done on 03/06/2011. Retrospectively, the lesions are identified in the region of pancreas in the prior lumbar spine MRI as well. There is stable appearance of the cystic lesions as far back as lumbar spine MRI dated 03/06/2011. The findings are highly suggestive of benign cystic lesions of pancreas. No evidence of intra-abdominal, retroperitoneal or mesenteric lymphadenopathy. No free fluid is identified. IMPRESSION Status post right nephrectomy. Unremarkable left kidney with compensatory hypertrophy. Normal-appearing liver, spleen, adrenal glands and gallbladder. Findings are highly suggestive of benign cystic lesions involving head of the pancreas and the junction of the body and the tail of pancreas. The lesions are stable since prior lumbar spine MRI dated 03/06/2011. No further followup is necessary. Vivi Pimentel MD MR ORDERABLES * CT ABDOMEN AND PELVIS WITH IV CONTRAST (11/08/2013 10:07 AM CDT) Anatomical Region Laterality Modality Abdomen, Pelvis Computed Tomogra phy 11/08/2013 10:2 8 AM CDT Narrative 11/08/2013 11:[address] SCAN OF THE ABDOMEN AND PELVIS 11/08/2013 INDICATION: Left upper quadrant pain CT is performed with injection of 92 cc of Visipaque 320 intravenously. FINDINGS: Lung bases are clear. Heart size is normal. Spleen is normal in CT appearance. Two small cysts are present within the liver parenchyma the largest is located within the caudate lobe of the liver measuring 9 mm in diameter. Liver parenchyma is otherwise homogeneous. Gallbladder wall is thickened measuring 5 mm but the gallbladder is contracted. This may just be normal thickness in a contracted gallbladder. Correlation with clinical findings and ultrasound recommended when the patient is fasting would be helpful. Findings within the liver parenchyma are unchanged from a noncontrast study of 09/06/2013. There are two cystic lesions within the pancreas, one in the pancreatic head measuring 3.6 cm diameter and one at the junction of the body and tail measuring 2.5 cm in diameter. These are also stable compared to prior study of August 2013. Differential considerations would include pseudocyst, mucinous cystadenomas or mucinous tumors of the bile duct and close followup is recommended. An MRI of the pancreas may be helpful in further evaluation as well. Right kidney is absent. Left renal margin is smooth. No renal stones. No hydronephrosis. Adrenal glands are normal in appearance. Vascular clips retroperitoneum on the right. Within the pelvis the uterus is absent. No adnexal masses. No evidence of bowel obstruction. Mild degenerative changes in the spine. CT scan is otherwise negative SUMMARY: Cystic lesions in the pancreas stable from prior examination with above differential diagnosis. Stable cyst within the liver parenchyma. Previous right nephrectomy. Mild thickening of the wall of the gallbladder which is indeterminate. Correlation with clinical findings and ultrasound when the patient is fasting recommended. Previous hysterectomy. Procedure Note Glen Wakefield MD - 11/08/2013 CT SCAN OF THE ABDOMEN AND PELVIS 11/08/2013 INDICATION: Left upper quadrant pain CT is performed with injection of 92 cc of Visipaque 320 intravenously. FINDINGS: Lung bases are clear. Heart size is normal. Spleen is normal in CT appearance. Two small cysts are present within the liver parenchyma the largest is located within the caudate lobe of the liver measuring 9 mm in diameter. Liver parenchyma is otherwise homogeneous. Gallbladder wall is thickened measuring 5 mm but the gallbladder is contracted. This may just be normal thickness in a contracted gallbladder. Correlation with clinical findings and ultrasound recommended when the patient is fasting would be helpful. Findings within the liver parenchyma are unchanged from a noncontrast study of 09/06/2013. There are two cystic lesions within the pancreas, one in the pancreatic head measuring 3.6 cm diameter and one at the junction of the body and tail measuring 2.5 cm in diameter. These are also stable compared to prior study of August 2013. Differential considerations would include pseudocyst, mucinous cystadenomas or mucinous tumors of the bile duct and close followup is recommended. An MRI of the pancreas may be helpful in further evaluation as well. Right kidney is absent. Left renal margin is smooth. No renal stones. No hydronephrosis. Adrenal glands are normal in appearance. Vascular clips retroperitoneum on the right. Within the pelvis the uterus is absent. No adnexal masses. No evidence of bowel obstruction. Mild degenerative changes in the spine. CT scan is otherwise negative SUMMARY: Cystic lesions in the pancreas stable from prior examination with above differential diagnosis. Stable cyst within the liver parenchyma. Previous right nephrectomy. Mild thickening of the wall of the gallbladder which is indeterminate. Correlation with clinical findings and ultrasound when the patient is fasting recommended. Previous hysterectomy. Bhavana Esteban Chow PRIMER INSPECTOR-VIDEO CAMERA OPERATOR CT ORDERABLES * (ABNORMAL) CREATININE BLOOD (11/08/2013 8:49 AM CDT) Creatinine 1.17(H) 0.57 - 1.11 mg/dL 11/08/2013 9:44 AM CDT [facility] eGFR by MDRD 48(L) >60 mL/min/1.7 3m2 11/08/2013 9:44 AM CDT [facility] eGFR by MDRD 58(L) >60 mL/min/1.7 3m2 11/08/2013 9:44 AM CDT [facility] Blood BLOOD SPECIMEN / Unknown Venipuncture / Unknown 11/08/2013 8:49 AM CDT 11/08/2013 9:17 AM CDT Bhavana Esteban Chow PRIMER INSPECTOR-VIDEO CAMERA OPERATOR LAB - CHEMISTRY OR DERABLES Performing Organization Address [facility] Co de Phone Number [facility] [address] * (ABNORMAL) BUN (11/08/2013 8:49 AM CDT) BUN 26.7(H) 9.8 - 20.1 mg/dL 11/08/2013 9:44 AM CDT [facility] Blood BLOOD SPECIMEN / Unknown Venipuncture / Unknown 11/08/2013 8:49 AM CDT 11/08/2013 9:17 AM CDT Bhavana Chow PRIMER INSPECTOR-VIDEO CAMERA OPERATOR LAB - CHEMISTRY OR DERABLES Performing Organization Address [facility] de Phone Number [facility] [address] * HCG URINE QUALITATIVE - POCT (IP) BEREDDY - LUIS MANUEL (09/06/2013 12:13 AM CDT) HCG Qual Urine Negative Negative [facility] Lot # [id number] [facility] Expiration Date [facility] QC Verified Yes [facility] POC T TESTING Urine specimen (specimen) URINE / Unknown 09/06/2013 12:13 AM CDT Yang Ortega DO LAB - POINT OF CARE ORDERABLES Performing Organization Address City/[facility]/ZIP Co de Phone Number [facility] [address] [place] [address], [facility] * CULTURE URINE (05/03/2013 3:05 PM CDT) Urine Culture Routine Final report [facility] INSURANCE BILL Result 1 [facility] INSURANCE BILL Comment: Culture shows less than 10,000 colony forming units of bacteria per milliliter of urine. This colony count is not generally considered to be clinically significant. This specimen was submitted in a sterile cup which requires refrigerated temperatures to maintain the organisms without excessive growth in transport. [facility] recommends the use of the urine culture transport device (available from your professional services surgical sales representative) for clean catch urine specimens. Urine specimen (specimen) URINE SPECIMEN OBTAINED BY CLEAN CATCH PROCEDURE / Unknown 05/03/2013 3:05 PM CDT 05/04/2013 1:54 AM CDT Narrative Resulting Agency Comment [address] [phone] Sharonda Lambert PA-C LAB - MICROBIOLOGY ORDERABLES [facility] INSURANCE BILL * (ABNORMAL) URINALYSIS AUTO - POINT OF CARE (AMB) SM[facility] (05/03/2013 3:00 PM CDT) Clarity UA POCT Color UA POCT Glucose UA Negative Negative Bilirubin UA POCT Negative Negative Ketone UA Negative Negative Specific Strandquist UA POCT 1.015 1.002 - 1.030 Blood UA POCT Trace-Intact (A) Negative pH UA 6.0 5.0 - 8.0 pH units Protein UA POCT Negative Negative Urobilinogen UA 0.2 0.1 - 1.0 Nitrite UA POCT Negative Negative Leukocyte UA Negative Negative QC Verified Yes Urine specimen (specimen) URINE / Unknown 05/03/2013 3:00 PM CDT Sharonda SELLERSC LAB - POINT OF CAR E ORDERABLES * VAS CAROTID DUPLEX BILATERAL (12/06/2012 4:40 PM CDT) Anatomical Region Laterality Modality Ultrasound 12/06/2012 5:02 PM CDT Impressions 12/06/2012 9:53 PM CDT Bilateral intimal thickening without hemodynamically significant common or internal carotid artery stenosis noted on either side. Two small complex cysts felt to be present in right thyroid lobe as noted above. Any stenosis is evaluated using velocity criteria that are similar to NASCET. Narrative 12/06/2012 9:53 PM CDT VASCULAR CAROTID DUPLEX WITH COLOR-FLOW IMAGING 12/06/2012 HISTORY: Visual changes. FINDINGS: Mild bilateral intimal thickening noted without hemodynamically significant common or internal carotid artery stenosis noted on either side. Peak systolic velocity 56 cm/sec on the right and 64 cm/sec on the left in the internal carotid arteries with end diastolic velocities in the internal carotid artery being 18 cm/sec on the right and 27 cm/sec on the left. These velocities correspond to less than 50% stenosis in the internal carotid artery bilaterally and without any hemodynamically significant stenosis noted at cross-sectional imaging. Antegrade vertebral artery flow noted bilaterally. Two small complex cysts noted in the right thyroid lobe with the larger in range of 6 x 9 mm and the other approximately 4 x 6 mm. Procedure Note Robbin Breaux MD - 12/06/2012 VASCULAR CAROTID DUPLEX WITH COLOR-FLOW IMAGING 12/06/2012 HISTORY: Visual changes. FINDINGS: Mild bilateral intimal thickening noted without hemodynamically significant common or internal carotid artery stenosis noted on either side. Peak systolic velocity 56 cm/sec on the right and 64 cm/sec on the left in the internal carotid arteries with end diastolic velocities in the internal carotid artery being 18 cm/sec on the right and 27 cm/sec on the left. These velocities correspond to less than 50% stenosis in the internal carotid artery bilaterally and without any hemodynamically significant stenosis noted at cross-sectional imaging. Antegrade vertebral artery flow noted bilaterally. Two small complex cysts noted in the right thyroid lobe with the larger in range of 6 x 9 mm and the other approximately 4 x 6 mm. IMPRESSION Bilateral intimal thickening without hemodynamically significant common or internal carotid artery stenosis noted on either side. Two small complex cysts felt to be present in right thyroid lobe as noted above. Any stenosis is evaluated using velocity criteria that are similar to NASCET. Shalonda Oliva MD VASCULAR LAB ORDER JOVANNY * MRI BRAIN WITH AND WITHOUT CONTRAST (12/06/2012 4:05 PM CDT) Anatomical Region Laterality Modality Head Magnetic Resonan ce 12/09/2012 8:23 AM CDT Narrative 12/09/2012 4:51 PM CDT MRI BRAIN WITH AND WITHOUT CONTRAST: CLINICAL HISTORY: Visual changes, headaches and dizziness with blurred vision. FINDINGS: 1. Routine MRI of the brain with and without contrast 12/06/2012. IV administration of 20 mL of Magnevist. Comparison October 20, 2007 exam. 2. The ventricular system is symmetric without evidence of midline shift or mass effect. Grossly normal flow voids within the intracranial portions of the vertebrobasilar system and internal carotid arteries in their proximal portions. Globes are intact. No gross abnormality within the brainstem or posterior fossa. There has been mild advancement of abnormal subcortical and periventricular white matter signal without pathologic contrast enhancement. No major vessel infarct. No suprasellar lesions. Midline structures are within normal limits. Stable appearance to benign-appearing bilobed cyst in the pineal gland. CONCLUSION: 1. Since October 20, 2007 exam, there has been slight advancement of significant white matter disease. In an individual of this age, the possibility of demyelinating process versus vasculitis is a consideration. No pathologic contrast enhancement. 2. No major vessel infarct or intracranial mass. Normal thickness to the corpus callosum. 3. Incidental note made of mild mucosal thickening within both mastoid air cells which was also present on 2007 exam. No gross abnormality of the globes or optic tracts. Procedure Note Don Resendez MD - 12/09/2012 MRI BRAIN WITH AND WITHOUT CONTRAST: CLINICAL HISTORY: Visual changes, headaches and dizziness with blurred vision. FINDINGS: 1. Routine MRI of the brain with and without contrast 12/06/2012. IV administration of 20 mL of Magnevist. Comparison October 20, 2007 exam. 2. The ventricular system is symmetric without evidence of midline shift or mass effect. Grossly normal flow voids within the intracranial portions of the vertebrobasilar system and internal carotid arteries in their proximal portions. Globes are intact. No gross abnormality within the brainstem or posterior fossa. There has been mild advancement of abnormal subcortical and periventricular white matter signal without pathologic contrast enhancement. No major vessel infarct. No suprasellar lesions. Midline structures are within normal limits. Stable appearance to benign-appearing bilobed cyst in the pineal gland. CONCLUSION: 1. Since October 20, 2007 exam, there has been slight advancement of significant white matter disease. In an individual of this age, the possibility of demyelinating process versus vasculitis is a consideration. No pathologic contrast enhancement. 2. No major vessel infarct or intracranial mass. Normal thickness to the corpus callosum. 3. Incidental note made of mild mucosal thickening within both mastoid air cells which was also present on 2007 exam. No gross abnormality of the globes or optic tracts. Shalonda Oliva MD MR ORDERABLES * VITAMIN B12 FOLATE PANEL (12/01/2012 11:38 AM CDT) Vitamin B12 513 213 - 816 pg/mL 12/01/2012 12:51 PM CDT [facility] Folate 19.7 7.0 - 31.4 ng/mL 12/01/2012 12:51 PM CDT [facility] Blood BLOOD SPECIMEN / Unknown Venipuncture / Unknown 12/01/2012 11:38 AM CDT 12/01/2012 11:45 AM CDT Shalonda Oliva MD LAB - CHEMISTRY OR DERABLES [facility] [address] * VITAMIN B1 (12/01/2012 11:37 AM CDT) Vitamin B1 Whole Blood 84 70 - 180 nmol/L 12/05/2012 10:54 PM CDT [facility] Comment: INTERPRETIVE INFORMATION: Vitamin B1, Whole Blood The concentration of thiamine diphosphate (TDP), the primary active form of vitamin B1, is measured in this assay. Approximately 90% of vitamin B1 present in whole blood is TDP. Thiamine and thiamine monophosphate, which comprise the remaining 10%, are not measured. Test developed and characteristics determined by [employer]. See Compliance Statement B: [email or web address] Blood specimen (specimen) BLOOD SPECIMEN / Unknown Venipuncture / Unknown 12/01/2012 11:37 AM CDT 12/01/2012 11:45 AM CDT Shalonda Oliva MD LAB - CHEMISTRY OR DERABLES Performing Organization Address [facility]/ZIP Co de Phone Number [facility] [address] [place] [address] * RPR (12/01/2012 11:35 AM CDT) Pathologist [facility] RPR Nonreactive Nonreactive 12/03/2012 10:52 AM CDT [facility] Blood BLOOD SPECIMEN / Unknown Venipuncture / Unknown 12/01/2012 11:35 AM CDT 12/01/2012 11:45 AM CDT Shalonda Oliva MD LAB - CHEMISTRY OR DERABLES Performing Organization Address [facility] Co de Phone Number [facility] [address] * BALA BLOOD SCREEN W/REFLEX TITER (12/01/2012 11:35 AM CDT) [facility] BALA IgG None Detected None Detected 12/03/2012 11:23 PM CDT [facility] Comment: No antibodies to Anti-Nuclear Antibodies (BALA) detected. No further testing will be performed. INTERPRETIVE INFORMATION: Anti-Nuclear Antibodies (BALA), IgG by QUINTON BALA specimens are screened using enzyme-linked immunosorbent assay (QUINTON) methodology. All QUINTON results reported as Detected are further tested by indirect fluorescent assay (IFA) using HEp-2 substrate with an IgG-specific conjugate. The BALA QUINTON screen is designed to detect antibodies against dsDNA, histone, SS-A (Ro), SS-B (La), Pereira, snRNP/Sm, Scl-70, [place]-1, centromere, and an extract of lysed HEp-2 cells. BALA QUINTON assays have been reported to have lower sensitivities for antibodies associated with nucleolar and speckled BALA-IFA patterns. Blood specimen (specimen) BLOOD SPECIMEN / Unknown Venipuncture / Unknown 12/01/2012 11:35 AM CDT 12/01/2012 11:45 AM CDT Shalonda Oliva MD LAB - CHEMISTRY OR DERABLES Performing Organization Address [facility] Co de Phone Number [facility] [address] [place] [address] * (ABNORMAL) URINALYSIS MICROSCOPIC ONLY REFLEXED (PO REF LAB) (06/28/2012 3:11 PM CDT) WBC UA 0-5 0 - 5 /hpf [facility] INSURANCE BILL RBC UA 0-3 0 - 3 /hpf [facility] INSURANCE BILL Epithelial Cells (non renal) 0-10 0 - 10 /hpf [facility] INSURANCE BILL Epithelial Cells (renal) NOT NEEDED [facility] INSURANCE BILL Comment:Ancillary determined the test is not needed Casts ua NOT NEEDED [facility] INSURANCE BILL Comment:Ancillary determined the test is not needed Casts UA NOT NEEDED [facility] INSURANCE BILL Comment:Ancillary determined the test is not needed Crystals UA Present(A) N/A [facility] INSURANCE BILL Crystals UA Calcium Oxalate N/A [facility] INSURANCE BILL Mucus UA Present Not Estab. [facility] INSURANCE BILL Bacteria UA Few None seen/Few [facility] INSURANCE BILL Yeast UA NOT NEEDED [facility] INSURANCE BILL Comment:Ancillary determined the test is not needed Trichomonas UA NOT NEEDED [facility] INSURANCE BILL Comment:Ancillary determined the test is not needed Comment Urine NOT NEEDED [facility] INSURANCE BILL Comment:Ancillary determined the test is not needed BLOOD SPECIMEN / Unknown 06/28/2012 3:11 PM CDT 06/29/2012 1:20 AM CDT Narrative Resulting Agency Comment [facility] [phone] Sharonda Lambert PA-C LAB - URINALYSIS O RDERABLES Performing Organization Address [facility] de Phone Number [facility] INSURANCE BILL * (ABNORMAL) URIC ACID BLOOD (06/28/2012 3:11 PM CDT) Uric Acid 7.9(H) 2.5 - 7.1 mg/dL [facility] INSURANCE BILL Comment:Therapeutic target f or gout patients: <6.0 Blood specimen (specimen) BLOOD SPECIMEN / Unknown 06/28/2012 3:11 PM CDT 06/29/2012 1:20 AM CDT Narrative Resulting Agency Comment [address] [phone] Sharonda SELLERSC LAB - CHEMISTRY OR DERABLES [facility] INSURANCE BILL * (ABNORMAL) FERRITIN (06/28/2012 3:11 PM CDT) Ferritin 183(H) 13 - 150 ng/mL [facility] INSURANCE BILL Comment: Effective July 05, 2012, Ferritin reference interval will be changing to: Male Female ng/mL ng/mL 0 - 5 months: 13 - 273 12 - 219 6 - 12 months: 12 - 95 12 - 110 1 - 5 years: 12 - 64 12 - 71 6 - 11 years: 16 - 77 15 - 79 12 - 19 years: 16 - 124 15 - 77 Adult: 30 - 400 15 - 150 Blood specimen (specimen) BLOOD SPECIMEN / Unknown 06/28/2012 3:11 PM CDT 06/29/2012 1:20 AM CDT Narrative Resulting Agency Comment [facility] [address] [phone] Sharonda Lambert PA-C LAB - CHEMISTRY OR DERABLES [facility] INSURANCE BILL Care Teams Tack Cutter Relationship Specialty Start Date End Date Rachel Manzanares, RAMESH-VIDEO CAMERA OPERATOR PCP - General Nurse Practitioner Family 12/03/20 Dago Stockton MD General Surgery 08/25/18
--- OUTSIDE RECORDS SUMMARY | 2024-04-06 14:49 | XMS_ITS | Clinical Summary ---
Author Organization [facility] Address [address] [place] [address] Care Team Providers Care Turbine Measurements Engineer Name Role Phone Ross Pope MD, Louis Unavailable [phone] Serjio Rangel MD Unavailable Mariza Johnson Primary Care Provider + Allergies Active Allergy Reactions Criticality Noted Date Comments Iodinated Contrast Media Other (See comments) Low 11/24/2017 lohexol palpitations Iodine Palpitations,Unknow n High 06/25/2012 Makes patient feel hot Latex Hives,Itching Medium 11/28/2013 Redness and Hives Lobster Hives,Rash Medium 12/31/2023 Morphine Nausea And Vomiting Low 12/01/2012 Penicillins Rash Medium 06/25/2012 Per chart records, cefazolin was administered in 2022 Medications lamoTRIgine (LaMICtal) 100 mg tabletIndications :Bipolar I disorder, single manic episode (CMS/HCC) (HCC) Take 1 tablet (100 mg total) by mouth daily 30 tablet 5 12/18/19 22 Active dapagliflozin (FARXIGA) 10 mg tabletIndications :Chronic combined systolic and diastolic congestive heart failure (CMS/HCC) (HCC) Take 1 tablet (10 mg total) by mouth daily 30 tablet 5 12/18/19 22 Active sacubitriL-valsar bello (ENTRESTO) 24-26 mg tabletIndications :chronic heart failure Take 1 tablet by mouth 2 (two) times a day 60 tablet 5 12/18/19 22 Active nitroglycerin (NITROSTAT) 0.4 mg SL tabletIndications :Coronary artery disease involving choctaw coronary artery of choctaw heart with angina pectoris (HCC) Place 1 tablet (0.4 mg total) under the tongue every 5 (five) minutes as needed for chest pain 90 tablet 12/18/19 22 Active atorvastatin (LIPITOR) 80 mg tabletIndications :Coronary artery disease involving choctaw coronary artery of choctaw heart with angina pectoris (HCC),Essential hypertension,Cage Clerk erick combined systolic and diastolic congestive heart failure (CMS/HCC) ([facility]),LBBB (left bundle branch block) Take 1 tablet (80 mg total) by mouth nightly 90 tablet 1 12/28/19 22 Active walker miscIndications:D ebility,Chronic combined systolic and diastolic congestive heart failure (CMS/HCC) ([facility]),COX (dyspnea on exertion),Morbid obesity with BMI of 40.0-44.9, adult ([facility]) 1 Device continuously rollator 1 each 04/25/19 23 Active spironolactone (ALDACTONE) 25 mg tablet Take 1 tablet (25 mg total) by mouth daily 30 tablet 11 04/27/19 23 Active FLUoxetine (PROzac) 60 mg tabletIndications :Bipolar I disorder, single manic episode (CMS/HCC) ([facility]) Take 1 tablet (60 mg total) by mouth daily 04/26/19 23 Active rOPINIRole (REQUIP) 0.25 mg tabletIndications :Restless legs Take 1 tablet by mouth nightly 30 tablet 4 06/18/19 23 Active montelukast (SINGULAIR) 10 mg tabletIndications :Moderate persistent asthma, uncomplicated Take 1 tablet by mouth nightly 30 tablet 4 06/18/19 23 Active famotidine (PEPCID) 40 mg tabletIndications :Gastro-esophagea l reflux disease without esophagitis Take 1 tablet by mouth once daily 30 tablet 4 06/18/19 23 Active isosorbide mononitrate ER (IMDUR) 30 mg 24 hr tabletIndications :Coronary artery disease involving choctaw coronary artery of choctaw heart with angina pectoris (HCC) Take 1 tablet by mouth once daily 30 tablet 4 06/18/19 23 Active clopidogreL (PLAVIX) 75 mg tabletIndications :Coronary artery disease involving choctaw coronary artery of choctaw heart with angina pectoris (HCC) Take 1 tablet by mouth once daily 30 tablet 4 06/18/19 23 Active allopurinoL (ZYLOPRIM) 100 mg tablet 01/13/20 23 Active ARIPiprazole (ABILIFY) 10 mg tablet 01/17/20 23 Active metoprolol XL (TOPROL-XL) 100 mg 24 hr tablet Take 1 tablet (100 mg total) by mouth daily 90 tablet 3 02/19/19 24 Active traZODone (DESYREL) 150 mg tablet 1 tablet (150 mg total) 05/21/19 24 Active docusate sodium (COLACE) 100 mg capsuleIndication s:constipation Take 1 capsule (100 mg total) by mouth 2 (two) times a day Active furosemide (LASIX) 40 mg tablet Take 40mg in the AM and 20mg in the afternoon 135 tablet 08/11/19 24 Active potassium chloride ER (KLOR-CON) 20 mEq CR tablet Take 1 tablet (20 mEq total) by mouth daily 90 tablet 1 08/11/19 24 025 Active acetaminophen (TYLENOL) 325 mg tablet Take 2 tablets (650 mg total) by mouth every 6 (six) hours as needed for pain Active bisacodyL 5 mg tablet Take 5 mg by mouth daily Active lidocaine-menthol 4-1 % adhesive patch,medicated Apply 1 patch topically daily Active aspirin 81 mg enteric coated tablet Take 1 tablet (81 mg total) by mouth daily 90 tablet 3 08/13/19 24 Active fluticasone propionate (FLONASE) 50 mcg/actuation nasal spray 08/27/19 24 Active furosemide (LASIX) 20 mg tablet 09/14/19 24 Active azithromycin (ZITHROMAX) 250 mg tablet Take 2 by mouth today then 1 daily for 4 days 6 tablet 04/05/19 25 025 Active predniSONE (DELTASONE) 10 mg tablet Take 4 tabs (40mg) daily for 2 days, then 3 tabs (30mg) daily for 2 days, 2 tabs (20mg) daily for 2 days, 1 tab (10 mg) daily for 2 days. 20 tablet 04/05/19 25 025 Active albuterol HFA (Ventolin HFA) 90 mcg/actuation inhaler Inhale 2 puffs every 6 (six) hours as needed for wheezing 1 each 3 04/05/19 25 025 Active ipratropium-albut Duncan (DUO-NEB) 0.5-2.5 mg/3 mL nebulizer solutionIndicatio ns:Chronic Obstructive Pulmonary Disease with Bronchospasms Take 3 mL by nebulization every 6 (six) hours 360 mL 3 04/05/19 25 025 Active fluticasone-umecl idin-vilanter (Trelegy Ellipta) 100-62.5-25 mcg inhaler Inhale 1 puff daily 60 each 3 04/06/19 25 Active fluticasone-umecl idin-vilanter (Trelegy Ellipta) 100-62.5-25 mcg inhaler Inhale 1 puff daily 30 each 3 09/15/19 24 025 Discontin ued(Reord er) albuterol HFA (Ventolin HFA) 90 mcg/actuation inhaler Inhale 2 puffs every 6 (six) hours as needed for wheezing 1 each 3 09/15/19 24 025 Discontin ued(Reord er) ipratropium-albut Duncan (DUO-NEB) 0.5-2.5 mg/3 mL nebulizer solutionIndicatio ns:Chronic Obstructive Pulmonary Disease with Bronchospasms Take 3 mL by nebulization every 6 (six) hours 360 mL 3 09/15/19 24 025 Discontin ued(Reord er) fluticasone-umecl idin-vilanter (Trelegy Ellipta) 100-62.5-25 mcg inhaler Inhale 1 puff daily 30 each 3 04/05/19 25 025 Discontin ued(Reord er) Active Problems Problem Noted Date Diagnosed Date Allergic rhinitis 12/31/2023 Obstructive sleep apnea 12/31/2023 Type 2 diabetes mellitus wit hout complication, without long-term current use of insulin ([facility]) 06/01/2023 Overview (06/01/2023): pt's POA given a copy of lab and I wrote order on it for diabetic diet. need to clarify what dose and freq of metformin she's taking; not on printed med list Personal history of colon cancer 04/24/2023 History of ovarian cancer 01/19/2023 History of renal cell carcinoma 01/19/2023 History of colon cancer 01/06/2023 Diaphragmatic stimulation by cardiac pacemaker 0 08/08/2022 Presence of cardiac resynchr onization therapy defibrillator (FRUIT OR NUT FARMER-D) 04/02/2022 Pericardial effusion 01/23/2022 Irritable bowel syndrome with diarrhea BMI 45.0-49.9, adult 10/14/2021 Mucopurulent chronic bronchitis 10/14/2021 Restrictive lung disease 10/14/2021 Adenocarcinoma of sigmoid colon ([facility]/HCC) 2021 Overview (08/13/2021): Added automatically from request for surgery [id number] ACS (acute coronary syndrome) ([facility]) 07/25/19 Osteoarthritis of both knees 06/05/2021 Stress incontinence of urine 05/29/2021 Assessment & Plan (05/29/2021 12:44 PM CDT): Encouraged using pads as needed. Offered detrol/myrbetriq but they decline at this time. Cigarette nicotine dependence in remission 05/21 Restless legs 05/21/2021 LBBB (left bundle branch block) 04/18/2021 Hypersomnia 04/18/2021 Snoring 03/27/2021 Assessment & Plan (03/27/2021 12:45 PM FIELD ATTENDANT): Discussed repeat sleep study - she wants to address other medical problems first Intractable migraine with status migrainosus 10/2021 Assessment & Plan (03/27/2021 12:46 PM FIELD ATTENDANT): Will refer to neurology for further evaluation and treatment Pancreatic mass 12/09/2020 Assessment & Plan (03/05/2021 3:31 PM FIELD ATTENDANT): Will evaluate further with mri pancreas Chronic combined systolic an d diastolic congestive heart failure (CMS/HCC) 09/03/2020 History of CVA (cerebrovascular accident) 2020 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 09/03/2020 Assessment & Plan (05/29/2021 12:40 PM CDT): Continue meds same at this time, refill as needed Assessment & Plan (03/05/2021 3:33 PM FIELD ATTENDANT): Resume previous medications - med list reviewed in detail with Axel Sleep disorder 06/18/2020 Assessment & Plan (03/05/2021 3:30 PM FIELD ATTENDANT): History of - will refer for sleep eval Age-related nuclear cataract, right eye 06/19/19 21 Assessment & Plan (03/27/2021 12:47 PM FIELD ATTENDANT): Advised ophtho appt Blindness left eye category 5, normal vision rig ht eye 06/18/2020 Assessment & Plan (03/27/2021 12:47 PM FIELD ATTENDANT): Advised ophtho appt 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 06/18/2020 Gastro-esophageal reflux disease without esophag itis 06/18/2020 Assessment & Plan (07/10/2021 5:00 PM CDT): - Continue PPI daily (30 minutes before meals) Assessment & Plan (05/29/2021 12:40 PM CDT): Continue meds same at this time, refill as needed Assessment & Plan (03/27/2021 12:46 PM FIELD ATTENDANT): Add carafate Advised avoiding acidic foods Refer to gi Assessment & Plan (03/05/2021 3:32 PM FIELD ATTENDANT): Resume pepcid and protonix HFrEF (heart failure with re duced ejection fraction) ([facility]) 06/18/2020 Major depressive disorder, recurrent, moderate 0 06/18/2020 Malignant neoplasm of colon, unspecified 021 Assessment & Plan (07/10/2021 5:09 PM CDT): - She has an extensive cancer history. She reports having colon/ sigmoid cancer s/p removal in her 30s. She also reports uterine cancer and kidney cancer. In her family, she has an ?aunt with breast cancer - Due to concern for genetic syndrome, we will refer her to a genetic counselor. We have also instructed her to tell her children that they all should have their colonoscopy now. - She follows with a doctor closer to home for her follow-up colonoscopies, and she reports she is scheduled for an EGD/Colon soon Assessment & Plan (03/05/2021 3:32 PM FIELD ATTENDANT): Reported history of - will retrieve records for review Malignant neoplasm of unspec ified kidney, except renal pelvis 06/18/2020 Assessment & Plan (03/05/2021 3:32 PM FIELD ATTENDANT): Reported history of - will retrieve records for review Malignant neoplasm of unspecified ovary 06/19/19 21 Assessment & Plan (03/05/2021 3:31 PM FIELD ATTENDANT): Reported history of - will retrieve records for review Moderate persistent asthma, uncomplicated 2020 Takotsubo syndrome 06/18/2020 Chronic obstructive pulmonary disease 06/14/2020 History of MRSA infection 11/08/2017 Dyslipidemia 12/18/2014 S/P coronary artery stent placement 12/18/2014 History of malignant neoplasm of endometrium Assessment & Plan (03/05/2021 3:30 PM FIELD ATTENDANT): Reported history of - will retrieve records for review Bipolar I disorder, single manic episode (CMS/HC C) 04/05/2008 Overview (03/05/2021): Assessment & Plan (03/05/2021 3:33 PM FIELD ATTENDANT): Will refer to psychiatry for further evaluation and treatment. She makes pact to report to er if having s/h ideations. Will fill meds x 30d while she makes appt with psychiatrist. Schizophrenia 04/05/2008 Overview (03/05/2021): Assessment & Plan (06/12/2021 12:05 PM CDT): Continue with care per psychiatry. Encouraged her to pursue counseling with psychiatry group. Advised her to speak with them regarding functional ADLs and her goal of moving out/living independently. Assessment & Plan (05/29/2021 12:43 PM CDT): Had an extensive conversation with Yvonne independently and then with Huyen, her niece and caregiver. Yvonne reports that she feels and is safe with Huyen and Theo, wants to continue living with them. We discussed interactions, discussed that communication is important. Encouraged them to keep counseling appt tomorrow as planned. We discussed that Yvonne should be intentional on communicating with Huyen about needing space or even leaving to go into the yard to think, and if leaving Huyen's care should let her know when to expect her to return. We additionally discussed penitentiary living plans. They report she is too young for assisted living. We discussed due to her medical conditions that NH care would be warranted, but neither of them desire that at the current time and want to continue with the current situation. Yvonne additionally notes that Adult Services is involved in her care. Assessment & Plan (03/27/2021 12:47 PM FIELD ATTENDANT): Increase prozac She has psychiatry referral pending that she will keep She and huyen make pact to report to er if having s/h ideations Assessment & Plan (03/05/2021 3:33 PM FIELD ATTENDANT): Will refer to psychiatry for further evaluation and treatment. She makes pact to report to er if having s/h ideations. Will fill meds x 30d while she makes appt with psychiatrist. Primary hypertension 10/19/2007 Overview (03/05/2021): Assessment & Plan (05/29/2021 12:40 PM CDT): Continue meds same at this time, refill as needed Assessment & Plan (03/05/2021 3:34 PM FIELD ATTENDANT): Resume previous medications - med list reviewed in detail with Yvonne and Huyen. Will discontinue metalozone at this time as she will be taking lasix. Cardiomyopathy, ischemic Resolved Problems Problem Noted Date Diagnosed Date Resolved Date Angina at rest 10/15/2021 12/17/2021 Altered mental status 10/07/20212021 Facial paresthesia 10/07/2021 Diarrhea 07/25/2021 12/17/2021 Chest tightness 07/24/2021 12/17/2021 Assessment & Plan (07/24/2021 11:39 AM CDT): ekg in office, LBBB (also on previous EKG with Dr. Rangel) Due to symptoms, history of CAD, will send to ER for further evaluation and treatment. Staff will contact EMS for transport. Preop examination 07/24/2021 12/17/2021 Chronic pain of right knee 07/24/2021 1 02/16/2021 Assessment & Plan (07/24/2021 11:40 AM CDT): We discussed that this visit is not actually a preop H&P. We discussed that additionally she will need cardiac clearance for this surgery. Pancreatic lesion 07/10/2021 12/17/2021 Overview (07/10/2021): Added automatically from request for surgery [id number] Assessment & Plan (07/10/2021 5:06 PM CDT): - Will plan for EUS to further determine etiology of cyst and potentially sample. - She is on plavix (DAPT) for her CAD. Reading the cardiology note, she was continued on this from a prior physician. They appear to be awaiting some records about a potential PCI and the timing on this issue. Per the patient, this was longer than 6 months ago but can't remember when or where at this moment. There is concern about combined (systolic and diastolic) cardiomyopathy, but cardiology has ordered a follow-up TTE. Pending the cardiology work-up, she will need to hold her plavix for 5 days prior to the EUS Chronic pain syndrome 06/12/20212021 Assessment & Plan (06/12/2021 12:04 PM CDT): Continue with care per ortho She asks specifically about medical thc - advised her that this office does not certify patients for this substance. She was advised additionally to talk to her psychiatrist as it could interact with their medications and treatment plan. Need for diphtheria-tetanus- pertussis (Tdap) vaccine 06/12/2021 12/17/2021 Encounter for screening mamm ogram for malignant neoplasm of breast 06/12/2021 12/17/2021 Assessment & Plan (06/12/2021 12:04 PM CDT): She will schedule screening mammo BMI 38.0-38.9,adult 05/21/2021 12/18/19 22 Simple chronic bronchitis 04/18/2021 Menopause 03/27/2021 12/17/2021 Assessment & Plan (03/27/2021 12:45 PM FIELD ATTENDANT): Will order dexa for osteoporosis screening Anemia 03/27/2021 12/17/2021 Assessment & Plan (03/27/2021 12:47 PM FIELD ATTENDANT): Advised further evaluation with labs ordered today Will refer to gi for further evaluation and treatment Sleep disturbance 03/27/2021 12/17/2021 Assessment & Plan (03/27/2021 12:45 PM FIELD ATTENDANT): Discussed repeat sleep study - she wants to address other medical problems first Morbid (severe) obesity due to excess calories 03/05/2021 12/17/2021 Assessment & Plan (03/05/2021 3:31 PM FIELD ATTENDANT): Discussed the patient's BMI. The BMI is above average. BMI management plan is completed. BMI Follow-up includes: nutrition counseling, exercise counseling and education provided. Schizoaffective disorder ([facility]/HCC) 09/07/2020 12/17/2021 Acute encephalopathy 09/03/2020 022 Generalized weakness 09/03/2020 022 Chronic respiratory failure 09/03/2020 12/17/2021 Obesity 09/03/2020 12/17/2021 Nicotine use disorder 09/03/20202021 Seizure disorder ([facility]) 09/03/2020 1 02/16/2021 Epilepsy, unspecified, not i ntractable, without status epilepticus 06/18/2020 12/17/2021 Hyperlipidemia, unspecified 06/18/2020 12/17/2021 Assessment & Plan (05/29/2021 12:40 PM CDT): Continue meds same at this time, refill as needed Assessment & Plan (03/05/2021 3:32 PM FIELD ATTENDANT): Fasting labs entered, will notify patient of results as available History of COPD 06/13/2020 12/17/2021 Assessment & Plan (03/27/2021 12:46 PM FIELD ATTENDANT): Change symbicort to advair. Advised rinsing mouth out after using. Assessment & Plan (03/05/2021 3:32 PM FIELD ATTENDANT): Continue with symbicort bid and prn proventil Acute psychosis 11/09/2017 12/17/2021 Hallucination 11/08/2017 12/17/2021 Hypokalemia 11/08/2017 12/17/2021 Acute renal failure (ARF) 04/09/2015 Coronary artery disease 12/18/2014 1102/2021 Diastolic dysfunction 12/18/20142021 Palpitations 12/18/2014 12/17/2021 Poor compliance with medication 06/28/2012 12/17/2021 Reflux esophagitis 05/30/2008 Overview (03/05/2021): EGD done on 12/22/2013 Mahin, Diffuse gastritis. 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 She reports more trouble with solids but does have intermittent issues with liquids. If these issues continue after dentures, can consider HRM. Odynophagia 12/17/2021 Chest pain 12/17/2021 Encounters Date Type Department Care Team Description 04/06/2024 Orders Only [facility] Medical [facility] Pulmonology [address] [place] [address] [address] [place] [address] María Kohler NP 04/05/2024 11:00 AM FIELD ATTENDANT Office Visit [facility] Pulmonology [address] [place] [address] [address] [place] [address] María Kohler NP Chronic obstructive pulmonary disease, unspecified COPD type (HCC) (Primary Dx); Obstructive sleep apnea; Restrictive lung disease; Allergic rhinitis, unspecified seasonality, unspecified trigger; Restless legs; History of CVA (cerebrovascular accident); History of colon cancer; History of renal cell carcinoma; History of ovarian cancer; Cigarette nicotine dependence in remission; BMI 45.0-49.9, adult (HCC) 03/04/2024 Telephone [facility] Gastroenterology [address] [facility] [address] [place] [address] [place] [address] Antonio Ray 03/04/2024 Orders Only [facility] Gastroenterology [address] [facility] [address]th [place] [address] [place] [address] Edgardo Kee MD Pancreatic cyst (Primary Dx) 03/01/2024 Telephone [facility] Gastroenterology [address] [facility] Medicine [address]th [place] [address] [place] [address] Antonio Ray imaging due 02/23/2024 Telephone [facility] Gastroenterology [address] [facility] Medicine [address]th [place] [address] [place] [address] Antonio Ray imaging due 02/12/2024 7:15 AM FIELD ATTENDANT Ancillary Procedure [facility] Cardiology [address] [facility] [address] [place] [address] HFrEF (heart failure with reduced ejection fraction) (CMS/HCC) ([facility]); LBBB (left bundle branch block); Cardiac resynchronization therapy defibrillator (FRUIT OR NUT FARMER-D) in place from Last 3 Months Immunizations Immunization Administration Dates Next Due Influenza, Quadrivalent, Spl it, Preservative Free, Intramuscular 12/12/2020,11/10/2017,11/17/2015,12/25 Influenza, Trivalent, Preser vative Free, Intramuscular 12/28/2013,12/02/2012 Influenza, Unspecified 11/16/2022(Deferr ed: Patient decision),11/16/2021,06/13/2020 Mar (J&J) SARS-CoV-2 Vaccination 07/13/2020 Tdap 06/12/2021 Tetanus toxoid, adsorbed 11/27/2011 Surgical History Surgery Date Site/Laterality Comments COLON SURGERY HERNIA REPAIR 06/18/2020 HYSTERECTOMY 06/18/2020 NEPHRECTOMY 06/18/2020 COLONOSCOPY 08/03/2023 3 benign polyps removed OTHER SURGICAL HISTORY Stent in heart OTHER SURGICAL HISTORY Colorectal CARDIAC CATHETERIZATION CARDIAC PACEMAKER PLACEMENT defibrillator OOPHORECTOMY 06/16/2020 - 07/16/2020 Bilateral LAPAROSCOPIC COLON RESECTION Medical History Medical History Date Comments Hyperlipidemia Schizophrenia (HCC) 2008 Bipolar affective (HCC) Sleep apnea Hypertension Coronary artery disease LAD sten t 2007 CHF (congestive heart failur e) (CMS/HCC) (HCC) GERD (gastroesophageal reflux disease) Stroke (cerebrum) ([facility]) 2007 Renal cancer ([facility]) 10/2007 Ovarian cancer ([facility]) Colon cancer ([facility]) ([facility]) Sig moid colon resection JULIET (acute kidney injury) ([facility]) Bipolar disorder, current ep isode depressed, moderate ([facility]) ([facility]) 06/18/2020 Epilepsy ([facility]) 06/2002 Respiratory failure ([facility]) ([facility]) 06/18/2020 COPD (chronic obstructive pu lmonary disease) ([facility]) 06/18/2020 Cerebral infarction ([facility]) 06/18/2020 Embolism ([facility]) ([facility]) 06/18/2020 Cataract 06/18/2020 Right eye Blindness of left eye 06/18/2020 Right eye normal vision Atherosclerotic cardiovascular disease without angina prectoris Heart failure ([facility]) 06/18/2020 Dorsalgia 06/18/2020 Malignant neoplasm in situ of colon Takotsubo syndrome 06/18/2020 Cancer of kidney ([facility]) 06/18/2020 Cancer of ovary ([facility]) 06/18/2020 History of abdominal hysterectomy 06/18/2020 Anxiety Arthritis Asthma Depression Heart attack ([facility]) Osteoporosis Pneumonia Renal insufficiency Pancreatic lesion 07/10/2021 Added automati tamela from request for surgery [id number] PONV (postoperative nausea a nd vomiting) Arrhythmia Type 2 diabetes mellitus wit hout complication, without long-term current use of insulin ([facility]) ([facility]) 06/01/2023 Family History Medical History Relation Name Comments Diabetes Brother Diabetes type II Brother Heart attack Brother Cancer Father Heart attack Father Heart disease Father Cancer Mother Depression Mother Breast cancer Mother's Sister Coronary artery disease Sister Depression Sister Diabetes Sister Heart attack Sister Heart disease Sister Hypertension Sister COPD Son Relation Name Status Comments Brother Father Mother Mother's Sister Other Sister Son Social History Tobacco Use Types Packs/Day Years Used Date Smoking Tobacco: Some Days Cigarettes 1.5 45 Started: 09/1975; Last attempted to quit: 09/2020 Smokeless Tobacco: Never Tobacco Cessation:Ready to Q uit: Not Asked; Counseling Given: Not Answered AUDIT-C Answer Date Recorded Q1: How often [...] on file Legal Sex Female 5:21 AM FIELD ATTENDANT Gender Identity Female 09/02/2020 9:33 PM CDT Sexual Orientation Not on file Obstetrics History Para Term AB IAB SAB Ectopic Multiple Livin g Live Births 4 4 4 Date Outcome GA Total Labor Labor//3rd Weight Sex Type Anes PTL Mildred A1 A5 Name Clin Term Term Term Term Last Filed Vital Signs Vital Sign Reading Time Taken Comments Blood Pressure 127/72 04/05/2024 11:21 AM FIELD ATTENDANT Pulse 78 04/05/2024 11:21 AM FIELD ATTENDANT Temperature 35.6 C (96.1 F) 04/05/2024 11:21 AM FIELD ATTENDANT Respiratory Rate 18 04/05/2024 11:21 AM FIELD ATTENDANT Oxygen Saturation 96% 04/05/2024 11:21 AM FIELD ATTENDANT Inhaled Oxygen Concentration - - Weight 125.2 kg (276 lb) 04/05/2024 11:21 AM FIELD ATTENDANT Height 162.6 cm (5' 4 ) 04/05/2024 11:21 AM FIELD ATTENDANT Body Mass Index 47.38 04/05/2024 11:21 AM FIELD ATTENDANT Plan of Treatment Health Maintenance Due Date Last Done Comments Albumin Creatinine Ratio, Urine 1960 Hepatitis C Screening 1960 Dilated Eye Exam 1960 Hepatitis B Screening 09/13/1977 Regular Well Visit/Exam 18-64 09/13/1977 Pneumococcal vaccine <65 (1 of 2 - PCV) 09/13/1978 Zoster Vaccine (1 of 2) 09/13/2009 Lipid Panel 12/27/2022 12/27/2021, 09/17, 03/16/2021, Additional history exists Covid-19 Vaccine (2023-2 5 season) 2023 03/01/2022, 07/26/2021, 07/13/2020 Influenza Vaccine (#1) 2023 , 12/12/2020, 06/13/2020, Additional history exists Hemoglobin A1C 02/12/2024 08/13/2023, 05/17, 10/07/2021, Additional history exists Depression Screening 02/18/2024 02/17/2023, 07/24/2021, 06/12/2021, Additional history exists Breast Cancer Screening-Mammogram 04/11/2024 04/11/2023, 09/08/2018, 07/23/2017, Additional history exists eGFR 08/09/2024 08/10/2023, 04/16, 04/24/2022, Additional history exists Lung Cancer Screening 12/12/2024 12/12/2023 , 11/25/2022, 11/20/2017, Additional history exists Colon Cancer Screening-Colonoscopy 08/02/2026 08/03/2023, 04/16/2023, 08/22/2021 DTaP/Tdap/Td Vaccine (2 - Td or Tdap) 06/13/2031 06/12/2021, 11/27/2011 Foot Exam Discontinued Medical Devices Implanted Type Area Social Work Coordinator Device Identifier Shelf Expiration Date Model / Serial / Lot [employer] Tendril Sts 6fr 52cm Is-1 Connector Active Fixation Bipolar Soft 2087tc/52 - [id number] - [id number] Implanted:Qty: 1 on 04/24/2022 by Hayden Langford MD at [facility] Lead Left: Subclavian [employer] [id number] 02/15/2025 2088TC/5 2 / [id number] / [employer] Durata 6.8fr 58cm 1 Coil True Bipolar Active Fixation Extendable 7122q/58 - [id number] - [id number] Implanted:Qty: 1 on 04/24/2022 by Hayden Langford MD at [facility] Lead Left: Subclavian [employer] [id number] 01/15/2025 7122Q/58 / [id number] / [employer] Quartet 4.7fr 86cm Quadripolar Is-4 Llll Connector 8 Curve Low 1456q/86 - [id number] - [id number] Implanted:Qty: 1 on 04/24/2022 by Hayden Langford MD at [facility] Left: Subclavian [employer] [id number] 10/16/2024 1456Q/86 / [id number] / Angio-Seal Vip 6fr Closere Device [id number] - [id number] Implanted:Qty: 1 on 07/24/2021 by Harpreet Stahl MD at [facility] 03/18/2022 [id number] / / [id number] [employer] Resolute Thanh 3.5mm 2.1-2.7fr 15mm 140cm Rapid Exchange [id number] - [id number] Implanted:Qty: 1 on 10/08/2021 by Hipolito Cota MD at [facility] [employer] 04/23/2024 [id number] / / [id number] [facility] [employer] [facility] Angio-Seal Vip 6fr Closere Device [id number] - [id number] Implanted:Qty: 1 on 10/08/2021 by Hipolito Cota MD at [facility] 05/16/2022 [id number] / / [id number] [employer] Def[employer] Cardiac [id number] [place] H[employer] Df4 Is-4 Is-1 Cnctr [id number] - [id number] - [id number] Implanted:Qty: 1 on 04/24/2022 by Hayden Langford MD at [facility] Left: Subclavian [employer] [id number] 03/18/2024 [id number] / [id number] / Procedures Procedure Name Priority Date/Time Associated Diagnosis Comments DEVICE CHECK - REMOTE Routine 02/12/2024 9:35 AM FIELD ATTENDANT HFrEF (heart failure with reduced ejection fraction) (CMS/HCC) ([facility]) LBBB (left bundle branch block) Cardiac resynchronization therapy defibrillator (FRUIT OR NUT FARMER-D) in place CT LUNG CANCER SCREENING Schedule Routine, Read Routine (OP Routine) 12/12/2023 2:04 PM CDT Personal history of nicotine dependence POCT HEMOGLOBIN A1C Routine 08/13/2023 3:51 PM CDT Type 2 diabetes mellitus without complication, without long-term current use of insulin (CMS/HCC) (HCC) EGFR Routine 08/10/2023 5:15 PM CDT Chronic combined systolic and diastolic congestive heart failure (CMS/HCC) (HCC) Primary hypertension 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 (HCC) COLONOSCOPY 08/03/2023 10:42 AM CDT SCREENING MAMMOGRAM BILATERAL W BENIGNO Schedule Routine, Read Routine (OP Routine) 04/11/2023 10:54 AM FIELD ATTENDANT Encounter for screening mammogram for malignant neoplasm of breast LIPID PANEL Routine 12/27/2021 12:20 PM FIELD ATTENDANT Coronary artery disease involving choctaw coronary artery of choctaw heart with angina pectoris (CMS/HCC) (HCC) Essential hypertension Chronic combined systolic and diastolic congestive heart failure (CMS/HCC) (HCC) LBBB (left bundle branch block) from Last 3 Months or Most Recently Relevant to Health Maintenance Results * DEVICE CHECK - REMOTE (02/12/2024 9:35 AM FIELD ATTENDANT) Anatomical Region Laterality Modality Other Narrative 03/15/2024 10:30 AM FIELD ATTENDANT Table formatting from the original result was not included. Patient ID: Yvonne Melo is a 63 y.o. female. This patient has a(n) Melara cardiac resynchronization therapy defibrillator. They had a routine remote transmission on 02/12/2024 Device implant indications: ICM, LBBB, HFrEF Interrogation of the patient's device demonstrates the following: Presenting EGM: /BP Mode: DDD 60/130 bpm Device Settings Right Atrium Right Ventricle Left Ventricle Sensitivity Auto Auto Pacing output Auto 1.5 V @ 0.5 ms Auto 1.0 V @ 0.5 ms 2.5 V @ 0.5 ms Testing Measurements Right Atrium RA previous/trend Right Ventricle RV previous/trend Left Ventricle LV previous/trend Sensitivity 3.4 mV 2.6 mV >12.0 mV 11.8 mV Impedance 450 ohms 460 ohms 460 ohms 480 ohms 460 ohms 480 ohms HV lead impedance 66 ohms 65 ohms Pacing threshold 0.5 V @ 0.5 ms 0.5 V @ 0.5 ms 0.5 V @ 0.5 ms 0.75 V @ 0.5 ms Not measured 1.75 V @ 0.5 ms Pacing % 1.5% 14% 99% FRUIT OR NUT FARMER 98% FRUIT OR NUT FARMER Battery Status: 6.0 years to RICHARD. Charge time 9.0 seconds. Episodes since last cleared: None Comments: Programming appropriate for device measurements. Measured data stable. See attached report. Medications: Anticoagulant(s): n/a Antiarrhythmic(s): metoprolol succinate Plan: Remote device checks quarterly, as scheduled. In-office device check scheduled on 08/12/2024. Rosalinda Hassan RN us Hayden Langford MD [facility] Final Result * CT Lung Cancer Screening (12/12/2023 2:04 PM CDT) Anatomical Region Laterality Modality Chest N/A Computed Tomogra phy 12/15/2023 7:35 AM CDT Narrative 12/15/2023 7:44 AM CDT EXAM DESCRIPTION: CT LUNG CANCER SCREENING REASON FOR STUDY: Screening CT of the chest in a former smoker with a 196 pack year smoking history. Additional history: None. TECHNIQUE: Low dose CT scan of the chest was performed without intravenous contrast using helical scanning technique. The exam extends from the lung apices through the lung bases. Automatic exposure control was used as a dose optimization technique. NOTE: This study was performed for the specific purposes of lung cancer screening and is not an alternative to diagnostic chest CT. RADIATION DOSE: CT dose index volume (CTDIvol) = 3.99 mGy COMPARISON: 11/25/2022 FINDINGS: SMOKING RELATED LUNG DISEASE: There are mild emphysematous changes of lungs with scattered subsegmental atelectasis and scarring. There is no definite evidence of a pneumothorax. There is scattered mild bronchial wall thickening, which is likely related to mild chronic bronchitis/bronchiolitis. There is no definite evidence of a focal consolidation or pleural effusion. There are scattered calcified granulomas noted. LUNG NODULES: There are scattered pulmonary nodules noted, similar to the prior study. For example, there is a stable 0.4 cm pulmonary nodule in the medial right upper lobe (axial image 95). There is a stable subtle perivascular nodule in the anterior right upper lobe adjacent to a vessel measuring 0.4 cm (axial image 98). There is a stable 0.2 cm pulmonary nodule in the posterolateral left upper lobe (axial image 63). There is a stable elongated 0.4 cm pulmonary nodule in the posterior left upper lobe (axial image 109). CORONARY ARTERY CALCIFICATION: Present. OTHER: The heart size is upper limits of normal. There is grossly stable small to moderate pericardial effusion. There are atherosclerotic changes of the thoracic aorta and coronary vessels. 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 There is dilatation of main pulmonary artery measuring up to 4.6 cm, which is concerning for pulmonary arterial hypertension. Left-sided cardiac device is noted. There is no definite unenhanced CT evidence of mediastinal, hilar, or axillary lymphadenopathy. There are scattered subcentimeter mediastinal lymph nodes noted with largest measuring 0.6 cm in the subcarinal region (axial image 106). There is a small hiatal hernia. The bilateral adrenal glands are grossly stable and unremarkable. There is cholelithiasis. There is redemonstration of the large cystic lesion involving the pancreatic head measuring 6.0 cm, which is better evaluated on prior MRI dated 04/08/2021. There is mild osteopenia. There is mild dextroscoliotic curvature of the spine with degenerative changes. IMPRESSION: Redemonstration of scattered pulmonary nodules measuring up to 0.4 cm, grossly similar to the prior study. No definite evidence of a new suspicious pulmonary nodule. Mild emphysematous changes of lungs with scattered subsegmental atelectasis and scarring. Scattered mild bronchial wall thickening, which is likely related to mild chronic bronchitis/bronchiolitis. Redemonstration of the large cystic lesion involving the pancreatic head, which is better evaluated on prior MRI dated 04/08/2021. Cholelithiasis. Lung-RADS category 2: Benign appearance or behavior. Recommendation: Low dose Screening CT of chest in 12 months. THIS IS AN ELECTRONICALLY VERIFIED FINAL REPORT 12/15/2023 7:44 AM - Electronically signed by Liam Christianson D.O. PS T: Report ID: [id number] Reading Location: [id number] Procedure Note Liam Christianson, DO - 12/15/2023 EXAM DESCRIPTION: CT LUNG CANCER SCREENING REASON FOR STUDY: Screening CT of the chest in a former smoker with a196 pack year smoking history. Additional history: None. TECHNIQUE: Low dose CT scan of the chest was performed without intravenous contrast using helical scanning technique. The exam extends from the lung apices through the lung bases. Automatic exposure control was used as adose optimization technique. NOTE: This study was performed for the specific purposes of lung cancer screening and is not an alternative to diagnostic chest CT. RADIATION DOSE: CT dose index volume (CTDIvol) = 3.99 mGy COMPARISON: 11/25/2022 FINDINGS: SMOKING RELATED LUNG DISEASE: There are mild emphysematouschanges of lungs with scattered subsegmental atelectasis and scarring. There isno definite evidence of a pneumothorax. There is scattered mild bronchialwall thickening, which is likely related to mild chronicbronchitis/bronchiolitis. There is no definite evidence of a focal consolidation or pleuraleffusion. There are scattered calcified granulomas noted. LUNG NODULES: There are scattered pulmonary nodules noted, similar tothe prior study. For example, there is a stable 0.4 cm pulmonary nodule inthe medial right upper lobe (axial image 95). There is a stable subtle perivascular nodule in the anterior right upper lobe adjacent to a vessel measuring 0.4 cm (axial image 98). There is a stable 0.2 cm pulmonarynodule in the posterolateral left upper lobe (axial image 63). There is a stable elongated 0.4 cm pulmonary nodule in the posterior left upper lobe (axial image 109). CORONARY ARTERY CALCIFICATION: Present. OTHER: The heart size is upper limits of normal. There is grosslystable small to moderate pericardial effusion. There are atherosclerotic changesof the thoracic aorta and coronary vessels. There is focal aneurysmaldilatation of the aortic arch measuring up to 3.7 cm, similar to the prior study.There is dilatation of main pulmonary artery measuring up to 4.6 cm, which is concerning for pulmonary arterial hypertension. Left-sided cardiac deviceis noted. There is no definite unenhanced CT evidence of mediastinal, hilar, oraxillary lymphadenopathy. There are scattered subcentimeter mediastinal lymphnodes noted with largest measuring 0.6 cm in the subcarinal region (axial [id number]). There is a small hiatal hernia. The bilateral adrenal glands are grossly stable and unremarkable. There is cholelithiasis. There isredemonstration of the large cystic lesion involving the pancreatic head measuring 6.0 cm, which is better evaluated on prior MRI dated 04/08/2021. There is mild osteopenia. There is mild dextroscoliotic curvature of the spine with degenerative changes. IMPRESSION: Redemonstration of scattered pulmonary nodules measuring up to 0.4 cm, grossly similar to the prior study. No definite evidence of a newsuspicious pulmonary nodule. Mild emphysematous changes of lungs with scattered subsegmentalatelectasis and scarring. Scattered mild bronchial wall thickening, which is likely related to mild chronic bronchitis/bronchiolitis. Redemonstration of the large cystic lesion involving the pancreatic head, which is better evaluated on prior MRI dated 04/08/2021. Cholelithiasis. Lung-RADS category 2: Benign appearance or behavior. Recommendation: Low dose Screening CT of chest in 12 months. THIS IS AN ELECTRONICALLY VERIFIED FINAL REPORT 12/15/2023 7:44 AM - Electronically signed by Liam Christianson D.O. PS T: Report ID: [id number] Reading Location: [id number] Zuleika Zabala MD IMG CT PROCEDURES Final Res ult * (ABNORMAL) POCT hemoglobin A1c (08/13/2023 3:51 PM CDT) Hemoglobin A1C, POC 6.3 % Blood 08/13/2023 3:51 PM CDT Mariza Salgado POINT OF CARE TEST ORDER JOVANNY Final Result * (ABNORMAL) eGFR (08/10/2023 5:15 PM CDT) eGFR 46(L) >=60 mL/min/1. 73 m2 Comment: Interpretive Data Reference Interval Normal >/= 90 mL/min/1.73m2 Mildly decreased* 60 - 89 mL/min/1.73m2 Mildly to moderately decreased 45 - 59 mL/min/1.73m2 Moderately to severely decreased 30 - 44 mL/min/1.73m2 Severely decreased 15 - 29 mL/min/1.73m2 Kidney Failure < 15 mL/min/1.73m2 *Relative to young adult level Estimated glomerular filtration rate is determined by the 2020 CKD-EPI equation recommended by the National Kidney Foundation (A Unifying Approach to GFR Estimation: Recommendations of the NKF-ASK Task Force on Reassessing the Inclusion of Race in Diagnosing Kidney Disease, JASN 2020). The CKD-EPI equation should not be used for patients with unstable renal function and has not been validated in children and those over 70. Current interpretive data was last reviewed 2020. Testing performed by: [facility], [address] [place] [address]., [id number] Blood 08/10/2023 5:15 PM CDT 08/10/2023 5:26 PM CDT us Serjio Rangel MD LAB BLOOD ORDERABLES Final Resul t NRHSES DS [address] [facility] Department [place] [address] * Colonoscopy (08/03/2023 10:42 AM CDT) Anatomical Region Laterality Modality Other Narrative Procedure Note Antonio Bello MD - 08/03/2023 10:42 AM CDT [facility] GI ENDOSCOPY Patient Name: Yvonne Melo Procedure Date: 08/03/2023 10:42 AM Date of : 1960 Admit Type: Outpatient Age: 62 Gender: Female Attending MD: Antonio Bello M.D. Room: [facility] ENDOSCOPY ROOM 06 Note Status: Finalized Procedure: Colonoscopy Indications: High risk colon cancer surveillance: Personalhistory of colon cancer Referring MD: Providers: Antonio Bello M.D. Medicines: Monitored Anesthesia Care Complications: No immediate complications. Estimated Blood Loss: Estimated blood loss: none. Procedure: Pre-Anesthesia Assessment: - Prior to the procedure, a History and Physicalwas performed, and patient medications and allergieswere reviewed. The risks and benefits of the procedureand the sedation options and risks were discussed withthe patient. All questions were answered and informed consent was obtained. Patient identification and proposed procedure were verified. After reviewingthe risks and benefits, the patient was deemed in satisfactory condition to undergo the procedure.The anesthesia plan was to use monitored anesthesiacare (MAC). Immediately prior to administration of medications, the patient was re-assessed foradequacy to receive sedatives. The heart rate, respiratory rate, oxygen saturations, blood pressure, adequacyof pulmonary ventilation, and response to care were monitored throughout the procedure. The physical status of the patient was re-assessed after the procedure. The benefits, risks and alternatives of theprocedure and sedation were discussed and informed consentwas obtained. All questions were answered. Please referto the signed informed consent document in the medical record. The scope was passed under direct vision.The [id number] colonoscope was introduced through theanus and advanced to the cecum, identified byappendiceal orifice and ileocecal valve. The colonoscopy was performed without difficulty. The patient tolerated the procedure well. The quality of the bowel preparation was good. Scope withdrawal time wasover 7 minutes. Prep was administered in a split dose. Findings: The perianal and digital rectal examinations were normal. A diminutive polyp was found in the ascending colon. The polyp was removed with a cold biopsy forceps. Resection and retrieval were complete. Two polyps were found in the sigmoid colon. The polyps werediminutive in size. These polyps were removed with a cold biopsy forceps.Resection and retrieval were complete. There was evidence of a prior end-to-end colo-colonic anastomosis at20 cm proximal to the anus. This was patent and was characterized by healthy appearing mucosa. Non-bleeding internal hemorrhoids were found during retroflexion. The hemorrhoids were small. The exam was otherwise without abnormality. Impression: - One diminutive polyp in the ascending colon,removed with a cold biopsy forceps. Resected andretrieved. - Two diminutive polyps in the sigmoid colon,removed with a cold biopsy forceps. Resected andretrieved. - Patent end-to-end colo-colonic anastomosis, characterized by healthy appearing mucosa. - Non-bleeding internal hemorrhoids. - The examination was otherwise normal. Recommendation: - Patient has a contact number available for emergencies. The signs and symptoms of potential delayed complications were discussed with thepatient. Return to normal activities tomorrow. Written discharge instructions were provided to thepatient. - High fiber diet. - Continue present medications. - Await pathology results. - Repeat colonoscopy in 3 years for surveillance. Antonio Bello M.D. Antonio Bello M.D. 08/03/2023 11:13:36 AM . Number of Addenda: 0 Note Initiated On: 08/03/2023 10:42 AM Recognized by the [place] [employer] for promoting quality in endoscopy us Antonio Bello MD ENDOSCOPY PROCEDURES Final Resul t * SCREENING MAMMOGRAM BILATERAL W BENIGNO (04/11/2023 10:54 AM FIELD ATTENDANT) Anatomical Region Laterality Modality Breast Bilateral Mammography Impressions 04/22/2023 9:39 AM FIELD ATTENDANT BI-RADS ATLAS category (overall): 1 - Negative There is no mammographic evidence of malignancy. A 1 year screening mammogram is recommended. The patient has been or will be contacted. We recommend annual screening mammography for women at average risk of breast cancer beginning at age 40, based on guidelines of the [place] [employer] (ACR Practice Parameter for the Performance of Screening and Diagnostic Mammography) and [place] [employer]. For women with and elevated risk of breast cancer, please refer to the ACR Practice Parameter for specific screening recommendations. The patient will be entered into a reminder system with a target due date of 1 year for her next screening exam. Narrative 04/22/2023 9:39 AM FIELD ATTENDANT SCREENING MAMMOGRAM BILATERAL W BENIGNO: 04/11/23 The study was acquired using full field digital technology and interpreted from soft copy. 2D digital mammographic views, as well as 3D digital tomosynthesis were performed in the CC and MLO projections. CLINICAL: Encounter for screening mammogram for malignant neoplasm of breast (mammo order placed). Medical history includes ovarian cancer and colon cancer. History of breast cancer in Mother's Sister. COMPARISONS: 09/08/2018 Breast Imaging Screening Outside Reference 07/23/2017 Breast Imaging Screening Outside Reference 06/17/2016 Breast Imaging Screening Outside Reference BREAST TISSUE: The breasts have scattered areas of fibroglandular density. FINDINGS: A pacer generator is partially seen in the upper left breast at posterior depth on MLO view. There is no new suspicious finding in either breast on mammogram. us Mariza Salgado IMG MAMMO PROCEDURES Fin al Result * (ABNORMAL) Lipid panel (12/27/2021 12:20 PM FIELD ATTENDANT) Cholesterol 155 30 - 199 mg/dL RICH CHÁVEZ Comment: Interpretive Data Ages < or = 19 years Acceptable: <170 mg/dL Borderline high: 170-199 mg/dL High: >or= 200 mg/dL Ages > or = 20 years Desirable: <200 mg/dL Borderline high: 200-239 mg/dL High: >or= 240 mg/dL Literature References: 1. Expert Panel on Integrated Guidelines for Cardiovascular Health and Risk Reduction in Children and Adolescents. Pediatrics 2011;128:S213 2. NCEP Expert Panel. Circulation 2003;110:227 Current Interpretive Data was last revised on 2017. Triglycerides 173(H) <=149 mg/dL RICH Comment: Interpretive Data Ages < or = 9 years Acceptable: <75 mg/dL Borderline high: 75-99 mg/dL High: >or= 100 mg/dL Ages 10 to 20 years Acceptable: <90 mg/dL Borderline high: 90-129 mg/dL High: >or= 130 mg/dL Ages > or = 20 years Desirable: <150 mg/dL Borderline high: 150-199 mg/dL High: 200-499 mg/dL Very high: >or= 499 mg/dL Literature References: 1. Expert Panel on Integrated Guidelines for Cardiovascular Health and Risk Reduction in Children and Adolescents. Pediatrics 2011;128:S213 2. NCEP Expert Panel. Circulation 2003;110:227 Current Interpretive Data was last revised on 2017. HDL 56 >=40 mg/dL RICH Comment: Interpretive Data Ages < or = 19 years Acceptable: >45 mg/dL Borderline low: 40-45 mg/dL Low: <40 mg/dL Ages > or = 20 years Desirable: >or= 60 mg/dL Low: <40 mg/dL Literature References: 1. Expert Panel on Integrated Guidelines for Cardiovascular Health and Risk Reduction in Children and Adolescents. Pediatrics 2011;128:S213 2. NCEP Expert Panel. Circulation 2003;110:227 Current Interpretive Data was last revised on 2017. LDL, calculated 64 <=129 mg/dL RICH Comment: Interpretive Data Ages < or = 19 years Acceptable: <110 mg/dL Borderline high: 110-129 mg/dL High: >or= 130 mg/dL Ages > or = 20 years Optimal: <100 mg/dL Near optimal: 100-129 mg/dL Borderline high: 130-159 mg/dL High: >160 mg/dL Literature References: 1. Expert Panel on Integrated Guidelines for Cardiovascular Health and Risk Reduction in Children and Adolescents. Pediatrics 2011;128:S213 2. NCEP Expert Panel. Circulation 2004;110:227 Current Interpretive Data was last revised on 2017. Non-HDL Cholesterol 99 mg/dL RICH CHÁVEZ Comment: Interpretive Data Ages < or = 19 years Acceptable: <120 mg/dL Borderline high: 120-144 mg/dL High: >145 mg/dL Ages > or = 20 years When triglycerides are >200 mg/dL, Non-HDL cholesterol is a secondary target of therapy with treatment goals that are 30 mg/dL greater than the LDL cholesterol target. Literature References: 1. Expert Panel on Integrated Guidelines for Cardiovascular Health and Risk Reduction in Children and Adolescents. Pediatrics 2011;128:S213 2. NCEP Expert Panel. Circulation 2004;110:227 Current Interpretive Data was last revised on 2017. Chol/HDL ratio 3 RICH CHÁVEZ Blood 12/27/2021 12:2 0 PM FIELD ATTENDANT 12/27/2021 12:28 PM FIELD ATTENDANT Serjio Rangel MD LAB BLOOD ORDERABLES Final Resul t RICH [address] [facility] Department [place] [address] from Last 3 Months or Most Recently Relevant to Health Maintenance [facility] Advance Directives For more information, please contact: [phone] Documents on File Type Date Recorded Patient Mandolin Repairer Expl anation ADVANCE DIRECTIVE 04/28/2022 12:27 PM Abeba r of Parking Meter Collector-Medical ADVANCE DIRECTIVE 10/10/2021 10:40 AM * Full Code (Latest Code Status on File) Date Activated Date Inactivated Comments 04/16/2023 9:53 AM 04/24/2023 4:01 PM * Full Code Date Activated Date Inactivated Comments 04/16/2023 9:53 AM 04/16/2023 9:53 AM * Full Code Date Activated Date Inactivated Comments 04/24/2022 1:37 PM 04/25/2022 11:43 PM * Full Code Date Activated Date Inactivated Comments 04/24/2022 12:34 PM 04/24/2022 1:37 PM * Full Code Date Activated Date Inactivated Comments 10/07/2021 4:14 PM 10/09/2021 10:10 PM Care Teams Turbine Measurements Engineer Relationship Specialty Start Date End Date Mariza Johnson PA [address] [address] PCP - General Family Medicine 04/11/23 Louis Hawkins Jr., MD [address] [facility] [address] [address] Medical Oncologist/Hematologis t Medical Oncology 03/12/21 Serjio Rangel MD [address] [place] [address] [phone] Consulting Physician Cardiovascular Disease 10/09/21
--- OUTSIDE RECORDS SUMMARY | 2024-04-06 14:49 | XMS_ITS | Encounter Summary ---
Author Organization [facility] Healthcare Address [address] [place] [address] Care Team Providers Care Sales Representative Girls' Apparel Name Role Phone Ross Pope MD, Louis Unavailable [phone] Srejio Rangel MD Unavailable Mariza Johnson Primary Care Provider + Reason for Referral * Procedure (Routine) - Authorized Specialty Diagnoses / Procedures Referred By Contac t Referred To Contact Diagnoses Chronic obstructive pulmonary disease, unspecified COPD type (HCC) Obstructive sleep apnea Restrictive lung disease Cigarette nicotine dependence in remission BMI 45.0-49.9, adult (HCC) Procedures Pulmonary Function Test -[facility]; Full PFT in PFT Lab w/Stress Ox/6 Min Walk Test María [place] [address] [place] [address] Phone: tel: fax: Referral ID Status Reason Start Date Expiration Date V isits Requested Visits Authorized [id number] Authorized 04/05/2024 05/05/2025 1 1 K SERVICE TECHNICIAN Reason for Visit * Reason Comments Follow-up Encounter Details Date Type Department Care Team (Late st Contact Info) Description 04/05/2024 11:00 AM QUICK SERVICE TECHNICIAN Office Visit [facility] Pulmonology [address] [facility] [address] [phone] Edita María, LISETTE [address] [facility] [address] [place] [address] Chronic obstructive pulmonary disease, unspecified COPD type (HCC) (Primary Dx); Obstructive sleep apnea; Restrictive lung disease; Allergic rhinitis, unspecified seasonality, unspecified trigger; Restless legs; History of CVA (cerebrovascular accident); History of colon cancer; History of renal cell carcinoma; History of ovarian cancer; Cigarette nicotine dependence in remission; BMI 45.0-49.9, adult (HCC) Social History Tobacco Use Types Packs/Day Years [...] on file Legal Sex Female 5:21 AM QUICK SERVICE TECHNICIAN Gender Identity Female 09/02/2020 9:33 PM CDT Sexual Orientation Not on file documented as of this encounter Last Filed Vital Signs Vital Sign Reading Time Taken Comments Blood Pressure 127/72 04/05/2024 11:21 AM QUICK SERVICE TECHNICIAN Pulse 78 04/05/2024 11:21 AM QUICK SERVICE TECHNICIAN Temperature 35.6 C (96.1 F) 04/05/2024 11:21 AM QUICK SERVICE TECHNICIAN Respiratory Rate 18 04/05/2024 11:21 AM QUICK SERVICE TECHNICIAN Oxygen Saturation 96% 04/05/2024 11:21 AM QUICK SERVICE TECHNICIAN Inhaled Oxygen Concentration - - Weight 125.2 kg (276 lb) 04/05/2024 11:21 AM QUICK SERVICE TECHNICIAN Height 162.6 cm (5' 4 ) 04/05/2024 11:21 AM QUICK SERVICE TECHNICIAN Body Mass Index 47.38 04/05/2024 11:21 AM QUICK SERVICE TECHNICIAN documented in this encounter Ordered Prescriptions Prescription Sig Dispense Quantity Refills Last Filled Start Date End Date ipratropium-albute roL (DUO-NEB) 0.5-2.5 mg/3 mL nebulizer solutionIndication s:Chronic Obstructive Pulmonary Disease with Bronchospasms Take 3 mL by nebulization every 6 (six) hours 360 mL 3 04/05/2024 08/04/19 25 albuterol HFA (Ventolin HFA) 90 mcg/actuation inhaler Inhale 2 puffs every 6 (six) hours as needed for wheezing 1 each 3 04/05/2024 05/06/19 25 predniSONE (DELTASONE) 10 mg tablet Take 4 tabs (40mg) daily for 2 days, then 3 tabs (30mg) daily for 2 days, 2 tabs (20mg) daily for 2 days, 1 tab (10 mg) daily for 2 days. 20 tablet 04/05/2024 05/06/19 25 azithromycin (ZITHROMAX) 250 mg tablet Take 2 by mouth today then 1 daily for 4 days 6 tablet 04/05/2024 04/10/19 25 fluticasone-umecli din-vilanter (Trelegy Ellipta) 100-62.5-25 mcg inhaler Inhale 1 puff daily 30 each 3 04/05/2024 04/06/19 25 documented in this encounter Progress Notes * María Kohler NP - 04/05/2024 11:00 AM CST Patient ID: Yvonne Cottrell is a 63 y.o. female. Encounter Date: 04/05/2024 Chief Complaint Patient presents with Follow-up Health History & Data: Active sleep and pulmonary problem list: History of obstructive sleep apnea, use CPAP in the past but has quit about 2014, recent sleep study April/2021 showed technically limited study and no obstructive sleep apnea. Periodic limb movement of sleep/restless leg syndrome. COPD, FEV1 50%, FVC 61%, FEV1/FVC 65%, DLCO 46%, BD+(2021). Restrictive lung defect, TLC 69%. Fatigue. Exertional dyspnea. History of colon cancer and left renal cell carcinoma, status post partial colectomy and removal ofher left kidney. 45 pack-year history of smoking, quit smoking in 2020. Overweight, ERV 35%. Muscular deconditioning. History of CVA. Hypertension. V/Q scan in August of [address] scan of the chest in February of 2022 is mentioned below. 09/16 -has been using her inhalers, Requip, and has been having a lot of trouble with back pain and kneespain along with lower extremity pain. She is using walker to ambulate. 08/2021 Low probability for pulmonary embolism. 02/2022 1. Small to moderate-sized pericardial effusion. The volume of the effusion appears slightly largerthan on CT of the abdomen and pelvis performed in August 2020. 2. Minimal areas of subsegmental atelectasis in the lingula and lung bases. No pneumonia. 3. Other findings as described above. 12/08 No suspicious pulmonary nodule. Unchanged small penetrating atherosclerotic ulcer of the aortic arch. Yearly follow-up recommended if not otherwise imaged. A CT angiogram of the chest could be performed for better characterization. Lung-RADS category 2S: Benign appearance or behavior. Finding otherthan a pulmonary nodule which is potentially clinically significant. Recommendation: Low dose Screening CT of chest in 12 months. 11/2023 Redemonstration of scattered pulmonary nodules measuring up [...] Screening CT of chest in 12 months. Patient is here or follow-up. Patient reports for the last week she has been experiencing increasedshortness breath, cough with green sputum production, and pain in chest region with coughing. She reports she has been using Trelegy Ellipta, 1 puff daily on regular basis, albuterol HFA as needed, and DuoNeb via nebulizer as needed. She reports she has been using Singulair 10 mg at bedtime on regular basis. She reports using Requip 0.25 mg nightly on regular basis. Patient had sleep study completed in September 2023 that showed AHI 70.1 events per hour. Patient had CPAP titration study completed during sleep study showed patient required CPAP at 18 cm of water with residual AHI 4.3 events per hour. Patient reports she has obtained CPAP and has been using on nightly basis. She denies side effects of CPAP. She denies chest pain, bloating, or indigestion with CPAP use. Download is not available. TODAY'S VISIT HPI: Patient is here for follow-up. She reports experiencing cough with clear sputum production, intermittent wheezing, and nasal congestion/drainage. She denies experiencing shortness of breath. Patient reports symptoms began a few days ago. She lives at [facility]. She reports staff at [facility] give her Trelegy Ellipta intermittently. She reports using albuterol HFA andDuoNeb via nebulizer as needed. She reports taking Requip nightly. She reports taking Singulair 10 mg at bedtime. Patient reports using CPAP on infrequent basis. Patient reports strap on CPAP mask broke and that has why she was not been wearing it. Download is not available. ROS: Review of systems is unremarkable other than what is noted in history of present illness. Physical Exam: Physical exam is unremarkable except diminished breath sounds bilaterally. Diagnoses and all orders for this visit: Chronic obstructive pulmonary disease, unspecified COPD type ([facility]) (Primary) - Pulmonary Function Test -[facility]; Full PFT in PFT Lab w/Stress Ox/6 Min WalkTest; Future Obstructive sleep apnea - Pulmonary Function Test -[facility]; Full PFT in PFT Lab w/Stress Ox/6 Min WalkTest; Future Restrictive lung disease - Pulmonary Function Test -[facility]; Full PFT in PFT Lab w/Stress Ox/6 Min WalkTest; Future Allergic rhinitis, unspecified seasonality, unspecified trigger Restless legs History of CVA (cerebrovascular accident) History of colon cancer History of renal cell carcinoma History of ovarian cancer Cigarette nicotine dependence in remission - Pulmonary Function Test -[facility]; Full PFT in PFT Lab w/Stress Ox/6 Min WalkTest; Future BMI 45.0-49.9, adult ([facility]) - Pulmonary Function Test -[facility]; Full PFT in PFT Lab w/Stress Ox/6 Min WalkTest; Future Other orders - azithromycin (ZITHROMAX) 250 mg tablet; Take 2 by mouth today then 1 daily for 4 days - predniSONE (DELTASONE) 10 mg tablet; Take 4 tabs (40mg) daily for 2 days, then 3 tabs (30mg) daily for 2 days, 2 tabs (20mg) daily for 2 days, 1 tab (10 mg) daily for 2 days. - albuterol HFA (Ventolin HFA) 90 mcg/actuation inhaler; Inhale 2 puffs every 6 (six) hours as needed for wheezing - bhxfjcpgcwh-gwklfwwwf-ehhtxkoi (Trelegy Ellipta) 100-62.5-25 mcg inhaler; Inhale 1 puff daily - ipratropium-albuteroL (DUO-NEB) 0.5-2.5 mg/3 mL nebulizer solution; Take 3 mL by nebulization every 6 (six) hours Plan: COPD, moderate, stage III, patient in mild exacerbation, scripts for Zpak and prednisone taper sentto pharmacy. Advised patient to pickup medications from pharmacy and take as directed. Advised patient to call office if symptoms persist or for other questions/concerns. Proceed to ED for further evaluation if symptoms worsen or severe/highly concerning symptoms occur. Patient will begin use of Trelegy Ellipta, 1 puff daily on a regular basis. Patient reports she is going to ask staff at [facility] to leave Trelegy Ellipta inhaler in her room for her to use on her own every morning. Advised patient to rinse mouth out thoroughly after use. Patient will continue use of albuterol HFA and DuoNeb via nebulizer as needed. Refill prescriptions sent to patient's pharmacy. Will repeatPFTs. Obstructive sleep apnea, severe, patient will continue use of CPAP at 18 cm of water on regular basis. Will order new CPAP mask through DME. Will try to obtain download. Restrictive lung defect, secondary to body habitus and pulmonary scarring, contributing to patient's shortness of breath. Allergic rhinitis, patient will continue use of Singulair 10 mg at bedtime on a regular basis. Restless legs syndrome, patient will continue use of Requip 0.25 mg at bedtime. History of CVA and forgetfulness. History of colon cancer, status post surgery in 2020. History of renal cell carcinoma and ovarian cancer in , in remission. Forty-five pack-year history of smoking, quit in 2020. Low-dose CT chest completed in November of 2023 stable, patient to have repeat low-dose CT chest in November of 2024. Patient is up-to-date for COVID-19 vaccine. Patient will return back in 3 months. Patient was encouraged to call us with any inquiry, concern for question about their condition, lab work, x-rays or CT scans at any time, please see further details for assessment and plan in HPI. Rendering Provider: María Kohler NP THIS NOTE WAS CREATED IN PART WITH THE ASSISTANCE OF [employer] VOICE RECOGNITION SOFTWARE. MANAGER OF FINANCIAL PLANNING VARIANCES MAY OCCUR. For patients or family members viewing this note through [employer]-- this note was written as a communication tool between healthcare providers and may contain technical language, terminology and abbreviations that is difficult to interpret without advanced medical training. If you have questions or concerns regarding what is written in this note, please request to speak with the healthcare provider taking care of you or your family member. Cosigned by Zuleika Zabala MD at 04/05/2024 3:19 PM QUICK SERVICE TECHNICIAN K SERVICE TECHNICIAN K SERVICE TECHNICIAN documented in this encounter Plan of Treatment Scheduled Orders Name Type Priority Associated Diagnoses Orde r Schedule Pulmonary Function Test -[facility]; Full PFT in PFT Lab w/Stress Ox/6 Min Walk Test PFT Routine Chronic obstructive pulmonary disease, unspecified COPD type (HCC) Obstructive sleep apnea Restrictive lung disease Cigarette nicotine dependence in remission BMI 45.0-49.9, adult (HCC) Expected: 04/05/2024, Expires: 04/05/2025 documented as of this encounter Visit Diagnoses Diagnosis Chronic obstructive pulmonary disease, unspecified COPD type (HCC)- Primary Obstructive sleep apnea Obstructive sleep apnea (adult) (pediatric) Restrictive lung disease Other diseases of lung, not elsewhere classified Allergic rhinitis, unspecified seasonality, unspecified trigger Restless legs Restless legs syndrome (RLS) History of CVA (cerebrovascular accident) Transient ischemic attack (TIA), and cerebral infarction without residual deficits History of colon cancer Personal history of malignant neoplasm of large intestine History of renal cell carcinoma History of ovarian cancer Personal history of malignant neoplasm of ovary Cigarette nicotine dependence in remission BMI 45.0-49.9, adult (HCC) documented in this encounter Discontinued Medications Medication Sig Discontinue Reason Start Date End Da te xkipsqfewzo-idtswhmyu-o ilanter (Trelegy Ellipta) 100-62.5-25 mcg inhaler Inhale 1 puff daily Reorder 09/15/2023 04/05/2024 albuterol HFA (Ventolin HFA) 90 mcg/actuation inhaler Inhale 2 puffs every 6 (six) hours as needed for wheezing Reorder 09/15/2023 04/05/2024 ipratropium-albuteroL (DUO-NEB) 0.5-2.5 mg/3 mL nebulizer solutionIndications:Chr onic Obstructive Pulmonary Disease with Bronchospasms Take 3 mL by nebulization every 6 (six) hours Reorder 09/15/2023 04/05/2024 documented as of this encounter Care Teams Sales Representative Girls' [employer]arel Relationship Specialty Start Date End Date Mariza Johnson PA [address] [address] PCP - General Family Medicine 04/11/23 Louis Hawkins Jr., MD [address] [place] [phone] Medical Oncologist/Hematologis t Medical Oncology 03/12/21 Serjio Rangel MD [address] [place] [address] [phone] Consulting Physician Cardiovascular Disease 10/09/21 documented as of this encounter
--- OUTSIDE RECORDS SUMMARY | 2024-04-06 14:49 | XMS_ITS | Encounter Summary ---
Author Organization [facility] Health Address [address] [place] [address] Care Team Providers Care Inflatable Buildings Laminator Name Role Phone Dago Stockton MD Unavailable [phone] Rachel Manzanares APRN-BABY FORMULA WORKER Primary Care Provider + Encounter Details Date Type Department Care Team (Late st Contact Info) Description 12/31/2020 Plan of Care [facility] [address] [place] [address] Document, Scanned Social History Tobacco Use Types Packs/Day Years Used Date Smoking Tobacco: Former Cigarettes 0.3 40 0 04/09/1975 - 04/09/2015 Smokeless Tobacco: Never Alcohol Use Standard Drinks/Week Comments No 0 (1 standard drink = 0.6 oz pur e alcohol) Sex and Gender Information Value Date Recorded Sex Assigned at Not on file Gender Identity Not on file Sexual Orientation Not on file COVID-19 Exposure Response Date Recorded In the last month, have you been in contact with someone who was confirmed or suspected to have Coronavirus / COVID-19? No / Unsure 12/04/2020 11:58 AM CDT documented as of this encounter Functional Status [...] person have difficulty concentrating/remembering/making decisions? 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
--- OUTSIDE RECORDS SUMMARY | 2024-04-06 14:49 | XMS_ITS | Encounter Summary ---
Author Organization [facility] Address [address] [place] [address] Care Team Providers Care Lead Engineer Name Role Phone Cindy Newman [facility] Primary Care Provi fe Dago Stockton MD Unavailable [phone] Herb Bansal MD Primary Care Provider [phone] Rachel Manzanares RADIO OFFICER-CUSTOMER SUCCESS REPRESENTATIVE Primary Care Provider + Reason for Visit * Reason Onset Date Comments General 12/08/2018 Encounter Details Date Type Department Care Team (Late st Contact Info) Description 12/08/2018 Telephone [facility] [address] [place] [id number] Cindy Newman, RADIO OFFICER-CUSTOMER SUCCESS REPRESENTATIVE [address] [place] [address] General Social History Tobacco Use Types Packs/Day Years Used Date Smoking Tobacco: Every Day Cigarettes 0.5 40 Started: 04/09/1975; Last attempted to quit: [...] or have serious hearing difficult y? No 11/16/2017 Is person blind or have serious difficulty seein g? No 11/16/2017 Does person have serious dif ficulty walking/climbing stairs? No 11/16/2017 Does person have difficulty dressing/bathing? No 11/16/2017 Does person have difficulty doing errands alone? No 11/16/2017 Cognitive Status Response Date of Assessm ent Does person have difficulty concentrating/remembering/making decisions? No 11/16/2017 documented as of this encounter Miscellaneous Notes * Telephone Encounter - Faith Reaves LCSW - 12/08/2018 10:16 AM CDT SHERWIN [facility] pt and she is now living in [place] has same phone of [phone] documented in this encounter Plan of Treatment [...] documented as of this encounter Care Teams Lead Engineer Relationship Specialty Start Date End Date Cindy Newman APRN-CNP PCP - General 08/16/18 09/26/19 Herb Bansal MD [address] [place] [address] PCP - General Family Medicine 09/27/19 12/02/20 Rachel Manzanares APRN-CNP [address] [place] [address] PCP - General Nurse Practitioner Family 12/03/20 Dago Stockton MD General Surgery 08/25/18 documented as of this encounter
--- OUTSIDE RECORDS SUMMARY | 2024-04-06 14:49 | XMS_ITS | Referral Summary ---
Author Organization [facility] Address [address] [place] [address] Care Team Providers Care Gold Layer Name Role Phone Ross Pope MD, Louis Unavailable +- [phone] Serjio Rangel MD Unavailable Mariza Johnson Primary Care Provider + Encounters Date Type Department Care Team Description 04/06/2024 Orders Only [facility] Medical [facility] Pulmonology [address] [place] [address] [address] [place] [id number] María Kohler NP 04/05/2024 11:00 AM WELDING OPERATOR Office Visit [facility] Pulmonology [address] [place] [address] [address] [place] [id number] María Kohler NP Chronic obstructive pulmonary disease, unspecified COPD type (HCC) (Primary Dx); Obstructive sleep apnea; Restrictive lung disease; Allergic rhinitis, unspecified seasonality, unspecified trigger; Restless legs; History of CVA (cerebrovascular accident); History of colon cancer; History of renal cell carcinoma; History of ovarian cancer; Cigarette nicotine dependence in remission; BMI 45.0-49.9, adult (HCC) 03/04/2024 Telephone [facility] [address] [facility] [address] [place] [address] [place] [address] Antonio Ray 03/04/2024 Orders Only [facility] [address] [facility] [address] [place] [address] [place] [address] Edgardo Kee MD Pancreatic cyst (Primary Dx) 03/01/2024 Telephone [facility] [address] [facility] [address] [place] [address] [place] [address] Antonio Ray imaging due 02/23/2024 Telephone [facility] [address] [facility] [address] [place] [address] [place] [address] Antonio Ray imaging due 02/12/2024 7:15 AM WELDING OPERATOR Ancillary Procedure [facility] Medical Group Cardiology [address] [facility] [address] [place] [address] HFrEF (heart failure with reduced ejection fraction) (CMS/HCC) ([facility]); LBBB (left bundle branch block); Cardiac resynchronization therapy defibrillator (JUNIOR MARKETING ASSOCIATE-D) in place from Last 3 Months Allergies Active Allergy Reactions Criticality Noted Date [...] :Bipolar I disorder, single manic episode (CMS/HCC) ([facility]) Take 1 tablet (100 mg total) by mouth daily 30 tablet 5 12/18/19 22 Active dapagliflozin (FARXIGA) 10 mg tabletIndications :Chronic combined systolic and diastolic congestive heart failure (CMS/HCC) ([facility]) Take 1 tablet (10 mg total) by mouth daily 30 tablet 5 12/18/19 22 Active sacubitriL-valsar bello (ENTRESTO) 24-26 mg tabletIndications :chronic heart failure Take 1 tablet by mouth 2 (two) times a day 60 tablet 5 12/18/19 22 Active nitroglycerin (NITROSTAT) 0.4 mg SL tabletIndications :Coronary artery disease involving assiniboine and sioux coronary artery of assiniboine and sioux heart with angina pectoris ([facility]) Place 1 tablet (0.4 mg total) under the tongue every 5 (five) minutes as needed for chest pain 90 tablet 12/18/19 22 Active atorvastatin (LIPITOR) 80 mg tabletIndications :Coronary artery disease involving assiniboine and sioux coronary artery of assiniboine and sioux heart with angina pectoris (HCC),Essential hypertension,Warehouse Shipper erick combined systolic and diastolic congestive heart failure (CMS/HCC) ([facility]),LBBB (left bundle branch block) Take 1 tablet (80 mg total) by mouth nightly 90 tablet 1 12/28/19 22 Active walker miscIndications:D ebility,Chronic combined systolic and diastolic congestive heart failure (CMS/HCC) ([facility]),COX (dyspnea on exertion),Morbid obesity with BMI of 40.0-44.9, adult ([facility]) 1 Device continuously rollator 1 each 04/25/19 23 Active spironolactone (ALDACTONE) 25 mg tablet Take 1 tablet (25 mg total) by mouth daily 30 tablet 11 04/27/19 23 Active FLUoxetine (PROzac) 60 mg tabletIndications :Bipolar I disorder, single manic episode (CMS/HCC) ([facility]) Take 1 tablet (60 mg total) by [...] 24 hr tabletIndications :Coronary artery disease involving assiniboine and sioux coronary artery of assiniboine and sioux heart with angina pectoris (HCC) Take 1 tablet by mouth once daily 30 tablet 4 06/18/19 23 Active clopidogreL (PLAVIX) 75 mg tabletIndications :Coronary artery disease involving assiniboine and sioux coronary artery of assiniboine and sioux heart with angina pectoris (HCC) Take 1 [...] inhaler Inhale 1 puff daily 60 each 04/06/19 25 Active fluticasone-umecl idin-vilanter (Trelegy Ellipta) 100-62.5-25 mcg inhaler Inhale 1 puff daily 30 each 3 09/15/19 24 025 Discontin ued(Reord er) albuterol HFA (Ventolin HFA) 90 mcg/actuation inhaler Inhale 2 puffs every 6 (six) hours as needed for wheezing 1 each 09/15/19 24 025 Discontin ued(Reord er) ipratropium-albut Duncan (DUO-NEB) 0.5-2.5 mg/3 mL nebulizer solutionIndicatio ns:Chronic Obstructive Pulmonary Disease with Bronchospasms Take 3 mL by nebulization every 6 (six) hours 360 mL 3 09/15/19 24 025 Discontin ued(Reord er) fluticasone-umecl idin-vilanter (Trelegy Ellipta) 100-62.5-25 mcg inhaler Inhale 1 puff daily 30 each 04/05/19 25 025 Discontin ued(Reord er) Active Problems Problem Noted Date Diagnosed Date Allergic rhinitis 12/31/2023 Obstructive sleep apnea 12/31/2023 Type 2 diabetes mellitus wit hout complication, without long-term current use of insulin ([facility]) 06/01/2023 Overview (06/01/2023): pt's POA given a [...] Presence of cardiac resynchr onization therapy defibrillator (JUNIOR MARKETING ASSOCIATE-D) 04/02/2022 Pericardial effusion 01/23/2022 Irritable bowel syndrome with diarrhea BMI 45.0-49.9, adult 10/14/2021 Mucopurulent chronic bronchitis 10/14/2021 Restrictive lung disease 10/14/2021 Adenocarcinoma of sigmoid colon ([facility]) 2021 Overview (08/13/2021): Added automatically from request for surgery [id number] ACS (acute coronary syndrome) ([facility]) 07/25/19 Osteoarthritis of both knees 06/05/2021 Stress incontinence of urine 05/29/2021 Assessment & Plan (05/29/2021 12:44 PM CDT): Encouraged using pads as needed. Offered detrol/myrbetriq but they decline at this time. Cigarette nicotine dependence in remission 05/21 Restless legs 05/21/2021 LBBB (left bundle branch block) 04/18/2021 Hypersomnia 04/18/2021 Snoring 03/27/2021 Assessment & Plan (03/27/2021 12:45 PM WELDING OPERATOR): Discussed repeat sleep study - she wants to address other medical problems first Intractable migraine with status migrainosus 10/2021 Assessment & Plan (03/27/2021 12:46 PM WELDING OPERATOR): Will refer to neurology for further evaluation and treatment Pancreatic mass 12/09/2020 Assessment & Plan (03/05/2021 3:31 PM WELDING OPERATOR): Will evaluate further with mri pancreas Chronic combined systolic an d diastolic congestive heart failure ([facility]) 09/03/2020 History of CVA (cerebrovascular accident) 2020 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 09/03/2020 Assessment & Plan (05/29/2021 12:40 PM CDT): Continue meds same at this time, refill as needed Assessment & Plan (03/05/2021 3:33 PM WELDING OPERATOR): Resume previous medications - med list reviewed in detail with Axel Sleep disorder 06/18/2020 Assessment & Plan (03/05/2021 3:30 PM WELDING OPERATOR): History of - will refer for sleep eval Age-related nuclear cataract, right eye 06/19/19 Assessment & Plan (03/27/2021 12:47 PM WELDING OPERATOR): Advised ophtho appt Blindness left eye category 5, normal vision rig ht eye 06/18/2020 Assessment & Plan (03/27/2021 12:47 PM WELDING OPERATOR): Advised ophtho appt 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 06/18/2020 Gastro-esophageal reflux disease without esophag itis 06/18/2020 Assessment & Plan (07/10/2021 5:00 PM CDT): - Continue PPI daily (30 minutes before meals) Assessment & Plan (05/29/2021 12:40 PM CDT): Continue meds same at this time, refill as needed Assessment & Plan (03/27/2021 12:46 PM WELDING OPERATOR): Add carafate Advised avoiding acidic foods Refer to gi Assessment & Plan (03/05/2021 3:32 PM WELDING OPERATOR): Resume pepcid and protonix HFrEF (heart failure with re duced ejection fraction) (CMS/HCC) 06/18/2020 Major depressive disorder, recurrent, moderate 0 [...] soon Assessment & Plan (03/05/2021 3:32 PM WELDING OPERATOR): Reported history of - will retrieve records for review Malignant neoplasm of unspec ified kidney, except renal pelvis 06/18/2020 Assessment & Plan (03/05/2021 3:32 PM WELDING OPERATOR): Reported history of - will retrieve records for review Malignant neoplasm of unspecified ovary 06/19/19 21 Assessment & Plan (03/05/2021 3:31 PM WELDING OPERATOR): Reported history of - will retrieve records for review Moderate persistent asthma, uncomplicated 2020 Takotsubo syndrome 06/18/2020 Chronic obstructive pulmonary disease 06/14/2020 History of MRSA infection 11/08/2017 Dyslipidemia 12/18/2014 S/P coronary artery stent placement 12/18/2014 History of malignant neoplasm of endometrium Assessment & Plan (03/05/2021 3:30 PM WELDING OPERATOR): Reported history of - will retrieve records for review Bipolar I disorder, single manic episode (CMS/HC C) 04/05/2008 Overview (03/05/2021): Assessment & Plan (03/05/2021 3:33 PM WELDING OPERATOR): Will refer to psychiatry for further evaluation [...] expect her to return. We additionally discussed residential living plans. They report she is too young for assisted living. We discussed due to her medical conditions that NH care would be warranted, but neither of them desire that at the current time and want to continue with the current situation. Yvonne additionally notes that Adult Services is involved in her care. Assessment & Plan (03/27/2021 12:47 PM WELDING OPERATOR): Increase prozac She has psychiatry referral pending that she will keep She and huyen make pact to report to er if having s/h ideations Assessment & Plan (03/05/2021 3:33 PM WELDING OPERATOR): Will refer to psychiatry for further evaluation and treatment. She makes pact to report to er if having s/h ideations. Will fill meds x 30d while she makes appt with psychiatrist. Primary hypertension 10/19/2007 Overview (03/05/2021): Assessment & Plan (05/29/2021 12:40 PM CDT): Continue meds same at this time, refill as needed Assessment & Plan (03/05/2021 3:34 PM WELDING OPERATOR): Resume previous medications - med list reviewed in detail with Axel. Will discontinue metalozone at this time as she will be taking lasix. Cardiomyopathy, ischemic Resolved Problems Problem Noted Date Diagnosed Date Resolved Date Angina at rest 10/15/2021 12/17/2021 Altered mental status 10/07/20212021 Facial paresthesia 10/07/2021 2 Diarrhea 07/25/2021 12/17/2021 Chest tightness 07/24/2021 12/17/2021 [...] (07/10/2021): Added automatically from request for surgery [id number] Assessment & Plan (07/10/2021 5:06 PM CDT): [...] 12/17/2021 Assessment & Plan (03/27/2021 12:45 PM WELDING OPERATOR): Will order dexa for osteoporosis screening Anemia 03/27/2021 12/17/2021 Assessment & Plan (03/27/2021 12:47 PM WELDING OPERATOR): Advised further evaluation with labs ordered today Will refer to gi for further evaluation and treatment Sleep disturbance 03/27/2021 12/17/2021 Assessment & Plan (03/27/2021 12:45 PM WELDING OPERATOR): Discussed repeat sleep study - she wants to address other medical problems first Morbid (severe) obesity due to excess calories 03/05/2021 12/17/2021 Assessment & Plan (03/05/2021 3:31 PM WELDING OPERATOR): Discussed the patient's BMI. The BMI is above average. BMI management plan is completed. BMI Follow-up includes: nutrition counseling, exercise counseling and education provided. Schizoaffective disorder (CMS/[facility]) 09/07/2020 12/17/2021 Acute encephalopathy 09/03/2020 022 Generalized weakness 09/03/2020 022 Chronic respiratory failure 09/03/2020 12/17/2021 Obesity 09/03/2020 12/17/2021 Nicotine use disorder 09/03/20202021 Seizure disorder ([facility]) 09/03/2020 1 02/16/2021 Epilepsy, unspecified, not i ntractable, without status epilepticus 06/18/2020 12/17/2021 Hyperlipidemia, unspecified 06/18/2020 12/17/2021 Assessment & Plan (05/29/2021 12:40 PM CDT): Continue meds same at this time, refill as needed Assessment & Plan (03/05/2021 3:32 PM WELDING OPERATOR): Fasting labs entered, will notify patient of results as available History of COPD 06/13/2020 12/17/2021 Assessment & Plan (03/27/2021 12:46 PM WELDING OPERATOR): Change symbicort to advair. Advised rinsing mouth out after using. Assessment & Plan (03/05/2021 3:32 PM WELDING OPERATOR): Continue with symbicort bid and prn proventil Acute psychosis 11/09/2017 12/17/2021 Hallucination 11/08/2017 12/17/2021 Hypokalemia 11/08/2017 12/17/2021 Acute renal failure (ARF) 04/09/2015 Coronary artery disease 12/18/201402/2021 Diastolic dysfunction 12/18/20142021 Palpitations 12/18/2014 12/17/2021 Poor compliance with medication 06/28/2012 12/17/2021 Reflux esophagitis 05/30/2008 Overview (03/05/2021): EGD done on 12/22/2013 [place], Diffuse gastritis. H/O partial nephrectomy 10/19/2007/0 02/2021 Neoplasm of unspecified natu re of endocrine [...] consider HRM. Odynophagia 12/17/2021 Chest pain 12/17/2021 Immunizations Immunization Administration Dates Next Due Influenza, Quadrivalent, Spl it, Preservative Free, Intramuscular 12/12/2020,11/10/2017,11/17/2015,12/25 Influenza, Trivalent, Preser vative Free, Intramuscular 12/28/2013,12/02/2012 Influenza, Unspecified 11/16/2022(Deferr ed: Patient decision),11/16/2021,06/13/2020 Mar (J&J) SARS-CoV-2 Vaccination 07/13/2020 Tdap 06/12/2021 Tetanus toxoid, adsorbed 11/27/2011 Social History Tobacco Use Types Packs/Day [...] on file Legal Sex Female 5:21 AM WELDING OPERATOR Gender Identity Female 09/02/2020 9:33 PM CDT Sexual Orientation Not on file Last Filed Vital Signs Vital Sign Reading Time Taken Comments Blood Pressure 127/72 04/05/2024 11:21 AM WELDING OPERATOR Pulse 78 04/05/2024 11:21 AM WELDING OPERATOR Temperature 35.6 C (96.1 F) 04/05/2024 11:21 AM WELDING OPERATOR Respiratory Rate 18 04/05/2024 11:21 AM WELDING OPERATOR Oxygen Saturation 96% 04/05/2024 11:21 AM WELDING OPERATOR Inhaled Oxygen Concentration - - Weight 125.2 kg (276 lb) 04/05/2024 11:21 AM WELDING OPERATOR Height 162.6 cm (5' 4 ) 04/05/2024 11:21 AM WELDING OPERATOR Body Mass Index 47.38 04/05/2024 11:21 AM WELDING OPERATOR Plan of Treatment Not on file Medical Devices Implanted Type Area Baler Device Identifier Shelf Expiration Date Model / Serial / Lot [employer] Tendril Sts 6fr 52cm Is-1 Connector Active Fixation Bipolar Soft 2087tc/52 - [id number] - [id number] Implanted:Qty: 1 on 04/24/2022 by Hayden Langford MD at [facility] Lead Left: Subclavian [employer] [id number] 02/15/20258TC/5 2 / [id number] / [employer] Durata 6.8fr 58cm 1 Coil True Bipolar Active Fixation Extendable 7122q/58 - [id number] - [id number] Implanted:Qty: 1 on 04/24/2022 by Hayden Langford MD at [facility] Lead Left: Subclavian [employer] [id number] 01/15/2025 7122Q/58 / [id number] / [employer] Quartet 4.7fr 86cm Quadripolar Is-4 Llll Connector 8 Curve Low 1456q/86 - [id number] - [id number] Implanted:Qty: 1 on 04/24/2022 by Hayden Langford MD at [facility] Left: Subclavian [employer] [id number] 10/16/2024 1456Q/86 / [id number] / Angio-Seal Vip 6fr Closere Device [id number] - [id number] Implanted:Qty: 1 on 07/24/2021 by Harpreet Stahl MD at [facility] 03/18/2022 [id number] / / [id number] [employer] Inc Resolute Thanh 3.5mm 2.1-2.7fr 15mm 140cm Rapid Exchange [id number] - [id number] Implanted:Qty: 1 on 10/08/2021 by Hipolito Cota MD at [facility] [employer] 04/23/2024 [id number] / / [id number] [facility] Angio-Seal Vip 6fr Closere Device [id number] - [id number] Implanted:Qty: 1 on 10/08/2021 by Hipolito Cota MD at [facility] 05/16/2022 [id number] / / [id number] [employer] Cardiac [id number] [id number] [place] H[employer] Df4 Is-4 Is-1 Cnctr [id number] - [id number] - [id number] Implanted:Qty: 1 on 04/24/2022 by Hayden Langford MD at [facility] Left: Subclavian [employer] [id number] 03/18/2024 [id number] / [id number] / Procedures Procedure Name Priority Date/Time Associated Diagnosis Comments DEVICE CHECK - REMOTE Routine 02/12/2024 9:35 AM WELDING OPERATOR HFrEF (heart failure with reduced ejection fraction) (CMS/HCC) (HCC) LBBB (left bundle branch block) Cardiac resynchronization therapy defibrillator (JUNIOR MARKETING ASSOCIATE-D) in place CT LUNG CANCER SCREENING Schedule [...] (HCC) Primary hypertension Coronary artery disease of assiniboine and sioux artery of assiniboine and sioux heart with stable angina pectoris (HCC) COLONOSCOPY 08/03/2023 10:42 AM CDT SCREENING MAMMOGRAM BILATERAL W BENIGNO Schedule Routine, Read Routine (OP Routine) 04/11/2023 10:54 AM WELDING OPERATOR Encounter for screening mammogram for malignant neoplasm of breast LIPID PANEL Routine 12/27/2021 12:20 PM WELDING OPERATOR Coronary artery disease involving assiniboine and sioux coronary artery of assiniboine and sioux heart with angina pectoris (CMS/HCC) (HCC) Essential hypertension Chronic combined systolic and diastolic congestive heart failure (CMS/HCC) (HCC) LBBB (left bundle branch block) from Last 3 Months or Most Recently Relevant to Health Maintenance Results * DEVICE CHECK - REMOTE (02/12/2024 9:35 AM WELDING OPERATOR) Anatomical Region Laterality Modality Other Narrative 03/15/2024 10:30 AM WELDING OPERATOR Table formatting from the original result was [...] 0.5 ms Pacing % 1.5% 14% 99% JUNIOR MARKETING ASSOCIATE 98% JUNIOR MARKETING ASSOCIATE Battery Status: 6.0 years to RICHARD. Charge time 9.0 seconds. Episodes since last cleared: None Comments: Programming appropriate for device measurements. Measured data stable. See attached report. Medications: Anticoagulant(s): n/a Antiarrhythmic(s): metoprolol succinate Plan: Remote device checks quarterly, as scheduled. In-office device check scheduled on 08/12/2024. Rosalinda Hassan RN us Hayden Langford MD [facility] Final Result * CT Lung Cancer Screening [...] Liam Christianson D.O. PS T: Report ID: [id number] Reading Location: [id number] Procedure Note Liam Christianson, DO - 12/15/2023 [...] 0.6 cm in the subcarinal region (axial [id number]). There is a small hiatal hernia. The [...] Liam Christianson D.O. PS T: Report ID: [id number] Reading Location: [id number] Zuleika Zabala MD IM CT PROCEDURES Final Res ult * (ABNORMAL) POCT hemoglobin A1c (08/13/2023 3:51 PM CDT) Hemoglobin A1C, POC 6.3 % Blood 08/13/2023 3:51 PM CDT us Mariza Salgado POINT OF CARE TEST ORDER [...] was last reviewed 2020. Testing performed by: [facility], [address] [place] [address]., [id number] Blood 08/10/2023 5:15 PM CDT 08/10/2023 5:26 PM CDT us Serjio Rangel MD LAB BLOOD ORDERABLES Final [facility]ul t [facility] [address] [facility] [place] [address] * Colonoscopy (08/03/2023 10:42 AM CDT) Anatomical Region Laterality Modality Other Narrative Procedure Note Antonio Bello MD - 08/03/2023 10:42 AM CDT [facility] GI ENDOSCOPY Patient Name: Yvonne Melo Procedure Date: 08/03/2023 10:42 AM Date of : 1960 Admit Type: Outpatient Age: 62 Gender: Female Attending MD: Antonio Bello M.D. Room: [facility] ENDOSCOPY ROOM 06 Note Status: Finalized Procedure: [...] The scope was passed under direct vision.The [id number]-[id number] colonoscope was introduced through theanus and advanced [...] Repeat colonoscopy in 3 years for surveillance. Atnonio Bello M.D. Antonio Bello M.D. 08/03/2023 11:13:36 AM . Number of Addenda: 0 Note Initiated On: 08/03/2023 10:42 AM Recognized by the [employer] for promoting quality in endoscopy Antonio Bello MD ENDOSCOPY PROCEDURES Final Resul t * SCREENING MAMMOGRAM BILATERAL W BENIGNO (04/11/2023 10:54 AM WELDING OPERATOR) Anatomical Region Laterality Modality Breast Bilateral Mammography Impressions 04/22/2023 9:39 AM WELDING OPERATOR BI-RADS ATLAS category (overall): 1 - Negative There is no mammographic evidence of malignancy. A 1 year screening mammogram is recommended. The patient has been or will be contacted. We recommend annual screening mammography for women at average risk of breast cancer beginning at age 40, based on guidelines of the [employer] (ACR Practice Parameter for the Performance of Screening and Diagnostic Mammography) and [employer]. For women with and elevated risk of breast cancer, please refer to the ACR Practice Parameter for specific screening recommendations. The patient will be entered into a reminder system with a target due date of 1 year for her next screening exam. Narrative 04/22/2023 9:39 AM WELDING OPERATOR SCREENING MAMMOGRAM BILATERAL W BENIGNO: 04/11/23 The [...] suspicious finding in either breast on mammogram. Mariza Salgado IMG MAMMO PROCEDURES Fin al Result * (ABNORMAL) Lipid panel (12/27/2021 12:20 PM WELDING OPERATOR) Cholesterol 155 30 - 199 mg/dL RICH [...] RICH CHÁVEZ Blood 12/27/2021 12:2 0 PM WELDING OPERATOR 12/27/2021 12:28 PM WELDING OPERATOR Serjio Rangel MD LAB BLOOD ORDERABLES Final Resul t RICH [address] [facility] [place] [address] from Last 3 Months or Most Recently Relevant to Health Maintenance [facility] AETNA BETTER [facility] Advance Directives For more information, please contact: [phone] Documents on File Type Date Recorded Patient Commercial Plumber Expl anation ADVANCE DIRECTIVE 04/28/2022 12:27 PM Abeba r of Sorting And Folding Supervisor-Medical ADVANCE DIRECTIVE 10/10/2021 10:40 AM * Full [...] 4:14 PM 10/09/2021 10:10 PM Care Teams Gold Layer Relationship Specialty Start Date End Date Mariza Johnson PA [address] [address] PCP - General Family Medicine 04/11/23 Louis Hawkins Jr., MD [address] [place] [address] [phone] Medical Oncologist/Hematologis t Medical Oncology 03/12/21 Serjio Rangel MD [address] [place] [address] [phone] Consulting Physician Cardiovascular Disease 10/09/21
--- OUTSIDE RECORDS SUMMARY | 2024-04-06 14:49 | XMS_ITS ---
Author Organization [facility] Address [address] [place] [address] Care Team Providers Care Gas Distribution Supervisor Name Role Phone Ross Pope MD, Louis Unavailable [phone]- [phone] Serjio Rangel MD Unavailable Mariza Johnson Primary Care Provider + Active Problems Problem Noted Date Diagnosed Date Allergic rhinitis 12/31/2023 Obstructive sleep apnea 12/31/2023 Type 2 diabetes mellitus wit hout complication, without long-term current use of insulin ([facility]) 06/01/2023 Overview (06/01/2023): pt's POA given a [...] Presence of cardiac resynchr onization therapy defibrillator (WELDING MACHINE OPERATOR/TENDER-D) 04/02/2022 Pericardial effusion 01/23/2022 Irritable bowel syndrome with diarrhea BMI 45.0-49.9, adult 10/14/2021 Mucopurulent chronic bronchitis 10/14/2021 Restrictive lung disease 10/14/2021 Adenocarcinoma of sigmoid colon ([facility]) 2021 Overview (08/13/2021): Added automatically from request for surgery [id number] ACS (acute coronary syndrome) ([facility]) 07/25/19 Osteoarthritis of both knees 06/05/2021 Stress incontinence of urine 05/29/2021 Assessment & Plan (05/29/2021 12:44 PM CDT): Encouraged using pads as needed. Offered detrol/myrbetriq but they decline at this time. Cigarette nicotine dependence in remission 05/21 Restless legs 05/21/2021 LBBB (left bundle branch block) 04/18/2021 Hypersomnia 04/18/2021 Snoring 03/27/2021 Assessment & Plan (03/27/2021 12:45 PM SECURITY COMPLIANCE ENGINEER): Discussed repeat sleep study - she wants to address other medical problems first Intractable migraine with status migrainosus 10/2021 Assessment & Plan (03/27/2021 12:46 PM SECURITY COMPLIANCE ENGINEER): Will refer to neurology for further evaluation and treatment Pancreatic mass 12/09/2020 Assessment & Plan (03/05/2021 3:31 PM SECURITY COMPLIANCE ENGINEER): Will evaluate further with mri pancreas Chronic combined systolic an d diastolic congestive heart failure ([facility]) 09/03/2020 History of CVA (cerebrovascular accident) 2020 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 09/03/2020 Assessment & Plan (05/29/2021 12:40 PM CDT): Continue meds same at this time, refill as needed Assessment & Plan (03/05/2021 3:33 PM SECURITY COMPLIANCE ENGINEER): Resume previous medications - med list reviewed in detail with Axel Sleep disorder 06/18/2020 Assessment & Plan (03/05/2021 3:30 PM SECURITY COMPLIANCE ENGINEER): History of - will refer for sleep eval Age-related nuclear cataract, right eye 06/19/19 21 Assessment & Plan (03/27/2021 12:47 PM SECURITY COMPLIANCE ENGINEER): Advised ophtho appt Blindness left eye category 5, normal vision rig ht eye 06/18/2020 Assessment & Plan (03/27/2021 12:47 PM SECURITY COMPLIANCE ENGINEER): Advised ophtho appt 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 06/18/2020 Gastro-esophageal reflux disease without esophag itis 06/18/2020 Assessment & Plan (07/10/2021 5:00 PM CDT): - Continue PPI daily (30 minutes before meals) Assessment & Plan (05/29/2021 12:40 PM CDT): Continue meds same at this time, refill as needed Assessment & Plan (03/27/2021 12:46 PM SECURITY COMPLIANCE ENGINEER): Add carafate Advised avoiding acidic foods Refer to gi Assessment & Plan (03/05/2021 3:32 PM SECURITY COMPLIANCE ENGINEER): Resume pepcid and protonix HFrEF (heart failure with re duced ejection fraction) ([facility]) 06/18/2020 Major depressive disorder, recurrent, moderate 0 [...] soon Assessment & Plan (03/05/2021 3:32 PM SECURITY COMPLIANCE ENGINEER): Reported history of - will retrieve records for review Malignant neoplasm of unspec ified kidney, except renal pelvis 06/18/2020 Assessment & Plan (03/05/2021 3:32 PM SECURITY COMPLIANCE ENGINEER): Reported history of - will retrieve records for review Malignant neoplasm of unspecified ovary 06/19/19 Assessment & Plan (03/05/2021 3:31 PM SECURITY COMPLIANCE ENGINEER): Reported history of - will retrieve records for review Moderate persistent asthma, uncomplicated 2020 Takotsubo syndrome 06/18/2020 Chronic obstructive pulmonary disease 06/14/2020 History of MRSA infection 11/08/2017 Dyslipidemia 12/18/2014 S/P coronary artery stent placement 12/18/2014 History of malignant neoplasm of endometrium Assessment & Plan (03/05/2021 3:30 PM SECURITY COMPLIANCE ENGINEER): Reported history of - will retrieve records for review Bipolar I disorder, single manic episode (CMS/HC C) 04/05/2008 Overview (03/05/2021): Assessment & Plan (03/05/2021 3:33 PM SECURITY COMPLIANCE ENGINEER): Will refer to psychiatry for further evaluation [...] expect her to return. We additionally discussed [facility]. They report she is too young for assisted living. We discussed due to her medical conditions that NH care would be warranted, but neither of them desire that at the current time and want to continue with the current situation. Yvonne additionally notes that Adult Services is involved in her care. Assessment & Plan (03/27/2021 12:47 PM SECURITY COMPLIANCE ENGINEER): Increase prozac She has psychiatry referral pending that she will keep She and huyen make pact to report to er if having s/h ideations Assessment & Plan (03/05/2021 3:33 PM SECURITY COMPLIANCE ENGINEER): Will refer to psychiatry for further evaluation and treatment. She makes pact to report to er if having s/h ideations. Will fill meds x 30d while she makes appt with psychiatrist. Primary hypertension 10/19/2007 Overview (03/05/2021): Assessment & Plan (05/29/2021 12:40 PM CDT): Continue meds same at this time, refill as needed Assessment & Plan (03/05/2021 3:34 PM SECURITY COMPLIANCE ENGINEER): Resume previous medications - med list reviewed in detail with Yvonne and Huyen. Will discontinue metalozone at this time as she will be taking lasix. Cardiomyopathy, ischemic Current Treatment and Therapy Plans No current plan information found. Past Treatment and Therapy Plans No past plan information found. Lifetime Dose Tracking * Chemical Lifetime Dose Automatic Entry Manual Entr y Fluoro Time 1.2 minutes 1.2 minutes 0 minutes Air kerma at the reference point (Ka,r) 2,268.2 mGy 2 1.2 mGy 2,247 mGy DLP 3,494.2 mGycm 3,494.2 mGycm 0 mGycm CTDIvol 6.97 mGy 6.97 mGy 0 mGy Resolved Problems Problem Noted Date Diagnosed Date [...] (07/10/2021): Added automatically from request for surgery [id number] Assessment & Plan (07/10/2021 5:06 PM CDT): [...] 12/17/2021 Assessment & Plan (03/27/2021 12:45 PM SECURITY COMPLIANCE ENGINEER): Will order dexa for osteoporosis screening Anemia 03/27/2021 12/17/2021 Assessment & Plan (03/27/2021 12:47 PM SECURITY COMPLIANCE ENGINEER): Advised further evaluation with labs ordered today Will refer to gi for further evaluation and treatment Sleep disturbance 03/27/2021 12/17/2021 Assessment & Plan (03/27/2021 12:45 PM SECURITY COMPLIANCE ENGINEER): Discussed repeat sleep study - she wants to address other medical problems first Morbid (severe) obesity due to excess calories 03/05/2021 12/17/2021 Assessment & Plan (03/05/2021 3:31 PM SECURITY COMPLIANCE ENGINEER): Discussed the patient's BMI. The BMI is above average. BMI management plan is completed. BMI Follow-up includes: nutrition counseling, exercise counseling and education provided. Schizoaffective disorder ([facility]) 09/07/2020 12/17/2021 Acute encephalopathy 09/03/2020 022 Generalized weakness 09/03/2020 022 Chronic respiratory failure 09/03/2020 12/17/2021 Obesity 09/03/2020 12/17/2021 Nicotine use disorder 09/03/20202021 Seizure disorder ([facility]) 09/03/2020 1 02/16/2021 Epilepsy, unspecified, not i ntractable, without status epilepticus 06/18/2020 12/17/2021 Hyperlipidemia, unspecified 06/18/2020 12/17/2021 Assessment & Plan (05/29/2021 12:40 PM CDT): Continue meds same at this time, refill as needed Assessment & Plan (03/05/2021 3:32 PM SECURITY COMPLIANCE ENGINEER): Fasting labs entered, will notify patient of results as available History of COPD 06/13/2020 12/17/2021 Assessment & Plan (03/27/2021 12:46 PM SECURITY COMPLIANCE ENGINEER): Change symbicort to advair. Advised rinsing mouth out after using. Assessment & Plan (03/05/2021 3:32 PM SECURITY COMPLIANCE ENGINEER): Continue with symbicort bid and prn proventil Acute psychosis 11/09/2017 12/17/2021 Hallucination 11/08/2017 12/17/2021 Hypokalemia 11/08/2017 12/17/2021 Acute renal failure (ARF) 04/09/2015 Coronary artery disease 12/18/2014 11/0 02/2021 Diastolic dysfunction 12/18/20142021 Palpitations 12/18/2014 12/17/2021 Poor compliance with medication 06/28/2012 12/17/2021 Reflux esophagitis 05/30/2008 Overview (03/05/2021): EGD done on 12/22/2013 Claffey, Diffuse gastritis. H/O partial nephrectomy 10/19/200702/2021 Neoplasm [...]
--- OUTSIDE RECORDS SUMMARY | 2024-04-06 14:49 | XMS_ITS | Encounter Summary ---
Author Organization [facility] Address [address] [place] [address] Phone Care Team Providers Care Manager Ccu Name Role Phone Ross Pope MD, Louis Unavailable [phone]- [phone] Serjio Rangel MD Unavailable Mariza Johnson Primary Care Provider + Encounter Details Date Type Department Care Team (Late st Contact Info) Description 03/04/2024 Telephone [facility] Gastroenterology [address] 12[address] [place] [address] [place] [address] Antonio Ray Social History Tobacco Use Types Packs/Day Years Used Date Smoking Tobacco: Former Cigarettes 1.5 45 0 09/1975 - 09/2020 Smokeless Tobacco: Never AUDIT-C Answer Date [...] on file 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 Gender Identity Female 09/02/2020 9:33 PM CDT Sexual Orientation Not on file documented as of this encounter Plan of Treatment Not on file documented as of this encounter Visit Diagnoses Not on filedocumented in this encounter Care Teams Manager Ccu Relationship Specialty Start Date End Date Mariza Johnson PA [address] [facility] [address] [place] [address] PCP - General Family Medicine 04/11/23 Louis Hawkins Jr., MD [address] [facility] [address] [address] Medical Oncologist/Hematologis t Medical Oncology 03/12/21 Serjio Rangel MD [address] [facility] [address] [address] Consulting Physician Cardiovascular Disease 10/09/21 documented as of this encounter
--- NOTE | 2024-04-06 15:51 | ED_ITS ---
HPI - Fall General Chief Complaint: Fall Stated Complaint: fall Time Seen by Provider: 04/06/24 15:51 Focused HPI: This is a 63 year old female that presents to the ER after a fall. Reports she got up to get her walker and everything turned black. She does not believe she hit her head. Reports neck pain, lower back pain, bilateral shoulder pain, bilateral knee pain, bilateral hip pain. Reports she takes Plavix and Aspirin daily. GENERAL: Well-appearing, well-nourished, and in no acute distress. HEAD: Normocephalic, atraumatic. CHEST: Clear to auscultation. ?No respiratory distress. HEART: Regular rate and rhythm.? NEURO: ?Alert and oriented x3. Patient screened in triage and initial orders placed.? ?Additional care and disposition to be based upon?diagnostic testing and treatment. Related Data Home Medications ?Medication ?Instructions ?Recorded ?Confirmed ?Last Taken ?Type albuterol sulfate 90 mcg/actuation 90 mcg inhalation Q6H PRN 08/06/21 01/04/23 08/02/21 16:26 History aerosol inhaler Respiratory Distress aspirin 81 mg capsule 81 mg PO DAILY 08/06/21 01/04/23 08/06/21 09:51 History atorvastatin 80 mg tablet 80 mg PO HS 08/06/21 01/04/23 08/06/21 09:48 History isosorbide mononitrate 30 mg 30 mg PO DAILY 08/06/21 01/04/23 08/06/21 09:48 History tablet,extended release 24 hr lamotrigine 100 mg tablet 100 mg PO DAILY 08/06/21 01/04/23 08/06/21 09:50 History montelukast 10 mg tablet 10 mg PO HS 08/06/21 01/04/23 08/06/21 09:50 History ropinirole 0.25 mg tablet 0.25 mg PO HS 08/06/21 01/04/23 08/05/21 21:53 History acetaminophen 650 mg tablet 650 mg PO Q4H PRN Pain 11/13/22 01/04/23 Unknown History allopurinol 100 mg tablet 100 mg PO DAILY 11/13/22 01/04/23 Unknown History aripiprazole 10 mg tablet 10 mg PO HS 11/13/22 01/04/23 Unknown History clopidogrel 75 mg tablet 75 mg PO DAILY 11/13/22 01/04/23 Unknown History dapagliflozin propanediol 10 mg 10 mg PO DAILY 11/13/22 01/04/23 Unknown History tablet (Farxiga) famotidine 40 mg tablet 40 mg PO DAILY 11/13/22 01/04/23 Unknown History fluoxetine 60 mg tablet 60 mg PO DAILY 11/13/22 01/04/23 Unknown History lidocaine 4 % topical patch 1 patch topical DAILY 11/13/22 01/04/23 Unknown History metoprolol succinate 100 mg 100 mg PO DAILY 11/13/22 01/04/23 Unknown History tablet,extended release 24 hr sacubitril 24 mg-valsartan 26 mg 1 tablet PO Q12H 11/13/22 01/04/23 Unknown History tablet (Entresto) spironolactone 25 mg tablet 25 mg PO DAILY 11/13/22 01/04/23 Unknown History umeclidinium 62.5 mcg-vilanterol 1 inh inhalation DAILY 11/13/22 01/04/23 Unknown History 25 mcg/actuation powdr for inhalation (Anoro Ellipta) Allergies Allergy/AdvReac Type Severity Reaction Status Date / Time Iodinated Contrast Media Allergy Palpitation Verified 01/04/23 17:37 s latex Allergy Rash Verified 01/04/23 17:37 Penicillins Allergy Hives Verified 01/04/23 17:37 morphine AdvReac Nausea and Verified 01/04/23 17:37 Vomiting Lobster Allergy Swelling Uncoded 11/13/22 02:47 of Lip/Tongue/Throat PMFSH Past Medical History Medical History Chronic HFrEF (heart failure with reduced ejection fraction) Coronary artery disease GERD (gastroesophageal reflux disease) Hypertension Myocardial infarction Schizophrenia Surgical History Surgical History H/O cardiac catheterization History of coronary artery stent placement Social History Social History Smoking status: Former smoker Tobacco type: cigarettes Alcohol intake: never Substance use: never Substance use type: does not use Lack of Transportation: No Lack of Food: Never True Current Housing: I Have Housing Concerned About Future Housing: No Difficulty Paying Gas/Electric Bills: No Difficulty Paying for Meds: No Currently Unemployed: No Education: Grade School Difficulty w/ Childcare or Family Care: No Spiritual care concerns: No Course Vital Signs Vital signs: Vital Signs Temperature 97.4 F L 04/06/24 14:46 Pulse Rate 71 04/06/24 14:46 Respiratory Rate 16 04/06/24 14:46 Blood Pressure 154/51 H 04/06/24 14:46 Pulse Oximetry 98 04/06/24 14:46 Temperature 97.4 F L 04/06/24 14:46 Pulse Rate 71 04/06/24 14:46 Respiratory Rate 16 04/06/24 14:46 Blood Pressure 154/51 H 04/06/24 14:46 Pulse Oximetry 98 04/06/24 14:46 Discharge Plan Discharge Patient Language: Swedish Prescriptions: No Action lidocaine 4 % Adhesive Patch,Medicated 1 patch TOPICAL DAILY Rx Instructions: apply to affected area of pain famotidine 40 mg tablet 40 mg PO DAILY metoprolol succinate 100 mg tablet extended release 24 hr 100 mg PO DAILY clopidogrel 75 mg tablet 75 mg PO DAILY allopurinol 100 mg tablet 100 mg PO DAILY acetaminophen 650 mg Tablet 650 mg PO Q4H PRN (Reason: Pain) spironolactone 25 mg tablet 25 mg PO DAILY aripiprazole 10 mg tablet 10 mg PO HS fluoxetine 60 mg tablet 60 mg PO DAILY Anoro Ellipta 62.5-25 mcg/actuation blister with device 1 inh INHALATION DAILY Farxiga 10 mg tablet 10 mg PO DAILY Entresto 24-26 mg tablet 1 tablet PO Q12H nitroglycerin [Nitrostat] 0.4 mg Tablet, Sublingual 0.4 mg sublingual Q5MIN PRN (Reason: Chest Pain) Qty: 0 0RF Rx Instructions: do not exceed 3 doses per episode hydrocodone-acetaminophen 5-325 mg tablet 1 tablet PO Q6H PRN (Reason: severe pain (scale score 7-10)) Qty: 20 0RF furosemide [Lasix] 20 mg tablet 20 mg PO DAILY Qty: 30 0RF atorvastatin 80 mg tablet 80 mg PO HS albuterol sulfate 90 mcg/actuation HFA aerosol inhaler 90 mcg inhalation Q6H PRN (Reason: Respiratory Distress) aspirin 81 mg Capsule 81 mg PO DAILY isosorbide mononitrate 30 mg tablet extended release 24 hr 30 mg PO DAILY ropinirole 0.25 mg tablet 0.25 mg PO HS montelukast 10 mg tablet 10 mg PO HS lamotrigine 100 mg tablet 100 mg PO DAILY trazodone 50 mg Tablet 50 mg PO HS Qty: 30 0RF Rx Instructions: Hold for sedation Follow-up/Referrals: UNKNOWN,DOCTOR [Primary Care Provider] -
--- NOTE | 2024-04-06 15:53 | ECG_ITS ---
Test Date: 2024-04-06 18:03:12 Measurements Intervals [place] Rate: 72 P: 66 DC: 166 QRS: -50 QRSD: 150 T: -37 QT: 463 QTc: 508 Interpretive Statements ATRIAL SENSE- ELECTRONIC VENTRICULAR PACEMAKER NO FURTHER INTERPRETATION IS POSSIBLE ATYPICAL ECG Compared to ECG 11/27/2023 23:55:50 NO SIGNIFICANT CHANGE Electronically Signed On 04-06-2024 18:55:14 CARDING MACHINE FEEDER by Sukhdev Murlilo D.O.
--- NOTE | 2024-04-06 18:00 | ED.FALL ---
HPI - Fall General Chief Complaint: Fall Stated Complaint: fall Time Seen by Provider: 04/06/24 15:51 Source: patient and EMS Mode of arrival: EMS Limitations: no limitations History of Present Illness HPI Narrative: 63 YEARS OLD WHITE FEMALE CAME TO THE ED BY AMBULANCE COMPLAINING OF A FALL. PATIENT GOT UP FROM SITTING POSITION, WALKED FOR FEW STEPS AND THEN FELL. SHE DENIES ANY DIZZINESS, LIGHTHEADEDNESS, CHEST PAIN, SHORTNESS OF BREATH, HEADACHE OR FOCAL NEURO DEFICIT. AFTER THE FALL PATIENT COMPLAINING OF LOWER BACK PAIN, NECK PAIN AND PELVIC PAIN. SHE DENIES ANY FEVER, CHILLS, NAUSEA, VOMITING. Related Data Home Medications ?Medication ?Instructions ?Recorded ?Confirmed ?Last Taken ?Type albuterol sulfate 90 mcg/actuation 90 mcg inhalation Q6H PRN 08/06/21 01/04/23 08/02/21 16:26 History aerosol inhaler Respiratory Distress aspirin 81 mg capsule 81 mg PO DAILY 08/06/21 01/04/23 08/06/21 09:51 History atorvastatin 80 mg tablet 80 mg PO HS 08/06/21 01/04/23 08/06/21 09:48 History isosorbide mononitrate 30 mg 30 mg PO DAILY 08/06/21 01/04/23 08/06/21 09:48 History tablet,extended release 24 hr lamotrigine 100 mg tablet 100 mg PO DAILY 08/06/21 01/04/23 08/06/21 09:50 History montelukast 10 mg tablet 10 mg PO HS 08/06/21 01/04/23 08/06/21 09:50 History ropinirole 0.25 mg tablet 0.25 mg PO HS 08/06/21 01/04/23 08/05/21 21:53 History acetaminophen 650 mg tablet 650 mg PO Q4H PRN Pain 11/13/22 01/04/23 Unknown History allopurinol 100 mg tablet 100 mg PO DAILY 11/13/22 01/04/23 Unknown History aripiprazole 10 mg tablet 10 mg PO HS 11/13/22 01/04/23 Unknown History clopidogrel 75 mg tablet 75 mg PO DAILY 11/13/22 01/04/23 Unknown History dapagliflozin propanediol 10 mg 10 mg PO DAILY 11/13/22 01/04/23 Unknown History tablet (Farxiga) famotidine 40 mg tablet 40 mg PO DAILY 11/13/22 01/04/23 Unknown History fluoxetine 60 mg tablet 60 mg PO DAILY 11/13/22 01/04/23 Unknown History lidocaine 4 % topical patch 1 patch topical DAILY 11/13/22 01/04/23 Unknown History metoprolol succinate 100 mg 100 mg PO DAILY 11/13/22 01/04/23 Unknown History tablet,extended release 24 hr sacubitril 24 mg-valsartan 26 mg 1 tablet PO Q12H 11/13/22 01/04/23 Unknown History tablet (Entresto) spironolactone 25 mg tablet 25 mg PO DAILY 11/13/22 01/04/23 Unknown History umeclidinium 62.5 mcg-vilanterol 1 inh inhalation DAILY 11/13/22 01/04/23 Unknown History 25 mcg/actuation powdr for inhalation (Anoro Ellipta) Allergies Allergy/AdvReac Type Severity Reaction Status Date / Time Iodinated Contrast Media Allergy Palpitation Verified 01/04/23 17:37 s latex Allergy Rash Verified 01/04/23 17:37 Penicillins Allergy Hives Verified 01/04/23 17:37 morphine AdvReac Nausea and Verified 01/04/23 17:37 Vomiting Lobster Allergy Swelling Uncoded 11/13/22 02:47 of Lip/Tongue/Throat Review of Systems Review of Systems: All systems reviewed & are unremarkable except as noted in HPI and below PMFSH Past Medical History Medical History GERD (gastroesophageal reflux disease) Chronic HFrEF (heart failure with reduced ejection fraction) Coronary artery disease Schizophrenia Myocardial infarction Hypertension Surgical History Surgical History History of coronary artery stent placement H/O cardiac catheterization Social History Social History Smoking status: Former smoker Tobacco type: cigarettes Alcohol intake: never Substance use: never Substance use type: does not use Lack of Transportation: No Lack of Food: Never True Current Housing: I Have Housing Concerned About Future Housing: No Difficulty Paying Gas/Electric Bills: No Difficulty Paying for Meds: No Currently Unemployed: No Education: Grade School Difficulty w/ Childcare or Family Care: No Spiritual care concerns: No Exam Narrative: GENERAL APPEARANCE: WELL-DEVELOPED, WELL-NOURISHED SKIN: NORMAL COLOR HEAD: NORMOCEPHALIC, NONTRAUMATIC EYES: CLEAR CONJUNCTIVA ENT: OROPHARYNX NORMAL, EARS NORMAL, NOSE NORMAL NECK: SUPPLE, SLIGHT DIFFUSE TENDERNESS CHEST AND RESPIRATORY: AIRWAY PATENT, NO RESPIRATORY DISTRESS, NO ACCESSORY MUSCLE USE HEART: REGULAR RATE/RHYTHM ABDOMEN: SOFT, NONTENDER, NO ORGANOMEGALY, QUIET BOWEL SOUNDS VASCULAR: NORMAL PERIPHERAL PULSES, NORMAL CAPILLARY REFILL. MUSCULOSKELETAL: LOWER BACK TENDERNESS, SLIGHT LIMITED RANGE OF MOTION AT THE LUMBAR AREA NEUROLOGIC: ALERT AND ORIENTED ?3, SHEET PILE HAMMER OPERATOR IS NORMAL TESTED, NO GROSS MOTOR DEFICIT Course Vital Signs Vital signs: Vital Signs Temperature 36.3 C L 04/06/24 14:46 Pulse Rate 71 04/06/24 14:46 Respiratory Rate 16 04/06/24 14:46 Blood Pressure 154/51 H 04/06/24 14:46 Pulse Oximetry 98 04/06/24 14:46 Temperature 36.3 C L 04/06/24 14:46 Pulse Rate 82 04/06/24 18:47 Respiratory Rate 18 04/06/24 18:44 Blood Pressure 177/85 H 04/06/24 18:47 Pulse Oximetry 97 04/06/24 18:44 MDM - Fall MDM Narrative Medical decision making narrative: DIFFERENTIAL DIAGNOSIS, ORTHOSTATIC HYPOTENSION, LOSS OF BALANCE, PHYSICALLY IN ACTIVE CT LUMBAR SPINE, SHOWED 6.5 CM CYSTIC MASS IN THE HEAD OF THE PANCREAS, INCREASED FROM 5.7 ON 2022. PATIENT IS TELLING ME THAT SHE IS AWARE OF THE PANCREATIC CYST AND SHE IS TELLING ME NOBODY WANTED DO ANYTHING ABOUT IT. CT CERVICAL SPINE, CT HEAD WITHOUT CONTRAST SHOWED NO ACUTE ABNORMALITIES X-RAY OF THE HIP/PELVIS SHOWED NO ACUTE ABNORMALITIES. CHEST X-RAY SHOWED NO ACUTE ABNORMALITIES. Differential Diagnosis Differential diagnosis: Likely other ( ABOVE) Lab Data 04/06/24 18:19 04/06/24 18:19 Labs: Lab Results 04/06/24 Range/Units 18:19 WBC 6.7 (4.5-10.0) K/mm3 RBC 3.84 L (4.2-5.4) M/mm3 Hgb 11.8 L (12.0-15.0) g/dL Hct 36.5 L (37.0-47.0) % MCV 95.1 (80-100) fl MCH 30.7 (26-34) pg MCHC 32.3 (32-36) g/dl RDW 15.2 H (11.5-14.5) % Plt Count 156 D (150-375) k/mm3 MPV 10.4 (7.4-10.4) fl Immature Gran % (Auto) 0.4 (0-0.5) % Neut % (Auto) 64.3 (45.5-73.1) % Lymph % (Auto) 24.4 (18.3-44.2) % [place] % (Auto) 7.9 (2.6-8.5) % Eos % (Auto) 2.4 (0-4.4) % Baso % (Auto) 0.6 (0.2-1.2) % Lymph # (Auto) 1.63 (0.9-3.2) K/mm3 [place] # (Auto) 0.5 (0.1-0.6) K/mm3 Eos # (Auto) 0.2 (0-0.3) K/mm3 Baso # (Auto) 0.0 (0.0-0.1) K/mm3 Abs Immat Gran (auto) 0.03 (0.00-0.031) K/mm3 Absolute Neuts (auto) 4.3 (1.3-6.7) K/mm3 Absolute Nucleated RBC 0.000 (0.0-0.012) K/mm3 Nucleated RBC % 0.0 (0.0-0.2) % Sodium 139 (137-145) mmol/L Potassium 4.4 (3.4-5.0) mmol/L Chloride 101 (98-107) mmol/L Carbon Dioxide 26 (22-30) mmol/L Anion Gap 12 (4-12) mmol/L BUN 23 H (7-17) mg/dL Creatinine 0.90 (0.7-1.0) mg/dL Estim Creat Clear Calc 68 ml/min Estimated GFR > 60 (59 - ) Glucose 128 H (65-110) mg/dL Calcium 10.5 H (8.4-10.2) mg/dL Total Bilirubin 0.4 (0.2-1.3) mg/dL AST 26 (14-36) U/L ALT 25 (6-35) U/L Alkaline Phosphatase 87 (38-126) U/L Troponin I < 0.012 (0.000-0.034) ng/mL Total Protein 7.0 (6.3-8.2) g/dL Albumin 4.2 (3.5-5.1) g/dL Imaging Data Radiologist's impression: Impressions Chest X-Ray 04/06/24 16:47 IMPRESSION: 1: NO ACUTE CARDIOPULMONARY DISEASE. Hip/Pelvis X-Ray 04/06/24 16:51 IMPRESSION: 1. Mild osteoarthritis of the hips. Head CT 04/06/24 16:59 IMPRESSION: 1. Stable extensive nonspecific cerebral white matter disease, which likely represents chronic small vessel ischemic disease. Cervical Spine CT 04/06/24 17:01 IMPRESSION: 1. No fracture. 2. Severe cervical spondylosis. Lumbar Spine CT 04/06/24 17:04 IMPRESSION: 1. Moderate lumbar spondylosis. 2. 6.5 cm cystic mass in the head of the pancreas, increased from 5.7 cm on 11/13/2022. The differential diagnosis is headed by serous cystadenoma, but also includes includes pseudocyst, intraductal papillary mucinous neoplasm (IPMN), mucinous cystic neoplasm (MCN), and neuroendocrine tumor. Abdomen MRI without and with contrast and surgical consultation are recommended. Critical Care Time Critical Care Time Critical Care Time: No Discharge Plan Discharge Clinical Impression: Fall, Contusion, Pancreatic cyst Patient Disposition: NH Retirement/Asst Living Condition: Stable Instructions: Contusion in Adults (ED), Fall Prevention (ED) Additional Instructions: RETURN IF SYMPTOMS ARE WORSENING , CALL YOUR FAMILY PHYSICIAN FOR APPOINTMENT, TAKE TYLENOL NEEDED FOR ACHES AND PAIN, CONTINUE HOME MEDICATIONS. CT SCAN OF THE ABDOMEN TODAY SHOWED THAT YOUR PANCREATIC CYST GOT BIGGER NOW IS 6.5 COMPARED TO 5.2022, MRI WITH AND WITHOUT CONTRAST IS RECOMMENDED WITHIN 1-2 WEEKS. PLEASE CONTACT YOUR FAMILY PHYSICIAN FOR FURTHER EVALUATION. Patient Language: Serbian Prescriptions: No Action lidocaine 4 % Adhesive Patch,Medicated 1 patch TOPICAL DAILY Rx Instructions: apply to affected area of pain famotidine 40 mg tablet 40 mg PO DAILY metoprolol succinate 100 mg tablet extended release 24 hr 100 mg PO DAILY clopidogrel 75 mg tablet 75 mg PO DAILY allopurinol 100 mg tablet 100 mg PO DAILY acetaminophen 650 mg Tablet 650 mg PO Q4H PRN (Reason: Pain) spironolactone 25 mg tablet 25 mg PO DAILY aripiprazole 10 mg tablet 10 mg PO HS fluoxetine 60 mg tablet 60 mg PO DAILY Anoro Ellipta 62.5-25 mcg/actuation blister with device 1 inh INHALATION DAILY Farxiga 10 mg tablet 10 mg PO DAILY Entresto 24-26 mg tablet 1 tablet PO Q12H nitroglycerin [Nitrostat] 0.4 mg Tablet, Sublingual 0.4 mg sublingual Q5MIN PRN (Reason: Chest Pain) Qty: 0 0RF Rx Instructions: do not exceed 3 doses per episode hydrocodone-acetaminophen 5-325 mg tablet 1 tablet PO Q6H PRN (Reason: severe pain (scale score 7-10)) Qty: 20 0RF furosemide [Lasix] 20 mg tablet 20 mg PO DAILY Qty: 30 0RF atorvastatin 80 mg tablet 80 mg PO HS albuterol sulfate 90 mcg/actuation HFA aerosol inhaler 90 mcg inhalation Q6H PRN (Reason: Respiratory Distress) aspirin 81 mg Capsule 81 mg PO DAILY isosorbide mononitrate 30 mg tablet extended release 24 hr 30 mg PO DAILY ropinirole 0.25 mg tablet 0.25 mg PO HS montelukast 10 mg tablet 10 mg PO HS lamotrigine 100 mg tablet 100 mg PO DAILY trazodone 50 mg Tablet 50 mg PO HS Qty: 30 0RF Rx Instructions: Hold for sedation Follow-up/Referrals: UNKNOWN,DOCTOR [Primary Care Provider] -
--- OUTSIDE RECORDS SUMMARY | 2024-04-06 18:19 | XMS_ITS | Clinical Summary ---
Author Organization [facility] [employer] Address [address] [place] [address] Care Team Providers Care Biometric Technician Name Role Phone Dago Stockton MD Unavailable [phone] Rachel Manzanares APRN-US MARKETING DIRECTOR Primary Care Provider + Source Comments [facility] [employer],non-owned Affiliates and Associated Physician Practices is amultiple site organization consisting of ambulatory clinics and hospital sitesin [place], [place], [place] and [place]. This disclosure is being madepursuant to the Care Everywhere program and may not contain all information available regarding this patient. Last updated 17.[facility] [employer] Allergies Active Allergy Reactions Criticality Noted Date [...] fluticasone propionate (FLONASE) 50 MCG/ACT nasal spray [place] 2 (two) sprays into each nostril once [...] Patient taking differently:100 mg Oral DAILY,Hold per [facility] ER 12/03/20, Informant: Other, Reported on [...] dysfunction 12/18/2014 Coronary artery disease invo lving [place] coronary artery without angina pectoris 12/18/2014 S/P [...] this topic Medical Devices Implanted Type Area Environmental Resource Specialist Device Identifier Shelf Expiration Date Model / Serial / Lot Patch Srg 13.7x10.8in Vntrl Slf Xpd - [id number] Implanted:Qty: 1 on 05/06/2016 by Marino Hicks MD at [facility] Abdomen [employer] 08/13/2017 [id number] / [id number] Procedures Procedure Name Priority Date/Time Associated Diagnosis Comments COMPREHENSIVE METABOLIC PANEL AM Draw 12/12/2020 8:10 AM CDT MAMMO BILAT SCREENING Routine 09/08/2018 11:34 AM CDT Screening mammogram, encounter for from Last 3 Months or Most Recently Relevant to Health Maintenance Results * (ABNORMAL) COMPREHENSIVE METABOLIC PANEL (12/12/2020 8:10 AM CDT) Sodium 136(L) 137 - 145 mmol/L 12/12/2020 9:24 AM CDT [facility] ([facility]) Potassium 3.8 3.6 - 5.0 mmol/L 12/12/2020 9:24 AM T [facility] ([facility]) Chloride 92(L) 98 - 107 mmol/L 12/12/2020 9:24 AM T [facility] ([facility]) Carbon Dioxide 38(H) 21 - 31 mmol/L 12/12/2020 9:24 AM T [facility] ([facility]) Glucose 194(H) 65 - 100 mg/dL 12/12/2020 9:24 AM [facility] ([facility]) BUN 32(H) 7 - 17 mg/dL 12/12/2020 9:24 AM [facility] ([facility]) Creatinine 1.10(H) 0.50 - 1.04 mg/dL 12/12/2020 9:24 AM T [facility] ([facility]) eGFR 50(L) >=60 ml/min/1.7 3*2 12/12/2020 9:24 AM [facility] ([facility]) Comment: Chronic kidney disease is defined [...] 6.0 - 26.0 12/12/2020 9:24 AM CDT [facility] ([facility]) Calcium 10.1 8.4 - 10.7 mg/dL 12/12/2020 9:24 AM CDT [facility] ([facility]) Protein Total 7.0 6.3 - 8.2 g/dL 12/12/2020 9:24 AM CDT [facility] ([facility]) Albumin 4.5 3.9 - 5.0 g/dL 12/12/2020 9:24 AM CDT [facility] ([facility]) Albumin/Globulin Ratio 1.8 1.1 - 2.2 g/dL 12/12/2020 9:24 AM CDT [facility] ([facility]) Bilirubin Total 0.8 0.2 - 1.3 mg/dL 12/12/2020 9:24 AM CDT [facility] ([facility]) Alkaline Phosphatase 48 38 - 126 U/L 12/12/2020 9:24 AM CDT [facility] ([facility]) AST 31 8 - 39 U/L 12/12/2020 9:24 AM CDT [facility] ([facility]) ALT 24 9 - 52 U/L 12/12/2020 9:24 AM CDT [facility] ([facility]) Blood BLOOD SPECIMEN / Unknown Lab Venipuncture / Unknown 12/12/2020 8:10 AM CDT 12/12/2020 8:34 AM CDT Parmjit Smith PROCESSING TALC AND BORATE SUPERVISOR-US MARKETING DIRECTOR LAB - CHEMISTRY ORDERABLES [facility] ([facility]) [address] [place] [address] * SOLITARIO SCREENING BILATERAL DIGITAL [id number] (09/08/2018 11:34 AM CDT) Anatomical Region Laterality [...] malignancy identified in either breast. 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
--- OUTSIDE RECORDS SUMMARY | 2024-04-06 18:19 | XMS_ITS | Referral Summary ---
Author Organization [facility] [employer] Address [address] [place] [address] Care Team Providers Care Instrument Panel Assembler Name Role Phone Dago Stockton MD Unavailable [phone] Rachel Manzanares APRN-ELECTRICAL SUBCONTRACTOR Primary Care Provider + Source Comments [facility] [employer],non-owned Affiliates and Associated Physician Practices is amultiple site organization consisting of ambulatory clinics and hospital sitesin [place], [place], [place] and [place]. This disclosure is being madepursuant to the Care Everywhere program and may not contain all information available regarding this patient. Last updated 17.[facility] [employer] Allergies Active Allergy Reactions Criticality Noted Date [...] fluticasone propionate (FLONASE) 50 MCG/ACT nasal spray [place] 2 (two) sprays into each nostril once [...] Patient taking differently:100 mg Oral DAILY,Hold per [facility] ER 12/03/20, Informant: Other, Reported on [...] dysfunction 12/18/2014 Coronary artery disease invo lving [place] coronary artery without angina pectoris 12/18/2014 S/P [...] on file Medical Devices Implanted Type Area Data Analytics Chief Scientist Device Identifier Shelf Expiration Date Model / Serial / Lot Patch Srg 13.7x10.8in Vntrl Slf Xpd - [id number] Implanted:Qty: 1 on 05/06/2016 by Marino Hicks MD at [facility] [place] Abdomen [employer] 08/13/2017 [id number] / [id number] / [id number] Procedures Procedure Name Priority Date/Time Associated Diagnosis Comments COMPREHENSIVE METABOLIC PANEL AM Draw 12/12/2020 8:10 AM CDT MAMMO BILAT SCREENING Routine 09/08/2018 11:34 AM CDT Screening mammogram, encounter for from Last 3 Months or Most Recently Relevant to Health Maintenance Results * (ABNORMAL) COMPREHENSIVE METABOLIC PANEL (12/12/2020 8:10 AM CDT) Sodium 136(L) 137 - 145 mmol/L 12/12/2020 9:24 AM CDT [facility] ([facility]) Potassium 3.8 3.6 - 5.0 mmol/L 12/12/2020 9:24 AM CDT [facility] ([facility]) Chloride 92(L) 98 - 107 mmol/L 12/12/2020 9:24 AM T [facility] ([facility]) Carbon Dioxide 38(H) 21 - 31 mmol/L 12/12/2020 9:24 AM T [facility] ([facility]) Glucose 194(H) 65 - 100 mg/dL 12/12/2020 9:24 AM T [facility] ([facility]) BUN 32(H) 7 - 17 mg/dL 12/12/2020 9:24 AM CDT [facility] ([facility]) Creatinine 1.10(H) 0.50 - 1.04 mg/dL 12/12/2020 9:24 AM T [facility] ([facility]) eGFR 50(L) >=60 ml/min/1.7 3*2 12/12/2020 9:[address] [facility] ([facility]) Comment: Chronic kidney disease is defined [...] 6.0 - 26.0 12/12/2020 9:24 AM T [facility] ([facility]) Calcium 10.1 8.4 - 10.7 mg/dL 12/12/2020 9:[address] [facility] ([facility]) Protein Total 7.0 6.3 - 8.2 g/dL 12/12/2020 9:[address] [facility] ([facility]) Albumin 4.5 3.9 - 5.0 g/dL 12/12/2020 9:[address] [facility] ([facility]) Albumin/Globulin Ratio 1.8 1.1 - 2.2 g/dL 12/12/2020 9:[address] [facility] ([facility]) Bilirubin Total 0.8 0.2 - 1.3 mg/dL 12/12/2020 9:[address] [facility] ([facility]) Alkaline Phosphatase 48 38 - 126 U/L 12/12/2020 9:[address] [facility] ([facility]) AST 31 8 - 39 U/L 12/12/2020 9:[address] [facility] ([facility]) ALT 24 9 - 52 U/L 12/12/2020 9:[address] [facility] ([facility]) Blood BLOOD SPECIMEN / Unknown Lab Venipuncture / Unknown 12/12/2020 8:10 AM CDT 12/12/2020 8:34 AM T Parmjit Smith [place] MACHINE OPERATOR-ELECTRICAL SUBCONTRACTOR LAB - CHEMISTRY ORDERABLES [facility] ([facility]) [address] [place] [address] * SOLITARIO SCREENING BILATERAL DIGITAL [id number] (09/08/2018 11:34 AM CDT) Anatomical Region Laterality [...] malignancy identified in either breast. Cindy Newman [place] MACHINE OPERATOR-ELECTRICAL SUBCONTRACTOR MAMMO ORDER JOVANNY from Last 3 Months or Most Recently Relevant to Health Maintenance Additional Health Concerns Infection Onset Date Last Indicated MRSA Hx 06/14/2020 06/14/2020 Advance Directives Documents on File Type Date Recorded Patient Dinkey Operator Expl anation Adv Directive/Living Will/POA 12/17/2020 [...] 10:34 PM 11/16/2017 1:24 PM Care Teams Instrument Panel Assembler Relationship Specialty Start Date End Date Rachel Manzanares APRN-ELECTRICAL SUBCONTRACTOR PCP - General Nurse Practitioner Family 12/03/20 Dago Stockton MD General Surgery 08/25/18
--- OUTSIDE RECORDS SUMMARY | 2024-04-06 18:19 | XMS_ITS | Encounter Summary ---
Author Organization [facility] Address [address] [place] [address] Care Team Providers Care Sewer Maintenance Supervisor Name Role Phone Cindy Newman CENTRAL SUPPLY NURSE-[facility] Primary Care Provi fe Cindy Newman CENTRAL SUPPLY NURSE-[facility] Primary Care Provi fe Dago Stockton MD Unavailable [phone] Herb Bansal MD Primary Care Provider [phone] Rachel Manzanares [facility] Primary Care Provider + Encounter Details Date Type Department Care Team (Late st Contact Info) Description 12/23/2016 [facility] Outpatient Visit [facility] Memory [address] [place] [address] Tri Logan, B[employer] SA[employer] MARKER [address] [place] [address] Social History Tobacco Use Types Packs/Day Years [...] documented as of this encounter Care Teams Sewer Maintenance Supervisor Relationship Specialty Start Date End Date Cindy Newman APRN-CNP PCP - General Nurse Practitioner 07/26/18 08/05/18 Cindy Newman APRN-CUSTOMER SALES DISTRIBUTOR PCP - General 08/16/18 09/26/19 Herb Bansal MD [address] [place] [address] PCP - General Family Medicine 09/27/19 12/02/20 Rachel Manzanares APRN-CNP [address] [place] [address] PCP - General Nurse Practitioner Family 12/03/20 Dago Stockton MD General Surgery 08/25/18 documented as of this encounter
--- OUTSIDE RECORDS SUMMARY | 2024-04-06 18:20 | XMS_ITS ---
Author Organization [facility] Address [address] [place] [address] Care Team Providers Care Funding Coordinator Name Role Phone Ross Pope MD, Louis Unavailable [phone] Serjio Rangel MD Unavailable Mariza Johnson Primary Care Provider + Active Problems Problem Noted Date Diagnosed Date Allergic rhinitis 12/31/2023 Obstructive sleep apnea 12/31/2023 Type 2 diabetes mellitus wit hout complication, without long-term current use of insulin ([facility]) 06/01/2023 Overview (06/01/2023): pt's POA given a [...] Presence of cardiac resynchr onization therapy defibrillator (CLIENT CARE REPRESENTATIVE-D) 04/02/2022 Pericardial effusion 01/23/2022 Irritable bowel syndrome with diarrhea BMI 45.0-49.9, adult 10/14/2021 Mucopurulent chronic bronchitis 10/14/2021 Restrictive lung disease 10/14/2021 Adenocarcinoma of sigmoid colon ([facility]) 2021 Overview (08/13/2021): Added automatically from request for surgery [id number] ACS (acute coronary syndrome) ([facility]) 07/25/19 Osteoarthritis of both knees 06/05/2021 Stress incontinence of urine 05/29/2021 Assessment & Plan (05/29/2021 12:44 PM CDT): Encouraged using pads as needed. Offered detrol/myrbetriq but they decline at this time. Cigarette nicotine dependence in remission 05/21 Restless legs 05/21/2021 LBBB (left bundle branch block) 04/18/2021 Hypersomnia 04/18/2021 Snoring 03/27/2021 Assessment & Plan (03/27/2021 12:45 PM DISASTER RECOVERY COORDINATOR): Discussed repeat sleep study - she wants to address other medical problems first Intractable migraine with status migrainosus 10/2021 Assessment & Plan (03/27/2021 12:46 PM DISASTER RECOVERY COORDINATOR): Will refer to neurology for further evaluation and treatment Pancreatic mass 12/09/2020 Assessment & Plan (03/05/2021 3:31 PM DISASTER RECOVERY COORDINATOR): Will evaluate further with mri pancreas Chronic combined systolic an d diastolic congestive heart failure ([facility]) 09/03/2020 History of CVA (cerebrovascular accident) 2020 Coronary artery disease of n ative artery of [place] heart with stable angina pectoris 09/03/2020 Assessment & Plan (05/29/2021 12:40 PM CDT): Continue meds same at this time, refill as needed Assessment & Plan (03/05/2021 3:33 PM DISASTER RECOVERY COORDINATOR): Resume previous medications - med list reviewed in detail with Axel Sleep disorder 06/18/2020 Assessment & Plan (03/05/2021 3:30 PM DISASTER RECOVERY COORDINATOR): History of - will refer for sleep eval Age-related nuclear cataract, right eye 06/19/19 21 Assessment & Plan (03/27/2021 12:47 PM DISASTER RECOVERY COORDINATOR): Advised ophtho appt Blindness left eye category 5, normal vision rig ht eye 06/18/2020 Assessment & Plan (03/27/2021 12:47 PM DISASTER RECOVERY COORDINATOR): Advised ophtho appt 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 06/18/2020 Gastro-esophageal reflux disease without esophag itis 06/18/2020 Assessment & Plan (07/10/2021 5:00 PM CDT): - Continue PPI daily (30 minutes before meals) Assessment & Plan (05/29/2021 12:40 PM CDT): Continue meds same at this time, refill as needed Assessment & Plan (03/27/2021 12:46 PM DISASTER RECOVERY COORDINATOR): Add carafate Advised avoiding acidic foods Refer to gi Assessment & Plan (03/05/2021 3:32 PM DISASTER RECOVERY COORDINATOR): Resume pepcid and protonix HFrEF (heart failure with re duced ejection fraction) ([facility]) 06/18/2020 Major depressive disorder, recurrent, moderate 0 [...] soon Assessment & Plan (03/05/2021 3:32 PM DISASTER RECOVERY COORDINATOR): Reported history of - will retrieve records for review Malignant neoplasm of unspec ified kidney, except renal pelvis 06/18/2020 Assessment & Plan (03/05/2021 3:32 PM DISASTER RECOVERY COORDINATOR): Reported history of - will retrieve records for review Malignant neoplasm of unspecified ovary 06/19/19 Assessment & Plan (03/05/2021 3:31 PM DISASTER RECOVERY COORDINATOR): Reported history of - will retrieve records for review Moderate persistent asthma, uncomplicated 2020 Takotsubo syndrome 06/18/2020 Chronic obstructive pulmonary disease 06/14/2020 History of MRSA infection 11/08/2017 Dyslipidemia 12/18/2014 S/P coronary artery stent placement 12/18/2014 History of malignant neoplasm of endometrium Assessment & Plan (03/05/2021 3:30 PM DISASTER RECOVERY COORDINATOR): Reported history of - will retrieve records for review Bipolar I disorder, single manic episode (CMS/HC C) 04/05/2008 Overview (03/05/2021): Assessment & Plan (03/05/2021 3:33 PM DISASTER RECOVERY COORDINATOR): Will refer to psychiatry for further evaluation [...] expect her to return. We additionally discussed custodial living plans. They report she is too young for assisted living. We discussed due to her medical conditions that NH care would be warranted, but neither of them desire that at the current time and want to continue with the current situation. Yvonne additionally notes that Adult Services is involved in her care. Assessment & Plan (03/27/2021 12:47 PM DISASTER RECOVERY COORDINATOR): Increase prozac She has psychiatry referral pending that she will keep She and huyen make pact to report to er if having s/h ideations Assessment & Plan (03/05/2021 3:33 PM DISASTER RECOVERY COORDINATOR): Will refer to psychiatry for further evaluation and treatment. She makes pact to report to er if having s/h ideations. Will fill meds x 30d while she makes appt with psychiatrist. Primary hypertension 10/19/2007 Overview (03/05/2021): Assessment & Plan (05/29/2021 12:40 PM CDT): Continue meds same at this time, refill as needed Assessment & Plan (03/05/2021 3:34 PM DISASTER RECOVERY COORDINATOR): Resume previous medications - med list reviewed [...] (07/10/2021): Added automatically from request for surgery [id number] Assessment & Plan (07/10/2021 5:06 PM CDT): [...] 12/17/2021 Assessment & Plan (03/27/2021 12:45 PM DISASTER RECOVERY COORDINATOR): Will order dexa for osteoporosis screening Anemia 03/27/2021 12/17/2021 Assessment & Plan (03/27/2021 12:47 PM DISASTER RECOVERY COORDINATOR): Advised further evaluation with labs ordered today Will refer to gi for further evaluation and treatment Sleep disturbance 03/27/2021 12/17/2021 Assessment & Plan (03/27/2021 12:45 PM DISASTER RECOVERY COORDINATOR): Discussed repeat sleep study - she wants to address other medical problems first Morbid (severe) obesity due to excess calories 03/05/2021 12/17/2021 Assessment & Plan (03/05/2021 3:31 PM DISASTER RECOVERY COORDINATOR): Discussed the patient's BMI. The BMI is above average. BMI management plan is completed. BMI Follow-up includes: nutrition counseling, exercise counseling and education provided. Schizoaffective disorder ([facility]) 09/07/2020 12/17/2021 Acute encephalopathy 09/03/2020 022 Generalized weakness 09/03/2020 022 Chronic respiratory failure 09/03/2020 12/17/2021 Obesity 09/03/2020 12/17/2021 Nicotine use disorder 09/03/20202021 Seizure disorder ([facility]) 09/03/2020 1 02/16/2021 Epilepsy, unspecified, not i ntractable, without status epilepticus 06/18/2020 12/17/2021 Hyperlipidemia, unspecified 06/18/2020 12/17/2021 Assessment & Plan (05/29/2021 12:40 PM CDT): Continue meds same at this time, refill as needed Assessment & Plan (03/05/2021 3:32 PM DISASTER RECOVERY COORDINATOR): Fasting labs entered, will notify patient of results as available History of COPD 06/13/2020 12/17/2021 Assessment & Plan (03/27/2021 12:46 PM DISASTER RECOVERY COORDINATOR): Change symbicort to advair. Advised rinsing mouth out after using. Assessment & Plan (03/05/2021 3:32 PM DISASTER RECOVERY COORDINATOR): Continue with symbicort bid and prn proventil [...]
--- OUTSIDE RECORDS SUMMARY | 2024-04-06 18:20 | XMS_ITS | Clinical Summary ---
Author Organization [facility] Address [address] [place] [address] Care Team Providers Care Fruit Shipper Name Role Phone Ross Pope MD, Louis Unavailable [phone] Serjio Rangel MD Unavailable Mariza Johnson Primary [...] mg SL tabletIndications :Coronary artery disease involving [place] coronary artery of [place] heart with angina pectoris (HCC) Place 1 tablet (0.4 mg total) under the tongue every 5 (five) minutes as needed for chest pain 90 tablet 12/18/19 22 Active atorvastatin (LIPITOR) 80 mg tabletIndications :Coronary artery disease involving [place] coronary artery of [place] heart with angina pectoris (HCC),Essential hypertension,Vp Of Marketing erick combined systolic and diastolic congestive heart failure (CMS/HCC) ([facility]),LBBB (left bundle branch block) Take 1 tablet (80 mg total) by mouth nightly 90 tablet 1 12/28/19 22 Active walker miscIndications:D ebility,Chronic combined systolic and diastolic congestive heart failure (CMS/HCC) ([facility]),COX (dyspnea on exertion),Morbid obesity with BMI of 40.0-44.9, adult ([facility]) 1 Device continuously rollator 1 each 04/25/19 23 Active spironolactone (ALDACTONE) 25 mg tablet Take 1 tablet (25 mg total) by mouth daily 30 tablet 11 04/27/19 23 Active FLUoxetine (PROzac) 60 mg tabletIndications :Bipolar I disorder, single manic episode (CMS/HCC) ([facility]) Take 1 tablet (60 mg total) by [...] 24 hr tabletIndications :Coronary artery disease involving [place] coronary artery of [place] heart with angina pectoris (HCC) Take 1 tablet by mouth once daily 30 tablet 4 06/18/19 23 Active clopidogreL (PLAVIX) 75 mg tabletIndications :Coronary artery disease involving [place] coronary artery of [place] heart with angina pectoris (HCC) Take 1 [...] complication, without long-term current use of insulin ([facility]) 06/01/2023 Overview (06/01/2023): pt's POA given a [...] Presence of cardiac resynchr onization therapy defibrillator (AUTOMATION CONTROLS SPECIALIST-D) 04/02/2022 Pericardial effusion 01/23/2022 Irritable bowel syndrome with diarrhea BMI 45.0-49.9, adult 10/14/2021 Mucopurulent chronic bronchitis 10/14/2021 Restrictive lung disease 10/14/2021 Adenocarcinoma of sigmoid colon ([facility]/HCC) 2021 Overview (08/13/2021): Added automatically from request for surgery [id number] ACS (acute coronary syndrome) ([facility]) 07/25/19 Osteoarthritis of both knees 06/05/2021 Stress incontinence of urine 05/29/2021 Assessment & Plan (05/29/2021 12:44 PM CDT): Encouraged using pads as needed. Offered detrol/myrbetriq but they decline at this time. Cigarette nicotine dependence in remission 05/21 Restless legs 05/21/2021 LBBB (left bundle branch block) 04/18/2021 Hypersomnia 04/18/2021 Snoring 03/27/2021 Assessment & Plan (03/27/2021 12:45 PM MEDIA CENTER SPECIALIST): Discussed repeat sleep study - she wants to address other medical problems first Intractable migraine with status migrainosus 10/2021 Assessment & Plan (03/27/2021 12:46 PM MEDIA CENTER SPECIALIST): Will refer to neurology for further evaluation and treatment Pancreatic mass 12/09/2020 Assessment & Plan (03/05/2021 3:31 PM MEDIA CENTER SPECIALIST): Will evaluate further with mri pancreas Chronic combined systolic an d diastolic congestive heart failure (CMS/HCC) 09/03/2020 History of CVA (cerebrovascular accident) 2020 Coronary artery disease of n ative artery of sel[place] heart with stable angina pectoris 09/03/2020 Assessment & Plan (05/29/2021 12:40 PM CDT): Continue meds same at this time, refill as needed Assessment & Plan (03/05/2021 3:33 PM MEDIA CENTER SPECIALIST): Resume previous medications - med list reviewed in detail with Axel Sleep disorder 06/18/2020 Assessment & Plan (03/05/2021 3:30 PM MEDIA CENTER SPECIALIST): History of - will refer for sleep eval Age-related nuclear cataract, right eye 06/19/19 21 Assessment & Plan (03/27/2021 12:47 PM MEDIA CENTER SPECIALIST): Advised ophtho appt Blindness left eye category 5, normal vision rig ht eye 06/18/2020 Assessment & Plan (03/27/2021 12:47 PM MEDIA CENTER SPECIALIST): Advised ophtho appt 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 06/18/2020 Gastro-esophageal reflux disease without esophag itis 06/18/2020 Assessment & Plan (07/10/2021 5:00 PM CDT): - Continue PPI daily (30 minutes before meals) Assessment & Plan (05/29/2021 12:40 PM CDT): Continue meds same at this time, refill as needed Assessment & Plan (03/27/2021 12:46 PM MEDIA CENTER SPECIALIST): Add carafate Advised avoiding acidic foods Refer to gi Assessment & Plan (03/05/2021 3:32 PM MEDIA CENTER SPECIALIST): Resume pepcid and protonix HFrEF (heart failure with re duced ejection fraction) ([facility]) 06/18/2020 Major depressive disorder, recurrent, moderate 0 [...] soon Assessment & Plan (03/05/2021 3:32 PM MEDIA CENTER SPECIALIST): Reported history of - will retrieve records for review Malignant neoplasm of unspec ified kidney, except renal pelvis 06/18/2020 Assessment & Plan (03/05/2021 3:32 PM MEDIA CENTER SPECIALIST): Reported history of - will retrieve records for review Malignant neoplasm of unspecified ovary 06/19/19 21 Assessment & Plan (03/05/2021 3:31 PM MEDIA CENTER SPECIALIST): Reported history of - will retrieve records for review Moderate persistent asthma, uncomplicated 2020 Takotsubo syndrome 06/18/2020 Chronic obstructive pulmonary disease 06/14/2020 History of MRSA infection 11/08/2017 Dyslipidemia 12/18/2014 S/P coronary artery stent placement 12/18/2014 History of malignant neoplasm of endometrium Assessment & Plan (03/05/2021 3:30 PM MEDIA CENTER SPECIALIST): Reported history of - will retrieve records for review Bipolar I disorder, single manic episode (CMS/HC C) 04/05/2008 Overview (03/05/2021): Assessment & Plan (03/05/2021 3:33 PM MEDIA CENTER SPECIALIST): Will refer to psychiatry for further evaluation [...] expect her to return. We additionally discussed nursing home living plans. They report she is too young for assisted living. We discussed due to her medical conditions that NH care would be warranted, but neither of them desire that at the current time and want to continue with the current situation. Yvonne additionally notes that Adult Services is involved in her care. Assessment & Plan (03/27/2021 12:47 PM MEDIA CENTER SPECIALIST): Increase prozac She has psychiatry referral pending that she will keep She and huyen make pact to report to er if having s/h ideations Assessment & Plan (03/05/2021 3:33 PM MEDIA CENTER SPECIALIST): Will refer to psychiatry for further evaluation and treatment. She makes pact to report to er if having s/h ideations. Will fill meds x 30d while she makes appt with psychiatrist. Primary hypertension 10/19/2007 Overview (03/05/2021): Assessment & Plan (05/29/2021 12:40 PM CDT): Continue meds same at this time, refill as needed Assessment & Plan (03/05/2021 3:34 PM MEDIA CENTER SPECIALIST): Resume previous medications - med list reviewed [...] (07/10/2021): Added automatically from request for surgery [id number] Assessment & Plan (07/10/2021 5:06 PM CDT): [...] 12/17/2021 Assessment & Plan (03/27/2021 12:45 PM MEDIA CENTER SPECIALIST): Will order dexa for osteoporosis screening Anemia 03/27/2021 12/17/2021 Assessment & Plan (03/27/2021 12:47 PM MEDIA CENTER SPECIALIST): Advised further evaluation with labs ordered today Will refer to gi for further evaluation and treatment Sleep disturbance 03/27/2021 12/17/2021 Assessment & Plan (03/27/2021 12:45 PM MEDIA CENTER SPECIALIST): Discussed repeat sleep study - she wants to address other medical problems first Morbid (severe) obesity due to excess calories 03/05/2021 12/17/2021 Assessment & Plan (03/05/2021 3:31 PM MEDIA CENTER SPECIALIST): Discussed the patient's BMI. The BMI is above average. BMI management plan is completed. BMI Follow-up includes: nutrition counseling, exercise counseling and education provided. Schizoaffective disorder ([facility]/HCC) 09/07/2020 12/17/2021 Acute encephalopathy 09/03/2020 022 Generalized weakness 09/03/2020 022 Chronic respiratory failure 09/03/2020 12/17/2021 Obesity 09/03/2020 12/17/2021 Nicotine use disorder 09/03/20202021 Seizure disorder ([facility]) 09/03/2020 1 02/16/2021 Epilepsy, unspecified, not i ntractable, without status epilepticus 06/18/2020 12/17/2021 Hyperlipidemia, unspecified 06/18/2020 12/17/2021 Assessment & Plan (05/29/2021 12:40 PM CDT): Continue meds same at this time, refill as needed Assessment & Plan (03/05/2021 3:32 PM MEDIA CENTER SPECIALIST): Fasting labs entered, will notify patient of results as available History of COPD 06/13/2020 12/17/2021 Assessment & Plan (03/27/2021 12:46 PM MEDIA CENTER SPECIALIST): Change symbicort to advair. Advised rinsing mouth out after using. Assessment & Plan (03/05/2021 3:32 PM MEDIA CENTER SPECIALIST): Continue with symbicort bid and prn proventil [...] Department Care Team Description 04/06/2024 Orders Only [facility] Pulmonology [address] [place] [address] [address] [place] [address] María Kohler NP 04/05/2024 11:00 AM MEDIA CENTER SPECIALIST Office Visit [facility] Pulmonology [address] [place] [address] [address] [place] [address] María Kohler NP Chronic obstructive pulmonary disease, unspecified COPD type (HCC) (Primary Dx); Obstructive sleep apnea; Restrictive lung disease; Allergic rhinitis, unspecified seasonality, unspecified trigger; Restless legs; History of CVA (cerebrovascular accident); History of colon cancer; History of renal cell carcinoma; History of ovarian cancer; Cigarette nicotine dependence in remission; BMI 45.0-49.9, adult (HCC) 03/04/2024 Telephone [facility] [address] [facility] [address] [place] [address] [place] [address] Antonio Ray 03/04/2024 Orders Only [facility] [address] [facility] [address]th [place] [address] [place] [address] Edgardo Kee MD Pancreatic cyst (Primary Dx) 03/01/2024 Telephone [facility] [address] [facility] [address]th [place] [address] [place] [address] Antonio Ray imaging due 02/23/2024 Telephone [facility] [address] [facility] [address]th [place] [address] [place] [address] Antonio Ray imaging due 02/12/2024 7:15 AM MEDIA CENTER SPECIALIST Ancillary Procedure [facility] Cardiology [address] [facility] [address] [place] [address] HFrEF (heart failure with reduced ejection fraction) (CMS/HCC) ([facility]); LBBB (left bundle branch block); Cardiac resynchronization therapy defibrillator (AUTOMATION CONTROLS SPECIALIST-D) in place from Last 3 Months Immunizations [...] (HCC) GERD (gastroesophageal reflux disease) Stroke (cerebrum) ([facility]) 2007 Renal cancer ([facility]) 10/2007 Ovarian cancer ([facility]) Colon cancer ([facility]) ([facility]) Sig moid colon resection JULIET (acute kidney injury) ([facility]) Bipolar disorder, current ep isode depressed, moderate ([facility]) ([facility]) 06/18/2020 Epilepsy ([facility]) 06/2002 Respiratory failure ([facility]) ([facility]) 06/18/2020 COPD (chronic obstructive pu lmonary disease) ([facility]) 06/18/2020 Cerebral infarction ([facility]) 06/18/2020 Embolism ([facility]) ([facility]) 06/18/2020 Cataract 06/18/2020 Right eye Blindness of left eye 06/18/2020 Right eye normal vision Atherosclerotic cardiovascular disease without angina prectoris Heart failure ([facility]) 06/18/2020 Dorsalgia 06/18/2020 Malignant neoplasm in situ of colon Takotsubo syndrome 06/18/2020 Cancer of kidney ([facility]) 06/18/2020 Cancer of ovary ([facility]) 06/18/2020 History of abdominal hysterectomy 06/18/2020 Anxiety Arthritis Asthma Depression Heart attack ([facility]) Osteoporosis Pneumonia Renal insufficiency Pancreatic lesion 07/10/2021 Added automati tamela from request for surgery [id number] PONV (postoperative nausea a nd vomiting) Arrhythmia Type 2 diabetes mellitus wit hout complication, without long-term current use of insulin ([facility]) ([facility]) 06/01/2023 Family History Medical History Relation Name [...] on file Legal Sex Female 5:21 AM MEDIA CENTER SPECIALIST Gender Identity Female 09/02/2020 9:33 PM CDT [...] Comments Blood Pressure 127/72 04/05/2024 11:21 AM MEDIA CENTER SPECIALIST Pulse 78 04/05/2024 11:21 AM MEDIA CENTER SPECIALIST Temperature 35.6 C (96.1 F) 04/05/2024 11:21 AM MEDIA CENTER SPECIALIST Respiratory Rate 18 04/05/2024 11:21 AM MEDIA CENTER SPECIALIST Oxygen Saturation 96% 04/05/2024 11:21 AM MEDIA CENTER SPECIALIST Inhaled Oxygen Concentration - - Weight 125.2 kg (276 lb) 04/05/2024 11:21 AM MEDIA CENTER SPECIALIST Height 162.6 cm (5' 4 ) 04/05/2024 11:21 AM MEDIA CENTER SPECIALIST Body Mass Index 47.38 04/05/2024 11:21 AM MEDIA CENTER SPECIALIST Plan of Treatment Health Maintenance Due Date [...] Exam Discontinued Medical Devices Implanted Type Area Bottling Attendant Device Identifier Shelf Expiration Date Model / Serial / Lot [employer] Tendril Sts 6fr 52cm Is-1 Connector Active Fixation Bipolar Soft 2087tc/52 - [id number] - [id number] Implanted:Qty: 1 on 04/24/2022 by Hayden Langford MD at [facility] Lead Left: Subclavian [employer] [id number] 02/15/2025 2088TC/5 2 / [id number] / [employer] Durata 6.8fr 58cm 1 Coil True Bipolar Active Fixation Extendable 7122q/58 - [id number] - [id number] Implanted:Qty: 1 on 04/24/2022 by Hayden Langford MD at [facility] Lead Left: Subclavian [employer] [id number] 01/15/2025 7122Q/58 / [id number] / [employer] Quartet 4.7fr 86cm Quadripolar Is-4 Llll Connector 8 Curve Low 1456q/86 - [id number] - [id number] Implanted:Qty: 1 on 04/24/2022 by Hayden Langford MD at [facility] Left: Subclavian [employer] [id number] 10/16/2024 1456Q/86 / [id number] / Angio-Seal Vip 6fr Closere Device [id number] - [id number] Implanted:Qty: 1 on 07/24/2021 by Harpreet Stahl MD at [facility] 03/18/2022 [id number] / / [id number] [employer] Resolute Thanh 3.5mm 2.1-2.7fr 15mm 140cm Rapid Exchange [id number] - [id number] Implanted:Qty: 1 on 10/08/2021 by Hipolito Cota MD at [facility] [employer] 04/23/2024 [id number] / / [id number] [facility] Angio-Seal Vip 6fr Closere Device [id number] - [id number] Implanted:Qty: 1 on 10/08/2021 by Hipolito Cota MD at [facility] 05/16/2022 [id number] / / [id number] [employer] Defib Cardiac [id number] Raysal Hf Df4 Is-4 Is-1 Cnctr [id number] - [id number] - [id number] Implanted:Qty: 1 on 04/24/2022 by Hayden Langford MD at [facility] Left: Subclavian [employer] [id number] 03/18/2024 [id number] / [id number] / Procedures Procedure Name Priority Date/Time Associated Diagnosis Comments DEVICE CHECK - REMOTE Routine 02/12/2024 9:35 AM MEDIA CENTER SPECIALIST HFrEF (heart failure with reduced ejection fraction) (CMS/HCC) ([facility]) LBBB (left bundle branch block) Cardiac resynchronization therapy defibrillator (AUTOMATION CONTROLS SPECIALIST-D) in place CT LUNG CANCER SCREENING Schedule [...] (HCC) Primary hypertension Coronary artery disease of [place] artery of [place] heart with stable angina pectoris (HCC) COLONOSCOPY 08/03/2023 10:42 AM CDT SCREENING MAMMOGRAM BILATERAL W BENIGNO Schedule Routine, Read Routine (OP Routine) 04/11/2023 10:54 AM MEDIA CENTER SPECIALIST Encounter for screening mammogram for malignant neoplasm of breast LIPID PANEL Routine 12/27/2021 12:20 PM MEDIA CENTER SPECIALIST Coronary artery disease involving sel[place] coronary artery of [place] heart with angina pectoris (CMS/HCC) (HCC) Essential hypertension Chronic combined systolic and diastolic congestive heart failure (CMS/HCC) (HCC) LBBB (left bundle branch block) from Last 3 Months or Most Recently Relevant to Health Maintenance Results * DEVICE CHECK - REMOTE (02/12/2024 9:35 AM MEDIA CENTER SPECIALIST) Anatomical Region Laterality Modality Other Narrative 03/15/2024 10:30 AM MEDIA CENTER SPECIALIST Table formatting from the original result was [...] 0.5 ms Pacing % 1.5% 14% 99% AUTOMATION CONTROLS SPECIALIST 98% AUTOMATION CONTROLS SPECIALIST Battery Status: 6.0 years to RICHARD. Charge time 9.0 seconds. Episodes since last cleared: None Comments: Programming appropriate for device measurements. Measured data stable. See attached report. Medications: Anticoagulant(s): n/a Antiarrhythmic(s): metoprolol succinate Plan: Remote device checks quarterly, as scheduled. In-office device check scheduled on 08/12/2024. Rosalinda Hassan RN us Hayden Langford MD [facility] Final Result * CT Lung Cancer Screening [...] Liam Christianson D.O. PS T: Report ID: [id number] Reading Location: [id number] Procedure Note Liam Christianson, DO - 12/15/2023 [...] 0.6 cm in the subcarinal region (axial ). There is a small hiatal hernia. The [...] Liam Christianson D.O. PS T: Report ID: [id number] Reading Location: [id number] Zuleika Zabala MD IMG CT PROCEDURES Final [...] was last reviewed 2020. Testing performed by: [facility], [address] [place] [address]., [id number] Blood 08/10/2023 5:15 PM CDT 08/10/2023 5:26 PM CDT us Serjio Rangel MD LAB BLOOD ORDERABLES Final Resul t [id number] [id number] [facility] Department [place] [address] * Colonoscopy (08/03/2023 10:42 AM CDT) Anatomical Region Laterality Modality Other Narrative Procedure Note Antonio Bello MD - 08/03/2023 10:42 AM CDT [facility] GI ENDOSCOPY Patient Name: Yvonne Melo Procedure Date: 08/03/2023 10:42 AM Date of : 1960 Admit Type: Outpatient Age: 62 Gender: Female Attending MD: Antonio Bello M.D. Room: [facility] ENDOSCOPY ROOM 06 Note Status: Finalized Procedure: [...] The scope was passed under direct vision.The [id number] colonoscope was introduced through theanus and advanced [...] On: 08/03/2023 10:42 AM Recognized by the [place] [employer] for promoting quality in endoscopy us Antonio Bello MD ENDOSCOPY PROCEDURES Final Resul t * SCREENING MAMMOGRAM BILATERAL W BENIGNO (04/11/2023 10:54 AM MEDIA CENTER SPECIALIST) Anatomical Region Laterality Modality Breast Bilateral Mammography Impressions 04/22/2023 9:39 AM MEDIA CENTER SPECIALIST BI-RADS ATLAS category (overall): 1 - Negative There is no mammographic evidence of malignancy. A 1 year screening mammogram is recommended. The patient has been or will be contacted. We recommend annual screening mammography for women at average risk of breast cancer beginning at age 40, based on guidelines of the [place] [employer] (ACR Practice Parameter for the Performance of Screening and Diagnostic Mammography) and [place] [employer]. For women with and elevated risk of breast cancer, please refer to the ACR Practice Parameter for specific screening recommendations. The patient will be entered into a reminder system with a target due date of 1 year for her next screening exam. Narrative 04/22/2023 9:39 AM MEDIA CENTER SPECIALIST SCREENING MAMMOGRAM BILATERAL W BENIGNO: 04/11/23 The [...] * (ABNORMAL) Lipid panel (12/27/2021 12:20 PM MEDIA CENTER SPECIALIST) Cholesterol 155 30 - 199 mg/dL RICH [...] RICH CHÁVEZ Blood 12/27/2021 12:2 0 PM MEDIA CENTER SPECIALIST 12/27/2021 12:28 PM MEDIA CENTER SPECIALIST Serjio Rangel MD LAB BLOOD ORDERABLES Final Resul t RICH [address] [facility] [place] [address] from Last 3 Months or Most Recently Relevant to Health Maintenance [facility] Advance Directives For more information, please contact: [phone] Documents on File Type Date Recorded Patient Liquor Gallery Operator Expl anation ADVANCE DIRECTIVE 04/28/2022 12:27 PM Abeba r of Rig Welder-Medical ADVANCE DIRECTIVE 10/10/2021 10:40 AM * Full [...] 4:14 PM 10/09/2021 10:10 PM Care Teams Fruit Shipper Relationship Specialty Start Date End Date Mariza Johnson PA [address] [address] PCP - General Family Medicine 04/11/23 Louis Hawkins Jr., MD [address] [facility] [address] [address] Medical Oncologist/Hematologis t Medical Oncology 03/12/21 Serjio Rangel MD [address] [place] [address] [id number] Consulting Physician Cardiovascular Disease 10/09/21
--- OUTSIDE RECORDS SUMMARY | 2024-04-06 18:20 | XMS_ITS | Referral Summary ---
Author Organization [facility] Address [address] [place] [address] Care Team Providers Care Product Test Specialist Name Role Phone Ross Pope MD, Louis Unavailable +- [phone] Serjio Rangel MD Unavailable Mariza Johnson Primary Care Provider + Encounters Date Type Department Care Team Description 04/06/2024 Orders Only [facility] Medical [facility] Pulmonology [address] [place] [address] [address] [place] [id number] María Kohler NP 04/05/2024 11:00 AM BRICK TESTER Office Visit [facility] Pulmonology [address] [place] [address] [address] [place] [address] María Kohler NP Chronic obstructive pulmonary disease, unspecified COPD type (HCC) (Primary Dx); Obstructive sleep apnea; Restrictive lung disease; Allergic rhinitis, unspecified seasonality, unspecified trigger; Restless legs; History of CVA (cerebrovascular accident); History of colon cancer; History of renal cell carcinoma; History of ovarian cancer; Cigarette nicotine dependence in remission; BMI 45.0-49.9, adult (HCC) 03/04/2024 Telephone [facility] Gastroenterology [address] [place] [address] [place] [address] Antonio Ray 03/04/2024 Orders Only [facility] Gastroenterology [address] [place] [address] [place] [address] Edgardo Kee MD Pancreatic cyst (Primary Dx) 03/01/2024 Telephone [facility] Gastroenterology [address] [place] [address] [place] [address] Antonio Ray imaging due 02/23/2024 Telephone [facility] Gastroenterology [address] [place] [address] [place] [address] Antonio Ray imaging due 02/12/2024 7:15 AM BRICK TESTER Ancillary Procedure [facility] Cardiology [address] [address] [place] [address] HFrEF (heart failure with reduced ejection fraction) (CMS/HCC) ([facility]); LBBB (left bundle branch block); Cardiac resynchronization therapy defibrillator (TILT WALL SUPERVISOR-D) in place from Last 3 Months Allergies [...] :Bipolar I disorder, single manic episode (CMS/HCC) ([facility]) Take 1 tablet (100 mg total) by mouth daily 30 tablet 5 12/18/19 22 Active dapagliflozin (FARXIGA) 10 mg tabletIndications :Chronic combined systolic and diastolic congestive heart failure (CMS/HCC) ([facility]) Take 1 tablet (10 mg total) by mouth daily 30 tablet 5 12/18/19 22 Active sacubitriL-valsar bello (ENTRESTO) 24-26 mg tabletIndications :chronic heart failure Take 1 tablet by mouth 2 (two) times a day 60 tablet 5 12/18/19 22 Active nitroglycerin (NITROSTAT) 0.4 mg SL tabletIndications :Coronary artery disease involving [place] coronary artery of [place] heart with angina pectoris ([facility]) Place 1 tablet (0.4 mg total) under the tongue every 5 (five) minutes as needed for chest pain 90 tablet 12/18/19 22 Active atorvastatin (LIPITOR) 80 mg tabletIndications :Coronary artery disease involving [place] coronary artery of [place] heart with angina pectoris (HCC),Essential hypertension,Director Of Admissions erick combined systolic and diastolic congestive heart failure (CMS/HCC) ([facility]),LBBB (left bundle branch block) Take 1 tablet (80 mg total) by mouth nightly 90 tablet 1 12/28/19 22 Active walker miscIndications:D ebility,Chronic combined systolic and diastolic congestive heart failure (CMS/HCC) ([facility]),COX (dyspnea on exertion),Morbid obesity with BMI of 40.0-44.9, adult ([facility]) 1 Device continuously rollator 1 each 04/25/19 23 Active spironolactone (ALDACTONE) 25 mg tablet Take 1 tablet (25 mg total) by mouth daily 30 tablet 11 04/27/19 23 Active FLUoxetine (PROzac) 60 mg tabletIndications :Bipolar I disorder, single manic episode (CMS/HCC) ([facility]) Take 1 tablet (60 mg [...] 24 hr tabletIndications :Coronary artery disease involving [place] coronary artery of [place] heart with angina pectoris (HCC) Take 1 tablet by mouth once daily 30 tablet 4 06/18/19 23 Active clopidogreL (PLAVIX) 75 mg tabletIndications :Coronary artery disease involving [place] coronary artery of [place] heart with angina pectoris (HCC) Take 1 [...] complication, without long-term current use of insulin ([facility]) 06/01/2023 Overview (06/01/2023): pt's POA [...] Presence of cardiac resynchr onization therapy defibrillator (TILT WALL SUPERVISOR-D) 04/02/2022 Pericardial effusion 01/23/2022 Irritable bowel syndrome with diarrhea BMI 45.0-49.9, adult 10/14/2021 Mucopurulent chronic bronchitis 10/14/2021 Restrictive lung disease 10/14/2021 Adenocarcinoma of sigmoid colon ([facility]) 2021 Overview (08/13/2021): Added automatically from request for surgery [id number] ACS (acute coronary syndrome) ([facility]) 07/25/19 Osteoarthritis of both knees 06/05/2021 Stress incontinence of urine 05/29/2021 Assessment & Plan (05/29/2021 12:44 PM CDT): Encouraged using pads as needed. Offered detrol/myrbetriq but they decline at this time. Cigarette nicotine dependence in remission 05/21 Restless legs 05/21/2021 LBBB (left bundle branch block) 04/18/2021 Hypersomnia 04/18/2021 Snoring 03/27/2021 Assessment & Plan (03/27/2021 12:45 PM BRICK TESTER): Discussed repeat sleep study - she wants to address other medical problems first Intractable migraine with status migrainosus 10/2021 Assessment & Plan (03/27/2021 12:46 PM BRICK TESTER): Will refer to neurology for further evaluation and treatment Pancreatic mass 12/09/2020 Assessment & Plan (03/05/2021 3:31 PM BRICK TESTER): Will evaluate further with mri pancreas Chronic combined systolic an d diastolic congestive heart failure ([facility]) 09/03/2020 History of CVA (cerebrovascular accident) 2020 Coronary artery disease of n ative artery of [place] heart with stable angina pectoris 09/03/2020 Assessment & Plan (05/29/2021 12:40 PM CDT): Continue meds same at this time, refill as needed Assessment & Plan (03/05/2021 3:33 PM BRICK TESTER): Resume previous medications - med list reviewed in detail with Axel Sleep disorder 06/18/2020 Assessment & Plan (03/05/2021 3:30 PM BRICK TESTER): History of - will refer for sleep eval Age-related nuclear cataract, right eye 06/19/19 Assessment & Plan (03/27/2021 12:47 PM BRICK TESTER): Advised ophtho appt Blindness left eye category 5, normal vision rig ht eye 06/18/2020 Assessment & Plan (03/27/2021 12:47 PM BRICK TESTER): Advised ophtho appt 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 06/18/2020 Gastro-esophageal reflux disease without esophag itis 06/18/2020 Assessment & Plan (07/10/2021 5:00 PM CDT): - Continue PPI daily (30 minutes before meals) Assessment & Plan (05/29/2021 12:40 PM CDT): Continue meds same at this time, refill as needed Assessment & Plan (03/27/2021 12:46 PM BRICK TESTER): Add carafate Advised avoiding acidic foods Refer to gi Assessment & Plan (03/05/2021 3:32 PM BRICK TESTER): Resume pepcid and protonix HFrEF (heart failure [...] soon Assessment & Plan (03/05/2021 3:32 PM BRICK TESTER): Reported history of - will retrieve records for review Malignant neoplasm of unspec ified kidney, except renal pelvis 06/18/2020 Assessment & Plan (03/05/2021 3:32 PM BRICK TESTER): Reported history of - will retrieve records for review Malignant neoplasm of unspecified ovary 06/19/19 21 Assessment & Plan (03/05/2021 3:31 PM BRICK TESTER): Reported history of - will retrieve records for review Moderate persistent asthma, uncomplicated 2020 Takotsubo syndrome 06/18/2020 Chronic obstructive pulmonary disease 06/14/2020 History of MRSA infection 11/08/2017 Dyslipidemia 12/18/2014 S/P coronary artery stent placement 12/18/2014 History of malignant neoplasm of endometrium Assessment & Plan (03/05/2021 3:30 PM BRICK TESTER): Reported history of - will retrieve records for review Bipolar I disorder, single manic episode (CMS/HC C) 04/05/2008 Overview (03/05/2021): Assessment & Plan (03/05/2021 3:33 PM BRICK TESTER): Will refer to psychiatry for further evaluation [...] expect her to return. We additionally discussed retirement living plans. They report she is too young for assisted living. We discussed due to her medical conditions that NH care would be warranted, but neither of them desire that at the current time and want to continue with the current situation. Yvonne additionally notes that Adult Services is involved in her care. Assessment & Plan (03/27/2021 12:47 PM BRICK TESTER): Increase prozac She has psychiatry referral pending that she will keep She and huyen make pact to report to er if having s/h ideations Assessment & Plan (03/05/2021 3:33 PM BRICK TESTER): Will refer to psychiatry for further evaluation and treatment. She makes pact to report to er if having s/h ideations. Will fill meds x 30d while she makes appt with psychiatrist. Primary hypertension 10/19/2007 Overview (03/05/2021): Assessment & Plan (05/29/2021 12:40 PM CDT): Continue meds same at this time, refill as needed Assessment & Plan (03/05/2021 3:34 PM BRICK TESTER): Resume previous medications - med list reviewed [...] (07/10/2021): Added automatically from request for surgery [id number] Assessment & Plan (07/10/2021 5:06 PM CDT): [...] 12/17/2021 Assessment & Plan (03/27/2021 12:45 PM BRICK TESTER): Will order dexa for osteoporosis screening Anemia 03/27/2021 12/17/2021 Assessment & Plan (03/27/2021 12:47 PM BRICK TESTER): Advised further evaluation with labs ordered today Will refer to gi for further evaluation and treatment Sleep disturbance 03/27/2021 12/17/2021 Assessment & Plan (03/27/2021 12:45 PM BRICK TESTER): Discussed repeat sleep study - she wants to address other medical problems first Morbid (severe) obesity due to excess calories 03/05/2021 12/17/2021 Assessment & Plan (03/05/2021 3:31 PM BRICK TESTER): Discussed the patient's BMI. The BMI is above average. BMI management plan is completed. BMI Follow-up includes: nutrition counseling, exercise counseling and education provided. Schizoaffective disorder (CMS/[facility]) 09/07/2020 12/17/2021 Acute encephalopathy 09/03/2020 022 Generalized weakness 09/03/2020 022 Chronic respiratory failure 09/03/2020 12/17/2021 Obesity 09/03/2020 12/17/2021 Nicotine use disorder 09/03/20202021 Seizure disorder ([facility]) 09/03/2020 1 02/16/2021 Epilepsy, unspecified, not i ntractable, without status epilepticus 06/18/2020 12/17/2021 Hyperlipidemia, unspecified 06/18/2020 12/17/2021 Assessment & Plan (05/29/2021 12:40 PM CDT): Continue meds same at this time, refill as needed Assessment & Plan (03/05/2021 3:32 PM BRICK TESTER): Fasting labs entered, will notify patient of results as available History of COPD 06/13/2020 12/17/2021 Assessment & Plan (03/27/2021 12:46 PM BRICK TESTER): Change symbicort to advair. Advised rinsing mouth out after using. Assessment & Plan (03/05/2021 3:32 PM BRICK TESTER): Continue with symbicort bid and prn proventil [...] on file Legal Sex Female 5:21 AM BRICK TESTER Gender Identity Female 09/02/2020 9:33 PM CDT Sexual Orientation Not on file Last Filed Vital Signs Vital Sign Reading Time Taken Comments Blood Pressure 127/72 04/05/2024 11:21 AM BRICK TESTER Pulse 78 04/05/2024 11:21 AM BRICK TESTER Temperature 35.6 C (96.1 F) 04/05/2024 11:21 AM BRICK TESTER Respiratory Rate 18 04/05/2024 11:21 AM BRICK TESTER Oxygen Saturation 96% 04/05/2024 11:21 AM BRICK TESTER Inhaled Oxygen Concentration - - Weight 125.2 kg (276 lb) 04/05/2024 11:21 AM BRICK TESTER Height 162.6 cm (5' 4 ) 04/05/2024 11:21 AM BRICK TESTER Body Mass Index 47.38 04/05/2024 11:21 AM BRICK TESTER Plan of Treatment Not on file Medical Devices Implanted Type Area Gauge Inspector Device Identifier Shelf Expiration Date Model / Serial / Lot [employer] Tendril Sts 6fr 52cm Is-1 Connector Active Fixation Bipolar Soft 2087tc/52 - [id number] - [id number] Implanted:Qty: 1 on 04/24/2022 by Hayden Langford MD at [facility] Lead Left: Subclavian [employer] [id number] 02/15/20258TC/5 2 / [id number] / [employer] Durata 6.8fr 58cm 1 Coil True Bipolar Active Fixation Extendable 7122q/58 - [id number] - [id number] Implanted:Qty: 1 on 04/24/2022 by Hayden Langford MD at [facility] Lead Left: Subclavian [employer] [id number] 01/15/2025 7122Q/58 / [id number] / [employer] Quartet 4.7fr 86cm Quadripolar Is-4 Llll Connector 8 Curve Low 1456q/86 - [id number] - [id number] Implanted:Qty: 1 on 04/24/2022 by Hayden Langford MD at [facility] Left: Subclavian [employer] [id number] 10/16/2024 1456Q/86 / [id number] / Angio-Seal Vip 6fr Closere Device [id number] - [id number] Implanted:Qty: 1 on 07/24/2021 by Harpreet Stahl MD at [facility] 03/18/2022 [id number] / / [id number] [employer] Resolute Thanh 3.5mm 2.1-2.7fr 15mm 140cm Rapid Exchange [id number] - [id number] Implanted:Qty: 1 on 10/08/2021 by Hipolito Cota MD at [facility] [employer] 04/23/2024 [id number] / / [id number] [facility] [employer] [facility] Angio-Seal Vip 6fr Closere Device [id number] - [id number] Implanted:Qty: 1 on 10/08/2021 by Hipolito Cota MD at [facility] 05/16/2022 [id number] / / [id number] [employer] Defib Cardiac [id number] 60l79se [place] H[employer] Df4 Is-4 Is-1 Cnctr [id number] - [id number] - [id number] Implanted:Qty: 1 on 04/24/2022 by Hayden Langford MD at [facility] Left: Subclavian [employer] [id number] 03/18/2024 [id number] / [id number] / Procedures Procedure Name Priority Date/Time Associated Diagnosis Comments DEVICE CHECK - REMOTE Routine 02/12/2024 9:35 AM BRICK TESTER HFrEF (heart failure with reduced ejection fraction) (CMS/HCC) (HCC) LBBB (left bundle branch block) Cardiac resynchronization therapy defibrillator (TILT WALL SUPERVISOR-D) in place CT LUNG CANCER SCREENING Schedule [...] (HCC) Primary hypertension Coronary artery disease of [place] artery of [place] heart with stable angina pectoris (HCC) COLONOSCOPY 08/03/2023 10:42 AM CDT SCREENING MAMMOGRAM BILATERAL W BENIGNO Schedule Routine, Read Routine (OP Routine) 04/11/2023 10:54 AM BRICK TESTER Encounter for screening mammogram for malignant neoplasm of breast LIPID PANEL Routine 12/27/2021 12:20 PM BRICK TESTER Coronary artery disease involving [place] coronary artery of [place] heart with angina pectoris (CMS/HCC) (HCC) Essential hypertension Chronic combined systolic and diastolic congestive heart failure (CMS/HCC) (HCC) LBBB (left bundle branch block) from Last 3 Months or Most Recently Relevant to Health Maintenance Results * DEVICE CHECK - REMOTE (02/12/2024 9:35 AM BRICK TESTER) Anatomical Region Laterality Modality Other Narrative 03/15/2024 10:30 AM BRICK TESTER Table formatting from the original result was [...] 0.5 ms Pacing % 1.5% 14% 99% TILT WALL SUPERVISOR 98% TILT WALL SUPERVISOR Battery Status: 6.0 years to RICHARD. Charge time 9.0 seconds. Episodes since last cleared: None Comments: Programming appropriate for device measurements. Measured data stable. See attached report. Medications: Anticoagulant(s): n/a Antiarrhythmic(s): metoprolol succinate Plan: Remote device checks quarterly, as scheduled. In-office device check scheduled on 08/12/2024. Rosalinda Hassan RN us Hayden Langford MD [facility] Final Result * CT Lung [...] Liam Christianson D.O. PS T: Report ID: [id number] Reading Location: [id number] Procedure Note Liam Christianson, DO - 12/15/2023 [...] 0.6 cm in the subcarinal region (axial uhlam191). There is a small hiatal hernia. The [...] Liam Christianson D.O. PS T: Report ID: [id number] Reading Location: [id number] Zuleika Zabala MD IM CT PROCEDURES Final [...] was last reviewed 2020. Testing performed by: [facility], [address] [place] [address]., [id number] Blood 08/10/2023 5:15 PM CDT 08/10/2023 5:26 PM CDT us Serjio Rangel MD LAB BLOOD ORDERABLES Final Resul t [facility] [id number] [facility] Department [place] [address] * Colonoscopy (08/03/2023 10:42 AM CDT) Anatomical Region Laterality Modality Other Narrative Procedure Note Antonio Bello MD - 08/03/2023 10:42 AM CDT [facility] GI ENDOSCOPY Patient Name: Yvonne Melo Procedure Date: 08/03/2023 10:42 AM Date of : 1960 Admit Type: Outpatient Age: 62 Gender: Female Attending MD: Antonio Bello M.D. Room: [facility] ENDOSCOPY ROOM 06 Note Status: Finalized Procedure: [...] The scope was passed under direct vision.The [id number]-[id number] colonoscope was introduced through theanus and advanced [...] On: 08/03/2023 10:42 AM Recognized by the [place] [employer] for promoting quality in endoscopy Antonio Bello MD ENDOSCOPY PROCEDURES Final Resul t * SCREENING MAMMOGRAM BILATERAL W BENIGNO (04/11/2023 10:54 AM BRICK TESTER) Anatomical Region Laterality Modality Breast Bilateral Mammography Impressions 04/22/2023 9:39 AM BRICK TESTER BI-RADS ATLAS category (overall): 1 - Negative There is no mammographic evidence of malignancy. A 1 year screening mammogram is recommended. The patient has been or will be contacted. We recommend annual screening mammography for women at average risk of breast cancer beginning at age 40, based on guidelines of the [place] [employer] (ACR Practice Parameter for the Performance of Screening and Diagnostic Mammography) and [place] [employer]. For women with and elevated risk of breast cancer, please refer to the ACR Practice Parameter for specific screening recommendations. The patient will be entered into a reminder system with a target due date of 1 year for her next screening exam. Narrative 04/22/2023 9:39 AM BRICK TESTER SCREENING MAMMOGRAM BILATERAL W BENIGNO: 04/11/23 The [...] * (ABNORMAL) Lipid panel (12/27/2021 12:20 PM BRICK TESTER) Cholesterol 155 30 - 199 mg/dL RICH [...] RICH CHÁVEZ Blood 12/27/2021 12:2 0 PM BRICK TESTER 12/27/2021 12:28 PM BRICK TESTER Serjio Rangel MD LAB BLOOD ORDERABLES Final Resul t RICH [address] [facility] Department [place] [address] from Last 3 Months or Most Recently Relevant to Health Maintenance Insurance [facility] Advance Directives For more information, please contact: [phone] Documents on File Type Date Recorded Patient Licensed Embalmer Expl anation ADVANCE DIRECTIVE 04/28/2022 12:27 PM Abeba r of Athletic Coach-Medical ADVANCE DIRECTIVE 10/10/2021 10:40 AM * Full [...] 4:14 PM 10/09/2021 10:10 PM Care Teams Product Test Specialist Relationship Specialty Start Date End Date Mariza Johnson PA [address] [address] PCP - General Family Medicine 04/11/23 Louis Hawkins Jr., MD [address] [place] [address] [phone] Medical Oncologist/Hematologis t Medical Oncology 03/12/21 Sejrio Rangel MD [address] [place] [address] [phone] Consulting Physician Cardiovascular Disease 10/09/21
--- OUTSIDE RECORDS SUMMARY | 2024-04-06 18:20 | XMS_ITS | Patient Health Summary ---
Author Organization [facility] Address [address] [place] [address] Care Team Providers Care Rn Social Work Name Role Phone Dago Stockton MD Unavailable [phone] Rachel Manzanares APRN-PROCTOLOGIST Primary Care Provider + Note from [facility],non-owned Affiliates and Associated Physician Practices is amultiple site organization consisting of ambulatory clinics and hospital sitesin [place], [place], [place] and [place]. This disclosure is being madepursuant to the Care Everywhere program and may not contain all information available regarding this patient. Last updated 17.[facility] Allergies * Contrast-Iodinated Agents For Ct/Other(Other) -High [...] propionate (FLONASE) 50 MCG/ACT nasal spray(Started 06/18/2020) [place] 2 (two) sprays into each nostril once [...] dysfunction 12/18/2014 Coronary artery disease invo lving [place] coronary artery without angina pectoris 12/18/2014 S/P [...] PM CDT Medical Devices Implanted Type Area Instructional Systems Design Consultant Device Identifier Shelf Expiration Date Model / Serial / Lot Patch Srg 13.7x10.8in Vntrl Slf Xpd - [id number] Implanted:Qty: 1 on 05/06/2016 by Marino Hicks MD at [facility] [employer] 08/13/2017 [id number] / [id number] / [id number] Procedures * SARS-COV-2 (COVID-19) AG (IP) POC [...] 06/15/2020) Performed for Coronary artery disease involving [place] coronary artery of [place] heart without angina pectoris * GLUCOSE - [...] SCREEN 10(Performed 11/08/2017) * AMB REFERRAL TO [facility] SCHEDULER(Performed 10/28/2017) Performed for COPD, mild (HCC) * [...] pain, unspecified type, Coronary artery disease involving [place] coronary artery of [place] heart without angina pectoris * TROPONIN I(Performed [...] 03/08/2015) Performed for Coronary artery disease involving [place] coronary artery of [place] heart with angina pectoris (HCC), SOB (shortness of breath) * STRESS TEST LEXISCAN (NUCLEAR)(Performed 03/08/2015) Performed for Coronary artery disease involving [place] coronary artery of [place] heart with angina pectoris (HCC), SOB (shortness of breath) * ECHOCARDIOGRAM 2D WITH DOPPLER(Performed 03/08/2015) Performed for Coronary artery disease involving [place] coronary artery of [place] heart with angina pectoris (HCC), SOB (shortness [...] esophagitis * ISTAT POTASSIUM TU(Performed 12/22/2013) * LA ELECTROCARDIOGRAM, COMPLETE(Performed 12/14/2013) Performed for Unspecified essential [...] is included. SARS-CoV-2 Ag Negative Negative [facility] ([facility]) Lot # [id number] [facility] ([facility]) Expiration Date 01-06-2021 [facility] ([facility]) Instrument Serial Number Binax [facility] ([facility]) COVID Internal Control Acceptable Acceptable [facility] ([facility]) Microbiology SPECIMEN FROM NASAL FOSSAE / Unknown 12/14/2020 10:26 AM CDT Parmjit Oliveira DAIRY FEED SALES CONSULTANT-PROCTOLOGIST LAB - POINT OF C ARE ORDERABLES [facility] ([facility]) [address] [place] [address] * CBC W AUTO DIFFERENTIAL (12/12/2020 8:10 AM T) Only the most recent of32 resultswithin the time period is included. WBC 7.8 4.0 - 10.0 K/uL 12/12/2020 8:46 AM T [facility] ([facility]) RBC 4.6 3.9 - 5.1 M/ul 12/12/2020 8:46 AM T [facility] ([facility]) Hemoglobin 13.7 12.0 - 15.0 g/dL 12/12/2020 8:46 AM T [facility] ([facility]) Hematocrit 41.8 37.0 - 45.0 % 12/12/2020 8:46 AM T [facility] ([facility]) MCV 90.7 82.0 - 101.0 fL 12/12/2020 8:46 AM T [facility] ([facility]) MCH 29.7 27.0 - 34.0 pg 12/12/2020 8:46 AM [facility] ([facility]) MCHC 32.8 32.0 - 35.0 g/dL 12/12/2020 8:46 AM [facility] ([facility]) RDW-CV 13.2 11.4 - 14.6 % 12/12/2020 8:46 AM T [facility] ([facility]) Platelet Count 204 120 - 410 K/uL 12/12/2020 8:46 AM T [facility] ([facility]) MPV 11.3 5.2 - 12.8 fL 12/12/2020 8:46 AM T [facility] ([facility]) Neutrophils % 74.3 25.0 - 78.0 % 12/12/2020 8:46 AM T [facility] ([facility]) Lymphocytes % 16.7 10.0 - 50.0 % 12/12/2020 8:46 AM T [facility] ([facility]) Monocytes % 5.7 0.0 - 11.0 % 12/12/2020 8:46 AM T [facility] ([facility]) Eosinophils % 2.6 0.0 - 3.0 % 12/12/2020 8:46 AM CDT [facility] ([facility]) Basophils % 0.6 0.0 - 1.5 % 12/12/2020 8:46 AM CDT [facility] ([facility]) Neutrophil Absolute 5.8 2.0 - 6.9 K/uL 12/12/2020 8:46 AM CDT [facility] ([facility]) Lymphocyte Absolute 1.3 0.6 - 4.6 K/uL 12/12/2020 8:46 AM CDT [facility] ([facility]) Monocyte Absolute 0.5 0.0 - 0.9 K/uL 12/12/2020 8:46 AM CDT [facility] ([facility]) Eosinophil Absolute 0.2 0.0 - 0.7 K/uL 12/12/2020 8:46 AM CDT [facility] ([facility]) Basophil Absolute 0.1 0.0 - 0.2 K/uL 12/12/2020 8:46 AM CDT [facility] ([facility]) Immature Granulocytes % 0.1 0.0 - 0.5 % 12/12/2020 8:46 AM CDT [facility] ([facility]) Immature Granulocytes Absolute 0.01 0.00 - 0.03 K/UL 12/12/2020 8:46 AM CDT [facility] ([facility]) Blood BLOOD SPECIMEN / Unknown Lab Venipuncture / Unknown 12/12/2020 8:10 AM CDT 12/12/2020 8:35 AM CDT Parmjit Oliveira DAIRY FEED SALES CONSULTANT-PROCTOLOGIST LAB - HEMATOLOGY ORDERABLES [facility] ([facility]) [address] [place] [address] * (ABNORMAL) COMPREHENSIVE METABOLIC PANEL (12/12/2020 8:10 AM CDT) Only the most recent of23 resultswithin the time period is included. Sodium 136(L) 137 - 145 mmol/L 12/12/2020 9:24 AM CDT [facility] ([facility]) Potassium 3.8 3.6 - 5.0 mmol/L 12/12/2020 9:24 AM [facility] ([facility]) Chloride 92(L) 98 - 107 mmol/L 12/12/2020 9:24 AM [facility] ([facility]) Carbon Dioxide 38(H) 21 - 31 mmol/L 12/12/2020 9:24 AM [facility] ([facility]) Glucose 194(H) 65 - 100 mg/dL 12/12/2020 9:24 AM [facility] ([facility]) BUN 32(H) 7 - 17 mg/dL 12/12/2020 9:24 AM [facility] ([facility]) Creatinine 1.10(H) 0.50 - 1.04 mg/dL 12/12/2020 9:24 AM [facility] ([facility]) eGFR 50(L) >=60 ml/min/1.7 3*2 12/12/2020 9:24 AM [facility] ([facility]) Comment: Chronic kidney disease is defined [...] 29.0(H) 6.0 - 26.0 12/12/2020 9:24 AM [facility] ([facility]) Calcium 10.1 8.4 - 10.7 mg/dL 12/12/2020 9:24 AM [facility] ([facility]) Protein Total 7.0 6.3 - 8.2 g/dL 12/12/2020 9:24 AM [facility] ([facility]) Albumin 4.5 3.9 - 5.0 g/dL 12/12/2020 9:24 AM [facility] ([facility]) Albumin/Globulin Ratio 1.8 1.1 - 2.2 g/dL 12/12/2020 9:24 AM CDT [facility] ([facility]) Bilirubin Total 0.8 0.2 - 1.3 mg/dL 12/12/2020 9:24 AM CDT [facility] ([facility]) Alkaline Phosphatase 48 38 - 126 U/L 12/12/2020 9:24 AM CDT [facility] ([facility]) AST 31 8 - 39 U/L 12/12/2020 9:24 AM CDT [facility] ([facility]) ALT 24 9 - 52 U/L 12/12/2020 9:24 AM CDT [facility] ([facility]) Blood BLOOD SPECIMEN / Unknown Lab Venipuncture / Unknown 12/12/2020 8:10 AM CDT 12/12/2020 8:34 AM CDT Parmjit Oliveira APRN-PROCTOLOGIST LAB - CHEMISTRY ORDERABLES Performing Organization Address City/[facility] Co de Phone Number [facility] ([facility]) [address] [place] [phone] * LIPASE BLOOD (12/10/2020 6:30 AM CDT) Only the most recent of8 resultswithin the time period is included. Lipase 229 23 - 300 U/L 12/10/2020 7:15 AM CDT [facility] ([facility]) Blood BLOOD SPECIMEN / Unknown Lab Venipuncture / Unknown 12/10/2020 6:30 AM CDT 12/10/2020 6:40 AM CDT Parmjit Oliveira DAIRY FEED SALES CONSULTANT-PROCTOLOGIST LAB - CHEMISTRY ORDERABLES Performing Organization Address City/[facility]/ZIP Co de Phone Number [facility] ([facility]) [address] [place] [phone] * URINALYSIS REFLEX TO MICROSCOPIC NO CULTURE (12/09/2020 8:52 PM CDT) Only the most recent of2 resultswithin the time period is included. Color UA Yellow Yellow, Cristina 12/09/2020 9:02 PM CDT [facility] ([facility]) Clarity UA Clear Clear, Hazy 12/09/2020 9:02 PM CDT [facility] ([facility]) Glucose UA Negative Negative, Color Interference 12/09/2020 9:02 PM CDT [facility] ([facility]) Ketone UA Negative Negative 12/09/2020 9:02 PM CDT [facility] ([facility]) Blood UA Negative Negative 12/09/2020 9:02 PM CDT [facility] ([facility]) Bilirubin UA Negative Negative 12/09/2020 9:02 PM CDT [facility] ([facility]) Protein UA Negative Negative 12/09/2020 9:02 PM CDT [facility] ([facility]) Leukocyte UA Negative Negative 12/09/2020 9:02 PM CDT [facility] ([facility]) Nitrite UA Negative Negative 12/09/2020 9:02 PM CDT [facility] ([facility]) Specific [place]co UA 1.015 1.000, 1.005, 1.010, 1.015, 1.020, 1.025 12/09/2020 9:02 PM CDT [facility] ([facility]) pH UA 7.0 5.0, 5.5, 6.0, 6.5, 7.0, 7.5, 8.0, Color Interference 12/09/2020 9:02 PM CDT [facility] ([facility]) Urobilinogen UA 0.2 0.2, 1.0 9:02 PM CDT [facility] ([facility]) Urine URINE SPECIMEN OBTAINED BY CLEAN CATCH PROCEDURE / Unknown Collection / Unknown 12/09/2020 8:52 PM CDT 12/09/2020 8:52 PM CDT Parmjit Oliveira DAIRY FEED SALES CONSULTANT-PROCTOLOGIST LAB - URINALYSIS ORDERABLES [facility] ([facility]) [address] [place] [address] * CT ABDOMEN PELVIS WO CONTRAST - [...] Dago Hastings M.D. KT: OSBALDO Report ID: [id number] Reading Location: [id number] [facility] 12/09/2020 9:40 [place] [address] RADIOLOGY REPORT Patient Name:YVONNE MELO Date of Service:12/09/2020csession #:[id number] Date of :1960Account #:[id number] Age:60Sex:F Requesting Ismael OLIVEIRA Examination:CT ABDOMEN PELVIS [...] Procedure Note Dago Hastings MD - 12/09/2020 [place] [address] RADIOLOGY REPORT Patient Name:YVONNE MELO Date of Service:12/09/2020csession #:[id number] Date of :1960Account #:[id number] Age:60Sex:F Requesting Ismael OLIVEIRA Examination:CT ABDOMEN PELVIS [...] Dago Hastings M.D. KT: OSBALDO Report ID: [id number] Reading Location: [place] [address] Parmjit Oliveira DAIRY FEED SALES CONSULTANT-PROCTOLOGIST CT ORDERABLES * MAGNESIUM BLOOD (12/09/2020 7:13 PM CDT) Only the most recent of10 resultswithin the time period is included. Magnesium 1.7 1.6 - 2.3 mg/dL 12/09/2020 7:37 PM CDT [facility] ([facility]) Blood BLOOD SPECIMEN / Unknown Lab Venipuncture / Unknown 12/09/2020 7:13 PM CDT 12/09/2020 7:13 PM CDT Parmjit Oliveira [facility] LAB - CHEMISTRY ORDERABLES Performing Organization Address City/[facility]/ZIP Co de Phone Number [facility] ([facility]) [address] [place] [phone] * LACTIC ACID BLOOD (12/09/2020 7:13 PM CDT) Only the most recent of10 resultswithin the time period is included. Lactic Acid 1.3 0.7 - 2.1 mmol/L 12/09/2020 7:37 PM CDT [facility] ([facility]) Blood BLOOD SPECIMEN / Unknown Lab Venipuncture / Unknown 12/09/2020 7:13 PM CDT 12/09/2020 7:13 PM CDT Parmjit Oliveira [facility] LAB - CHEMISTRY ORDERABLES Performing Organization Address City/[facility]/ZIP Co de Phone Number [facility] ([facility]) [address] [place] [phone] * (ABNORMAL) AMYLASE BLOOD (12/09/2020 7:13 PM CDT) Only the most recent of3 resultswithin the time period is included. Amylase 153(H) 30 - 100 U/L 12/09/2020 9:20 PM CDT [facility] ([facility]) Blood BLOOD SPECIMEN / Unknown Lab Venipuncture / Unknown 12/09/2020 7:13 PM CDT 12/09/2020 8:56 PM CDT Parmjit Luis DAIRY FEED SALES CONSULTANT-PROCTOLOGIST LAB - CHEMISTRY ORDERABLES Performing Organization Address City/[facility]/ZIP Co de Phone Number [facility] ([facility]) [address] [place] [phone] * (ABNORMAL) TROPONIN I (12/03/2020 6:30 PM CDT) Only the most recent of14 resultswithin the time period is included. Troponin I 0.042(HH) 0.000 - 0.034 ng/mL 12/03/2020 7:14 PM CDT [facility] ([facility]) Blood BLOOD SPECIMEN / Unknown Line Draw / Unknown 12/03/2020 6:30 PM CDT 12/03/2020 6:34 PM CDT Narrative [facility] ([facility]) - 12/03/2020 7:14 PM CDT AMI Diagnostic cut-off = 0.12ng/mL Values less thatn 0.035 represent the upper limit of normal at the 99th percentile. Values between 0.035 and 0.12 indicate the need for further evaluation. Shanna Vera APRN-PROCTOLOGIST LAB - CHEMI STRY ORDERABLES Performing Organization Address [facility] Co de Phone Number [facility] ([facility]) [address] [place] [phone] * PTT (12/03/2020 6:30 PM CDT) Only the most recent of2 resultswithin the time period is included. Pathologist [facility] PTT 22.7 20.6 - 31.1 sec 12/03/2020 7:01 PM CDT [facility] ([facility]) Blood BLOOD SPECIMEN / Unknown Line Draw / Unknown 12/03/2020 6:30 PM CDT 12/03/2020 6:41 PM CDT Shanna Vera DAIRY FEED SALES CONSULTANT-PROCTOLOGIST LAB - COAGU LATION ORDERABLES Performing Organization Address City/[facility]/ZIP Co de Phone Number [facility] ([facility]) [address] [place], [place] [phone] * (ABNORMAL) PT-INR (12/03/2020 6:30 PM CDT) Only the most recent of3 resultswithin the time period is included. PT 10.0 9.2 - 11.0 sec 12/03/2020 7:02 PM CDT [facility] ([facility]) INR 0.99(L) 2 - 4 12/03/2020 7:02 PM CDT [facility] ([facility]) Blood BLOOD SPECIMEN / Unknown Line Draw / Unknown 12/03/2020 6:30 PM CDT 12/03/2020 6:41 PM CDT Narrative [facility] ([facility]) - 12/03/2020 7:02 PM CDT Therapeutic Ranges: Prophylaxis, treatment of DVT, PE......... 2.0-3.0 Tissue Heart Valves ..................................... 2.0-3.0 Acute CA ...................................... 2.5-3.5 Valvular Heart Disease ..........................2.5-3.5 Atrial Fibrillation ............................2.5-3.5 Mechanical Heart Vlave .............2.5-3.5 For more Informations see CHEST Vol 119/1 Supp (2000) Shanna Vera DAIRY FEED SALES CONSULTANT-PROCTOLOGIST LAB - [facility] ORDERABLES [facility] ([facility]) [address] [place] [address] * (ABNORMAL) B-TYPE NATRIURETIC PEPTIDE (12/03/2020 6:30 PM CDT) Only the most recent of8 resultswithin the time period is included. BNP 759(H) 0 - 100 pg/mL 12/03/2020 7:33 PM CDT [facility] ([facility]) Blood BLOOD SPECIMEN / Unknown Line Draw / Unknown 12/03/2020 6:30 PM CDT 12/03/2020 6:34 PM CDT Shanna Vera DAIRY FEED SALES CONSULTANT-PROCTOLOGIST LAB - CHEMI STRY ORDERABLES [facility] ([facility]) [address] [place] [phone] * XR CHEST PA AND LATERAL (12/03/2020 [...] Dio Andrade M.D. RT: RT Report ID: [id number] Reading Location: [id number] Narrative 12/03/2020 6:45 PM CDT [address] [address] RADIOLOGY REPORT Patient Name:YVONNE MELO Date of Service:12/03/2020csession #:[id number] Date of :1960Account #:[id number] Age:60Sex:F Requesting Melanie VERA Examination:XR CHEST 2VW [...] Procedure Note Dio Andrade MD - 12/03/2020 [place] [address] RADIOLOGY REPORT Patient Name:YVONNE MELO Date of Service:12/03/2020csession #:[id number] Date of :1960Account #:[id number] Age:60Sex:F Requesting PhysicianSHANNA VERA Examination:XR CHEST 2VW [...] Dio Andrade M.D. RT: RT Report ID: [id number] Reading Location: [place] [address] Shanna Vera DAIRY FEED SALES CONSULTANT-PROCTOLOGIST DIAGNOSTIC IMAGING ORDERABLES * URINALYSIS DIPSTICK - POINT OF CARE (AMB) [facility] (12/03/2020 11:39 AM CDT) Color UA Yellow Yellow, Cristina [facility] Clarity UA Clear Clear, Hazy [facility] Specific Barco UA 1.015 1.000, 1.005, 1.010, 1.015, 1.020, 1.025 [facility] pH UA 5.0 5.0, 5.5, 6.0, 6.5, 7.0, 7.5, 8.0, 8.5, 9.0 [facility] Protein UA Trace Negative, Trace [facility] Glucose UA Negative Negative [facility] Ketone UA Negative Negative [facility] Bilirubin UA Negative Negative [facility] Blood UA Negative Negative [facility] Leukocyte Esterase UA Negative Negative [facility] Nitrite UA Negative Negative [facility] Urobilinogen UA 0.2 EU/dL 0.2 EU/dL, 1.0 EU/dL, Negative [facility] Urine URINE / Unknown 12/03/2020 1 1:39 AM CDT Rachel Manzanares DAIRY FEED SALES CONSULTANT-PROCTOLOGIST LAB - POINT OF C ARE ORDERABLES [facility] [address] [place] [address], [facility] * (ABNORMAL) BASIC METABOLIC PANEL (CALCIUM TOTAL) (11/29/2020 6:30 AM CDT) Only the most recent of21 resultswithin the time period is included. Glucose 117(H) 65 - 100 mg/dL 11/29/2020 7:01 AM [facility] ([facility]) BUN 22(H) 7 - 17 mg/dL 11/29/2020 7:01 AM [facility] ([facility]) Creatinine 0.90 0.50 - 1.04 mg/dL 11/29/2020 7:01 AM [facility] ([facility]) eGFR 64 >=60 ml/min/1.7 3*2 11/29/2020 7:01 AM [facility] ([facility]) Comment: Chronic kidney disease is defined [...] 6.0 - 26.0 11/29/2020 7:01 AM CDT [facility] ([facility]) Sodium 141 137 - 145 mmol/L 11/29/2020 7:01 AM T [facility] ([facility]) Potassium 3.6 3.6 - 5.0 mmol/L 11/29/2020 7:01 AM T [facility] ([facility]) Chloride 104 98 - 107 mmol/L 11/29/2020 7:01 AM T [facility] ([facility]) Carbon Dioxide 34(H) 21 - 31 mmol/L 11/29/2020 7:01 AM T [facility] ([facility]) Calcium 9.2 8.4 - 10.7 mg/dL 11/29/2020 7:01 AM T [facility] ([facility]) Blood BLOOD SPECIMEN / Unknown Lab Venipuncture / Unknown 11/29/2020 6:30 AM CDT 11/29/2020 6:34 AM CDT Parmjit Oliveira DAIRY FEED SALES CONSULTANT-PROCTOLOGIST LAB - CHEMISTRY ORDERABLES [facility] ([facility]) [address] [place] [address] * (ABNORMAL) URINE MICROSCOPIC ONLY (11/28/2020 5:10 AM CDT) RBC UA 0-2 None Seen, 0-2 # /hpf 11/28/2020 5:52 AM CDT [facility] ([facility]) WBC UA 0-2 None Seen, 0-2 # /hpf 11/28/2020 5:52 AM CDT [facility] ([facility]) Epithelial Cell UA Few None, Few # /hpf 11/28/2020 5:52 AM CDT [facility] ([facility]) Bacteria UA Moderate(A ) None, Few, Rare 11/28/2020 5:52 AM CDT [facility] ([facility]) Urine URINE SPECIMEN OBTAINED VIA [employer] URINARY CATHETER / Unknown Collection / Unknown 11/28/2020 5:10 AM CDT 11/28/2020 5:12 AM CDT Parmjit Luis DAIRY FEED SALES CONSULTANT-PROCTOLOGIST LAB - URINALYSIS ORDERABLES [facility] ([facility]) [address] [place] [id number] * XR CHEST 1VW PORTABLE (11/28/2020 4:35 [...] Dio Andrade M.D. RT: RT Report ID: [id number] Reading Location: [id number] Narrative 11/28/2020 4:45 AM CDT [address] [address] RADIOLOGY REPORT Patient Name:YVONNE MELO Date of Service:11/28/2020csession #:[id number] Date of :1960Account #:[id number] Age:60Sex:F Requesting Ismael OLIVEIRA Examination:XR CHEST 1VW [...] Procedure Note Dio Andrade MD - 11/28/2020 [place] [address] RADIOLOGY REPORT Patient Name:YVONNE MELO Date of Service:11/28/2020csession #:[id number] Date of :1960Account #:[id number] Age:60Sex:F Requesting Ismael OLIVEIRA Examination:XR CHEST 1VW [...] Dio Andrade M.D. RT: RT Report ID: [id number] Reading Location: [place] [address] Parmjit Oliveira DAIRY FEED SALES CONSULTANT-PROCTOLOGIST DIAGNOSTIC IMAGI NG ORDERABLES * (ABNORMAL) D-DIMER (11/28/2020 4:10 AM CDT) Only the most recent of2 resultswithin the time period is included. D-Dimer >400(H) 0 - 400 11/28/2020 6:00 AM CDT [facility] ([facility]) Blood BLOOD SPECIMEN / Unknown Venipuncture / Unknown 11/28/2020 4:10 AM CDT 11/28/2020 4:37 AM CDT Parmjit Oliveira DAIRY FEED SALES CONSULTANT-PROCTOLOGIST LAB - COAGULATIO N ORDERABLES [facility] ([facility]) [address] [place] [address] * CARDIAC RHYTHM STRIP ORDER (06/21/2020 12:17 PM CDT) Only the most recent of4 resultswithin the time period is included. Narrative 06/21/2020 12:17 PM CDT Ordered by an unspecified provider. Scanned Document CARDIAC SERVICES ORD ERABLES * GLUCOSE - POINT OF CARE (06/18/2020 11:46 AM CDT) Only the most recent of18 resultswithin the time period is included. [facility] Glucose WB/POC 117 70 - 125 mg/dL 06/18/2020 11:48 AM CDT [facility] Specimen Type Arterial/C apillary 06/18/2020 11:48 AM CDT [facility] Blood BLOOD SPECIMEN / Unknown 06/18/2020 11:46 AM CDT 06/18/2020 11:47 AM CDT Kourtney Lora MD LAB - POINT OF CARE ORDERABLES [facility] [address] [place], [place] [id number] [place] [address] * SARS-COV-2 (COVID-19) RAPID (06/18/2020 9:58 AM CDT) [facility] COVID-19 PCR Not detected Not detected, Invalid 06/18/2020 10:51 AM CDT [facility] Microbiology SPECIMEN FROM NASOPHARYNGEAL STRUCTURE / Unknown Collection / Unknown 06/18/2020 9:58 AM CDT 06/18/2020 10:04 AM CDT Narrative [facility] - 06/18/2020 10:51 AM CDT The [...] Lora MD LAB - MICROBIOLOGY O RDERABLES [facility] [address] [place] [address], [facility] * (ABNORMAL) LIPID PROFILE (06/17/2020 5:08 AM [...] 5:08 AM CDT 06/17/2020 5:47 AM CDT [facility] - 06/17/2020 6:21 AM CDT [...] Schultz DO LAB - CHEMISTRY RENUKA RED [facility] [address] [place] [address], [facility] * EKG 12-LEAD (06/15/2020 4:27 PM CDT) Only the most recent of11 resultswithin the time period is included. Ventricular Rate 95 BPM [facility] Atrial Rate 95 BPM [facility] P-R Interval 158 ms [facility] QRS Duration ms 172 ms [facility] Q-T Interval ms 440 ms [facility] QTC Calculation (Bezet) 552 ms [facility] Calculated P [place] 62 degrees [facility] Calculated R [place] -28 degrees [facility] Calculated T [place] 114 degrees [facility] Interpretation EKG Sinus rhythm Left atrial enlargement Left bundle branch block Abnormal ECG Confirmed by MD [place] ([id number]) on 06/16/2020 2:22:23 PM [facility] 06/15/2020 [...] WBC Morph Normal 06/14/2020 7:43 AM CDT [facility] Large Platelets 1+(A) None 06/14/2020 7:43 AM CDT [facility] Blood BLOOD SPECIMEN / Unknown Lab Venipuncture / Unknown 06/14/2020 6:26 AM CDT 06/14/2020 6:40 AM CDT Kourtney Lora MD LAB - HEMATOLOGY ORD ERABLES Performing Organization Address [facility] Co de Phone Number [facility] [address] * PHOSPHORUS BLOOD (06/14/2020 6:26 AM CDT) Only the most recent of3 resultswithin the time period is included. Phosphorus 3.64 2.3 - 4.7 mg/dL 06/14/2020 7:13 AM CDT [facility] Blood BLOOD SPECIMEN / Unknown Lab Venipuncture / Unknown 06/14/2020 6:26 AM CDT 06/14/2020 6:40 AM CDT Edenilson Finn APRN-PROCTOLOGIST LAB - CHEMISTRY ORDERABLES Performing Organization Address [facility] de Phone Number [facility] [address] * (ABNORMAL) URINALYSIS REFLEX MICROSCOPIC REFLEX [...] 06/13/2020 7:26 PM CDT [facility] Specific [place] UA 1.004(L) 1.005 - 1.030 06/13/2020 7:26 PM CDT [facility] Blood UA Negative Negative 06/13/2020 7:26 PM CDT [facility] pH UA 6.0 5.0 - 8.0 pH 06/13/2020 7:26 PM CDT [facility] Protein UA Negative Negative 06/13/2020 7:26 PM CDT [facility] Urobilinogen UA Negative Negative mg/dL 06/13/2020 7:26 PM CDT [facility] Nitrite UA Negative Negative 06/13/2020 7:26 PM CDT [facility] Leukocyte UA Negative Negative 06/13/2020 7:26 PM CDT [facility] Urine Microscopy Urine microscopy not indicated 06/13/2020 7:26 PM CDT [facility] Reflex Status Culture not indicated 06/13/2020 7:26 PM CDT [facility] Urine URINE SPECIMEN OBTAINED BY CLEAN CATCH PROCEDURE / Unknown Collection / Unknown 06/13/2020 7:13 PM CDT 06/13/2020 7:19 PM CDT Narrative [facility] - 06/13/2020 7:26 PM CDT Cristina Breaux APRN-PROCTOLOGIST LAB - URINALYSIS ORDERABLES [facility] [address] * INFLUENZA A+B ANTIGEN RAPID (06/13/2020 4:03 PM CDT) Pathologist [facility] Influenza A Antigen Negative Negative 06/13/2020 4:27 PM CDT [facility] Influenza B Antigen Negative Negative 06/13/2020 4:27 PM CDT [facility] Microbiology SPECIMEN FROM NASOPHARYNGEAL STRUCTURE / Unknown Collection / Unknown 06/13/2020 4:03 PM CDT 06/13/2020 4:09 PM CDT Cristina Breaux APRN-PROCTOLOGIST LAB - MICROBIOLO GY ORDERABLES Performing Organization Address [facility]/ZIP Co de Phone Number [facility] [address] * (ABNORMAL) LACTIC ACID BLOOD REFLEX TO REPEAT (06/13/2020 3:56 PM CDT) Lactic Acid 3.24(HH) 0.5 - 2 mmol/L 06/13/2020 4:52 PM CDT [facility] Blood BLOOD SPECIMEN / Unknown Venipuncture / Unknown 06/13/2020 3:56 PM CDT 06/13/2020 4:18 PM CDT Cristina Breaux DAIRY FEED SALES CONSULTANT-PROCTOLOGIST LAB - CHEMISTRY ORDERABLES [facility] [address] [place], [place] [id number] [place] [address] * PROCALCITONIN LEVEL (06/13/2020 3:56 PM CDT) Procalcitonin 0.08 <=0.10 ng/mL 06/13/2020 7:39 PM CDT [facility] Blood BLOOD SPECIMEN / Unknown Venipuncture / Unknown 06/13/2020 3:56 PM CDT 06/13/2020 4:23 PM CDT Narrative [facility] - 06/13/2020 7:39 PM CDT If [...] Change in Procalcitonin Calculator is available at [email or web address] If clinical picture has not improved and PCT remains high, reevaluate and consider treatment failure or other causes. Kourtney Lora MD LAB - CHEMISTRY RENUKA RED [facility] Organization Address City/State/ZIP Co de Phone Number [facility] [address] * (ABNORMAL) HEMOGLOBIN A1C (06/13/2020 3:56 PM CDT) Only the most recent of3 resultswithin the time period is included. Hemoglobin A1c 5.8(H) 4.2 - 5.6 % 06/13/2020 7:20 PM CDT [facility] Estimated Average Glucose 120 mg/dL 06/13/2020 7:20 PM CDT [facility] Blood BLOOD SPECIMEN / Unknown Lab Venipuncture / Unknown 06/13/2020 3:56 PM CDT 06/13/2020 6:56 PM CDT [facility] - 06/13/2020 7:20 PM CDT The following cutoff levels are recommended by [place] [employer]. A1c > 6.5% : considered [...] - CHEMISTRY RENUKA RED Performing Organization Address City/[facility] Co de Phone Number [facility] [address] * CULTURE BLOOD (06/13/2020 3:56 PM CDT) Only the most recent of4 resultswithin the time period is included. [facility] Culture No growth day 5 HARMAN 06/19/2020 10:29 AM CDT [facility] Blood PERIPHERAL BLOOD / Unknown Venipuncture / Unknown 06/13/2020 3:56 PM CDT 06/13/2020 4:22 PM CDT Cristina Breaux APRN-PROCTOLOGIST LAB - MICROBIOLO GY ORDERABLES [facility] [address] * (ABNORMAL) BLOOD GASES TU (06/13/2020 3:56 PM CDT) [facility] pH Venous 7.39 7.32 - 7.42 [...] - 1.5 % 05/18 4:31 PM CDT [facility] Sample Type Venous 06/13/2020 4:31 PM CDT [facility] Blood BLOOD SPECIMEN / Unknown Venipuncture / Unknown 06/13/2020 3:56 PM CDT 06/13/2020 4:19 PM CDT Cristina JACKSON LAB - BLOOD GASE S ORDERABLES Performing Organization Address [facility]/State/[facility] Co de Phone Number [facility] [address] * Critical Care (06/13/2020 3:55 PM [...] in my specialty: yes (Silva) Cristina Breaux DAIRY FEED SALES CONSULTANT-PROCTOLOGIST PROCEDURE/MINOR SURGICAL ORDERABLES * ECHOCARDIOGRAM 2D WITH DOPPLER (06/13/2020 12:00 AM CDT) Only the most recent of2 resultswithin the time period is included. 06/13/2020 Narrative [facility] - 06/14/2020 6:[address] [facility] [address] [place] [address] Transthoracic Echocardiogram 2D, M-mode, Doppler, and Color Doppler Patient: YVONNE MELO MR #: [id number] : 1960 Age: 59 years Gender: Female Study date: 14-Jun-2020 Status: Inpatient Room: [address] [place] [address] HR: 75 bpm Height: 64 in Weight: 242.4 lb BSA: 2.12 m-sq BP: 147/ 94 Ordering Physician: [facility] Referring Physician: Herb Bansal MD Pneumatic Tube Repairer: Brett Mobley MD, [facility] Pneumatic Tube Repairer: [facility] Supervisor: Latasha Nickerson RDCS Summary: - Clinical question: [...] Prepared and Electronically Authenticated Brett Mobley MD, [facility] 14-Jun-2020 18:19:30 Procedure Note Unknown, Provider, - 06/14/[address] [facility] [address] [place] [address] Transthoracic Echocardiogram 2D, M-mode, Doppler, and Color Doppler Patient: YVONNE MELO MR #: [id number] : 1960 Age: 59 years Gender: Female Study date: 14-Jun-2020 Status: Inpatient Room: [address] [place] [address] HR: 75 bpm Height: 64 in Weight: 242.4 lb BSA: 2.12 m-sq BP: 147/ 94 Ordering Physician: [facility] Hospitalist Referring Physician: Herb Bansal MD Pneumatic Tube Repairer: Brett Mobley MD, [facility] Pneumatic Tube Repairer: [facility] Supervisor: Latasha Nickerson [facility] Summary: - Clinical question: Dyspnea [...] generated for this procedure were personally reviewedby ks. Prepared and Electronically Authenticated Brett Mobley MD, [facility] 14-Jun-2020 18:19:30 Edenilson Finn DAIRY FEED SALES CONSULTANT-PROCTOLOGIST ECHO ORDERABLES [facility] * SOLITARIO SCREENING BILATERAL DIGITAL [id number] (09/08/2018 11:34 AM CDT) Only the most [...] identified in either breast. Cindy Elizabeth Paty DAIRY FEED SALES CONSULTANT-PROCTOLOGIST MAMMO ORDER JOVANNY * GROSS + MICRO EXAM (ILL) (08/09/2018 11:06 AM CDT) Only the most recent of3 resultswithin the time period is included. Case Report Surgical Pathology Report Case: [id number] Authorizing Provider: Dago Stockton MD Collected: 08/09/2018 11:06 AM Ordering Location: [facility] Received: 08/09/2018 01:08 PM Pathologist: Reinaldo Jacques MD Specimen: Polyp Sigmoid 08/10/2018 10:06 AM CDT [facility] Final Diagnosis SIGMOID COLON POLYP, 20 CM, COLONOSCOPIC POLYPECTOMY: - FRAGMENTS OF TUBULAR ADENOMA. - NEGATIVE FOR HIGH-GRADE DYSPLASIA AND MALIGNANCY. /jzr 08/10/2018 10:06 AM T [facility] Microscopic Description and Comment Microscopic examination is performed and substantiates the above diagnosis. 08/10/2018 10:06 AM CDT [facility] Clinical History History of colon cancer. 08/10/2018 10:06 AM CDT [facility] Gross Description Received in formalin labeled P jose juansaniyakade Yvonne and s igmoid colon polyp at 20 cm are two pink-bello polypoid fragments measuring 0.5 x 0.3 x 0.3 cm and 0.7 x 0.5 x 0.4 cm. Both are inked at the base and bisected and submitted entirely in A1. /jzr 08/10/2018 10:06 AM [facility] Disclaimer The performance characteristics of all immunohistochemical and indirect immunofluorescence stains (if any) cited in this report were determined by the Histopathology Laboratory of [facility]. Some of these tests were developed by [...] testing. This case was interpreted by the [facility] Department of Pathology. When applicable, select reference laboratory testing is performed at the [facility], [address] [place] [id number]. 08/10/2018 10:06 AM CDT [facility] Embedded Images 08/10/2018 10:06 AM T [facility] Pathology/Cytolo gy POLYP OF SIGMOID COLON / Unknown 08/09/2018 11:06 AM CDT 08/09/2018 1:08 PM CDT Dago Stockton MD LAB - PATHOLOGY/CYTO LOGY ORDERABLES Performing Organization Address [facility]/ZIP Co de Phone Number [facility] [address] * POTASSIUM BLOOD (08/06/2018 9:51 AM CDT) Only the most recent of3 resultswithin the time period is included. Potassium 3.9 3.4 - 4.5 mmol/L 08/06/2018 10:27 AM CDT [facility] Blood BLOOD SPECIMEN / Unknown Venipuncture / Unknown 08/06/2018 9:51 AM CDT 08/06/2018 10:05 AM CDT Bianca Leonard MD LAB - CHEMISTRY OR DERABLES Performing Organization Address [facility] Co de Phone Number [facility] [address] * TSH REFLEX FREE T4 (06/01/2018 11:37 AM CDT) TSH 1.9664 0.35 - 4.94 uIU/mL 06/01/2018 12:21 PM CDT [facility] Blood BLOOD SPECIMEN / Unknown Venipuncture / Unknown 06/01/2018 11:37 AM CDT 06/01/2018 11:41 AM CDT Cindy Newman DAIRY FEED SALES CONSULTANT-PROCTOLOGIST LAB - CHEMI STRY ORDERABLES Performing Organization Address [facility] Co de Phone Number [facility] [address] * (ABNORMAL) VITAMIN D 25-HYDROXY (06/01/2018 11:37 AM CDT) Vitamin D, 25 Hydroxy 28.2(L) 30 - 100 ng/mL 06/01/2018 4:29 PM CDT [facility] Blood BLOOD SPECIMEN / Unknown Venipuncture / Unknown 06/01/2018 11:37 AM CDT 06/01/2018 11:41 AM CDT Narrative [facility] - 06/01/2018 4:29 PM CDT Reference [...] performed to confirm the result. 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 Kourtney Lora MD LAB - MICROBIOLOGY O RDERABLES Performing Organization Address City/[facility]/ZIP Co de Phone Number [facility] [address] * ALCOHOL ETHYL BLOOD (11/08/2017 11:07 AM CDT) Pathologist [facility] Ethanol <10.00 <10 mg/dL 11/08/2017 11:35 AM CDT [facility] Blood BLOOD SPECIMEN / Unknown Lab Venipuncture / Unknown 11/08/2017 11:07 AM CDT 11/08/2017 11:12 AM CDT Narrative [facility] - 11/08/2017 11:35 AM CDT For Medical Use Only Starr Mei APRN-PROCTOLOGIST LAB - NURSING PROJECT COORDINATOR RY ORDERABLES [facility] [address] * TSH (11/08/2017 11:07 AM CDT) Only the most recent of5 resultswithin the time period is included. Pathologist [facility] TSH 1.1850 0.35 - 4.94 uIU/mL 11/08/2017 11:55 AM CDT [facility] Blood BLOOD SPECIMEN / Unknown Lab Venipuncture / Unknown 11/08/2017 11:07 AM CDT 11/08/2017 11:12 AM CDT Starr JACKSON LAB - NURSING PROJECT COORDINATOR RY ORDERABLES Performing Organization Address [facility] Co de Phone Number [facility] [address] * (ABNORMAL) SALICYLATE LEVEL BLOOD (11/08/2017 11:07 AM CDT) Salicylate <5.0(L) 15.0 - 30.0 mg/dL 11/08/2017 11:35 AM CDT [facility] Blood BLOOD SPECIMEN / Unknown Lab Venipuncture / Unknown 11/08/2017 11:07 AM CDT 11/08/2017 11:12 AM CDT Starr JACKSON LAB - NURSING PROJECT COORDINATOR RY ORDERABLES Performing Organization Address [facility] Phone Number [facility] [address] * (ABNORMAL) ACETAMINOPHEN LEVEL (11/08/2017 11:07 AM CDT) Acetaminophen 1.1(L) 10.0 - 30.0 ug/mL 11/08/2017 11:35 AM CDT [facility] Blood BLOOD SPECIMEN / Unknown Lab Venipuncture / Unknown 11/08/2017 11:07 AM CDT 11/08/2017 11:12 AM CDT Narrative [facility] - 11/08/2017 11:35 AM CDT Significantly reduced Acetaminophen recovery has been demonstrated in situations where testing has been performed immediately after introduction of N- acetylcysteine (NAC). Starr JACKSON LAB - NURSING PROJECT COORDINATOR RY ORDERABLES Performing Organization Address [facility] Co de Phone Number [facility] [address] * DRUG ABUSE URINE SCREEN 10 [...] 10:45 AM CDT 11/08/2017 10:49 AM CDT [facility] - 11/08/2017 11:29 AM CDT [...] ng/mL Oxycodone............100 ng/mL Propoxyphene.....300 ng/mL Starr Mei DAIRY FEED SALES CONSULTANT-[facility] LAB - URINE C HEMISTRY ORDERABLES Performing Organization Address City/[facility]/ZIP Co de Phone Number [facility] [address] * AMB REFERRAL TO [facility] SCHEDULER (10/28/2017 12:03 PM CDT) Bhavana Chow DAIRY FEED SALES CONSULTANT-PROCTOLOGIST OUTPATIENT REFERRA LS * (ABNORMAL) URINE MICROSCOPIC [...] - 10/15/2017 9:49 AM CDT Bhavana Chow DAIRY FEED SALES CONSULTANT-[facility] LAB - URINALYSIS O RDERABLES [facility] [address] [place] [address], [facility] * RHEUMATOID ARTHRITIS PANEL (10/13/2017 3:52 PM CDT) Only the most recent of2 resultswithin the time period is included. Cyclic Citrullinated Peptide Antibody IgG 3 0 - 19 Units 10/16/2017 3:37 PM CDT [employer] ([facility]) Comment: INTERPRETIVE INFORMATION: Cyclic Citrullinated Peptide Antibody, [...] - 14 IU/mL 10/16/2017 3:37 PM CDT [employer] ([facility]) Comment: Performed by [employer], [address] [place] [address] [email or web address], Omer Guzman MD, Lab. Director Blood BLOOD SPECIMEN / Unknown Venipuncture / Unknown 10/13/2017 3:52 PM CDT 10/13/2017 5:20 PM CDT Bhavana JACKSON LAB - SEROLOGY ORD ERABLES [employer] ([facility]) [address] [place] [address] * XR KNEE 4+ VW RIGHT [id number] (08/04/2017 10:33 AM CDT) Anatomical Region Laterality [...] Danielle on 10/01/2016 9:27 AM Bhavana Chow DAIRY FEED SALES CONSULTANT-PROCTOLOGIST CT ORDERABLES * IRON + TRANSFERRIN PANEL (09/18/2016 10:31 AM CDT) Iron 78 50 - 170 ug/dL 09/18/2016 4:16 PM CDT [facility] Transferrin 294 180 - 382 mg/dL 09/18/2016 4:16 PM CDT [facility] TIBC Calculated 368 261 - 497 mg/dL 09/18/2016 4:16 PM CDT [facility] Iron Saturation % 21 11 - 45 % 09/18/2016 4:16 PM CDT [facility] Blood BLOOD SPECIMEN / Unknown Venipuncture / Unknown 09/18/2016 10:31 AM CDT 09/18/2016 10:31 AM CDT Bhavana Vieramarlen CHANDLER-PROCTOLOGIST LAB - CHEMISTRY OR DERABLES Performing Organization Address City/[facility] Co de Phone Number [facility] [address] * HGB HCT PANEL (04/30/2016 9:23 AM CDT) Only the most recent of2 resultswithin the time period is included. Pathologist [facility] Hemoglobin 12.4 11.2 - 15.7 gm/dL 04/30/2016 9:33 AM CDT [facility] Hematocrit 37.7 34.1 - 44.9 % 04/30/2016 9:33 AM CDT [facility] Blood BLOOD SPECIMEN / Unknown 04/30/2016 9:23 AM CDT 04/30/2016 9:27 AM CDT Lionel Bustillos MD LAB - HEMATOLOGY ORD ERABLES Performing Organization Address [facility] de Phone Number [facility] [address] * (ABNORMAL) MRSA + SA DNA PCR PANEL (04/30/2016 8:53 AM CDT) Pathologist [facility] MRSA DNA by PCR Positive(A ) Negative 04/30/2016 10:53 AM CDT [facility] Staph aureus PCR Positive(A ) Negative 04/30/2016 10:53 AM CDT [facility] Microbiology SPECIMEN FROM NASAL FOSSAE / Unknown 04/30/2016 8:53 AM CDT 04/30/2016 9:17 AM CDT Narrative [facility] - 04/30/2016 10:53 AM CDT Methicillin-resistant Staphylococcus aureus (MRSA) target DNA detected; Staphylococcus aureus (SA) target DNA detected. A positive test does not necessarily indicate the presence of viable organisms. It is however, presumptive for the presence of MRSA or SA. Marino Hicks MD LAB - MICROBIOLOGY O RDERABLES Performing Organization Address [facility] Co de Phone Number [facility] [address] * LFT (12/19/2015 10:21 AM CDT) Alkaline Phosphatase 74 40 - 150 U/L 12/19/2015 10:58 AM CDT [facility] ALT 11 5 - 55 U/L 12/19/2015 10:58 AM CDT [facility] AST 19 5 - 34 U/L 12/19/2015 10:58 AM CDT [facility] Protein Total 6.6 6.4 - 8.3 gm/dL 12/19/2015 10:58 AM CDT [facility] Albumin 3.5 3.5 - 5.0 gm/dL 12/19/2015 10:58 AM CDT [facility] Bilirubin Total 0.3 0.2 - 1.2 mg/dL 12/19/2015 10:58 AM CDT [facility] Bilirubin Direct 0.11 0 - 0.5 mg/dL 12/19/2015 10:58 AM CDT [facility] Albumin/Globulin Ratio 1.1 0.9 - 1.6 12/19/2015 10:58 AM CDT [facility] Globulin Total 3.1 2.6 - 4.0 gm/dL 12/19/2015 10:58 AM CDT [facility] Bilirubin Indirect 0.2 0.2 - 0.9 mg/dL 12/19/2015 10:58 AM CDT [facility] Blood BLOOD SPECIMEN / Unknown Venipuncture / Unknown 12/19/2015 10:21 AM CDT 12/19/2015 10:27 AM CDT Yuliana Atkins DAIRY FEED SALES CONSULTANT-PROCTOLOGIST LAB - CHEMISTRY OR DERABLES Performing Organization Address City/State/[facility] de Phone Number [facility] [address] * (ABNORMAL) CEA BLOOD (09/25/2015 11:51 AM CDT) Only the most recent of2 resultswithin the time period is included. Pathologist [facility] CEA 7.3(H) 0.0 - 5.0 ng/mL 09/25/2015 6:22 PM CDT [facility] Blood BLOOD SPECIMEN / Unknown Venipuncture / Unknown 09/25/2015 11:51 AM CDT 09/25/2015 11:58 AM CDT Narrative [facility] - 09/25/2015 6:22 PM CDT CEA BLOOD COMMENT The methodology used for the determination of CEA is Melara Russian Teacher Chemiluminescent Microparticle Immunoassay (AVILA). Values obtained with other methods can not be used interchangeably. Marino Hicks MD LAB - CHEMISTRY RENUKA RED [facility] Organization Address City/State/ZIP Co de Phone Number [facility] [facility] [address] * DEXA BONE DENSITY [id number] (06/21/2015 2:57 PM CDT) Anatomical Region Laterality [...] * VANCOMYCIN LEVEL RANDOM (04/11/2015 8:04 AM CLOUD INFRASTRUCTURE ARCHITECT) Vancomycin Random 11.7 5.0 - 40.0 ug/mL 04/11/2015 8:48 AM CLOUD INFRASTRUCTURE ARCHITECT [facility] Blood BLOOD SPECIMEN / Unknown 04/11/2015 8:04 AM CLOUD INFRASTRUCTURE ARCHITECT 04/11/2015 8:09 AM CLOUD INFRASTRUCTURE ARCHITECT Aliyah Phelps MD LAB - CHEMISTRY RENUKA RED Performing Organization Address [facility] Phone Number [facility] [address] * (ABNORMAL) VANCOMYCIN LEVEL TROUGH (04/10/2015 9:54 PM CLOUD INFRASTRUCTURE ARCHITECT) [facility] Vancomycin Trough 20.6(HH) 10.0 - 20.0 ug/mL 04/10/2015 10:49 PM CLOUD INFRASTRUCTURE ARCHITECT [facility] Blood BLOOD SPECIMEN / Unknown Lab Venipuncture / Unknown 04/10/2015 9:54 PM CLOUD INFRASTRUCTURE ARCHITECT 04/10/2015 9:58 PM CLOUD INFRASTRUCTURE ARCHITECT Narrative [facility] - 04/10/2015 10:49 PM CLOUD INFRASTRUCTURE ARCHITECT Trough levels correlate better with efficacy than peak levels, with therapeutic target trough levels of 10 ug/mL to 20 ug/mL, depending on the type of infection. For complicated infection, higher trough level (15-20 ug/mL) may be desired. Toxicity does not correlate well with serum concentrations. Aliyah Phelps MD LAB - CHEMISTRY RENUKA RED Performing Organization Address [facility] Phone Number [facility] [address] * (ABNORMAL) CBC W MANUAL DIFFERENTIAL (03/28/2015 5:09 AM CLOUD INFRASTRUCTURE ARCHITECT) [facility] WBC 10.4(H) 4.0 - 10.0 x10^9/L 03/28/2015 6:20 AM CLOUD INFRASTRUCTURE ARCHITECT [facility] RBC 3.38(L) 3.93 - 5.22 x10^12/L 03/28/2015 6:20 AM CLOUD INFRASTRUCTURE ARCHITECT AM LABORATORY Hemoglobin 9.9(L) 11.2 - 15.7 gm/dL 03/28/2015 6:20 AM [facility] Hematocrit 30.9(L) 34.1 - 44.9 % 03/28/2015 6:20 AM CLOUD INFRASTRUCTURE ARCHITECT [facility] MCV 91.4 78.0 - 100.0 fl 03/28/2015 6:20 AM [facility] MCH 29.3 25.6 - 34.0 pg 03/28/2015 6:20 AM [facility] MCHC 32.0(L) 32.3 - 36.5 gm/dL 03/28/2015 6:20 AM [facility] RDW 14.7(H) 11.6 - 14.4 % 03/28/2015 6:20 AM [facility] MPV 12.1 9.4 - 12.4 fl 03/28/2015 6:20 AM [facility] Platelet Count 171 163 - 369 x10^9/L 03/28/2015 6:20 AM [facility] Blood BLOOD SPECIMEN / Unknown Line Draw / Unknown 03/28/2015 5:09 AM CLOUD INFRASTRUCTURE ARCHITECT 03/28/2015 5:48 AM CLOUD INFRASTRUCTURE ARCHITECT Marino Hicks MD LAB - HEMATOLOGY ORD ERABLES Performing Organization Address City/[facility]/ZIP Co de Phone Number [facility] [address] * TYPE + SCREEN PANEL (03/23/2015 11:24 AM CLOUD INFRASTRUCTURE ARCHITECT) Only the most recent of2 resultswithin the time period is included. ABO A 03/23/2015 12:36 PM [facility] Rh Type Positive 03/23/2015 12:36 PM [facility] Antibody Screen Negative 03/23/2015 12:36 PM [facility] Miscellaneous samples (specimen) BLOOD SPECIMEN / Unknown 03/23/2015 11:24 AM CLOUD INFRASTRUCTURE ARCHITECT 03/23/2015 11:35 AM CLOUD INFRASTRUCTURE ARCHITECT Shakeel Li MD LAB - BLOOD BANK ORD ERABLES Performing Organization Address [facility]/ZIP Co de Phone Number [facility] [address] * XR ABDOMEN KUB [id number] (03/09/2015 9:40 AM CLOUD INFRASTRUCTURE ARCHITECT) Anatomical Region Laterality Modality Abdomen Radio Fluoroscop y 03/09/2015 12:3 5 PM CLOUD INFRASTRUCTURE ARCHITECT Impressions 03/09/2015 3:47 PM CLOUD INFRASTRUCTURE ARCHITECT 1. Moderate stool in the right hemicolon [...] time of examination. Narrative 03/09/2015 3:47 PM CLOUD INFRASTRUCTURE ARCHITECT KUB: (03/09/2015) HISTORY: Colon carcinoma. COMPARISON: 02/07/2015 [...] with Dr. Hicks at time of examination. Mraino Hicks MD DIAGNOSTIC IMAGING O RDERABLES * NM MYOCARD PERFUSION SPECT STRESS AND REST (03/08/2015 1:07 PM CLOUD INFRASTRUCTURE ARCHITECT) Anatomical Region Laterality Modality Chest Nuclear Medicine 03/08/2015 1:36 PM CLOUD INFRASTRUCTURE ARCHITECT Impressions 03/08/2015 2:06 PM CLOUD INFRASTRUCTURE ARCHITECT No areas of myocardial ischemia or myocardial infarction identified. Calculated LVEF of 48% with akinesia at the septum and mild inferior wall hypokinesia noted. Narrative 03/08/2015 2:06 PM CLOUD INFRASTRUCTURE ARCHITECT GATED STRESS/REST SPECT MYOCARDIAL PERFUSION SCAN WITH [...] mild inferior wall hypokinesia noted. Yuliana Atkins DAIRY FEED SALES CONSULTANT-PROCTOLOGIST NM ORDERABLES * STRESS TEST LEXISCAN (NUCLEAR) (03/08/2015 12:02 PM CLOUD INFRASTRUCTURE ARCHITECT) Stress Test Summary For full formatted report, [...] TO FOLLOW Confirmed by BRETT MOBLEY MD ([id number]) on 03/09/2015 12:33:22 PM Attending Physician: BRETT MOBLEY MD Referred By: Vira CHOW Overread By: BRETT MOBLEY MD [facility] STRESS 03/08/2015 12:0 2 PM CLOUD INFRASTRUCTURE ARCHITECT 03/09/2015 12:33 PM CLOUD INFRASTRUCTURE ARCHITECT Yuliana Atkins DAIRY FEED SALES CONSULTANT-PROCTOLOGIST CARDIAC SERVICES O RDERABLES [facility] STRESS * CBC W/O DIFFERENTIAL (02/12/2015 9:47 AM CLOUD INFRASTRUCTURE ARCHITECT) Only the most recent of3 resultswithin the time period is included. WBC 6.2 4.0 - 10.0 x10^9/L 02/12/2015 10:05 AM [facility] RBC 4.14 3.93 - 5.22 x10^12/L 02/12/2015 10:05 AM [facility] Hemoglobin 12.4 11.2 - 15.7 gm/dL 02/12/2015 10:05 AM [facility] Hematocrit 37.0 34.1 - 44.9 % 02/12/2015 10:05 AM [facility] MCV 89.4 78.0 - 100.0 fl 02/12/2015 10:05 AM [facility] MCH 30.0 25.6 - 34.0 pg 02/12/2015 10:05 AM [facility] MCHC 33.5 32.3 - 36.5 gm/dL 02/12/2015 10:05 AM [facility] RDW 14.1 11.6 - 14.4 % 02/12/2015 10:05 AM [facility] MPV 11.0 9.4 - 12.4 fl 02/12/2015 10:05 AM [facility] Platelet Count 183 163 - 369 x10^9/L 02/12/2015 10:05 AM CLOUD INFRASTRUCTURE ARCHITECT [facility] Blood BLOOD SPECIMEN / Unknown Venipuncture / Unknown 02/12/2015 9:47 AM CLOUD INFRASTRUCTURE ARCHITECT 02/12/2015 9:52 AM CLOUD INFRASTRUCTURE ARCHITECT Emilia Castro MD LAB - HEMATOLOGY ORD ERABLES [facility] [address] * BLOOD TYPE VERIFICATION (02/07/2015 1:43 PM CLOUD INFRASTRUCTURE ARCHITECT) ABO A 02/07/2015 8:59 PM CLOUD INFRASTRUCTURE ARCHITECT [facility] Rh Type Positive 02/07/2015 8:59 PM CLOUD INFRASTRUCTURE ARCHITECT [facility] Miscellaneous samples (specimen) BLOOD SPECIMEN / Unknown 02/07/2015 1:43 PM CLOUD INFRASTRUCTURE ARCHITECT 02/07/2015 7:57 PM CLOUD INFRASTRUCTURE ARCHITECT Jordon Mcdermott MD LAB - BLOOD BANK OR DERABLES Performing Organization Address [facility]/ZIP Co de Phone Number [facility]OD B[facility] [address] * (ABNORMAL) OCCULT BLOOD FECES - POINT OF CARE (IP) ILL (02/07/2015 1:05 PM CLOUD INFRASTRUCTURE ARCHITECT) Occult Blood Positive(A ) Negative [facility] QC Verified Yes Yes [facility] POC T TESTING Card Exp Date 04/2015 Yes [facility] P OCT TESTING Lot # [id number] [facility] Stool specimen (specimen) STOOL SPECIMEN / Unknown 02/07/2015 1:05 PM CLOUD INFRASTRUCTURE ARCHITECT Shanna Vera DAIRY FEED SALES CONSULTANT-PROCTOLOGIST LAB - POINT OF CARE ORDERABLES [facility] [address] * SED RATE ARGENIS (11/21/2014 9:00 AM CDT) Only the most recent of2 resultswithin the time period is included. Erythrocyte Sedimentation Rate Argenis 26 0 - 30 mm/hr 11/21/2014 11:33 AM CDT [facility] Blood BLOOD SPECIMEN / Unknown Venipuncture / Unknown 11/21/2014 9:00 AM CDT 11/21/2014 9:00 AM CDT Bhavana Chow DAIRY FEED SALES CONSULTANT-PROCTOLOGIST LAB - HEMATOLOGY O RDERABLES [facility] [address] * XR ANKLE 3+ VW RIGHT [id number] (11/03/2014 3:30 PM CDT) Anatomical Region Laterality [...] evidence of bilateral leg DVT. Bhavana Chow DAIRY FEED SALES CONSULTANT-PROCTOLOGIST VASCULAR LAB ORDER JOVANNY * HELICOBACTER PYLORI UREASE (12/22/2013 9:33 AM CLOUD INFRASTRUCTURE ARCHITECT) Helicobacter pylori Urease Final Negative Negative 12/23/2013 11:06 AM CLOUD INFRASTRUCTURE ARCHITECT AM LABORATORY Microbiology GASTRIC BIOPSY SPECIMEN / Unknown 12/22/2013 9:33 AM CLOUD INFRASTRUCTURE ARCHITECT 12/23/2013 11:03 AM CLOUD INFRASTRUCTURE ARCHITECT Dago Stockton MD LAB - MICROBIOLOGY O RDERABLES Performing Organization Address [facility] Co de Phone Number [facility] [address] * (ABNORMAL) ISTAT POTASSIUM TU (12/22/2013 9:16 AM CLOUD INFRASTRUCTURE ARCHITECT) [facility] Signature Potassium POCT 3.5(L) 3.6 - 5.0 mmol/L 12/22/2013 9:26 AM CLOUD INFRASTRUCTURE ARCHITECT [facility] Sample iSTAT VENOUS 12/22/2013 9:26 AM CLOUD INFRASTRUCTURE ARCHITECT [facility] CPB iSTAT No 12/22/2013 9:26 AM CLOUD INFRASTRUCTURE ARCHITECT [facility] Blood BLOOD SPECIMEN / Unknown 12/22/2013 9:16 AM CLOUD INFRASTRUCTURE ARCHITECT 12/22/2013 9:26 AM CLOUD INFRASTRUCTURE ARCHITECT Dago Stockton MD LAB - POINT OF CARE ORDERABLES Performing Organization Address [facility] de Phone Number [facility] [address] * LA ELECTROCARDIOGRAM, COMPLETE (12/14/2013) Brett Mobley MD [place] - PROFESSIONAL SE RVICES * MRI ABDOMEN [...] fasting recommended. Previous hysterectomy. Bhavana Esteban Chow DAIRY FEED SALES CONSULTANT-PROCTOLOGIST CT ORDERABLES * (ABNORMAL) CREATININE BLOOD (11/08/2013 [...] 11/08/2013 9:17 AM CDT Bhavana Esteban Chow DAIRY FEED SALES CONSULTANT-PROCTOLOGIST LAB - CHEMISTRY OR DERABLES Performing Organization Address [facility] Co de Phone Number AM LABORATORY [address] * (ABNORMAL) BUN (11/08/2013 8:49 AM CDT) BUN 26.7(H) 9.8 - 20.1 mg/dL 11/08/2013 9:44 AM CDT [facility] Blood BLOOD SPECIMEN / Unknown Venipuncture / Unknown 11/08/2013 8:49 AM CDT 11/08/2013 9:17 AM CDT Bhavana Chow DAIRY FEED SALES CONSULTANT-PROCTOLOGIST LAB - CHEMISTRY OR DERABLES Performing Organization Address [facility] de Phone Number [facility] [address] * HCG URINE QUALITATIVE - POCT (IP) BEREDDY - LUIS MANUEL (09/06/2013 12:13 AM CDT) HCG Qual Urine Negative Negative [facility] Lot # [id number] [facility] Expiration Date [facility] QC Verified Yes [facility] POC T TESTING Urine specimen (specimen) URINE / Unknown 09/06/2013 12:13 AM CDT Yang Ortega DO LAB - POINT OF CARE ORDERABLES Performing Organization Address City/[facility]/ZIP Co de Phone Number [facility] POCT TEST[facility] [address] [place] [address], [facility] * CULTURE URINE (05/03/2013 3:05 PM CDT) [...] the organisms without excessive growth in transport. [facility] recommends the use of the urine culture transport device (available from your professional services sales representative business courses) for clean catch urine specimens. Urine specimen (specimen) URINE SPECIMEN OBTAINED BY CLEAN CATCH PROCEDURE / Unknown 05/03/2013 3:05 PM CDT 05/04/2013 1:54 AM CDT Narrative Resulting Agency Comment [address] [phone] Sharonda Lambert PA-C LAB - MICROBIOLOGY ORDERABLES [facility] INSURANCE BILL * (ABNORMAL) URINALYSIS AUTO - POINT OF CARE (AMB) SMGS (05/03/2013 3:00 PM CDT) Clarity UA POCT Color UA POCT Glucose UA Negative Negative Bilirubin UA POCT Negative Negative Ketone UA Negative Negative Specific Barco UA POCT 1.015 1.002 - 1.030 Blood [...] - 816 pg/mL 12/01/2012 12:51 PM CDT [facility] Folate 19.7 7.0 - 31.4 ng/mL 12/01/2012 12:51 PM CDT [facility] Blood BLOOD SPECIMEN / Unknown Venipuncture / Unknown 12/01/2012 11:38 AM CDT 12/01/2012 11:45 AM CDT Shalonda Oliva MD LAB - CHEMISTRY OR DERABLES [facility] [address] * VITAMIN B1 (12/01/2012 11:37 AM CDT) Vitamin B1 Whole Blood 84 70 - 180 nmol/L 12/05/2012 10:54 PM CDT [employer] Comment: INTERPRETIVE INFORMATION: Vitamin B1, Whole Blood The concentration of thiamine diphosphate (TDP), the primary active form of vitamin B1, is measured in this assay. Approximately 90% of vitamin B1 present in whole blood is TDP. Thiamine and thiamine monophosphate, which comprise the remaining 10%, are not measured. Test developed and characteristics determined by [employer]. See Compliance Statement B: [email or web address] Blood specimen (specimen) BLOOD SPECIMEN / Unknown Venipuncture / Unknown 12/01/2012 11:37 AM CDT 12/01/2012 11:45 AM CDT Shalonda Oliva MD LAB - CHEMISTRY OR DERABLES Performing Organization Address [facility]/ZIP Co de Phone Number [employer] [address] [place] [address] * RPR (12/01/2012 11:35 AM CDT) Pathologist [facility] RPR Nonreactive Nonreactive 12/03/2012 10:52 AM CDT [facility] Blood BLOOD SPECIMEN / Unknown Venipuncture / Unknown 12/01/2012 11:35 AM CDT 12/01/2012 11:45 AM CDT Shalonda Olvia MD LAB - CHEMISTRY OR DERABLES Performing Organization Address [facility] Co de Phone Number [facility] [address] * BALA BLOOD SCREEN W/REFLEX TITER (12/01/2012 11:35 AM CDT) [facility] BALA IgG None Detected None Detected 12/03/2012 11:23 PM CDT [facility] Tray Comment: No antibodies to Anti-Nuclear Antibodies (BALA) [...] SS-A (Ro), SS-B (La), Pereira, snRNP/Sm, Scl-70, Eloina-1, centromere, and an extract of lysed HEp-2 cells. BALA QUINTON assays have been reported to have lower sensitivities for antibodies associated with nucleolar and speckled BALA-IFA patterns. Blood specimen (specimen) BLOOD SPECIMEN / Unknown Venipuncture / Unknown 12/01/2012 11:35 AM CDT 12/01/2012 11:45 AM CDT Shalonda Oliva MD LAB - CHEMISTRY OR DERABLES Performing Organization Address [facility] Co de Phone Number [employer] [address] [place] [address] * (ABNORMAL) URINALYSIS MICROSCOPIC ONLY REFLEXED (PO [...] 1:20 AM CDT Narrative Resulting Agency Comment [employer] [phone] Sharonda Lambert PA-C LAB - URINALYSIS O RDERABLES Performing Organization Address [facility] de Phone Number [facility] INSURANCE BILL * (ABNORMAL) URIC ACID BLOOD (06/28/2012 3:11 PM CDT) Uric Acid 7.9(H) 2.5 - 7.1 mg/dL [facility] INSURANCE BILL Comment:Therapeutic target f or gout patients: <6.0 Blood specimen (specimen) BLOOD SPECIMEN / Unknown 06/28/2012 3:11 PM CDT 06/29/2012 1:20 AM CDT Narrative Resulting Agency Comment [address] [phone] Sharonda SELLERSC LAB - CHEMISTRY OR DERABLES [...] AM CDT Narrative Resulting Agency Comment [facility] [address] [phone] Sharonda Lambert PA-C LAB - CHEMISTRY OR DERABLES [facility] INSURANCE BILL Care Teams Rn Social Work Relationship Specialty Start Date End Date Rachel Manzanares, RAMESH-PROCTOLOGIST PCP - General Nurse Practitioner Family 12/03/20 Dago Stockton MD General Surgery 08/25/18
--- OUTSIDE RECORDS SUMMARY | 2024-04-06 18:20 | XMS_ITS | Encounter Summary ---
Author Organization [facility] Healthcare Address [address] [place] [address] Care Team Providers Care Film Processing Supervisor Name Role Phone Ross Pope MD, Louis Unavailable +- [phone] Serjio Rangel MD Unavailable Mariza Johnson Primary Care Provider + Encounter Details Date Type Department Care Team (Late st Contact Info) Description 04/06/2024 Orders Only [facility] Pulmonology [address] [facility] [address] [place] [address] María Kohler NP [address] [facility] [address] [place] [address] Social History Tobacco Use Types [...] on file Legal Sex Female 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 AM TRAFFIC II MANAGER Gender Identity Female 09/02/2020 9:33 PM CDT [...] Discontinue Reason Start Date End Da te [id number] lanter (Trelegy Ellipta) 100-62.5-25 mcg inhaler Inhale 1 puff daily Reorder 04/05/202403/19 documented as of this encounter Care Teams Film Processing Supervisor Relationship Specialty Start Date End Date Mariza Johnson PA [address] [address] PCP - General Family Medicine 04/11/23 [place] [address] [place] [address] [phone] Medical Oncologist/Hematologis t Medical Oncology 03/12/21 [place] [address] [place] [address] [id number] Consulting Physician Cardiovascular Disease 10/09/21 documented as of this encounter
--- OUTSIDE RECORDS SUMMARY | 2024-04-06 18:20 | XMS_ITS | Encounter Summary ---
Author Organization [facility] Address [address] [facility] [place] [address] Care Team Providers Care Section Beamer Name Role Phone Cindy Newman AVIONICS INTEGRATION ENGINEER[facility] Primary Care Provi fe Dago Stockton MD Unavailable [phone] Herb Bansal MD Primary Care Provider [phone] Rachel Manzanares AVIONICS INTEGRATION ENGINEER-FLOOR REPRESENTATIVE Primary Care Provider + Reason for Visit * Reason Onset Date Comments General 12/08/2018 Encounter Details Date Type Department Care Team (Late st Contact Info) Description 12/08/2018 Telephone [facility] [address] [place] [address] Cindy Newman, AVIONICS INTEGRATION ENGINEER-FLOOR REPRESENTATIVE [address] [place] [address] General Social History Tobacco Use [...] pt and she is now living in [place] has same phone of [phone] documented in this encounter Plan of Treatment [...] documented as of this encounter Care Teams Section Beamer Relationship Specialty Start Date End Date Cindy Newman APRN-CNP PCP - General 08/16/18 09/26/19 Herb Bansal MD [address] [place] [address] PCP - General Family Medicine 09/27/19 12/02/20 Rachel Manzanares APRN-CNP [address] [place] [address] PCP - General Nurse Practitioner Family 12/03/20 Dago Stockton MD General Surgery 08/25/18 documented as of this encounter
--- OUTSIDE RECORDS SUMMARY | 2024-04-06 18:20 | XMS_ITS | Encounter Summary ---
Author Organization [facility] Health Address [address] [facility] [place] [address] Care Team Providers Care Fishing Reel Assembler Name Role Phone Dago Stockton MD Unavailable [phone] Rachel Manzanares APRN-SEISMOGRAPH HELPER Primary Care Provider + Encounter Details Date Type Department Care Team (Late st Contact Info) Description 12/31/2020 Plan of Care [facility] [address] [place] [address] Document, Scanned Social History Tobacco Use Types [...] documented as of this encounter Care Teams Fishing Reel Assembler Relationship Specialty Start Date End Date Rachel Manzanares APRN-SEISMOGRAPH HELPER PCP - General Nurse Practitioner Family 12/03/20 Dago Stockton MD General Surgery 08/25/18 documented as of this encounter
--- OUTSIDE RECORDS SUMMARY | 2024-04-06 18:20 | XMS_ITS | Encounter Summary ---
Author Organization [facility] Address [address] [place] [address] Phone Care Team Providers Care Wholesale Diamond Broker Name Role Phone Ross Pope MD, Louis Unavailable [phone] Serjio Rangel MD Unavailable Mariza Johnson Primary Care Provider + Encounter Details Date Type Department Care Team (Late st Contact Info) Description 03/04/2024 Telephone [facility] Gastroenterology [address] [facility] [address] [place] [address] [place] [address] Antonio Ray Social History Tobacco [...] on file 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 Gender Identity Female 09/02/2020 9:33 PM CDT Sexual Orientation Not on file documented as of this encounter Plan of Treatment Not on file documented as of this encounter Visit Diagnoses Not on filedocumented in this encounter Care Teams Wholesale Diamond Broker Relationship Specialty Start Date End Date Mariza Johnson PA [address] [facility] [address] [facility] [address] [place] [address] PCP - General Family Medicine 04/11/23 Louis Hawkins Jr., MD [address] [facility] [address] [address] Medical Oncologist/Hematologis t Medical Oncology 03/12/21 Serjio Rangel MD [address] [facility] [address] [address] Consulting Physician Cardiovascular Disease 10/09/21 documented as of this encounter
--- OUTSIDE RECORDS SUMMARY | 2024-04-06 18:20 | XMS_ITS | Encounter Summary ---
Author Organization [facility] Healthcare Address [address] [place] [address] Care Team Providers Care Drum Sander Offbearer Name Role Phone Ross Pope MD, Louis Unavailable [phone] Serjio Rangel MD Unavailable Mariza Johnson Primary Care Provider + Reason for Referral * Procedure (Routine) - Authorized Specialty Diagnoses / Procedures Referred By Contac t Referred To Contact Diagnoses Chronic obstructive pulmonary disease, unspecified COPD type (HCC) Obstructive sleep apnea Restrictive lung disease Cigarette nicotine dependence in remission BMI 45.0-49.9, adult (HCC) Procedures Pulmonary Function Test -[facility]; Full PFT in PFT Lab w/Stress Ox/6 Min [place] Test [place]ía [place] [address] [place] [address] Phone: tel: fax: Referral ID Status Reason Start Date Expiration Date V isits Requested Visits Authorized [id number] Authorized 04/05/2024 05/05/2025 1 1 RER/KEY MAN Reason for Visit * Reason Comments Follow-up Encounter Details Date Type Department Care Team (Late st Contact Info) Description 04/05/2024 11:00 AM LABORER/KEY MAN Office Visit [facility] Pulmonology [address] [place] [phone] Edita María, LISETTE [address] [facility] [address] [place] [address] Chronic obstructive pulmonary disease, unspecified COPD type [...] on file Legal Sex Female 5:21 AM LABORER/KEY MAN Gender Identity Female 09/02/2020 9:33 PM CDT Sexual Orientation Not on file documented as of this encounter Last Filed Vital Signs Vital Sign Reading Time Taken Comments Blood Pressure 127/72 04/05/2024 11:21 AM LABORER/KEY MAN Pulse 78 04/05/2024 11:21 AM LABORER/KEY MAN Temperature 35.6 C (96.1 F) 04/05/2024 11:21 AM LABORER/KEY MAN Respiratory Rate 18 04/05/2024 11:21 AM LABORER/KEY MAN Oxygen Saturation 96% 04/05/2024 11:21 AM LABORER/KEY MAN Inhaled Oxygen Concentration - - Weight 125.2 kg (276 lb) 04/05/2024 11:21 AM LABORER/KEY MAN Height 162.6 cm (5' 4 ) 04/05/2024 11:21 AM LABORER/KEY MAN Body Mass Index 47.38 04/05/2024 11:21 AM LABORER/KEY MAN documented in this encounter Ordered Prescriptions Prescription [...] a few days ago. She lives at [facility]. She reports staff at [facility] give her Trelegy Ellipta intermittently. She reports [...] Chronic obstructive pulmonary disease, unspecified COPD type ([facility]) (Primary) - Pulmonary Function Test -[facility]; Full PFT in PFT Lab w/Stress Ox/6 Min WalkTest; Future Obstructive sleep apnea - Pulmonary Function Test -[facility]; Full PFT in PFT Lab w/Stress Ox/6 Min WalkTest; Future Restrictive lung disease - Pulmonary Function Test -[facility]; Full PFT in PFT Lab w/Stress Ox/6 Min WalkTest; Future Allergic rhinitis, unspecified seasonality, unspecified trigger Restless legs History of CVA (cerebrovascular accident) History of colon cancer History of renal cell carcinoma History of ovarian cancer Cigarette nicotine dependence in remission - Pulmonary Function Test -[facility]; Full PFT in PFT Lab w/Stress Ox/6 Min WalkTest; Future BMI 45.0-49.9, adult ([facility]) - Pulmonary Function Test -[facility]; Full PFT in PFT Lab w/Stress Ox/6 [...] (six) hours as needed for wheezing - dylkdhgpzca-hdfmwqoza-jlmerelh (Trelegy Ellipta) 100-62.5-25 mcg inhaler; Inhale 1 [...] she is going to ask staff at [facility] to leave Trelegy Ellipta inhaler in her [...] CREATED IN PART WITH THE ASSISTANCE OF [employer]ICE [employer] SOFTWARE. NORMALIZER VARIANCES MAY OCCUR. For patients or family members viewing this note through [employer]-- this note was written as a communication [...] Zuleika Zabala MD at 04/05/2024 3:19 PM LABORER/KEY MAN RER/KEY MAN RER/KEY MAN documented in this encounter Plan of Treatment Scheduled Orders Name Type Priority Associated Diagnoses Orde r Schedule Pulmonary Function Test -[facility]; Full PFT in PFT Lab w/Stress Ox/6 [...] Discontinue Reason Start Date End Da te stcidrgdwfo-wmzvuszoo-m ilanter (Trelegy Ellipta) 100-62.5-25 mcg inhaler Inhale [...] documented as of this encounter Care Teams Drum Sander Offbearer Relationship Specialty Start Date End Date Mariza [place] [address] [address] PCP - General Family Medicine 04/11/23 Louis Hawkins Jr., MD [address] [place] [address] [phone] Medical Oncologist/Hematologis t Medical Oncology 03/12/21 Serjio Rangel MD [address] [place] [address] [phone] Consulting Physician Cardiovascular Disease 10/09/21 documented as of this encounter
[2024-04-06 18:29] LABS: Basophils Percent Auto 0.6 % (0.2-1.2); Eosinophils Absolute Auto 0.2 K/mm3 (0-0.3); Eosinophils Percent Auto 2.4 % (0-4.4); Hematocrit 36.5 % (37.0-47.0); Hemoglobin 11.8 g/dL (12.0-15.0); Immature Granulocyte Absolute 0.03 K/mm3 (0.00-0.031); Immature Granulocyte Percent A 0.4 % (0-0.5); Lymphocytes Absolute Auto 1.63 K/mm3 (0.9-3.2); Lymphocytes Percent Auto 24.4 % (18.3-44.2); Mean Corpuscular HGB Conc 32.3 g/dl (32-36); Mean Corpuscular Hemoglobin 30.7 pg (26-34); Mean Corpuscular Volume 95.1 fl (80-100); Mean Platelet Volume 10.4 fl (7.4-10.4); Monocytes Absolute Auto 0.5 K/mm3 (0.1-0.6); Monocytes Percent Auto 7.9 % (2.6-8.5); Neutrophils Absolute Auto 4.3 K/mm3 (1.3-6.7); Neutrophils Percent Auto 64.3 % (45.5-73.1); Platelet Count Result 156 k/mm3 (150-375); Red Blood Count 3.84 M/mm3 (4.2-5.4); Red Cell Distribution Width 15.2 % (11.5-14.5); White Blood Count 6.7 K/mm3 (4.5-10.0)
[2024-04-06 18:44] VITALS: BP 177/85; PULSE 70; RESP 18; O2SAT 97
[2024-04-06 18:46] VITALS: BP 169/85; BP 181/93; PULSE 72; PULSE 73
[2024-04-06 18:46] LABS: Alanine Aminotransferase 25 U/L (6-35); Albumin Level 4.2 g/dL (3.5-5.1); Alkaline Phosphatase 87 U/L (38-126); Anion Gap 12 mmol/L (4-12); Aspartate Amino Transferase 26 U/L (14-36); Bilirubin,Total 0.4 mg/dL (0.2-1.3); Blood Urea Nitrogen 23 mg/dL (7-17); Calcium 10.5 mg/dL (8.4-10.2); Carbon Dioxide 26 mmol/L (22-30); Chloride 101 mmol/L (98-107); Estimated CRCL calculation 68 ml/min; Estimated Glomerular Filt Rate > 60; Glucose 128 mg/dL (65-110); Potassium 4.4 mmol/L (3.4-5.0); Sodium 139 mmol/L (137-145)
[2024-04-06 18:47] VITALS: BP 177/85; PULSE 82
[2024-04-06 18:57] LABS: Troponin I < 0.012 ng/mL (0.000-0.034)
--- NOTE | 2024-04-06 20:00 | PC.NURSE ---
Attempted to call report to [facility]. No answer.
== END 2024-04-06 20:18 ==
PROVIDERS: Physician Assistant; Emergency Provider Emergency Medicine
DX: T14.8XXA Other injury of unspecified body region, initial encounter (principal); K86.2 Cyst of pancreas; I25.10 Atherosclerotic heart disease of native coronary artery without angina pectoris; I25.2 Old myocardial infarction; I11.0 Hypertensive heart disease with heart failure; I50.22 Chronic systolic (congestive) heart failure; K21.9 Gastro-esophageal reflux disease without esophagitis; F20.9 Schizophrenia, unspecified; Z95.5 Presence of coronary angioplasty implant and graft; Z95.0 Presence of cardiac pacemaker; Z87.891 Personal history of nicotine dependence; Z79.02 Long term (current) use of antithrombotics/antiplatelets; Z79.899 Other long term (current) drug therapy; Z79.82 Long term (current) use of aspirin; M16.0 Bilateral primary osteoarthritis of hip; R90.82 White matter disease, unspecified; M47.812 Spondylosis without myelopathy or radiculopathy, cervical region; M47.816 Spondylosis without myelopathy or radiculopathy, lumbar region; W18.30XA Fall on same level, unspecified, initial encounter
CPT/HCPCS: 36415; 70450; 71046; 72125; 72131; 73521; 80053; 84484; 85025; 93005; 99284